=== PATIENT | male | born 1960 | race Caucasian/White ===

== ENCOUNTER 2024-06-03 05:14 | Outpatient (REF) | payer MEDICARE, SELFPAY ==
[2024-06-03 05:20] LABS: MANUAL DIFF FLAG NO
[2024-06-03 05:32] LABS: Basophils Percent Auto 0.2 % (0-2); Eosinophils Absolute Auto 0.1 X10*3/uL (0.0-0.4); Eosinophils Percent Auto 1.3 % (0-4); Hematocrit 39.5 % (42.0-52.0); Hemoglobin 13.6 g/dl (14.0-18.0); Imm Gran Abs Auto 0.08 X10*3/uL (0.00-0.03); Imm Gran Pct Auto 0.8 % (0.0-0.4); Lymphocytes Absolute Auto 1.1 X10*3/uL (1.2-4.9); Lymphocytes Percent Auto 10.8 % (20-40); Mean Corpuscular HGB Conc 34.4 g/dl (31.0-36.0); Mean Platelet Volume 8.9 fL (9.4-12.4); Monocytes Absolute Auto 0.8 X10*3/uL (0.1-1.2); Monocytes Percent Auto 7.8 % (2-11); Neutrophils Absolute Auto 8.1 x10*3/uL (2.0-8.3); Neutrophils Percent Auto 79.1 % (45-73); Platelet Count 176 X10*3/uL (160-400); Red Blood Count 4.39 X10*6/uL (4.60-5.80); White Blood Count 10.2 X10*3/uL (4.8-10.8)
[2024-06-03 05:53] LABS: Alanine Aminotransferase 31 U/L (0-40); Alkaline Phosphatase 76 U/L (39-117); Anion Gap 11 (12-20); Aspartate Amino Transferase 17 U/L (5-37); Bilirubin Total 0.4 mg/dL (0.0-1.0); Blood Urea Nitrogen 15 mg/dL (9-16); Calcium 8.9 mg/dL (8.4-10.2); Carbon Dioxide 29 mmol/L (22-29); Chloride 106 mmol/L (96-108); Estimated Glomerular Filt Rate > 60; Glucose Random 80 mg/dL (60-115); Potassium 4.2 mmol/L (3.3-5.1); Sodium 142 mmol/L (135-145); Total Protein 5.2 g/dL (6.5-8.0)
== END 2024-06-03 05:15 | disposition home or self-care (01) ==
LOC: HO.MMNH1L 05:14
PROVIDERS: Visit Provider Nurse Practitioner
DX: J44.9 Chronic obstructive pulmonary disease, unspecified (principal); J45.909 Unspecified asthma, uncomplicated
CPT/HCPCS: 36415; 80053; 85025

== ENCOUNTER 2024-06-07 06:20 | Outpatient (REF) | payer MEDICARE, SELFPAY ==
[2024-06-07 06:04] LABS: MANUAL DIFF FLAG NO
--- OUTSIDE RECORDS SUMMARY | 2024-06-07 06:33 | XMS_ITS | Continuity of Care Document ---
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 - Active VIOXX 25MGTABLET Take one tablet by mouth as needed. - Active Advance Directives Directive Yes / No Effective Date File Name No Information Encounters Encounter Description Practice Location Reason(s) For Visit Diagnoses Date Provider Providers Copied on Encounter [facility], [address], [place], [place], [id number], [place] tel:[phone] No Information No Information [facility], [address], [place], [place], [id number], [place] tel:[phone] [facility] RADICULITIS, BACK/LOWER LIMBS Erum Duncan. [address] [facility], [address] [place] [address], [id number], [place]. tel:[phone] [facility], [address], [place], [place], [id number], [place] tel:[phone] [facility] PAIN, BACKSCOLIOSIS ,KYPHOSCOLIOS IS, OTHER Erum Duncan. [address] [facility] [address], [place], [id number], [place]. tel:[phone] Family History Family Member Type Diagnosis Age At Onset No Information Payers Payer name Insurance type Covered constitution party ID Authoriza tikirill(s) No Information Social History Type Description Quantity Date Captured Comments Alcohol Use Details Unknown Caffeine Use Details Unknown Tobacco Use Status No Information Smoking Status No Information Sex Male Chief Complaint And Reason For Visit No Information Reason For Referral Reason For Referral No Information History Of Present Illness Encounter Date Complaint History Of Prese nt Illness No Information Functional Status Date Functional Assessmen t No Information Instructions Date Instruction Additional Infor mation No Information Assessments Type Assessment Date No Information Patient Care Teams Name Effective Dates (start - stop) Status Members No Information
--- OUTSIDE RECORDS SUMMARY | 2024-06-07 06:33 | XMS_ITS | Clinical Summary ---
Author Organization [facility] Address [address] [place] [address] Phone Care Team Providers Care Alarm Signaler Name Role Phone Tori Jackson MD Primary Care Provider [phone] Allergies Active Allergy Reactions Criticality Noted Date Comments Penicillin V Rash Low 05/15/2022 Medications Medication Sig Dispensed Refills Start Date End Date Status gabapentin (NEURONTIN) 300 mg capsule Take 1 capsule (300 mg total) by mouth at bedtime. 30 each 1 05/18/2024 Active fluticasone-umec lidinium-vilante rol (Trelegy Ellipta) 100-62.5-25 mcg inhaler Inhale 1 puff (100 mcg total) by mouth 1 (one) time each day. Rinse mouth with water after use to reduce aftertaste and incidence of candidiasis. Do not swallow. Active fluPHENAZine (PROLIXIN) 5 mg tablet Take 1 tablet (5 mg total) by mouth 1 (one) time each day. 06/01/2024 Active budesonide (PULMICORT) 0.5 mg/2 mL nebulizer solution Take 1 mL (0.25 mg total) by nebulization 2 (two) times a day. Rinse mouth with water after use to reduce aftertaste and incidence of candidiasis. Do not swallow. 06/01/2024 6 Active guaiFENesin (ROBITUSSIN) 100 mg/5 mL liquid Take 20 mL (400 mg total) by mouth 4 (four) times a day if needed for cough for up to 10 days. 06/01/2024 5 Active ipratropium-albu teroL (DUONEB) 0.5-2.5 mg/3 mL nebulizer solution Take 3 mL by nebulization every 6 (six) hours. 06/01/2024 6 Active polyethylene glycol (MIRALAX) 17 gram packet Take 17 g by mouth 1 (one) time each day. 06/02/2024 5 Active predniSONE (DELTASONE) 10 mg tablet Take 3 tablets (30 mg total) by mouth 1 (one) time each day for 3 days, THEN 2 tablets (20 mg total) 1 (one) time each day for 3 days, THEN 1 tablet (10 mg total) 1 (one) time each day for 3 days. 06/01/2024 5 Active ondansetron (ZOFRAN) 4 mg tablet Take 1 tablet (4 mg total) by mouth every 8 (eight) hours if needed. 5 Discontinue d(Entered in Error) fluPHENAZine (PROLIXIN) 5 mg tablet Take 1 tablet (5 mg total) by mouth 1 (one) time each day. 01/08/2024 5 Discontinue d(Entered in Error) dexAMETHasone (DECADRON) 4 mg tablet Take 1 tablet (4 mg total) by mouth 2 (two) times a day for 4 days. 8 each 05/09/2024 5 Discontinue d(Entered in Error) predniSONE (DELTASONE) 20 mg tablet Take 3 tabs (60mg) daily for 3 days, then take 2 tabs (40mg) daily for 3 days, then take 1 tab (20mg) daily for 3 days. 18 tablet 05/18/2024 5 Discontinue d(Entered in Error) Active Problems Problem Noted Date Diagnosed Date COPD exacerbation 05/22/2024 Squamous cell carcinoma of right lung 05/15/2022 Chronic obstructive pulmonary disease 01/06/2018 Hyperlipidemia 01/06/2018 Basal cell carcinoma 10/01/2016 Overview (02/29/2024): BCC 09/25 left cheek (nodular) Vitamin D deficiency 12/30/2015 Secondary polycythemia 12/23/2014 Schizophrenia 10/01/2011 Encounters Date Type Department Care Team Description 06/04/2024 Telephone Pulmonolgy - [address] [phone] Heather Freitas MD 05/27/2024 Telephone [facility] Hematology Oncology [address] [place] [phone] Nino Talbot MD 05/25/2024 Telephone Pulmonolgy [address] [phone] Heather Freitas MD 05/22/2024 6:41 AM EST - 06/02/2024 9:51 AM EST Hospital Encounter [facility] Obs [address] [place] [phone] Carissa Esquivel MD Nadler, Evan, MD Kabir, Sara, MD Singh, Gagan D, MD Joseph, Praveen, MD Discharge Disposition: Senior Living Facility 05/21/2024 3:43 PM EST - 05/22/2024 5:34 AM EST Emergency [facility] Emergency [address] [place] [phone] Catalino Holman MD Garvin, Gisselle Ritchie MD Shortness of breath (Primary Dx); Acute respiratory failure with hypoxia and hypercarbia (CMS/HCC); RSV (respiratory syncytial virus infection); History of lung cancer Discharge Disposition: [facility] 05/21/2024 Telephone Internal Medicine [address] [phone] Tori Jackson MD Not breathing well 05/18/2024 2:30 PM EST Office Visit Internal Medicine [address] [phone] Jostin Bhakta MD Lumbar radiculitis (Primary Dx); Hospital discharge follow-up 05/13/2024 Telephone Internal Medicine [address] [phone] Tori Jackson MD er follow up 05/09/2024 11:37 AM EST - 05/09/2024 3:10 PM EST Emergency [facility] Emergency [address] [place] [phone] Pain (Primary Dx); Sciatica associated with disorder of lumbar spine Discharge Disposition: Home or Self Care 05/03/2024 Telephone Internal Medicine [facility] [address] [phone] Tori Jackson MD Constipation (Constipation/And back pain) 05/03/2024 Telephone [facility] Hematology Oncology [address] [place] [phone] [place] 04/16/2024 Telephone Internal Medicine [facility] [address] [phone] Tori Jackson MD 03/09/2024 9:30 AM EDT Hospital Encounter [facility]ORIC ENCOUNTERS [facility] CONVERSION ONLY Nino Talbot MD 03/09/2024 9:17 AM EDT Hospital Encounter [facility]ORIC ENCOUNTERS [facility] CONVERSION ONLY Nino Talbot MD from Last 3 Months Surgical History Surgery Date Site/Laterality Comments HERNIA REPAIR PROCEDURE:INGUINAL HERNIA REPAIR Medical History Medical History Date Comments COPD (chronic obstructive pu lmonary disease) ([facility]) DX:COPD (chronic obstructive pulmonary disease) ([facility]) Hyperlipidemia DX:Hyperlipidemi a Vitamin D deficiency DX:Vitamin D deficiency Schizophrenia ([facility]/HCC) DX:Schiz ophrenia (HCC) Small bowel obstruction ([facility]/HCC) DX:Small bowel obstruction (HCC) Incarcerated right inguinal hernia DX:Incarcerated right inguinal hernia Lung cancer ([facility]) DX:Lung ca ncer ([facility]) Family History Medical History Relation Name Comments Arthritis Father Cancer Father's Sister Dementia Mother Hypertension Mother Cancer Mother's Brother Relation Name Status Comments Father Father's Sister Mother Mother's Brother Social History Tobacco Use Types Packs/Day Years Used Date Smoking Tobacco: Every Day Cigarettes Alcohol Use Standard Drinks/Week Comments Not Currently 0 (1 standard drink = 0.6 oz pur e alcohol) Sex and Gender Information Value Date Recorded Sex Assigned at Male 05/09/2024 12:35 PM EST Gender Identity Male 05/09/2024 12:35 PM EST Sexual Orientation Straight 05/09/2024 12 :35 PM EST Job Start Date Occupation Industry Not on file Not on file Not on file Obstetrics History Last Filed Vital Signs Vital Sign Reading Time Taken Comments Blood Pressure 128/84 06/02/2024 7:52 AM EST Pulse 93 06/02/2024 7:52 AM EST Temperature 36.8 ??C (98.2 ??F) 06/02/2024 7:52 AM ES T Respiratory Rate 18 06/02/2024 7:52 AM EST Oxygen Saturation 94% 06/02/2024 7:52 AM EST Inhaled Oxygen Concentration - - Weight 72.6 kg (160 lb) 05/25/2024 4:00 AM EST Height 177.8 cm (5' 10 ) 05/22/2024 4:30 AM EST Body Mass Index 22.96 05/22/2024 4:30 AM EST Plan of Treatment Upcoming Encounters Date Type Department Care Team (Late st Contact Info) Description 06/09/2024 9:30 AM EST Office Visit [facility] Hematology Oncology [address] [place] [phone] Nino Talbot MD [address] [place] [phone] 07/07/2024 11:15 AM EST Office Visit Internal Medicine - [place] [address] [phone] Tori Jackson MD [address] [phone] 07/08/2024 10:45 AM EST Office Visit Pulmonolgy - [place] [address] [phone] Heather Freitas MD [address] [phone] Health Maintenance Due Date Last Done Comments Pneumococcal Vaccine: Pediatrics (0 to 5 Years) and At-Risk Patients (6 to 64 Years) (1 of 2 - PCV) 1968 DTaP,Tdap,and Td Vaccines (1 - Tdap) 1981 Hepatitis A Vaccines (1 of 2 - Risk 2-dose series) 1981 Zoster Vaccines (1 of 2) 1981 COVID-19 Vaccine (3 - Pfizer risk series) 09/27/2020 08/30/2020, 08/09/2020 Colorectal Cancer Screening: Colonoscopy 04/14/2022 Depression Screening 04/14/2022 HIV Screening 04/14/2022 Hepatitis C Screening 04/14/2022 Lung Cancer Screening (Low Dose CT) 04/14/2022 Medicare Annual Wellness Visit 04/14/2022 Social Influencers of Health Screening 04/14/2022 RSV Immunization Patients 60 + Years Old (1 - Risk 60-74 years 1-dose series) 2022 Influenza Vaccine (#1) 2024 Cholesterol Screening (Lipid Panel) 12/31/2026 12/31/2021 HIB Vaccines Aged Out No longer eligi ble based on patient's age to complete this topic HPV Vaccines Aged Out No longer eligi ble based on patient's age to complete this topic Hepatitis B Vaccines Aged Out No long er eligible based on patient's age to complete this topic IPV Vaccines Aged Out No longer eligi ble based on patient's age to complete this topic MMR Vaccines Aged Out No longer eligi ble based on patient's age to complete this topic Meningococcal ACWY Vaccine Aged Out N o longer eligible based on patient's age to complete this topic RSV Immunization Patients Under 20 months Aged Out No longer eligible b ased on patient's age to complete this topic Varicella Vaccines Aged Out No longer eligible based on patient's age to complete this topic Procedures Procedure Name Priority Date/Time Associated Diagnosis Comments MAGNESIUM Routine 06/02/2024 6:07 AM EST BASIC METABOLIC PANEL Routine 06/02/2024 6:07 AM EST COMPLETE BLOOD COUNT Routine 06/02/2024 6:07 AM EST MAGNESIUM Routine 06/01/2024 9:37 AM EST BASIC METABOLIC PANEL Routine 06/01/2024 9:37 AM EST COMPLETE BLOOD COUNT Routine 06/01/2024 9:37 AM EST OXYGEN THERAPY, ADULT Routine 06/01/2024 8:02 AM EST OXYGEN THERAPY, ADULT Routine 05/31/2024 8:00 PM EST OXYGEN THERAPY, ADULT Routine 05/31/2024 8:02 AM EST MAGNESIUM Routine 05/31/2024 7:34 AM EST BASIC METABOLIC PANEL Routine 05/31/2024 7:34 AM EST COMPLETE BLOOD COUNT Routine 05/31/2024 7:34 AM EST OXYGEN THERAPY, ADULT Routine 05/30/2024 8:00 PM EST OXYGEN THERAPY, ADULT Routine 05/30/2024 8:00 AM EST TRIGLYCERIDES Timed 05/30/2024 6:17 AM EST MAGNESIUM Routine 05/30/2024 6:17 AM EST BASIC METABOLIC PANEL Routine 05/30/2024 6:17 AM EST COMPLETE BLOOD COUNT Routine 05/30/2024 6:17 AM EST OXYGEN THERAPY, ADULT Routine 05/29/2024 8:00 PM EST OXYGEN THERAPY, ADULT Routine 05/29/2024 7:27 PM EST OXYGEN THERAPY, ADULT Routine 05/29/2024 7:27 PM EST POCT GLUCOSE BLOOD Routine 05/29/2024 12 :17 PM EST POCT GLUCOSE BLOOD Routine 05/29/2024 6: 18 AM EST MAGNESIUM Routine 05/29/2024 5:49 AM EST BASIC METABOLIC PANEL Routine 05/29/2024 5:49 AM EST COMPLETE BLOOD COUNT Routine 05/29/2024 5:49 AM EST POCT GLUCOSE BLOOD Routine 05/29/2024 12 :11 AM EST OXYGEN THERAPY, ADULT Routine 05/28/2024 5:14 PM EST OXYGEN THERAPY, ADULT Routine 05/28/2024 5:14 PM EST OXYGEN THERAPY, ADULT Routine 05/28/2024 9:52 AM EST EXTUBATION Routine 05/28/2024 9:52 AM EST POCT GLUCOSE BLOOD Routine 05/28/2024 6: 57 AM EST TRIGLYCERIDES Timed 05/28/2024 5:59 AM EST MAGNESIUM Routine 05/28/2024 5:59 AM EST BASIC METABOLIC PANEL Routine 05/28/2024 5:59 AM EST COMPLETE BLOOD COUNT Routine 05/28/2024 5:59 AM EST POCT GLUCOSE BLOOD Routine 05/27/2024 5: 46 PM EST ARTERIAL BLOOD GAS STAT 05/27/2024 5: 06 PM EST POCT GLUCOSE BLOOD Routine 05/27/2024 12 :35 PM EST MAGNESIUM Routine 05/27/2024 6:37 AM EST BASIC METABOLIC PANEL Routine 05/27/2024 6:37 AM EST COMPLETE BLOOD COUNT Routine 05/27/2024 6:37 AM EST POCT GLUCOSE BLOOD Routine 05/27/2024 5: 49 AM EST POCT GLUCOSE BLOOD Routine 05/27/2024 12 :17 AM EST VENTILATOR, ADULT Routine 05/26/2024 8:0 0 PM EST POCT GLUCOSE BLOOD Routine 05/26/2024 6: 46 PM EST POCT GLUCOSE BLOOD Routine 05/26/2024 12 :59 PM EST VENTILATOR, ADULT Routine 05/26/2024 8:0 1 AM EST TRIGLYCERIDES Timed 05/26/2024 6:49 AM EST MAGNESIUM Routine 05/26/2024 6:49 AM EST BASIC METABOLIC PANEL Routine 05/26/2024 6:49 AM EST COMPLETE BLOOD COUNT Routine 05/26/2024 6:49 AM EST POCT GLUCOSE BLOOD Routine 05/26/2024 5: 35 AM EST POCT GLUCOSE BLOOD Routine 05/26/2024 2: 53 AM EST POCT GLUCOSE BLOOD Routine 05/26/2024 12 :55 AM EST POCT GLUCOSE BLOOD Routine 05/25/2024 9: 16 PM EST VENTILATOR, ADULT Routine 05/25/2024 8:0 0 PM EST POCT GLUCOSE BLOOD Routine 05/25/2024 2: 29 PM EST POCT GLUCOSE BLOOD Routine 05/25/2024 9: 04 AM EST VENTILATOR, ADULT Routine 05/25/2024 8:0 2 AM EST POCT GLUCOSE BLOOD Routine 05/25/2024 5: 55 AM EST BASIC METABOLIC PANEL Routine 05/25/2024 5:43 AM EST MAGNESIUM Routine 05/25/2024 4:58 AM EST COMPLETE BLOOD COUNT Routine 05/25/2024 4:58 AM EST POCT GLUCOSE BLOOD Routine 05/25/2024 3: 56 AM EST POCT GLUCOSE BLOOD Routine 05/25/2024 1: 05 AM EST POCT GLUCOSE BLOOD Routine 05/24/2024 9: 12 PM EST VENTILATOR, ADULT Routine 05/24/2024 8:0 1 PM EST POCT GLUCOSE BLOOD Routine 05/24/2024 2: 48 PM EST POCT GLUCOSE BLOOD Routine 05/24/2024 10 :03 AM EST VENTILATOR, ADULT Routine 05/24/2024 8:0 2 AM EST TRIGLYCERIDES Timed 05/24/2024 7:04 AM EST MAGNESIUM Routine 05/24/2024 7:04 AM EST BASIC METABOLIC PANEL Routine 05/24/2024 7:04 AM EST COMPLETE BLOOD COUNT Routine 05/24/2024 7:04 AM EST POCT GLUCOSE BLOOD Routine 05/24/2024 6: 45 AM EST VENTILATOR, ADULT Routine 05/24/2024 4:3 1 AM EST VENTILATOR, ADULT Routine 05/24/2024 4:3 1 AM EST POCT GLUCOSE BLOOD Routine 05/24/2024 3: 45 AM EST POCT GLUCOSE BLOOD Routine 05/23/2024 9: 36 PM EST POCT GLUCOSE BLOOD Routine 05/23/2024 3: 29 PM EST POCT GLUCOSE BLOOD Routine 05/23/2024 8: 32 AM EST ARTERIAL BLOOD GAS Routine 05/23/2024 8: 26 AM EST POCT GLUCOSE BLOOD Routine 05/23/2024 7: 30 AM EST PHOSPHORUS Timed 05/23/2024 5:59 AM EST MAGNESIUM Timed 05/23/2024 5:59 AM EST COMPLETE BLOOD COUNT Timed 05/23/2024 5:59 AM EST BASIC METABOLIC PANEL Timed 05/23/2024 5:59 AM EST POCT GLUCOSE BLOOD Routine 05/23/2024 2: 56 AM EST POCT GLUCOSE BLOOD Routine 05/22/2024 11 :20 PM EST VENTILATOR, ADULT Routine 05/22/2024 8:0 1 PM EST LEGIONELLA ANTIGEN URINE, EIA Routine 05/22/2024 3:08 PM EST POCT GLUCOSE BLOOD Routine 05/22/2024 3: 01 PM EST TYPE AND SCREEN Routine 05/22/2024 12:28 PM EST POCT GLUCOSE BLOOD Routine 05/22/2024 12 :23 PM EST CBC WITH AUTO DIFFERENTIAL Routine 05/22/2024 11:18 AM EST CBC AND DIFFERENTIAL Routine 05/22/2024 11:18 AM EST MRSA PCR Routine 05/22/2024 10:04 AM EST VENTILATOR, ADULT Routine 05/22/2024 9:2 3 AM EST VENTILATOR, ADULT Routine 05/22/2024 9:2 3 AM EST CULTURE RESPIRATORY WITH GRAM STAIN Routine 05/22/2024 9:14 AM EST CULTURE BLOOD STAT 05/22/2024 9:02 AM EST KASPER URINE CULTURE TUBE Routine 05/22/2024 9:00 AM EST URINALYSIS WITH REFLEX MICROSCOPIC AND CULTURE Routine 05/22/2024 9:00 AM EST URINALYSIS WITH REFLEX MICROSCOPIC AND CULTURE Routine 05/22/2024 9:00 AM EST DRUG ABUSE SCREEN 9A PANEL, URINE Routine 05/22/2024 9:00 AM EST CULTURE URINE Routine 05/22/2024 9:00 AM EST THYROID STIMULATING HORMONE WITH REFLEX FREE T4 Routine 05/22/2024 8:52 AM EST AMMONIA Routine 05/22/2024 8:52 AM EST TYPE AND SCREEN STAT 05/22/2024 8:52 AM EST LACTATE STAT 05/22/2024 8:52 AM EST CULTURE BLOOD STAT 05/22/2024 8:51 AM EST POCT GLUCOSE BLOOD Routine 05/22/2024 8: 45 AM EST ARTERIAL BLOOD GAS STAT 05/22/2024 8: 38 AM EST VITAMIN B12 AND FOLATE Add-On 05/22/2024 7:32 AM EST TROPONIN I HIGH SENSITIVITY STAT Add-on 05/22/2024 7:32 AM EST PHOSPHORUS STAT Add-on 05/22/2024 7:32 AM EST MAGNESIUM STAT Add-on 05/22/2024 7:32 AM EST COMPREHENSIVE METABOLIC PANEL STAT Add-on 05/22/2024 7:32 AM EST TRIGLYCERIDES Timed 05/22/2024 7:32 AM EST VENTILATOR, ADULT Routine 05/22/2024 6:5 2 AM EST VENTILATOR, ADULT Routine 05/22/2024 6:5 2 AM EST XR CHEST 1 VIEW STAT 05/22/2024 5:00 AM EST ED INTUBATION Routine 05/22/2024 4:03 AM EST ARTERIAL BLOOD GAS STAT 05/22/2024 3: 09 AM EST ME CRITICAL CARE 30-74 MINUTES Routine 05/22/2024 2:40 AM EST VENOUS BLOOD GAS STAT 05/22/2024 12:[address] HEAD STROKE WO CONTRAST STAT 05/22/2024 12:[address] ANGIO HEAD/NECK WO AND/OR W CONTRAST STAT 05/22/2024 12:[address] ANGIO CHEST WO AND/OR W CONTRAST STAT 05/21/2024 11:57 PM EST Shortness of breath RESPIRATORY VIRUS PANEL MOLECULAR STUDY STAT 05/21/2024 6:17 PM EST VENOUS BLOOD GAS STAT 05/21/2024 6:08 PM EST XR CHEST 1 VIEW STAT 05/21/2024 6:04 PM EST TROPONIN I HIGH SENSITIVITY STAT 05/21/2024 5:19 PM EST CBC WITH AUTO DIFFERENTIAL STAT 05/21/2024 4:14 PM EST B-TYPE NATRIURETIC PEPTIDE STAT 05/21/2024 4:14 PM EST MAGNESIUM STAT 05/21/2024 4:14 PM EST LIPASE STAT 05/21/2024 4:14 PM EST COMPREHENSIVE METABOLIC PANEL STAT 05/21/2024 4:14 PM EST CBC AND DIFFERENTIAL STAT 05/21/2024 4:14 PM EST TROPONIN I HIGH SENSITIVITY STAT 05/21/2024 4:14 PM EST ECG 12-LEAD STAT 05/21/2024 3:56 PM EST ME CRITICAL CARE 30-74 MINUTES Routine 05/21/2024 3:35 PM EST ECG ANNOTATED 05/21/2024 ECG OUTSIDE 05/21/2024 ECG OUTSIDE 05/21/2024 XR HIP 2-3 VIEWS LEFT STAT 05/09/2024 1:32 PM EST XR LUMBAR SPINE 2-3 VIEWS STAT 05/09/2024 1:32 PM EST XR KNEE 4+ VIEWS LEFT STAT 05/09/2024 1:32 PM EST VAS US DUPLEX LOWER EXT VENOUS LEFT Routine 05/09/2024 1:06 PM EST Pain CREATINE KINASE STAT 05/09/2024 12:43 PM EST COMPLETE BLOOD COUNT STAT 05/09/2024 12:43 PM EST BASIC METABOLIC PANEL STAT 05/09/2024 12:43 PM EST EXTERNAL XRAY REPORT 05/09/2024 ..MISCELLANEOUS REFERENCE LAB TEST 03/09/2024 HISTORICAL IMAGING SCAN RESULT 03/09/2024 LIPID PANEL Routine 12/31/2021 from Last 3 Months or Most Recently Relevant to Health Maintenance Results * (ABNORMAL) Complete blood count (06/02/2024 6:07 AM EST) Only the most recent of12 resultswithin the time period is included. WBC 9.1 4.0 - 10.5 K/mcL LAB HEMETOLOGY METHOD 06/02/2024 6:52 AM EST [facility] RBC 4.70 4.70 - 6.00 M/mcL LAB HEMETOLOGY METHOD 06/02/2024 6:52 AM EST [facility] Hemoglobin 14.8 13.5 - 18.0 g/dL LAB HEMETOLOGY METHOD 06/02/2024 6:52 AM EST [facility] Hematocrit 42.6 40.0 - 54.0 % LAB HEMETOLOGY METHOD 06/02/2024 6:52 AM EST [facility] MCV 90.6 78.0 - 100.0 FL LAB HEMETOLOGY METHOD 06/02/2024 6:52 AM EST [facility] MCH 31.4 25.0 - 33.0 pcg LAB HEMETOLOGY METHOD 06/02/2024 6:52 AM EST [facility] MCHC 34.7 32.0 - 36.0 g/dL LAB HEMETOLOGY METHOD 06/02/2024 6:52 AM EST [facility] RDW 15.5 12.1 - 17.7 % LAB HEMETOLOGY METHOD 06/02/2024 6:52 AM EST [facility] Platelets 204 150 - 450 K/mcL LAB HEMETOLOGY METHOD 06/02/2024 6:52 AM EST [facility] MPV 7.1(L) 7.4 - 11.4 FL LAB HEMETOLOGY METHOD 06/02/2024 6:52 AM EST [facility] Blood Venous blood specimen / Unknown Venipuncture / Unknown 06/02/2024 6:07 AM EST 06/02/2024 6:36 AM EST Carissa Esquivel MD LAB BLOOD ORDERABL ES [facility] [address] [place] [address], * Magnesium (06/02/2024 6:07 AM EST) Only the most recent of13 resultswithin the time period is included. Magnesium 1.9 1.7 - 2.8 mg/dL LAB CHEMISTRY METHOD 06/02/2024 7:08 AM EST [facility] Blood Venous blood specimen / Unknown Venipuncture / Unknown 06/02/2024 6:07 AM EST 06/02/2024 6:36 AM EST Carissa Esquivel MD LAB BLOOD ORDERABL ES [facility] [address] [place] [address], [place] [phone] * (ABNORMAL) Basic metabolic panel (06/02/2024 6:07 AM EST) Only the most recent of12 resultswithin the time period is included. Sodium 138 135 - 145 mmol/L LAB CHEMISTRY METHOD 06/02/2024 7:08 AM EST [facility] Potassium 3.4(L) 3.5 - 5.1 mmol/L LAB CHEMISTRY METHOD 06/02/2024 7:08 AM EST [facility] Chloride 102 98 - 107 mmol/L LAB CHEMISTRY METHOD 06/02/2024 7:08 AM [facility] CO2 29 24 - 32 mmol/L LAB CHEMISTRY METHOD 06/02/2024 7:08 AM EST [facility] Anion Gap 7 5 - 14 LAB CHEMISTRY METHOD 06/02/2024 7:08 AM [facility] Glucose 89 70 - 99 mg/dL LAB CHEMISTRY METHOD 06/02/2024 7:08 AM [facility] BUN 18 9 - 20 mg/dL LAB CHEMISTRY METHOD 06/02/2024 7:08 AM [facility] Creatinine 0.60(L) 0.70 - 1.30 mg/dL LAB CHEMISTRY METHOD 06/02/2024 7:08 AM EST [facility] eGFR 109 >=60 mL/min/1. 73m2 LAB CHEMISTRY METHOD 06/02/2024 7:08 AM [facility] Comment:Calculation based on the??Chronic Kidney Disease Epidemiology Collaboration (CKD-EPI) equation refit??without adjustment for race. BUN/Creatinine Ratio 30.0(H) 12.0 - 20.0 LAB CHEMISTRY METHOD 06/02/2024 7:08 AM [facility] Calcium 8.3(L) 8.4 - 10.2 mg/dL LAB CHEMISTRY METHOD 06/02/2024 7:08 AM EST [facility] Blood Venous blood specimen / Unknown Venipuncture / Unknown 06/02/2024 6:07 AM EST 06/02/2024 6:36 AM EST Carissa Esquivel MD LAB BLOOD ORDERABL ES [facility] [address] [place] [address], [place] [phone] * Triglyceride Monitoring (05/30/2024 6:17 AM EST) Only the most recent of5 resultswithin the time period is included. Triglycerides 121 <150 mg/dL LAB CHEMISTRY METHOD 05/30/2024 7:11 AM EST [facility] Blood Venous blood specimen / Unknown Venipuncture / Unknown 05/30/2024 6:17 AM EST 05/30/2024 6:29 AM EST Carissa Esquivel MD LAB BLOOD ORDERABL ES Performing Organization Address City/[facility]/ZIP Co de Phone Number [facility] [address] [place] [address], [place] [phone] * POCT Glucose, blood (05/29/2024 12:17 PM EST) Only the most recent of33 resultswithin the time period is included. Glucose POCT 144 70 - 199 mg/dL 05/29/2024 12:18 PM EST [facility] Comment: Fasting Reference Range: ? 70-99 mg/dL Non-Fasting Reference Range: 70-199 mg/dL Blood Capillary blood specimen / Unknown 05/29/2024 12:17 PM EST 05/29/2024 12:19 PM EST Jonnathan Ballesteros MD LAB POINT OF CARE TE ST DOCKED DEVICE UNSOLICITED RESULTS [facility] [address] [place] [address], [place] [phone] * (ABNORMAL) Arterial blood gas (05/27/2024 5:06 PM EST) Only the most recent of4 resultswithin the time period is included. pH, Arterial 7.51(HH) 7.35 - 7.45 pH LAB BLOOD GAS METHOD 05/27/2024 5:22 PM EST [facility] pCO2, Arterial 38 35 - 45 mmHg LAB BLOOD GAS METHOD 05/27/2024 5:22 PM EST [facility] pO2, Arterial 199(H) 80 - 105 mmHg LAB BLOOD GAS METHOD 05/27/2024 5:22 PM [facility] HCO3, Arterial 31.6(H) 22.0 - 26.0 mmol/L LAB BLOOD GAS METHOD 05/27/2024 5:22 PM [facility] O2 Sat, Arterial 99.8(H) 95.0 - 98.0 % LAB BLOOD GAS METHOD 05/27/2024 5:22 PM EST [facility] Base Excess, Arterial 8.5(H) 0.0 - 2.0 mmol/L LAB BLOOD GAS METHOD 05/27/2024 5:22 PM EST [facility] Florin Test Pass Pass, Unresponsi ve, Line 05/27/2024 5:22 PM EST [facility] Blood Arterial blood specimen / Unknown Arterial Puncture / Unknown 05/27/2024 5:06 PM EST 05/27/2024 5:12 PM EST Jonnathan Ballesteros MD LAB BLOOD ORDERABLES [facility] [address] [place] [address], * Phosphorus (05/23/2024 5:59 AM EST) Only the most recent of2 resultswithin the time period is included. Pathologist [facility] Phosphorus 3.3 2.5 - 4.5 mg/dL LAB CHEMISTRY METHOD 05/23/2024 7:11 AM EST [facility] Blood Venous blood specimen / Unknown Venipuncture / Unknown 05/23/2024 5:59 AM EST 05/23/2024 6:27 AM EST Vesna Solorzano NP LAB BLOOD ORDERABLES Performing Organization Address [facility] Co de Phone Number [facility] [address] [place] [address], * Legionella antigen urine, EIA (05/22/2024 3:08 PM EST) [facility] Legionella Urinary Antigen Negative Negative 05/26/2024 11:48 AM EST [facility] Comment: Presumptive negative for L. pneumophila serogroup 1 antigen in urine, suggesting no recent or current infection. Legionnaires' disease cannot be ruled out since other serogroups and species may also cause disease. Test performed at [facility], [address] [place], [place] ??[address] ? [phone] Nany Jolly MD, PhD - [employer] Urine Urine specimen from urinary conduit / Unknown Non-blood Collection / Unknown 05/22/2024 3:08 PM EST 05/22/2024 3:13 PM EST Vesna Solorzano NP LAB URINE ORDERABLES Performing Organization Address City/[facility]/ZIP Co de Phone Number [facility] [address] [address] * Type and screen (05/22/2024 12:28 PM EST) Only the most recent of2 resultswithin the time period is included. [facility] ABO Group O 05/22/2024 1:59 PM EST [facility] Rh Type Positive 05/22/2024 1:59 PM EST [facility] Antibody Screen Negative 05/22/2024 1:59 PM EST [facility] Blood Venous blood specimen / Unknown Venipuncture / Unknown 05/22/2024 12:28 PM EST 05/22/2024 12:32 PM EST Carissa Esquivel MD LAB BLOOD BANK CHERIE T ORDERABLES [facility] [address] [place] [address], * (ABNORMAL) CBC auto differential (05/22/2024 11:18 AM EST) Only the most recent of2 resultswithin the time period is included. WBC 7.6 4.0 - 10.5 K/mcL LAB HEMETOLOGY METHOD 05/22/2024 11:31 AM [facility] RBC 4.22(L) 4.70 - 6.00 M/mcL LAB HEMETOLOGY METHOD 05/22/2024 11:31 AM [facility] Hemoglobin 13.1(L) 13.5 - 18.0 g/dL LAB HEMETOLOGY METHOD 05/22/2024 11:31 AM [facility] Hematocrit 39.2(L) 40.0 - 54.0 % LAB HEMETOLOGY METHOD 05/22/2024 11:31 AM [facility] MCV 93.1 78.0 - 100.0 FL LAB HEMETOLOGY METHOD 05/22/2024 11:31 AM EST [facility] MCH 31.2 25.0 - 33.0 pcg LAB HEMETOLOGY METHOD 05/22/2024 11:31 AM [facility] MCHC 33.5 32.0 - 36.0 g/dL LAB HEMETOLOGY METHOD 05/22/2024 11:31 AM [facility] RDW 16.0 12.1 - 17.7 % LAB HEMETOLOGY METHOD 05/22/2024 11:31 AM [facility] Platelets 144(L) 150 - 450 K/mcL LAB HEMETOLOGY METHOD 05/22/2024 11:31 AM [facility] MPV 6.6(L) 7.4 - 11.4 FL LAB HEMETOLOGY METHOD 05/22/2024 11:31 AM [facility] Neutrophils Relative 81.5(H) 44.0 - 74.0 % LAB HEMETOLOGY METHOD 05/22/2024 11:31 AM [facility] Lymphocytes Relative 8.4(L) 20.0 - 48.0 % LAB HEMETOLOGY METHOD 05/22/2024 11:31 AM [facility] Monocytes Relative 9.6 2.0 - 12.0 % LAB HEMETOLOGY METHOD 05/22/2024 11:31 AM [facility] Eosinophils Relative 0.0 0.0 - 6.0 % LAB HEMETOLOGY METHOD 05/22/2024 11:31 AM [facility] Basophils Relative 0.5 0.0 - 2.0 % LAB HEMETOLOGY METHOD 05/22/2024 11:31 AM [facility] Neutrophils Absolute 6.20 1.80 - 7.80 K/mcL LAB HEMETOLOGY METHOD 05/22/2024 11:31 AM [facility] Lymphocytes Absolute 0.60(L) 1.00 - 3.20 K/mcL LAB HEMETOLOGY METHOD 05/22/2024 11:31 AM [facility] Monocytes Absolute 0.70 0.00 - 0.80 K/mcL LAB HEMETOLOGY METHOD 05/22/2024 11:31 AM [facility] Eosinophils Absolute 0.00 0.00 - 0.50 K/mcL LAB HEMETOLOGY METHOD 05/22/2024 11:31 AM [facility] Basophils Absolute 0.00 0.00 - 0.20 K/mcL LAB HEMETOLOGY METHOD 05/22/2024 11:31 AM EST [facility] Blood Venous blood specimen / Unknown Venipuncture / Unknown 05/22/2024 11:18 AM EST 05/22/2024 11:26 AM EST Vesna Solorzano NP LAB BLOOD ORDERABLES [facility] [address] [place] [address], [place] [phone] * MRSA molecular study (05/22/2024 10:04 AM EST) Pathologist [facility] MRSA Screen PCR Not Detected Not Detected LAB MOLECULAR DIAGNOSTICS METHOD 05/22/2024 12:07 PM EST [facility] Swab Both anterior nares / Unknown Non-blood Collection / Unknown 05/22/2024 10:04 AM EST 05/22/2024 10:08 AM EST Vesna Solorzano NP LAB MICROBIOLOGY - G ENERAL ORDERABLES [facility] [address] [place] [address], [place] [phone] * (ABNORMAL) Culture respiratory with gram stain (05/22/2024 9:14 AM EST) Pathologist [facility] Culture, Respiratory No potential pathogens in significant amounts including MRSA/Staph Aureus or Pseudomonas 05/24/2024 9:46 AM EST [facility] Gram Stain Result Greater than 25 WBCS and less than 10 Epithelial cells(A) 05/24/2024 9:46 AM EST [facility] Gram Stain Result Many WBCs present(A) 05/24/2024 9:46 AM [facility] Gram Stain Result Few Epithelial cells(A) 05/24/2024 9:46 AM EST [facility] Gram Stain Result Few Gram negative bacilli(A) 05/24/2024 9:46 AM EST [facility] Gram Stain Result Moderate Gram positive cocci(A) 05/24/2024 9:46 AM EST [facility] Sputum, induced Tracheal structure / Unknown 05/22/2024 9:14 AM EST 05/22/2024 9:20 AM EST Vesna Solorzano NP LAB MICROBIOLOGY - G ENERAL ORDERABLES Performing Organization Address City/[facility]/ZIP Co de Phone Number [facility] [address] [place] [address], [place] [phone] * Blood Culture, Peripheral Draw #2 (05/22/2024 9:02 AM EST) Only the most recent of2 resultswithin the time period is included. Culture, Blood No growth at 5 days 05/27/2024 10:01 AM [facility] Blood Venous blood specimen / Unknown Venipuncture / Unknown 05/22/2024 9:02 AM EST 05/22/2024 9:18 AM EST Vesna Solorzano NP LAB MICROBIOLOGY - G ENERAL ORDERABLES Performing Organization Address City/[facility]/ZIP Co de Phone Number [facility] [address] [place] [address], [place] [phone] * (ABNORMAL) Urinalysis with reflex microscopic and culture (05/22/2024 9:00 AM EST) Color, Urine Yellow Yellow, Colorless LAB URINALYSIS - AUTOMATED METHOD 05/22/2024 9:42 AM [facility] Clarity, Urine Hazy(A) Clear LAB URINALYSIS - AUTOMATED METHOD 05/22/2024 9:42 AM [facility] Specific [place] Urine >1.060(H) 1.005 - 1.030 LAB URINALYSIS - AUTOMATED METHOD 05/22/2024 9:42 AM [facility] pH, Urine 5.0(A) 5.0 - 8.0 pH LAB URINALYSIS - AUTOMATED METHOD 05/22/2024 9:42 AM [facility] Leukocytes, Urine Trace(A) Negative WBCs/mcL LAB URINALYSIS - AUTOMATED METHOD 05/22/2024 9:42 AM [facility] Nitrite, Urine Negative Negative LAB URINALYSIS - AUTOMATED METHOD 05/22/2024 9:42 AM [facility] Protein, Urine 100(A) Negative mg/dL LAB URINALYSIS - AUTOMATED METHOD 05/22/2024 9:42 AM [facility] Glucose, Urine Negative Negative mg/dL LAB URINALYSIS - AUTOMATED METHOD 05/22/2024 9:42 AM [facility] Ketones, Urine Negative Negative mg/dL LAB URINALYSIS - AUTOMATED METHOD 05/22/2024 9:42 AM [facility] Blood, Urine Moderate(A) Negative mg/dL LAB URINALYSIS - AUTOMATED METHOD 05/22/2024 9:42 AM [facility] RBC, Urine 118(H) 0 - 3 /HPF LAB URINALYSIS - AUTOMATED METHOD 05/22/2024 9:42 AM [facility] WBC, Urine 7(H) 0 - 5 /HPF LAB URINALYSIS - AUTOMATED METHOD 05/22/2024 9:42 AM [facility] Squamous Epithelial, Urine 0 0 - 5 /HPF LAB URINALYSIS - AUTOMATED METHOD 05/22/2024 9:42 AM [facility] Mucus, Urine Present(A) Not Present /HPF LAB URINALYSIS - AUTOMATED METHOD 05/22/2024 9:42 AM [facility] Urine Urine specimen from urinary conduit / Unknown Non-blood Collection / Unknown 05/22/2024 9:00 AM EST 05/22/2024 9:15 AM EST Vesna Solorzano NP LAB URINE ORDERABLES Performing Organization Address City/[facility]/ZIP Co de Phone Number [facility] [address] [place] [address], * [place] urine culture tube (05/22/2024 9:00 AM EST) Pathologist [facility] Extra Tube Hold for add-ons. 05/22/2024 11:01 AM EST [facility] Comment:Auto resulted. Urine Urine specimen from urinary conduit / Unknown Non-blood Collection / Unknown 05/22/2024 9:00 AM EST 05/22/2024 9:15 AM EST Vesna Solorzano NP LAB URINE ORDERABLES Performing Organization Address [facility]/ZIP Co de Phone Number [facility] [address] [place] [address], * Drug abuse screen 9a panel, urine (05/22/2024 9:00 AM EST) Pathologist [facility] Amphetamine Screen, Ur Negative Negative LAB CHEMISTRY METHOD 05/22/2024 10:10 AM [facility] Barbiturate Screen, Ur Negative Negative LAB CHEMISTRY METHOD 05/22/2024 10:10 AM [facility] Benzodiazepine Screen, Ur Negative Negative LAB CHEMISTRY METHOD 05/22/2024 10:10 AM [facility] Comment:Method not sensitive to Lorazepam and derivatives. Include clinical correlation in test interpretation. Opiate Screen, Ur Negative Negative LAB CHEMISTRY METHOD 05/22/2024 10:10 AM EST [facility] Cannabinoid (THC) Screen, Ur Negative Negative LAB CHEMISTRY METHOD 05/22/2024 10:10 AM EST [facility] Benzoylecgonine, Ur Negative Negative LAB CHEMISTRY METHOD 05/22/2024 10:10 AM EST [facility] Fentanyl, Ur Negative Negative LAB CHEMISTRY METHOD 05/22/2024 10:10 AM EST [facility] Oxycodone Screen, Ur Negative Negative LAB CHEMISTRY METHOD 05/22/2024 10:10 AM EST [facility] PCP Scrn, Ur Negative Negative LAB CHEMISTRY METHOD 05/22/2024 10:10 AM EST [facility] Urine Urine specimen from urinary conduit / Unknown Non-blood Collection / Unknown 05/22/2024 9:00 AM EST 05/22/2024 9:15 AM EST Narrative [facility] - 05/22/2024 10:10 AM EST URINE DRUGS OF ABUSE CUTOFF CONCENTRATIONS: Amphetamines ?1000 ng/mL Barbituates ?200 ng/mL Benzodiazepine ?? 200 ng/mL Cannabinoids ?50 ng/mL Benzoylecgonine ??300 ng/mL Opiates ?300 ng/mL PCP ? 25 ng/mL Vesna Solorzano NP LAB URINE ORDERABLES [facility] [address] [place] [address], * Culture urine (05/22/2024 9:00 AM EST) Pathologist [facility] Culture, Urine No growth 05/23/2024 10:10 AM EST [facility] Urine Urine specimen from urinary conduit / Unknown Non-blood Collection / Unknown 05/22/2024 9:00 AM EST 05/22/2024 9:42 AM EST Vesna Solorzano NP LAB MICROBIOLOGY - G ENERAL ORDERABLES [facility] [address] [place] [address], * Thyroid stimulating hormone with reflex free T4 (05/22/2024 8:52 AM EST) TSH 1.25 0.45 - 5.33 mcIU/mL LAB CHEMISTRY METHOD 05/22/2024 10:08 AM EST [facility] Blood Venous blood specimen / Unknown Venipuncture / Unknown 05/22/2024 8:52 AM EST 05/22/2024 9:16 AM EST Vesna Solorzano NP LAB BLOOD ORDERABLES [facility] [address] [place] [address], [place] [phone] * (ABNORMAL) Lactate, whole blood (05/22/2024 8:52 AM EST) [facility] Lactate, Whole Blood 2.5(H) 0.5 - 2.2 mmol/L LAB BLOOD GAS METHOD 05/22/2024 9:27 AM EST [facility] Blood Venous blood specimen / Unknown Venipuncture / Unknown 05/22/2024 8:52 AM EST 05/22/2024 9:17 AM EST Vesna Solorzano NP LAB BLOOD ORDERABLES Performing Organization Address City/[facility]/ZIP Co de Phone Number [facility] [address] [place] [address], [place] [phone] * Ammonia (05/22/2024 8:52 AM EST) Pathologist [facility] Ammonia 05/22/2024 10:41 AM EST [facility] Comment:Unable to obtain a v alid result Blood Venous blood specimen / Unknown Venipuncture / Unknown 05/22/2024 8:52 AM EST 05/22/2024 9:17 AM EST Narrative [facility] - 05/22/2024 10:41 AM EST Deisy Mcgill RN notified at 1041 am Vesna Solorzano NP LAB BLOOD ORDERABLES [facility] [address] [place] [address], [place] [phone] * Troponin I high sensitivity (05/22/2024 7:32 AM EST) Only the most recent of3 resultswithin the time period is included. Pathologist [facility] High Sensitivity Troponin I 10 0 - 20 ng/L LAB CHEMISTRY METHOD 05/22/2024 8:47 AM EST [facility] Blood Venous blood specimen / Unknown Venipuncture / Unknown 05/22/2024 7:32 AM EST 05/22/2024 7:39 AM EST Narrative [facility] - 05/22/2024 8:47 AM EST HSTnI results stratify to HIGH RISK category if any value >100 ng/L or delta at 1 hour is greater than or equal to 15 ng/L (male and female). Note: Delta values are not applicable if symptoms began more than 12 hours pre-arrival. Risk stratification should include the calculation of the HEART score. The testing method is an immunoenzymatic assay manufactured by [employer] and performed on the [employer] DxI 800. Vesna Solorzano NP LAB BLOOD ORDERABLES Performing Organization Address City/[facility]/ZIP Co de Phone Number [facility] [address] [place] [address], * Vitamin B12 and folate (05/22/2024 7:32 AM EST) [facility] Vitamin B-12 317 180 - 914 pcg/mL LAB CHEMISTRY METHOD 05/22/2024 8:47 AM EST [facility] Folate 10.0 >=3.0 ng/ml LAB CHEMISTRY METHOD 05/22/2024 8:47 AM EST [facility] Blood Venous blood specimen / Unknown Venipuncture / Unknown 05/22/2024 7:32 AM EST 05/22/2024 7:39 AM EST Vesna Rashad BURT LAB BLOOD ORDERABLES [facility] [address] [place] [address], * (ABNORMAL) Comprehensive metabolic panel (05/22/2024 7:32 AM EST) Only the most recent of2 resultswithin the time period is included. Sodium 137 135 - 145 mmol/L LAB CHEMISTRY METHOD 05/22/2024 8:30 AM EST [facility] Potassium 4.6 3.5 - 5.1 mmol/L LAB CHEMISTRY METHOD 05/22/2024 8:30 AM EST [facility] Chloride 97(L) 98 - 107 mmol/L LAB CHEMISTRY METHOD 05/22/2024 8:30 AM EST [facility] CO2 32 24 - 32 mmol/L LAB CHEMISTRY METHOD 05/22/2024 8:30 AM EST [facility] Anion Gap 8 5 - 14 LAB CHEMISTRY METHOD 05/22/2024 8:30 AM EST [facility] Glucose 124 70 - 199 mg/dL LAB CHEMISTRY METHOD 05/22/2024 8:30 AM EST [facility] BUN 13 9 - 20 mg/dL LAB CHEMISTRY METHOD 05/22/2024 8:30 AM EST [facility] Creatinine 0.70 0.70 - 1.30 mg/dL LAB CHEMISTRY METHOD 05/22/2024 8:30 AM EST [facility] eGFR 104 >=60 mL/min/1. 73m2 LAB CHEMISTRY METHOD 05/22/2024 8:30 AM EST [facility] Comment:Calculation based on the??Chronic Kidney Disease Epidemiology Collaboration (CKD-EPI) equation refit??without adjustment for race. BUN/Creatinine Ratio 18.6 12.0 - 20.0 LAB CHEMISTRY METHOD 05/22/2024 8:30 AM EST [facility] Calcium 8.1(L) 8.4 - 10.2 mg/dL LAB CHEMISTRY METHOD 05/22/2024 8:30 AM EST [facility] AST (SGOT) 9 5 - 40 unit/L LAB CHEMISTRY METHOD 05/22/2024 8:30 AM EST [facility] ALT (SGPT) 6(L) 7 - 52 unit/L LAB CHEMISTRY METHOD 05/22/2024 8:30 AM EST [facility] Alkaline Phosphatase 82 34 - 104 unit/L LAB CHEMISTRY METHOD 05/22/2024 8:30 AM EST [facility] Total Protein 5.7(L) 6.4 - 8.5 g/dL LAB CHEMISTRY METHOD 05/22/2024 8:30 AM EST [facility] Albumin 3.6 3.5 - 5.0 g/dL LAB CHEMISTRY METHOD 05/22/2024 8:30 AM EST [facility] Total Bilirubin 0.2(L) 0.3 - 1.0 mg/dL LAB CHEMISTRY METHOD 05/22/2024 8:30 AM EST [facility] Blood Venous blood specimen / Unknown Venipuncture / Unknown 05/22/2024 7:32 AM EST 05/22/2024 7:39 AM EST Vesna Solorzano NP LAB BLOOD ORDERABLES [facility] [address] [place] [address], * XR Chest 1 View (05/22/2024 5:00 AM EST) Only the most recent of2 resultswithin the time period is included. Anatomical Region Laterality Modality Body Radiographic Yolis ging 05/22/2024 8:24 AM EST Impressions 05/22/2024 8:25 AM EST Again noted is significant scarring and volume loss in the right lung apex. ??ET tube in adequate position above the adriana. ??NG tube follows normal course and terminates beyond view. ??No acute infiltrate. -------- FINAL REPORT -------- Dictated By: Aidan Barnett Dictated Date: 05/22/2024 08:24 ET Assigned Physician: Aidan Barnett Reviewed and Electronically Signed By: Aidan Barnett Signed Date: 05/22/2024 08:25 ET Workstation ID: [id number] Transcribed By: Self Edit Transcribed Date: 05/22/2024 08:24 ET Narrative 05/22/2024 8:25 AM EST Frontal view of the chest COMPARISON: Chest radiograph yesterday INDICATION: Postintubation Procedure Note Aidan Barnett MD - 05/22/2024 Frontal view of the chest COMPARISON: Chest radiograph yesterday INDICATION: Postintubation IMPRESSION: Again noted is significant scarring and volume loss in the right lungapex. ET tube in adequate position above the adriana. NG tube followsnormal course and terminates beyond view. No acute infiltrate. -------- FINAL REPORT -------- Dictated By: Aidan Barnett Dictated Date: 05/22/2024 08:24 ET Assigned Physician: Aidan Barnett Reviewed and Electronically Signed By: Aidan Barnett Signed Date: 05/22/2024 08:25 ET Workstation ID: [id number] Transcribed By: Self Edit Transcribed Date: 05/22/2024 08:24 ET Gisselle Harmon MD IMG XR PROCEDURE S * ED INTUBATION (05/22/2024 4:03 AM EST) Narrative Gisselle Harmon MD - 05/22/2024 4:03 AM EST LIONEL Luque ? 05/22/2024 ??5:31 AM Intubation Date/Time: 05/22/2024 4:03 AM Performed by: LIONEL Luque Authorized by: Catalino Holman MD ?? Consent: ??Consent obtained: ??Verbal ??Consent given by: ??Patient ??Risks discussed: ??Hypoxia ??Alternatives discussed: ??Delayed treatment and no treatment [place] protocol: ??Procedure explained and questions answered to patient or proxy's satisfaction: yes ?Relevant documents present and verified: yes ?Test results available: yes ?Imaging studies available: yes ?Required blood products, implants, devices, and special equipment available: yes ?Immediately prior to procedure, a time out was called: yes ?Patient identity confirmed: ??Arm band, hospital-assigned identification number and verbally with patient Pre-procedure details: ??Indications: airway protection and respiratory failure ?Patient status: ??Awake ??Look externally: no concerns ?Mallampati score: ??III ??Obstruction: none ?Neck mobility: normal ?Pharmacologic strategy: RSI ?Induction agents: ??Ketamine ??Paralytics: ??Rocuronium Procedure details: ??Preoxygenation: ??Nonrebreather mask ??CPR in progress: no ?Number of attempts: ??2 (complicated by laryngospasm) Successful intubation attempt details: ??Intubation method: ??Oral ??Intubation technique: video assisted ?Laryngoscope blade: ??Mac 3 ??Bougie used: yes ?Grade view: III ?Tube size (mm): ??7.5 ??Tube type: ??Cuffed ??Tube visualized through cords: yes ?? First unsuccessful intubation attempt details: ??Intubation method: ??Oral ??Intubation technique: ??Video assisted ??Laryngoscope blade: ??Mac 3 ??Bougie used: yes ?Grade view: III ?Tube size (mm): ??7.5 ??Tube type: ??Cuffed ??Ventilation between 1st and 2nd attempt: no ?Tube visualized through cords: yes ?? Placement assessment: ??ETT at teeth/gumline (cm): ??22 ??Tube secured with: ??ETT grider ??Breath sounds: ??Equal ??Placement verification: colorimetric ETCO2, CXR verification, direct visualization, equal breath sounds and tube exhalation ?Placement verification comment: ??Difficult visualization of the adriana on portable chest x-ray, likely secondary to his underlying lung pathology, were able to confirm estimated area of his adriana based on prior imaging, appears to be in good position. ??CXR findings: ??Appropriate position Post-procedure details: ??Procedure completion: ??Tolerated well, no immediate complications Comments: ?? Sedation maintained with propofol Catalino Holman MD IN CLINIC/BEDSIDE OR DERABLES * ME CRITICAL CARE 30-74 MINUTES (05/22/2024 2:40 AM EST) Narrative Gisselle Harmon MD - 05/22/2024 2:40 AM EST LIONEL Luque ? 05/22/2024 ??5:31 AM Critical Care Performed by: LIONEL Luque Authorized by: Gisselle Harmon MD ?? Critical care provider statement: ??Critical care time (minutes): ??45 ??Critical care was necessary to treat or prevent imminent or life-threatening deterioration of the following conditions: ??Respiratory failure and COOK SHIP failure or compromise ??Critical care was time spent personally by me on the following activities: ??Development of treatment plan with patient or surrogate, discussions with consultants, examination of patient, obtaining history from patient or surrogate, ordering and performing treatments and interventions, ordering and review of laboratory studies, ordering and review of radiographic studies, pulse oximetry and re-evaluation of patient's condition ??Care discussed with: admitting provider ?? Gisselle Harmon MD IN CLINIC/BEDSID E ORDERABLES * (ABNORMAL) Venous blood gas (05/22/2024 12:54 AM EST) Only the most recent of2 resultswithin the time period is included. pH, [place] 7.23(L) 7.32 - 7.42 pH 05/22/2024 2:12 AM EST [facility] pCO2, [place] 99(HH) 41 - 51 mmHg 05/22/2024 2:12 AM EST [facility] pO2, [place] 83(H) 25 - 40 mmHg 05/22/2024 2:12 AM EST [facility] HCO3, Venous 31.7(H) 22.0 - 26.0 mmol/L 05/22/2024 2:12 AM EST [facility] O2 Sat, [place] 97.7 % 05/22/2024 2:12 AM EST [facility] Base Excess, [place] 8.9(H) -2.0 - 2.0 mmol/L 05/22/2024 2:12 AM EST [facility] Blood Venous blood specimen / Unknown Venipuncture / Unknown 05/22/2024 12:54 AM EST 05/22/2024 1:50 AM EST Leonor FLOWERS LAB BLOOD ORDERABLES [facility] [address] [place] [address], * CT Angio Head/Neck wo and/or w Contrast (05/22/2024 12:30 AM EST) Anatomical Region Laterality Modality Head and Neck Computed Tomogra phy 05/22/2024 1:02 AM EST Impressions 05/22/2024 1:02 AM EST Patent head and neck CTA. This document has been electronically signed by: Alexander Soto MD on 05/22/2024 01:02:04 Narrative 05/22/2024 1:[address] angiography head and neck with contrast. 3D Postprocessing. Comparison: CT - CT ANGIO CHEST WO AND OR W CONTRAST - 05/21/24 23:55 EST Findings: Motion and streak artifact limit evaluation. Minimal calcified plaque in the right carotid bulb results in less than 50% stenoses. Patent cervical vasculature. Intracranial arteries are patent. No aneurysm, dissection, or occlusion. The visualized thyroid gland is unremarkable. No cervical mass or fluid collection. Emphysema. Ill-defined masslike consolidation in the right upper lung, please see prior report. Osteopenia. Multilevel spondylosis with osteophytosis, uncovertebral hypertrophy, facet arthropathy and degenerative disc disease. Age-indeterminate compression deformity at T3. Procedure Note Alexander Soto MD - 05/22/2024 CT angiography head and neck with contrast. 3D Postprocessing. Comparison: CT - CT ANGIO CHEST WO AND OR W CONTRAST - 05/21/24 23:55 EST Findings: Motion and streak artifact limit evaluation. Minimal calcified plaque in the right carotid bulb results in less than 50% stenoses. Patent cervical vasculature. Intracranial arteries are patent. No aneurysm, dissection, or occlusion. The visualized thyroid gland is unremarkable. No cervical mass or fluid collection. Emphysema. Ill-defined masslike consolidation in the right upper lung, please see prior report. Osteopenia. Multilevel spondylosis with osteophytosis, uncovertebral hypertrophy, facet arthropathy and degenerative disc disease. Age-indeterminate compression deformity at T3. IMPRESSION: Patent head and neck CTA. This document has been electronically signed by: Alexander Soto MD on 05/22/2024 01:02:[address] PROCEDURES * CT Head Stroke wo Contrast (05/22/2024 12:30 AM EST) Anatomical Region Laterality Modality Head and Neck Computed Tomogra phy 05/22/2024 12:4 8 AM EST Addenda Addendum by Alexander Soto MD on 05/22/2024 12:50 AM EST ADDENDUM: This report was discussed with Concepcion Strong RN on May 22, 2024 00:49:00 EST. This document has been electronically signed by: Janis Castaneda on 05/22/2024 00:50:47 Impressions 05/22/2024 12:48 AM EST 1. No acute intracranial findings. 2. Additional findings as described. This document has been electronically signed by: Alexander Soto MD on 05/22/2024 00:48:47 Narrative 05/22/2024 12:[address] head without contrast Comparison: None Findings: Motion and streak artifact limit evaluation. Scattered subcortical and periventricular hypoattenuation, likely in keeping with chronic small vessel ischemic disease. Parenchymal volume loss with compensatory prominence of the ventricles and CSF spaces. No acute territorial infarction, intracranial hemorrhage, midline shift or hydrocephalus. Hyperdense dural reflections and intracranial vasculature, suggesting recent intravenous contrast administration. Mucosal thickening throughout the paranasal sinuses. The orbits are unremarkable. There is no acute fracture. Procedure Note Alexander Soto MD - 05/22/2024 CT head without contrast Comparison: None Findings: Motion and streak artifact limit evaluation. Scattered subcortical and periventricular hypoattenuation, likely in keeping with chronic small vessel ischemic disease. Parenchymal volume loss with compensatory prominence of the ventricles and CSF spaces. No acute territorial infarction, intracranial hemorrhage, midline shift or hydrocephalus. Hyperdense dural reflections and intracranial vasculature, suggesting recent intravenous contrast administration. Mucosal thickening throughout the paranasal sinuses. The orbits are unremarkable. There is no acute fracture. IMPRESSION: 1. No acute intracranial findings. 2. Additional findings as described. This document has been electronically signed by: Alexander Soto MD on 05/22/2024 00:48:[address] PROCEDURES * CT Angio Chest wo and/or w Contrast (05/21/2024 11:57 PM EST) Anatomical Region Laterality Modality Body Computed Tomogra phy 05/22/2024 12:2 5 AM EST Impressions 05/22/2024 12:25 AM EST 1. No evidence of PE. 2. Emphysema. 3. Ill-defined subtle bilateral tree-in-bud nodularity, can be seen with aspiration or endobronchial pneumonia. 4. Suspect malignancy with possible posttreatment changes/scarring in the right upper lobe, please see above. This document has been electronically signed by: Alexander Soto MD on 05/22/2024 00:25:51 Narrative 05/22/2024 12:[address] angiography chest with contrast. 3D Postprocessing. Comparison: None Findings: Cardiomegaly without significant pericardial effusion. Coronary artery calcifications. The thoracic aorta is normal caliber. No acute pulmonary embolus. Mediastinal adenopathy, for example an AP window node measuring 1.4 cm. Mild nodular thickening of the trachea proximal bronchi more so in the right. May be further evaluated with direct visual inspection. Emphysema. Ill-defined subtle bilateral tree-in-bud nodularity, can be seen with aspiration or endobronchial pneumonia. Complete masslike consolidation and/or scarring in the right upper lobe with bronchiectasis and rightward mediastinal shifting. Underlying malignancy and/or posttreatment changes are considered. Correlation clinically as well with priors available are recommended. Cholelithiasis. Distended stomach. Osteopenia. Age-indeterminate multilevel compression deformities example at T3, T7 and T9. Additional findings as described. Procedure Note Alexander Soto MD - 05/22/2024 CT angiography chest with contrast. 3D Postprocessing. Comparison: None Findings: Cardiomegaly without significant pericardial effusion. Coronary artery calcifications. The thoracic aorta is normal caliber. No acute pulmonary embolus. Mediastinal adenopathy, for example an AP window node measuring 1.4 cm. Mild nodular thickening of the trachea proximal bronchi more so in the right. May be further evaluated with direct visual inspection. Emphysema. Ill-defined subtle bilateral tree-in-bud nodularity, can be seen with aspiration or endobronchial pneumonia. Complete masslike consolidation and/or scarring in the right upper lobe with bronchiectasis and rightward mediastinal shifting. Underlying malignancy and/or posttreatment changes are considered. Correlation clinically as well with priors available are recommended. Cholelithiasis. Distended stomach. Osteopenia. Age-indeterminate multilevel compression deformities example at T3, T7 and T9. Additional findings as described. IMPRESSION: 1. No evidence of PE. 2. Emphysema. 3. Ill-defined subtle bilateral tree-in-bud nodularity, can be seen with aspiration or endobronchial pneumonia. 4. Suspect malignancy with possible posttreatment changes/scarring inthe right upper lobe, please see above. This document has been electronically signed by: Alexander Stoo MD on 05/22/2024 00:25:[address] [facility] CT PROCEDURES * (ABNORMAL) Respiratory virus panel molecular study (05/21/2024 6:17 PM EST) Adenovirus Detection by PCR Not Detected Not Detected LAB MICROBIOLOGY METHOD 05/21/2024 7:32 PM EST [facility] Influenza A PCR Not Detected Not Detected LAB MICROBIOLOGY METHOD 05/21/2024 7:32 PM EST [facility] Influenza B PCR Not Detected Not Detected LAB MICROBIOLOGY METHOD 05/21/2024 7:32 PM EST [facility] Coronavirus 229E Not Detected Not Detected LAB MICROBIOLOGY METHOD 05/21/2024 7:32 PM [facility] Coronavirus HKU1 Not Detected Not Detected LAB MICROBIOLOGY METHOD 05/21/2024 7:32 PM [facility] Coronavirus OC43 Not Detected Not Detected LAB MICROBIOLOGY METHOD 05/21/2024 7:32 PM [facility] Coronavirus NL63 Not Detected Not Detected LAB MICROBIOLOGY METHOD 05/21/2024 7:32 PM [facility] Parainfluenza Virus 1 Not Detected Not Detected LAB MICROBIOLOGY METHOD 05/21/2024 7:32 PM [facility] Parainfluenza Virus 2 Not Detected Not Detected LAB MICROBIOLOGY METHOD 05/21/2024 7:32 PM [facility] Parainfluenza Virus 3 Not Detected Not Detected LAB MICROBIOLOGY METHOD 05/21/2024 7:32 PM [facility] Parainfluenza Virus 4 Not Detected Not Detected LAB MICROBIOLOGY METHOD 05/21/2024 7:32 PM [facility] RSV PCR Detected(A ) Not Detected LAB MICROBIOLOGY METHOD 05/21/2024 7:32 PM [facility] Human Metapneumovirus A and B Not Detected Not Detected LAB MICROBIOLOGY METHOD 05/21/2024 7:32 PM [facility] Rhinovirus/Entero virus Not Detected Not Detected LAB MICROBIOLOGY METHOD 05/21/2024 7:32 PM [facility] Bordetella pertussis Not Detected Not Detected LAB MICROBIOLOGY METHOD 05/21/2024 7:32 PM [facility] Bordetella parapertussis Not Detected Not Detected LAB MICROBIOLOGY METHOD 05/21/2024 7:32 PM [facility] Mycoplasma pneumo by PCR Not Detected Not Detected LAB MICROBIOLOGY METHOD 05/21/2024 7:32 PM [facility] Chlamydia pneumoniae Not Detected Not Detected LAB MICROBIOLOGY METHOD 05/21/2024 7:32 PM EST [facility] SARS COV-2 Not Detected Not Detected LAB MICROBIOLOGY METHOD 05/21/2024 7:32 PM EST [facility] Swab Both anterior nares / Unknown Non-blood Collection / Unknown 05/21/2024 6:17 PM EST 05/21/2024 6:31 PM EST Narrative [facility] - 05/21/2024 7:32 PM EST Testing was performed using the [email or web address] Respiratory Pathogen PCR Assay. All results must be correlated with the clinical findings. Results should not be used as the sole basis for diagnosis. False Negative results may occur from the presence of sequence variants in the region targeted by the assay or the presence of inhibitors. Results may be affected by concurrent antiviral/antimicrobial therapy or levels of organisms that are below the limit of detection. Catalino Holman MD LAB MICROBIOLOGY - G ENERAL ORDERABLES Performing Organization Address City/[facility]/ZIP Co de Phone Number [facility] [address] [place] [address], [place] [phone] * B-type natriuretic peptide (05/21/2024 4:14 PM EST) BNP 67 <=100 pcg/mL LAB CHEMISTRY METHOD 05/21/2024 5:25 PM EST [facility] Blood Venous blood specimen / Unknown Venipuncture / Unknown 05/21/2024 4:14 PM EST 05/21/2024 4:36 PM EST Catalino Holman MD LAB BLOOD ORDERABLES [facility] [address] [place] [address], [place] [phone] * Lipase (05/21/2024 4:14 PM EST) Lipase 14 13 - 75 unit/L LAB CHEMISTRY METHOD 05/21/2024 5:15 PM EST [facility] Blood Venous blood specimen / Unknown Venipuncture / Unknown 05/21/2024 4:14 PM EST 05/21/2024 4:36 PM EST Catalino Holman MD LAB BLOOD ORDERABLES [facility] [address] [place] [address], * ECG 12 lead (05/21/2024 3:56 PM EST) Ventricular Rate ECG 99 BPM GEMUSE Atrial Rate 99 BPM GEMUSE P-R Interval 166 ms GEMUSE QRS Duration 76 ms GEMUSE Q-T Interval 352 ms GEMUSE QTc 451 ms GEMUSE P Wave [place] 77 degrees GEMUSE R [place] 45 degrees GEMUSE T [place] 67 degrees GEMUSE ECG Interpretation Sinus rhythm with occasional Premature ventricular complexes Right atrial enlargement Abnormal ECG When compared with ECG of 25-DEC-2021 17:13, Previous ECG has undetermined rhythm, needs review Right bundle branch block is no longer Present Confirmed by HARISH SIEGEL ([id number]) on 05/22/2024 5:39:12 PM GEMUSE 05/21/2024 3:56 PM EST 05/22/2024 5:39 PM EST Catalino Holman MD ECG ORDERABLES Performing Organization Address City/[facility]/ZIP Co de Phone Number GEMUSE * ME CRITICAL CARE 30-74 MINUTES (05/21/2024 3:35 PM EST) Narrative Catalino Holman MD - 05/21/2024 3:35 PM EST Catalino Holman MD ? 05/27/2024 ??3:42 PM Critical Care Performed by: Catalino Holman MD Authorized by: Catalino Holman MD ?? Critical care provider statement: ??Critical care time (minutes): ??80 ??Critical care time was exclusive of: ??Separately billable procedures and treating other patients ??Critical care was necessary to treat or prevent imminent or life-threatening deterioration of the following conditions: ??Respiratory failure ??Critical care was time spent personally by me on the following activities: ??Development of treatment plan with patient or surrogate, discussions with consultants, pulse oximetry, re-evaluation of patient's condition, review of old charts, ordering and review of radiographic studies, ordering and review of laboratory studies, ordering and performing treatments and interventions, examination of patient, evaluation of patient's response to treatment and obtaining history from patient or surrogate Comments: ?? 64-year-old male presents with chief complaint of shortness of breath, found to have elevated CO2 on the blood gas with acidosis concerning for acute hypercapnic respiratory failure secondary to COPD exacerbation requiring noninvasive mechanical ventilation with BiPAP; emergent motion, frequent reassessments and admission to the hospital. Catalino Holman MD IN CLINIC/BEDSIDE OR DERABLES * ECG-Outside (05/21/2024) Only the most recent of2 resultswithin the time period is included. Provider Onbase MD ECG ORDERABLES * ECG-Annotated (05/21/2024) Provider Onbase MD ECG ORDERABLES * XR Knee 4+ Views Left (05/09/2024 1:32 PM EST) Anatomical Region Laterality Modality Lower Extremities, Knee [facility] 05/09/2024 2:39 PM EST Impressions 05/09/2024 2:41 PM EST No acute fracture or dislocation. No joint effusion or loose bodies. Mild anterior superior patellar enthesophyte. Diffuse osteopenia. -------- FINAL REPORT -------- Dictated By: Mac Burton Dictated Date: 05/09/2024 14:39 ET Assigned Physician: Mac Burton Reviewed and Electronically Signed By: Mac Burton Signed Date: 05/09/2024 14:41 ET Workstation ID: [id number] Transcribed By: Self Edit Transcribed Date: 05/09/2024 14:39 ET Narrative 05/09/2024 2:41 PM EST EXAMINATION: Left knee or views. CLINICAL INDICATION: Pain. No trauma. COMPARISON: None. FINDINGS: The tricompartmental joint spaces maintain normal. No visible acute fracture, dislocation or subluxation seen. No bony erosive changes. No joint effusion. There is anterior superior patellar enthesophyte. Mild osteopenia. The soft tissues are normal. Procedure Note Mac Burton MD - 05/09/2024 EXAMINATION: Left knee or views. CLINICAL INDICATION: Pain. No trauma. COMPARISON: None. FINDINGS: The tricompartmental joint spaces maintain normal. No visibleacute fracture, dislocation or subluxation seen. No bony erosive changes.No joint effusion. There is anterior superior patellar enthesophyte. Mildosteopenia. The soft tissues are normal. IMPRESSION: No acute fracture or dislocation. No joint effusion or loose bodies. Mild anterior superior patellar enthesophyte. Diffuse osteopenia. -------- FINAL REPORT -------- Dictated By: Mac Burton Dictated Date: 05/09/2024 14:39 ET Assigned Physician: Mac Burton Reviewed and Electronically Signed By: Mac Burton Signed Date: 05/09/2024 14:41 ET Workstation ID: [id number] Transcribed By: Self Edit Transcribed Date: 05/09/2024 14:39 ET Elvin FLOWERS IMG XR PROCEDURES * XR Hip 2-3 Views Left (05/09/2024 1:32 PM EST) Anatomical Region Laterality Modality Lower Extremities, Hip Left Radiograp hic Imaging 05/09/2024 1:52 PM EST Impressions 05/09/2024 1:53 PM EST Normal AP pelvis and left hip exam. -------- FINAL REPORT -------- Dictated By: Mac Burton Dictated Date: 05/09/2024 13:52 ET Assigned Physician: Mac Burton Reviewed and Electronically Signed By: Mac Burton Signed Date: 05/09/2024 13:53 ET Workstation ID: [id number] Transcribed By: Self Edit Transcribed Date: 05/09/2024 13:52 ET Narrative 05/09/2024 1:53 PM EST EXAMINATION: Left hip 2-3 views. CLINICAL INDICATION: Left hip pain. No trauma. COMPARISON: None. FINDINGS: AP pelvis: There is normal symmetry of bilateral SI joints and hip joints. No acute fracture or dislocation seen. The soft tissues are normal. AP and frog-leg views left hip reveal no visible acute fracture or dislocation. The hip joint space is maintained normal. No bony erosive changes or loose bodies. The soft tissues are normal. Procedure Note Mac Burton MD - 05/09/2024 EXAMINATION: Left hip 2-3 views. CLINICAL INDICATION: Left hip pain. No trauma. COMPARISON: None. FINDINGS: AP pelvis: There is normal symmetry of bilateral SI joints andhip joints. No acute fracture or dislocation seen. The soft tissues arenormal. AP and frog-leg views left hip reveal no visible acute fracture ordislocation. The hip joint space is maintained normal. No bony erosivechanges or loose bodies. The soft tissues are normal. IMPRESSION: Normal AP pelvis and left hip exam. -------- FINAL REPORT -------- Dictated By: Mac Burton Dictated Date: 05/09/2024 13:52 ET Assigned Physician: Mac Burton Reviewed and Electronically Signed By: Mac Burton Signed Date: 05/09/2024 13:53 ET Workstation ID: [id number] Transcribed By: Self Edit Transcribed Date: 05/09/2024 13:52 ET Elvin FLOWERS IMG XR PROCEDURES * XR Lumbar Spine 2-3 Views (05/09/2024 1:32 PM EST) Anatomical Region Laterality Modality Spine, L-spine Radiographic Yolis ging 05/09/2024 1:50 PM EST Impressions 05/09/2024 1:52 PM EST No acute fracture or dislocation lumbar spine. There is mild osteopenia. Prominent cases distention of small bowel loops and colon. -------- FINAL REPORT -------- Dictated By: Mac Burton Dictated Date: 05/09/2024 13:50 ET Assigned Physician: Mac Burton Reviewed and Electronically Signed By: Mac Burton Signed Date: 05/09/2024 13:52 ET Workstation ID: [id number] Transcribed By: Self Edit Transcribed Date: 05/09/2024 13:50 ET Narrative 05/09/2024 1:52 PM EST EXAMINATION: Lumbar spine 3 views. CLINICAL INDICATION: Trauma. Pain 12 days. COMPARISON: None. FINDINGS: There is normal lumbar lordosis. The vertebral heights, alignment and disc heights are normal. There is minimal dextroscoliosis likely positional. No acute fracture, dislocation lytics process seen. There is mild osteopenia. The paravertebral soft tissues are normal. SI joints are symmetrical and normal. There is moderate gas and stool in the colon and mildly distended small bowel loops with gas Procedure Note Mac Burton MD - 05/09/2024 EXAMINATION: Lumbar spine 3 views. CLINICAL INDICATION: Trauma. Pain 12 days. COMPARISON: None. FINDINGS: There is normal lumbar lordosis. The vertebral heights,alignment and disc heights are normal. There is minimal dextroscoliosislikely positional. No acute fracture, dislocation lytics process seen.There is mild osteopenia. The paravertebral soft tissues are normal. SIjoints are symmetrical and normal. There is moderate gas and stool in thecolon and mildly distended small bowel loops with gas IMPRESSION: No acute fracture or dislocation lumbar spine. There is mild osteopenia. Prominent cases distention of small bowel loops and colon. -------- FINAL REPORT -------- Dictated By: Mac Burton Dictated Date: 05/09/2024 13:50 ET Assigned Physician: Mac Burton Reviewed and Electronically Signed By: Mac Burton Signed Date: 05/09/2024 13:52 ET Workstation ID: [id number] Transcribed By: Self Edit Transcribed Date: 05/09/2024 13:50 ET Elvin FLOWERS IMG XR PROCEDURES * Vascular US duplex lower extremity venous left (05/09/2024 1:06 PM EST) Anatomical Region Laterality Modality Vascular, Abdomen Ultrasound 05/09/2024 1:12 PM EST Impressions 05/09/2024 1:13 PM EST Normal left lower extremity venous study. There is no evidence of DVT. -------- FINAL REPORT -------- Dictated By: Mac Burton Dictated Date: 05/09/2024 13:12 ET Assigned Physician: Mac Burton Reviewed and Electronically Signed By: Mac Burton Signed Date: 05/09/2024 13:13 ET Workstation ID: [id number] Transcribed By: Self Edit Transcribed Date: 05/09/2024 13:12 ET Narrative 05/09/2024 1:13 PM EST EXAMINATION: Ultrasound duplex left lower extremity. CLINICAL INDICATION: Pain and swelling. COMPARISON: None. TECHNIQUE: Grayscale, color Doppler and duplex waveform imaging of left lower extremity venous Doppler exam performed. FINDINGS: There is normal color flow, respiratory variation and Doppler waveform of left common femoral, superficial femoral, junction of common femoral and greater saphenous, gastrocnemius, popliteal, posterior tibial and peroneal veins. The soft tissues are normal. Procedure Note Mac Burton MD - 05/09/2024 EXAMINATION: Ultrasound duplex left lower extremity. CLINICAL INDICATION: Pain and swelling. COMPARISON: None. TECHNIQUE: Grayscale, color Doppler and duplex waveform imaging of leftlower extremity venous Doppler exam performed. FINDINGS: There is normal color flow, respiratory variation and Dopplerwaveform of left common femoral, superficial femoral, junction of commonfemoral and greater saphenous, gastrocnemius, popliteal, posterior tibialand peroneal veins. The soft tissues are normal. IMPRESSION: Normal left lower extremity venous study. There is no evidence of DVT. -------- FINAL REPORT -------- Dictated By: Mac Burton Dictated Date: 05/09/2024 13:12 ET Assigned Physician: Mac Burton Reviewed and Electronically Signed By: Mac Burton Signed Date: 05/09/2024 13:13 ET Workstation ID: [id number] Transcribed By: Self Edit Transcribed Date: 05/09/2024 13:12 ET Elvin FLOWERS CV VASCULAR PROCEDUR ES * Creatine kinase (05/09/2024 12:43 PM EST) Total CK 105 22 - 269 unit/L LAB CHEMISTRY METHOD 05/09/2024 1:25 PM EST [facility] Blood Venous blood specimen / Unknown Venipuncture / Unknown 05/09/2024 12:43 PM EST 05/09/2024 12:57 PM EST Elvin FLOWERS LAB BLOOD ORDERABLES [facility] [address] [place] [address], * External Xray Report (05/09/2024) Anatomical Region Laterality Modality Radiographic Yolis ging Provider [facility] IMG XR PROCEDURE S * HISTORICAL IMAGING SCAN RESULT (03/09/2024) Anatomical Region Laterality Modality Ultrasound Provider Onbase MD IMG US PROCEDURES * Miscellaneous reference lab test (03/09/2024) Provider Onbase LAB BLOOD ORDERABLES * (ABNORMAL) Lipid panel (12/31/2021) LDL/HDL Ratio 4 0 - 4 Triglycerides 109 0 - 150 mg/dL Cholesterol 132 0 - 200 mg/dL HDL 32(A) 40 mg/dL LDL Cholesterol 79 0 - 100 mg/dL Blood Venous blood specimen / Unknown Historical Provider LAB BLOOD ORDERAB LES from Last 3 Months or Most Recently Relevant to Health Maintenance Additional Health Concerns Infection Onset Date Last Indicated RSV 05/21/2024 05/21/2024 Advance Directives * Full Code - Default (Latest Code Status on File) Date Activated Date Inactivated Comments 05/22/2024 6:49 AM 06/02/2024 12:12 PM This is ord er is used when code status has not been discussed with the patient, or code status is otherwise unknown/unconfirmed To update the patient's code status, place a code status order. Do not modify or discontinue any currently active code status orders. Care Teams Alarm Signaler Relationship Specialty Start Date End Date Tori Jackson MD [address] [place] [address] [address] [place] [phone] PCP - General Internal Medicine 07/03/16
--- OUTSIDE RECORDS SUMMARY | 2024-06-07 06:33 | XMS_ITS | Encounter Summary ---
Author Organization [facility] Address [address] [place] [address] Care Team Providers Care Land Planner Name Role Phone Tori Jackson MD Primary Care Provider [phone] Encounter Details Date Type Department Care Team (Late st Contact Info) Description 06/04/2024 Telephone [facility] 175 [facility] [address] [place] [phone] Heather Freitas MD 175 [facility] [address] [place] [address] Social History Tobacco Use Types Packs/Day Years [...] file Not on file Not on file documented as of this encounter Progress Notes * Akil Quintero MA - 06/04/2024 11:54 AM EST Requesting nicotine patch. Please advise. NOV 12/16/23 * Hakeem Zepeda - 06/04/2024 10:50 AM EST Patient brother called to request nicotine patches for brother. Can these be send to his pharmacy. please advice documented in this encounter Plan of Treatment Upcoming Encounters Date Type Department Care Team (Late st Contact Info) Description 06/09/2024 9:30 AM EST Office Visit [facility] Hematology Oncology [address] [place] [phone] Nino Talbot MD [address] [place] [phone] 07/07/2024 11:15 AM EST Office Visit Internal Medicine - [place] [address] [phone] Tori Jackson MD [address] [phone] 07/08/2024 10:45 AM EST Office Visit Pulmonolgy - [place] [address] [phone] Heather Freitas MD [address] [phone] documented as of this encounter Visit Diagnoses Not on filedocumented in this encounter Additional Health Concerns Infection Onset Date Last Indicated Resolved Time RSV 05/21/2024 05/21/2024 documented as of this encounter Care Teams Land Planner Relationship Specialty Start Date End Date Tori Jackson MD [address] [phone] PCP - General Internal Medicine 07/03/16 documented as of this encounter
--- OUTSIDE RECORDS SUMMARY | 2024-06-07 06:34 | XMS_ITS | Encounter Summary ---
Author Organization [facility] Address [address] [place] [address] Care Team Providers Care Bell Hole Digger Name Role Phone Tori Jackson MD Primary Care Provider [phone] Encounter Details Date Type Department Care Team (Late st Contact Info) Description 05/27/2024 Telephone [facility] Hematology Oncology [address] [place] [phone] Nino Talbot MD [address] [place] [phone] Social History Tobacco Use Types Packs/Day Years [...] as of this encounter Progress Notes * Lisa Gaffney - 05/27/2024 9:56 AM EST Brother Vaughn is calling to let Dr. Soria know pt is admitted to [facility] with RSV will be there a while documented in this encounter Plan of Treatment Upcoming Encounters Date Type Department Care Team (Late st Contact Info) Description 06/09/2024 9:30 AM EST Office Visit [facility] Hematology Oncology [address] [place] [phone] Nino Talbot MD [address] [place] [phone] 07/07/2024 11:15 AM EST Office Visit Internal Medicine - [place] [address] [phone] Tori Jackson MD [address] [phone] 07/08/2024 10:45 AM EST Office Visit Pulmonolgy [facility] [address] [phone] Heather Freitas MD [address] [phone] documented as of this encounter Visit Diagnoses Not on filedocumented in this encounter Additional Health Concerns Infection Onset Date Last Indicated Resolved Time RSV 05/21/2024 05/21/2024 documented as of this encounter Care Teams Bell Hole Digger Relationship Specialty Start Date End Date Tori Jackson MD [address] [phone] PCP - General Internal Medicine 07/03/16 documented as of this encounter
--- OUTSIDE RECORDS SUMMARY | 2024-06-07 06:34 | XMS_ITS | Encounter Summary ---
Author Organization [facility] Address [address] [place] [address] Care Team Providers Care Hair Cutter Name Role Phone Tori Jackson MD Primary Care Provider [phone] Encounter Details Date Type Department Care Team (Late st Contact Info) Description 03/09/2024 9:17 AM EDT Hospital Encounter TH HISTORIC ENCOUNTERS EASTERN CONVERSION ONLY Nino Talbot MD [address] [place] [phone] Social History Tobacco Use Types Packs/Day Years [...] on file documented as of this encounter Last Filed Vital Signs Vital Sign Reading Time Taken Comments Blood Pressure 96/62 03/09/2024 9:34 AM EDT Sitting Left arm Pulse 86 03/09/2024 9:34 AM EDT Temperature - - Respiratory Rate - - Oxygen Saturation - - Inhaled Oxygen Concentration - - Weight 73 kg (161 lb) 03/09/2024 9:34 AM EDT Height 177.8 cm (5' 10 ) 10/08/2023 9:4 1 AM EDT Body Mass Index 23.1 12/05/2023 2:00 PM EDT documented in this encounter Progress Notes * Nino Talbot MD - 03/09/2024 9:30 AM EDT Diagnosis/treatment: Stage IIIB T4N2 squamous cell lung cancer, PD-L1 TPS 20, diagnosed in 04/2022. He started chemoradiation with weekly carboplatin/Taxol on 07/08/2022. His last day of radiation was on 08/22/2022. He completed carboplatin/Taxol x7 weekly infusions. He started durvalumab maintenance on 10/14/2022. Interval history: The patient is a 63-year-old smoking gentleman with a chronic cough and chronic mild dyspnea on exertion who developed a worsened cough in 09/2021 and worsened dyspnea on exertion in fall 2021. A chest x-ray on 03/12/2022 showed an extensive right upper lobe infiltrate with an underlying mass not excluded. A chest CT with contrast on 04/03/2022 showed a 17 cm extensive right upper lobe heterogeneous mixed attenuation parenchymal process with irregular branching and spiculated morphology with an associated right suprahilar mass. The mass abutted the mediastinal pleural surface, major fissure, and apical pleural surface. There was right upper lobe bronchovascular encasement, right upper lobe pul monary artery intraluminal narrowing, and right upper lobe bronchial effacement. He underwent a bronchoscopy and transpired a biopsy of the right upper lobe mass on 04/22/[address] Freitas in the pathology revealed a squamous cell carcinoma, PD-L1 TPS 20. A PET/CT on 06/11/2022 showed uptake in the right upper lobe mass and in paratracheal nodes with SUVup to 20.7. A brain MRI with contrast on 06/12/2022 was unremarkable. He tolerated chemoradiation with weekly carboplatin/Taxol reasonably well. He reported mild fatigue. He reported intermittent mild nausea, relieved by ondansetron. A C/A/P CT with IV and oral contrast on 09/24/2022 showed a decreasing 4.2 x 3.4 cm right upper lobemass with improved aeration of the right upper lobe. There was decreasing mediastinal and right hilar lymphadenopathy. A subcarinal node decreased from 1.0 cm to 0.4 cm. A right paratracheal node decreased from 2.1 cm to 0.8 cm. He tolerated durvalumab reasonably well. He reported intermittent mild fatigue. He reported intermittent nausea, relieved by ondansetron, which resolved and has not recurred.. He reported intermittent pruritus on his face, which resolved and has not recurred. He reported mild constipation, relievedby stool softener twice daily. He developed intermittent transient paresthesias in his right distal forearm and 1st-3rd right fingers in 05/2023, which resolved without intervention. A C/A/P CT with IV contrast and without oral contrast on 09/17/2023 showed a decreasing 2.2 x 2.0 cm right upper lobe mass (compared to 4.2 x 3.4 cm on the 09/24/2022 CT). There was increased fluid in the right middle lobe with near complete atelectasis in the right middle lobe. There was stable subcentimeter mediastinal lymph nodes. There was a new T3 compression fracture at the inferior endplate resulting in 20% height loss. A C/A/P CT with IV contrast and without oral contrast on 03/03/2024 showed stable thoracic findings. There were stable mild T3, T7, and T9 compression fractures. He reports a persistent nonproductive cough and moderate dyspnea on exertion. He denies hemoptysis. He reports an intact appetite. He reports a 20 pound weight loss in 2021. His weight was stable over the last interval. He denies headaches or visual changes. He denies nausea or abdominal pain. He denies unusual bone pain. Past medical history: COPD, hyperlipidemia, vitamin D deficiency, schizophrenia. Current medications: Fluoxetine. Allergies: Penicillin causes a rash. Family history: There is no history of cancer in his parents, brother, her 2 sisters. Social history: The patient is disabled due to schizophrenia. He is single. He has no children. He started smoking age 17 and smoked 2 packs a day. He denies alcohol use. Review of systems: The remainder of a 10 point review of systems was unremarkable. Physical examination: HEENT: Sclerae anicteric, normal oropharyngeal membrane. Neck: No lymphadenopathy. Lungs: Clear to auscultation. Heart: No murmurs. Abdomen: Soft, nontender, no organomegaly or masses. Extremities: No edema. Skin: No rash. Neurologic: Normal gait. Assessment/plan: The patient is a 63-year-old smoking gentleman who presented in 04/2022 with a stage IIIB T4N2 squamous cell lung cancer. We planned for definitive chemoradiation with weekly carboplatin/Taxol, followed by durvalumab maintenance. I discussed potential adverse effects of chemotherapy, including fatigue, reversible hair loss, nausea, constipation, diarrhea, peripheral neuropathy, cytopenias, and infection. I discussed potentialadverse effects of durvalumab, including fatigue, nausea, diarrhea, rash, pruritus, arthralgias, and autoimmune events, including hypothyroidism, pneumonitis, hepatitis, and colitis. He tolerated chemoradiation with weekly carboplatin/Taxol reasonably well. He reported mild fatigue. He reported intermittent mild nausea, relieved by ondansetron. Restaging CT in mid-09/2022 showed a decreasing primary tumor and decreasing thoracic lymphadenopathy. He tolerated durvalumab reasonably well. He reported intermittent mild fatigue. He reported intermittent nausea, relieved by ondansetron, which resolved and has not recurred.. He reported intermittent pruritus on his face, which resolved and has not recurred. He reported mild constipation, relievedby stool softener twice daily. He developed intermittent transient paresthesias in his right distal forearm and 1st-3rd right fingers in 05/2023, which resolved without intervention. Restaging CTs in early 09/2023 showed a decreasing primary tumor and stable mediastinal findings. Restaging CTs in late 02/2024 showed stable findings. documented in this encounter Plan of Treatment Upcoming Encounters Date Type Department Care Team (Late st Contact Info) Description 06/09/2024 9:30 AM EST Office Visit [facility] Hematology Oncology [address] [place] [phone] Nino Talbot MD [address] [place] [phone] 07/07/2024 11:15 AM EST Office Visit Internal Medicine - [place] [address] [phone] Tori Jackson MD [address] [phone] 07/08/2024 10:45 AM EST Office Visit Pulmonolgy - [place] [address] [phone] Heather Freitas MD [address] [place] [address] documented as of this encounter Procedures Procedure Name Priority Date/Time Associated Diagnosis Comments HISTORICAL IMAGING SCAN RESULT 03/09/2024 ..MISCELLANEOUS REFERENCE LAB TEST 03/09/2024 documented in this encounter Results * Miscellaneous reference lab test (03/09/2024) Provider Onbase MD LAB BLOOD ORDERABLES * HISTORICAL IMAGING SCAN RESULT (03/09/2024) Anatomical Region Laterality Modality Ultrasound Provider Onbase MD IMG US PROCEDURES documented in this encounter Visit Diagnoses Not on filedocumented in this encounter Additional Health Concerns Infection Onset Date Last Indicated Resolved Time Respiratory Rule-Out 05/21/2024 05/21/2024 025 7:32 PM EST COVID-19 Rule-Out 05/21/2024 05/21/2024 05/21/2024 7:32 PM EST RSV 05/21/2024 05/21/2024 documented as of this encounter Care Teams Hair Cutter Relationship Specialty Start Date End Date Tori Jackson MD [address] [place] [phone] PCP - General Internal Medicine 07/03/16 documented as of this encounter
--- OUTSIDE RECORDS SUMMARY | 2024-06-07 06:34 | XMS_ITS ---
Author Name [facility] Organization Unknown Results Test Name/Text Value Interpretation Date Range Source Glucose SerPl-mCnc 89mg/dL Normal [id number] 70 - 99 [facility] eGFRcr SerPlBld CKD-EPI 2020 109mL/min/1.73 m2 Normal [id number] - [facility] Creat SerPl-mCnc 0.6mg/dL Below low normal 100160779429 0.7 - 1.3 [facility] Calcium SerPl-mCnc 8.3mg/dL Below low normal [id number] 8 .4 - 10.2 [facility] CO2 SerPl-sCnc 29mmol/L Normal [id number] 24 - 32 [facility] Sodium SerPl-sCnc 138mmol/L Normal [id number] 135 - 145 [facility] BUN SerPl-mCnc 18mg/dL Normal [id number] 9 - 20 [facility] BUN/Creat SerPl 30 Above high normal [id number] 12 - 20 [facility] Anion Gap SerPl-sCnc 7 Normal [id number] 5 - 14 [facility] Chloride SerPl-sCnc 102mmol/L Normal [id number] 98 - 107 [facility] Potassium SerPl-sCnc 3.4mmol/L Below low normal [id number] 3.5 - 5.1 [facility] Magnesium SerPl-mCnc 1.9mg/dL Normal [id number] 1.7 - 2.8 [facility] MCV RBC Auto 90.6FL Normal [id number] 78 - 100 [facility] RBC # Bld Auto 4.7M/mcL Normal [id number] 4.7 - 6 [facility] WBC # Bld Auto 9.1K/mcL Normal [id number] 4 - 10.5 [facility] RDW RBC Auto-Rto 15.5% Normal [id number] 12.1 - 17. 7 [facility] Hct VFr Bld Auto 42.6% Normal [id number] 40 - 54 [facility] Platelet # Bld Auto 204K/mcL Normal [id number] 150 - 450 [facility] PMV Bld Auto 7.1FL Below low normal [id number] 7.4 - 1 1.4 [facility] Hgb Bld-mCnc 14.8g/dL Normal [id number] 13.5 - 18 [facility] MCH RBC Qn Auto 31.4pcg Normal [id number] 25 - 33 [facility] MCHC RBC Auto-mCnc 34.7g/dL Normal [id number] 32 - 36 [facility] Magnesium SerPl-mCnc 2mg/dL Normal [id number] 1.7 - 2.8 [facility] Glucose SerPl-mCnc 128mg/dL Normal [id number] 70 - 199 [facility] eGFRcr SerPlBld CKD-EPI 2020 109mL/min/1.73 m2 Normal [id number] - [facility] Creat SerPl-mCnc 0.6mg/dL Below low normal [id number] 0.7 - 1.3 [facility] Calcium SerPl-mCnc 8.5mg/dL Normal [id number] 8.4 - 10 .2 [facility] CO2 SerPl-sCnc 29mmol/L Normal [id number] 24 - 32 [facility] Sodium SerPl-sCnc 139mmol/L Normal [id number] 135 - 145 [facility] BUN SerPl-mCnc 23mg/dL Above high normal [id number] 9 - 20 [facility] BUN/Creat SerPl 38.3 Above high normal [id number] 12 - 20 [facility] Anion Gap SerPl-sCnc 9 Normal [id number] 5 - 14 [facility] Chloride SerPl-sCnc 101mmol/L Normal [id number] 98 - 107 [facility] Potassium SerPl-sCnc 3.3mmol/L Below low normal [id number] 3.5 - 5.1 [facility] MCV RBC Auto 90.7FL Normal [id number] 78 - 100 [facility] RBC # Bld Auto 5.14M/mcL Normal [id number] 4.7 - 6 [facility] WBC # Bld Auto 9.6K/mcL Normal [id number] 4 - 10.5 [facility] RDW RBC Auto-Rto 15.5% Normal [id number] 12.1 - 17. 7 [facility] Hct VFr Bld Auto 46.6% Normal [id number] 40 - 54 [facility] Platelet # Bld Auto 194K/mcL Normal [id number] 150 - 450 [facility] PMV Bld Auto 7.1FL Below low normal [id number] 7.4 - 1 1.4 [facility] Hgb Bld-mCnc 16g/dL Normal [id number] 13.5 - 18 [facility] MCH RBC Qn Auto 31.2pcg Normal [id number] 25 - 33 [facility] MCHC RBC Auto-mCnc 34.4g/dL Normal [id number] 32 - 36 [facility] Glucose SerPl-mCnc 100mg/dL Normal [id number] 70 - 199 [facility] eGFRcr SerPlBld CKD-EPI 2020 109mL/min/1.73 m2 Normal [id number] - [facility] Creat SerPl-mCnc 0.6mg/dL Below low normal [id number] 0.7 - 1.3 [facility] Calcium SerPl-mCnc 8.8mg/dL Normal [id number] 8.4 - 10 .2 [facility] CO2 SerPl-sCnc 31mmol/L Normal [id number] 24 - 32 [facility] Sodium SerPl-sCnc 140mmol/L Normal [id number] 135 - 145 [facility] BUN SerPl-mCnc 25mg/dL Above high normal [id number] 9 - 20 [facility] BUN/Creat SerPl 41.7 Above high normal [id number] 12 - 20 [facility] Anion Gap SerPl-sCnc 7 Normal [id number] 5 - 14 [facility] Chloride SerPl-sCnc 102mmol/L Normal [id number] 98 - 107 [facility] Potassium SerPl-sCnc 3.9mmol/L Normal [id number] 3.5 - 5.1 [facility] Magnesium SerPl-mCnc 2.2mg/dL Normal [id number] 1.7 - 2.8 [facility] MCV RBC Auto 91.1FL Normal [id number] 78 - 100 [facility] RBC # Bld Auto 4.97M/mcL Normal [id number] 4.7 - 6 [facility] WBC # Bld Auto 9.9K/mcL Normal [id number] 4 - 10.5 [facility] RDW RBC Auto-Rto 15.6% Normal [id number] 12.1 - 17. 7 [facility] Hct VFr Bld Auto 45.2% Normal [id number] 40 - 54 [facility] Platelet # Bld Auto 201K/mcL Normal [id number] 150 - 450 [facility] PMV Bld Auto 7.3FL Below low normal [id number] 7.4 - 1 1.4 [facility] Hgb Bld-mCnc 15.4g/dL Normal [id number] 13.5 - 18 [facility] MCH RBC Qn Auto 31pcg Normal [id number] 25 - 33 [facility] MCHC RBC Auto-mCnc 34.1g/dL Normal [id number] 32 - 36 [facility] Trigl SerPl-mCnc 121mg/dL Normal [id number] - 150 [facility] Glucose SerPl-mCnc 95mg/dL Normal [id number] 70 - 199 [facility] eGFRcr SerPlBld CKD-EPI 2020 109mL/min/1.73 m2 Normal [id number] - [facility] Creat SerPl-mCnc 0.6mg/dL Below low normal [id number] 0.7 - 1.3 [facility] Calcium SerPl-mCnc 8.2mg/dL Below low normal [id number] 8 .4 - 10.2 [facility] CO2 SerPl-sCnc 34mmol/L Above high normal [id number] 24 - 32 [facility] Sodium SerPl-sCnc 137mmol/L Normal [id number] 135 - 145 [facility] BUN SerPl-mCnc 22mg/dL Above high normal [id number] 9 - 20 [facility] BUN/Creat SerPl 36.7 Above high normal [id number] 12 - 20 [facility] Anion Gap SerPl-sCnc 6 Normal [id number] 5 - 14 [facility] Chloride SerPl-sCnc 97mmol/L Below low normal [id number] 98 - 107 [facility] Potassium SerPl-sCnc 3.5mmol/L Normal [id number] 3.5 - 5.1 [facility] Magnesium SerPl-mCnc 2mg/dL Normal [id number] 1.7 - 2.8 [facility] MCV RBC Auto 90.8FL Normal [id number] 78 - 100 [facility] RBC # Bld Auto 4.89M/mcL Normal [id number] 4.7 - 6 [facility] WBC # Bld Auto 9.2K/mcL Normal [id number] 4 - 10.5 [facility] RDW RBC Auto-Rto 15.9% Normal [id number] 12.1 - 17. 7 [facility] Hct VFr Bld Auto 44.4% Normal [id number] 40 - 54 [facility] Platelet # Bld Auto 173K/mcL Normal [id number] 150 - 450 [facility] PMV Bld Auto 7FL Below low normal [id number] 7.4 - 1 1.4 [facility] Hgb Bld-mCnc 15.3g/dL Normal [id number] 13.5 - 18 [facility] MCH RBC Qn Auto 31.2pcg Normal [id number] 25 - 33 [facility] MCHC RBC Auto-mCnc 34.4g/dL Normal [id number] 32 - 36 [facility] Glucose Bld-mCnc 144mg/dL Normal [id number] 70 - 199 [facility] Magnesium SerPl-mCnc 2mg/dL Normal [id number] 1.7 - 2.8 [facility] Glucose SerPl-mCnc 111mg/dL Above high normal [id number] 70 - 99 [facility] eGFRcr SerPlBld CKD-EPI 2020 109mL/min/1.73 m2 Normal [id number] - [facility] Creat SerPl-mCnc 0.6mg/dL Below low normal [id number] 0.7 - 1.3 [facility] Calcium SerPl-mCnc 8.6mg/dL Normal [id number] 8.4 - 10 .2 [facility] CO2 SerPl-sCnc 31mmol/L Normal [id number] 24 - 32 [facility] Sodium SerPl-sCnc 135mmol/L Normal [id number] 135 - 145 [facility] BUN SerPl-mCnc 22mg/dL Above high normal [id number] 9 - 20 [facility] BUN/Creat SerPl 36.7 Above high normal [id number] 12 - 20 [facility] Anion Gap SerPl-sCnc 7 Normal [id number] 5 - 14 [facility] Chloride SerPl-sCnc 97mmol/L Below low normal [id number] 98 - 107 [facility] Potassium SerPl-sCnc 4.1mmol/L Normal [id number] 3.5 - 5.1 [facility] MCV RBC Auto 92.1FL Normal [id number] 78 - 100 [facility] RBC # Bld Auto 4.77M/mcL Normal [id number] 4.7 - 6 [facility] WBC # Bld Auto 10.3K/mcL Normal [id number] 4 - 10.5 [facility] RDW RBC Auto-Rto 16.2% Normal [id number] 12.1 - 17. 7 [facility] Hct VFr Bld Auto 44% Normal [id number] 40 - 54 [facility] Platelet # Bld Auto 172K/mcL Normal [id number] 150 - 450 [facility] PMV Bld Auto 7.3FL Below low normal [id number] 7.4 - 1 1.4 [facility] Hgb Bld-mCnc 14.8g/dL Normal [id number] 13.5 - 18 [facility] MCH RBC Qn Auto 31pcg Normal [id number] 25 - 33 [facility] MCHC RBC Auto-mCnc 33.7g/dL Normal [id number] 32 - 36 [facility] Glucose Bld-mCnc 108mg/dL Normal [id number] 70 - 199 [facility] Glucose Bld-mCnc 100mg/dL Normal [id number] 70 - 199 [facility] Magnesium SerPl-mCnc 2.2mg/dL Normal [id number] 1.7 - 2.8 [facility] Trigl SerPl-mCnc 107mg/dL Normal [id number] - 150 [facility] Glucose SerPl-mCnc 150mg/dL Above high normal [id number] 70 - 99 [facility] eGFRcr SerPlBld CKD-EPI 2020 109mL/min/1.73 m2 Normal [id number] - [facility] Creat SerPl-mCnc 0.6mg/dL Below low normal [id number] 0.7 - 1.3 [facility] Calcium SerPl-mCnc 8.4mg/dL Normal [id number] 8.4 - 10 .2 [facility] CO2 SerPl-sCnc 29mmol/L Normal [id number] 24 - 32 [facility] Sodium SerPl-sCnc 136mmol/L Normal [id number] 135 - 145 [facility] BUN SerPl-mCnc 26mg/dL Above high normal [id number] 9 - 20 [facility] BUN/Creat SerPl 43.3 Above high normal [id number] 12 - 20 [facility] Anion Gap SerPl-sCnc 7 Normal [id number] 5 - 14 [facility] Chloride SerPl-sCnc 100mmol/L Normal [id number] 98 - 107 [facility] Potassium SerPl-sCnc 4.6mmol/L Normal [id number] 3.5 - 5.1 [facility] Glucose Bld-mCnc 121mg/dL Normal [id number] 70 - 199 [facility] MCV RBC Auto 92FL Normal [id number] 78 - 100 [facility] RBC # Bld Auto 4.34M/mcL Below low normal [id number] 4.7 - 6 [facility] WBC # Bld Auto 8.5K/mcL Normal [id number] 4 - 10.5 [facility] RDW RBC Auto-Rto 16.4% Normal [id number] 12.1 - 17. 7 [facility] Hct VFr Bld Auto 40% Normal [id number] 40 - 54 [facility] Platelet # Bld Auto 148K/mcL Below low normal [id number] 150 - 450 [facility] PMV Bld Auto 7.6FL Normal [id number] 7.4 - 11.4 [facility] Hgb Bld-mCnc 13.7g/dL Normal [id number] 13.5 - 18 [facility] MCH RBC Qn Auto 31.5pcg Normal [id number] 25 - 33 [facility] MCHC RBC Auto-mCnc 34.2g/dL Normal [id number] 32 - 36 [facility] Glucose Bld-mCnc 119mg/dL Normal [id number] 70 - 199 [facility] Florin Test Pass Normal [id number] - [facility] Base excess BldA Calc-sCnc 8.5mmol/L Above high normal [id number] 0 - 2 [facility] pH BldA 7.51pH Critically high [id number] 7.35 - 7.45 [facility] pCO2 BldA 38mmHg Normal [id number] 35 - 45 [facility] HCO3 BldA-sCnc 31.6mmol/L Above high normal [id number] 22 - 26 [facility] SaO2 % BldA 99.8% Above high normal [id number] 95 - 98 [facility] pO2 BldA 199mmHg Above high normal [id number] 80 - 105 [facility] Glucose Bld-mCnc 144mg/dL Normal [id number] 70 - 199 [facility] Glucose SerPl-mCnc 130mg/dL Normal [id number] 70 - 199 [facility] eGFRcr SerPlBld CKD-EPI 2020 109mL/min/1.73 m2 Normal [id number] - [facility] Creat SerPl-mCnc 0.6mg/dL Below low normal [id number] 0.7 - 1.3 [facility] Calcium SerPl-mCnc 8.2mg/dL Below low normal [id number] 8 .4 - 10.2 [facility] CO2 SerPl-sCnc 29mmol/L Normal [id number] 24 - 32 [facility] Sodium SerPl-sCnc 135mmol/L Normal [id number] 135 - 145 [facility] BUN SerPl-mCnc 25mg/dL Above high normal [id number] 9 - 20 [facility] BUN/Creat SerPl 41.7 Above high normal [id number] 12 - 20 [facility] Anion Gap SerPl-sCnc 7 Normal [id number] 5 - 14 [facility] Chloride SerPl-sCnc 99mmol/L Normal [id number] 98 - 107 [facility] Potassium SerPl-sCnc 5mmol/L Normal [id number] 3.5 - 5.1 [facility] Magnesium SerPl-mCnc 2.2mg/dL Normal [id number] 1.7 - 2.8 [facility] MCV RBC Auto 91.9FL Normal [id number] 78 - 100 [facility] RBC # Bld Auto 4.48M/mcL Below low normal [id number] 4.7 - 6 [facility] WBC # Bld Auto 10.1K/mcL Normal [id number] 4 - 10.5 [facility] RDW RBC Auto-Rto 16.4% Normal [id number] 12.1 - 17. 7 [facility] Hct VFr Bld Auto 41.1% Normal [id number] 40 - 54 [facility] Platelet # Bld Auto 159K/mcL Normal [id number] 150 - 450 [facility] PMV Bld Auto 7.3FL Below low normal [id number] 7.4 - 1 1.4 [facility] Hgb Bld-mCnc 14.2g/dL Normal [id number] 13.5 - 18 [facility] MCH RBC Qn Auto 31.7pcg Normal [id number] 25 - 33 [facility] MCHC RBC Auto-mCnc 34.5g/dL Normal [id number] 32 - 36 [facility] Glucose Bld-mCnc 117mg/dL Normal [id number] 70 - 199 [facility] Glucose Bld-mCnc 119mg/dL Normal [id number] 70 - 199 [facility] Glucose Bld-mCnc 144mg/dL Normal [id number] 70 - 199 [facility] Glucose Bld-mCnc 188mg/dL Normal [id number] 70 - 199 [facility] L pneumo Ag Ur Ql IA Negative Normal [id number] - [facility] Glucose SerPl-mCnc 106mg/dL Normal [id number] 70 - 199 [facility] eGFRcr SerPlBld CKD-EPI 1 109mL/min/1.73 m2 Normal [id number] - [facility] Creat SerPl-mCnc 0.6mg/dL Below low normal [id number] 0.7 - 1.3 [facility] Calcium SerPl-mCnc 8.1mg/dL Below low normal [id number] 8 .4 - 10.2 [facility] CO2 SerPl-sCnc 28mmol/L Normal [id number] 24 - 32 [facility] Sodium SerPl-sCnc 137mmol/L Normal [id number] 135 - 145 [facility] BUN SerPl-mCnc 30mg/dL Above high normal [id number] 9 - 20 [facility] BUN/Creat SerPl 50 Above high normal [id number] 12 - 20 [facility] Anion Gap SerPl-sCnc 8 Normal [id number] 5 - 14 [facility] Chloride SerPl-sCnc 101mmol/L Normal [id number] 98 - 107 [facility] Potassium SerPl-sCnc 4.4mmol/L Normal [id number] 3.5 - 5.1 [facility] Magnesium SerPl-mCnc 2.2mg/dL Normal [id number] 1.7 - 2.8 [facility] Trigl SerPl-mCnc 135mg/dL Normal [id number] - 150 [facility] MCV RBC Auto 90.9FL Normal [id number] 78 - 100 [facility] RBC # Bld Auto 4.68M/mcL Below low normal [id number] 4.7 - 6 [facility] WBC # Bld Auto 8.4K/mcL Normal [id number] 4 - 10.5 [facility] RDW RBC Auto-Rto 16.5% Normal [id number] 12.1 - 17. 7 [facility] Hct VFr Bld Auto 42.6% Normal [id number] 40 - 54 [facility] Platelet # Bld Auto 168K/mcL Normal [id number] 150 - 450 [facility] PMV Bld Auto 7FL Below low normal [id number] 7.4 - 1 1.4 [facility] Hgb Bld-mCnc 14.3g/dL Normal [id number] 13.5 - 18 [facility] MCH RBC Qn Auto 30.5pcg Normal [id number] 25 - 33 [facility] MCHC RBC Auto-mCnc 33.5g/dL Normal [id number] 32 - 36 [facility] Glucose Bld-mCnc 165mg/dL Normal [id number] 70 - 199 [facility] Glucose Bld-mCnc 158mg/dL Normal [id number] 70 - 199 [facility] Glucose Bld-mCnc 150mg/dL Normal [id number] 70 - 199 [facility] Glucose Bld-mCnc 112mg/dL Normal [id number] 70 - 199 [facility] Glucose Bld-mCnc 130mg/dL Normal [id number] 70 - 199 [facility] Glucose Bld-mCnc 135mg/dL Normal [id number] 70 - 199 [facility] Glucose SerPl-mCnc 127mg/dL Normal [id number] 70 - 199 [facility] eGFRcr SerPlBld CKD-EPI 2020 109mL/min/1.73 m2 Normal [id number] - [facility] Creat SerPl-mCnc 0.6mg/dL Below low normal [id number] 0.7 - 1.3 [facility] Calcium SerPl-mCnc 8.1mg/dL Below low normal [id number] 8 .4 - 10.2 [facility] CO2 SerPl-sCnc 29mmol/L Normal [id number] 24 - 32 [facility] Sodium SerPl-sCnc 138mmol/L Normal [id number] 135 - 145 [facility] BUN SerPl-mCnc 27mg/dL Above high normal [id number] 9 - 20 [facility] BUN/Creat SerPl 45 Above high normal [id number] 12 - 20 [facility] Anion Gap SerPl-sCnc 7 Normal [id number] 5 - 14 [facility] Chloride SerPl-sCnc 102mmol/L Normal [id number] 98 - 107 [facility] Potassium SerPl-sCnc 4.3mmol/L Normal [id number] 3.5 - 5.1 [facility] Magnesium SerPl-mCnc 2.4mg/dL Normal [id number] 1.7 - 2.8 [facility] Glucose Bld-mCnc 143mg/dL Normal [id number] 70 - 199 [facility] MCV RBC Auto 91.8FL Normal [id number] 78 - 100 [facility] RBC # Bld Auto 4.61M/mcL Below low normal [id number] 4.7 - 6 [facility] WBC # Bld Auto 10.5K/mcL Normal [id number] 4 - 10.5 [facility] RDW RBC Auto-Rto 16.2% Normal [id number] 12.1 - 17. 7 [facility] Hct VFr Bld Auto 42.3% Normal [id number] 40 - 54 [facility] Platelet # Bld Auto 168K/mcL Normal [id number] 150 - 450 [facility] PMV Bld Auto 7FL Below low normal [id number] 7.4 - 1 1.4 [facility] Hgb Bld-mCnc 14.7g/dL Normal [id number] 13.5 - 18 [facility] MCH RBC Qn Auto 31.8pcg Normal [id number] 25 - 33 [facility] MCHC RBC Auto-mCnc 34.6g/dL Normal [id number] 32 - 36 [facility] Glucose Bld-mCnc 143mg/dL Normal [id number] 70 - 199 [facility] Glucose Bld-mCnc 138mg/dL Normal [id number] 70 - 199 [facility] Glucose Bld-mCnc 133mg/dL Normal [id number] 70 - 199 [facility] Glucose Bld-mCnc 134mg/dL Normal [id number] 70 - 199 [facility] Glucose Bld-mCnc 124mg/dL Normal [id number] 70 - 199 [facility] Glucose SerPl-mCnc 194mg/dL Normal [id number] 70 - 199 [facility] eGFRcr SerPlBld CKD-EPI 2021 100mL/min/1.73 m2 Normal [id number] - [facility] Creat SerPl-mCnc 0.8mg/dL Normal [id number] 0.7 - 1.3 [facility] Calcium SerPl-mCnc 8.8mg/dL Normal [id number] 8.4 - 10 .2 [facility] CO2 SerPl-sCnc 28mmol/L Normal [id number] 24 - 32 [facility] Sodium SerPl-sCnc 137mmol/L Normal [id number] 135 - 145 [facility] BUN SerPl-mCnc 30mg/dL Above high normal [id number] 9 - 20 [facility] BUN/Creat SerPl 37.5 Above high normal [id number] 12 - 20 [facility] Anion Gap SerPl-sCnc 13 Normal [id number] 5 - 14 [facility] Chloride SerPl-sCnc 96mmol/L Below low normal [id number] 98 - 107 [facility] Potassium SerPl-sCnc 4.1mmol/L Normal [id number] 3.5 - 5.1 [facility] Magnesium SerPl-mCnc 2.5mg/dL Normal [id number] 1.7 - 2.8 [facility] Trigl SerPl-mCnc 185mg/dL Above high normal [id number] - 150 [facility] MCV RBC Auto 91.9FL Normal [id number] 78 - 100 [facility] RBC # Bld Auto 4.82M/mcL Normal [id number] 4.7 - 6 [facility] WBC # Bld Auto 12.6K/mcL Above high normal [id number] 4 - 10.5 [facility] RDW RBC Auto-Rto 16% Normal [id number] 12.1 - 17. 7 [facility] Hct VFr Bld Auto 44.3% Normal [id number] 40 - 54 [facility] Platelet # Bld Auto 173K/mcL Normal [id number] 150 - 450 [facility] PMV Bld Auto 7.2FL Below low normal [id number] 7.4 - 1 1.4 [facility] Hgb Bld-mCnc 14.8g/dL Normal [id number] 13.5 - 18 [facility] MCH RBC Qn Auto 30.8pcg Normal [id number] 25 - 33 [facility] MCHC RBC Auto-mCnc 33.5g/dL Normal [id number] 32 - 36 [facility] Glucose Bld-mCnc 164mg/dL Normal [id number] 70 - 199 [facility] Glucose Bld-mCnc 196mg/dL Normal [id number] 70 - 199 [facility] Glucose Bld-mCnc 146mg/dL Normal [id number] 70 - 199 [facility] Glucose Bld-mCnc 175mg/dL Normal [id number] 70 - 199 [facility] Base excess BldA Calc-sCnc 5.2mmol/L Above high normal [id number] 0 - 2 [facility] pH BldA 7.39pH Normal [id number] 7.35 - 7.45 [facility] pCO2 BldA 52mmHg Above high normal [id number] 35 - 45 [facility] Rosemarie index Bld+IhG-Rto 40 Normal [id number] [facility] HCO3 BldA-sCnc 29mmol/L Above high normal [id number] 22 - 26 [facility] SaO2 % BldA 100% Above high normal [id number] 95 - 98 [facility] pO2 BldA 189mmHg Above high normal [id number] 80 - 105 [facility] Glucose Bld-mCnc 151mg/dL Normal [id number] 70 - 199 [facility] Glucose Bld-mCnc 146mg/dL Normal [id number] 70 - 199 [facility] Phosphate SerPl-mCnc 3.3mg/dL Normal [id number] 2.5 - 4.5 [facility] Glucose SerPl-mCnc 171mg/dL Normal [id number] 70 - 199 [facility] eGFRcr SerPlBld CKD-EPI 2020 104mL/min/1.73 m2 Normal [id number] - [facility] Creat SerPl-mCnc 0.7mg/dL Normal [id number] 0.7 - 1.3 [facility] Calcium SerPl-mCnc 8.4mg/dL Normal [id number] 8.4 - 10 .2 [facility] CO2 SerPl-sCnc 29mmol/L Normal [id number] 24 - 32 [facility] Sodium SerPl-sCnc 135mmol/L Normal [id number] 135 - 145 [facility] BUN SerPl-mCnc 20mg/dL Normal [id number] 9 - 20 [facility] BUN/Creat SerPl 28.6 Above high normal [id number] 12 - 20 [facility] Anion Gap SerPl-sCnc 10 Normal [id number] 5 - 14 [facility] Chloride SerPl-sCnc 96mmol/L Below low normal [id number] 98 - 107 [facility] Potassium SerPl-sCnc 4.1mmol/L Normal [id number] 3.5 - 5.1 [facility] Magnesium SerPl-mCnc 2.1mg/dL Normal [id number] 1.7 - 2.8 [facility] MCV RBC Auto 91.9FL Normal [id number] 78 - 100 [facility] RBC # Bld Auto 4.73M/mcL Normal [id number] 4.7 - 6 [facility] WBC # Bld Auto 7.4K/mcL Normal [id number] 4 - 10.5 CT [facility] RDW RBC Auto-Rto 15.4% Normal [id number] 12.1 - 17. 7 [facility] Hct VFr Bld Auto 43.5% Normal [id number] 40 - 54 [facility] Platelet # Bld Auto 152K/mcL Normal [id number] 150 - 450 [facility] PMV Bld Auto 7FL Below low normal [id number] 7.4 - [address] [facility] Hgb Bld-mCnc 14.9g/dL Normal [id number] 13.5 - 18 [facility] MCH RBC Qn Auto 31.4pcg Normal [id number] 25 - 33 C [facility] MCHC RBC Auto-mCnc 34.2g/dL Normal [id number] 32 - 36 [facility] Glucose Bld-mCnc 143mg/dL Normal [id number] 70 - 199 [facility] Glucose Bld-mCnc 166mg/dL Normal [id number] 70 - 199 [facility] Glucose Bld-mCnc 148mg/dL Normal [id number] 70 - 199 [facility] Rh Bld Positive Normal [id number] [facility] Bld gp Ab Scn SerPl Ql Negative Normal [id number] [facility] ABO Group Bld O Normal [id number] [facility] Glucose Bld-mCnc 118mg/dL Normal [id number] 70 - 199 [facility] MRB mecC Islt/Spm Ql Not Detected Normal [id number] - [facility] Rh Bld Positive Normal [id number] [facility] Bld gp Ab Scn SerPl Ql Negative Normal [id number] [facility] ABO Group Bld O Normal [id number] [facility] MCV RBC Auto 93.1FL Normal [id number] 78 - 100 [facility] Lymphocytes # Bld Auto 0.6K/mcL Below low normal [id number] 1 - 3.2 [facility] WBC # Bld Auto 7.6K/mcL Normal [id number] 4 - 10.5 CT [facility] Monocytes/leuk NFr Bld Auto 9.6% Normal [id number] 2 - 12 [facility] Platelet # Bld Auto 144K/mcL Below low normal [id number] 150 - 450 [facility] PMV Bld Auto 6.6FL Below low normal [id number] 7.4 - [address] 1.4 [facility] MCH RBC Qn Auto 31.2pcg Normal [id number] 25 - 33 C [facility] Eosinophil # Bld Auto 0K/mcL Normal [id number] 0 - 0.5 [facility] Neutrophils/leuk NFr Bld Auto 81.5% Above high normal [id number] 44 - 74 [facility] RBC # Bld Auto 4.22M/mcL Below low normal [id number] 4.7 - 6 [facility] Monocytes # Bld Auto 0.7K/mcL Normal [id number] 0 - 0.8 [facility] RDW RBC Auto-Rto 16% Normal [id number] 12.1 - 17. 7 [facility] Lymphocytes/leuk NFr Bld Auto 8.4% Below low normal [id number] 20 - 48 [facility] Eosinophil/leuk NFr Bld Auto 0% Normal [id number] 0 - 6 [facility] Basophils # Bld Auto 0K/mcL Normal [id number] 0 - 0.2 [facility] Neutrophils # Bld Auto 6.2K/mcL Normal [id number] 1.8 - 7.8 [facility] Hct VFr Bld Auto 39.2% Below low normal [id number] 40 - 54 [facility] Hgb Bld-mCnc 13.1g/dL Below low normal [id number] 13.5 - 18 [facility] MCHC RBC Auto-mCnc 33.5g/dL Normal [id number] 32 - 36 [facility] Basophils/leuk NFr Bld Auto 0.5% Normal [id number] 0 - 2 [facility] Ammonia Plas-sCnc Normal [id number] [facility] Amphet Ur Ql Scn Negative Normal [id number] - [facility] oxyCODONE Ur Ql Scn Negative Normal [id number] - [facility] Barbiturates Ur Ql Scn Negative Normal [id number] - [facility] fentaNYL Ur Ql Negative Normal [id number] - [facility] BZE Ur Ql Scn Negative Normal [id number] - [facility] Benzodiaz Ur Ql Scn Negative Normal [id number] - [facility] Cannabinoids Ur Ql Scn Negative Normal [id number] - [facility] Opiates Ur Ql Scn Negative Normal [id number] - [facility] PCP Ur Ql Scn Negative Normal [id number] - [facility] TSH SerPl DL<=0.005 mIU/L-aCnc 1.25mcIU/mL Normal [id number] 0.45 - 5.33 [facility] Clarity Ur Hazy Abnormal [id number] - [facility] Prot Ur Strip-mCnc 100mg/dL Abnormal [id number] - [facility] Glucose Ur Ql Negative Normal [id number] - [facility] Color Ur Yellow Normal [id number] - [facility] Hgb Ur Ql Moderate Abnormal [id number] - [facility] Mucous Threads #/area UrnS HPF Present Abnormal [id number] - [facility] pH Ur 5pH Abnormal [id number] 5 - 8 [facility] Leukocyte esterase Ur Ql Strip Trace Abnormal [id number] - [facility] Nitrite Ur Ql Negative Normal [id number] - [facility] Ketones Ur-mCnc Negative Normal [id number] - C [facility] WBC #/area UrnS HPF 7/HPF Above high normal [id number] 0 - 5 [facility] RBC #/area UrnS HPF 118/HPF Above high normal [id number] 0 - 3 [facility] Squamous Epithelial, Urine 0/HPF Normal [id number] 0 - 5 [facility] Sp Gr Ur 1.06 Above high normal [id number] 1.005 - 1.03 [facility] Lactate BldV-sCnc 2.5mmol/L Above high normal [id number] 0 .5 - 2.2 [facility] Florin Test Pass Normal [id number] - [facility] Base excess BldA Calc-sCnc 3.6mmol/L Above high normal [id number] 0 - 2 [facility] pH BldA 7.31pH Below low normal [id number] 7.35 - 7.4 5 [facility] pCO2 BldA 63mmHg Above high normal [id number] 35 - 45 [facility] Rosemarie index Bld+IhG-Rto 50 Normal [id number] [facility] HCO3 BldA-sCnc 27.8mmol/L Above high normal [id number] 22 - 26 [facility] SaO2 % BldA 99.5% Above high normal [id number] 95 - 98 [facility] pO2 BldA 215mmHg Above high normal [id number] 80 - 105 [facility] Troponin I SerPl HS-mCnc 10ng/L Normal [id number] 0 - 20 [facility] Vit B12 SerPl-mCnc 317pcg/mL Normal [id number] 180 - 91 4 [facility] Folate SerPl-mCnc 10ng/ml Normal [id number] - [facility] Glucose Bld-mCnc 118mg/dL Normal [id number] 70 - 199 [facility] Phosphate SerPl-mCnc 4.2mg/dL Normal [id number] 2.5 - 4.5 [facility] Glucose SerPl-mCnc 124mg/dL Normal [id number] 70 - 199 [facility] Calcium SerPl-mCnc 8.1mg/dL Below low normal [id number] 8 .4 - 10.2 [facility] Sodium SerPl-sCnc 137mmol/L Normal [id number] 135 - 145 [facility] BUN SerPl-mCnc 13mg/dL Normal [id number] 9 - 20 [facility] ALP SerPl-cCnc 82unit/L Normal [id number] 34 - 104 [facility] Anion Gap SerPl-sCnc 8 Normal [id number] 5 - 14 [facility] Albumin SerPl-mCnc 3.6g/dL Normal [id number] 3.5 - 5 [facility] ALT SerPl-cCnc 6unit/L Below low normal [id number] 7 - 5 2 [facility] eGFRcr SerPlBld CKD-EPI 2020 104mL/min/1.73 m2 Normal [id number] - [facility] Creat SerPl-mCnc 0.7mg/dL Normal [id number] 0.7 - 1.3 [facility] AST SerPl-cCnc 9unit/L Normal [id number] 5 - 40 [facility] CO2 SerPl-sCnc 32mmol/L Normal [id number] 24 - 32 [facility] BUN/Creat SerPl 18.6 Normal [id number] 12 - 20 C [facility] Bilirub SerPl-mCnc 0.2mg/dL Below low normal [id number] 0 .3 - 1 [facility] Chloride SerPl-sCnc 97mmol/L Below low normal [id number] 98 - 107 [facility] Potassium SerPl-sCnc 4.6mmol/L Normal [id number] 3.5 - 5.1 [facility] Prot SerPl-mCnc 5.7g/dL Below low normal [id number] 6.4 - 8.5 [facility] Trigl SerPl-mCnc 118mg/dL Normal [id number] - 150 [facility] Magnesium SerPl-mCnc 2.1mg/dL Normal [id number] 1.7 - 2.8 [facility] History of Medication Use Medication Directions Dispensed Refills Start Date End Date Status pantoprazole (PROTONIX) EC tablet 40 mg 40 mg, oral, Every morning before breakfast, First dose on 05/31/24 at 0700, Do not crush, chew, or split. active senna (SENOKOT) 8.8 mg/5 mL syrup 5 mL 5 mL, oral, Nightly, First dose (after last modification) on 05/29/24 at 2100 05/29/19 active ipratropium-albuteroL (DUONEB) 0.5-2.5 mg/3 mL nebulizer solution Take 3 mL by nebulization every 6 (six) hours. active pantoprazole (PROTONIX) injection 40 mg 40 mg, intravenous, Administer over 2 Minutes, Every 24 hours, First dose on 05/22/24 at 0900, Patient MUST have BOTH: -Strict NPO (unable to take oral or liquid PPI) -Contraindication to H2RA Pantroprazole - IV push: Reconstitute powder for injection with 10 mL NS; final concentration: 4 mg/mL., 5 05/30/19 aborted predniSONE (DELTASONE) 10 mg tablet Take 3 tablets (30 mg total) by mouth 1 (one) time each day for 3 days, THEN 2 tablets (20 mg total) 1 (one) time each day for 3 days, THEN 1 tablet (10 mg total) 1 (one) time each day for 3 days. active calcium gluconate 1 gram/50 mL IVPB (premix) 1 g 1 g, intravenous, at 50 mL/hr, Administer over 60 Minutes, Once, On Fri05/25/24 at 0830, For 1 dose 5 05/25/19 completed dexAMETHasone (DECADRON) 4 mg tablet Take 1 tablet (4 mg total) by mouth 2 (two) times a day for 4 days. 05/30/19 aborted predniSONE (DELTASONE) 20 mg tablet Take 3 tabs (60mg) daily for 3 days, then take 2 tabs (40mg) daily for 3 days, then take 1 tab (20mg) daily for 3 days. 5 05/30/19 aborted lactated Ringer's bolus 500 mL 500 mL, intravenous, at 500 mL/hr, Administer over 1 Hours, Once, On Fri05/27/24 at 2115, For 1 dose 5 05/28/19 completed predniSONE (DELTASONE) tablet 30 mg 30 mg, oral, Daily, First dose (after last modification) on Fri06/02/24 at 0900 active furosemide (LASIX) injection 40 mg 40 mg, intravenous, Once, On Fri05/23/24 at 1215, For 1 dose 5 05/23/19 completed cefTRIAXone (ROCEPHIN) 1 g in sterile water 10 mL IV syringe 1 g, intravenous, at 200 mL/hr, Administer over 3 Minutes, Every 24 hours, First dose (after last modification) on Fri05/25/24 at 0400, For 5 days, Do not administer simultaneously with any calcium containing solutions via a Y-site in any patient., Indication: Pneumonia, Community Acquired 5 05/29/19 completed ondansetron (ZOFRAN) 4 mg tablet Take 1 tablet (4 mg total) by mouth every 8 (eight) hours if needed. 05/30/19 aborted azithromycin (ZITHROMAX) 500 mg in sodium chloride 0.9 % 250 mL IVPB 500 mg, intravenous, at 250 mL/hr, Administer over 60 Minutes, Every 24 hours, First dose on Fri05/23/24 at 0400, For 2 doses, Indication: Pneumonia, Community Acquired 5 05/24/19 completed potassium chloride (KLOR-CON M20) CR tablet 40 mEq 40 mEq, oral, Once, On Fri06/02/24 at 0930, For 1 dose, Tablet may be swallowed whole (do not crush/chew/suck on) OR broken in half and each half swallowed separately OR dissolved (whole tablet) in ~4 ounces of water (allow ~2 minutes to dissolve, stir well and administer immediately). 5 06/02/19 completed dextrose (D50W) 50% injection 25 g 25 g, intravenous, Every 15 min PRN, low blood sugar, severe hypoglycemia *Patient is Unconscious, NPO, unable to swallow: BG LESS than 54 mg/dL*, Starting on Fri05/22/24 at 09 5 active dextrose (D50W) 50% injection 12.5 g 12.5 g, intravenous, Every 15 min PRN, low blood sugar, moderate hypoglycemia *Patient is Unconscious, NPO, unable to swallow: BG 54 - 69 mg/dl*, Starting on Fri05/22/24 at 09 5 active dextrose 15 gram/60 mL oral solution 30 g 30 g, oral, Every 15 min PRN, low blood sugar, hypoglycemia *Patient conscious AND able to drink and swallow safely*, Starting on Fri05/22/24 at 0902 5 active chlorhexidine (PERIDEX) 0.12 % solution 15 mL 15 mL, Mouth/Throat, Every 12 hours, First dose on Fri05/22/24 at 1600 5 active methylPREDNISolone sodium succ (SOLU-Medrol) injection 20 mg 20 mg, intravenous, Every 12 hours scheduled, First dose (after last modification) on Fri05/27/24 at 2100, Reconstitute each 40 mg vial with 1 mL sterile water for injection to a concentration of 40 mg/mL. 5 05/29/19 aborted bisacodyL (DULCOLAX) suppository 10 mg 10 mg, rectal, Once, On Fri05/27/24 at 1200, For 1 dose 5 05/27/19 completed polyethylene glycol (MIRALAX) 17 gram packet Take 17 g by mouth 1 (one) time each day. 5 05/29/19 active acetaminophen (TYLENOL) tablet 650 mg 650 mg, oral, Once, On Fri05/28/24 at 2215, For 1 dose 5 05/29/19 completed lactated Ringer's bolus 1,000 mL 1,000 mL, intravenous, at 1,000 mL/hr, Administer over 1 Hours, Once, On 05/22/24 at 0900, For 1 dose 5 05/22/19 completed budesonide (PULMICORT) 0.5 mg/2 mL nebulizer solution Take 1 mL (0.25 mg total) by nebulization 2 (two) times a day. Rinse mouth with water after use to reduce aftertaste and incidence of candidiasis. Do not swallow. 5 active Glucagon HCl (rDNA) injection 1 mg 1 mg, intramuscular, Once as needed, low blood sugar, severe hypoglycemia, Starting on 05/22/24 at 0902, For 1 dose 5 active guaiFENesin (ROBITUSSIN) 100 mg/5 mL liquid Take 20 mL (400 mg total) by mouth 4 (four) times a day if needed for cough for up to 10 days. 5 05/29/19 active dextrose 15 gram/60 mL oral solution 15 g 15 g, oral, Every 15 min PRN, low blood sugar, hypoglycemia *Patient conscious AND able to drink and swallow safely*, Starting on 05/22/24 at 0902 5 active enoxaparin (LOVENOX) injection 40 mg 40 mg, subcutaneous, Every 24 hours scheduled, First dose on 05/22/24 at 0900, Indication: VTE/PE Prophylaxis 5 active predniSONE (DELTASONE) tablet 40 mg 40 mg, oral, Daily, First dose on 05/29/24 at 0900 5 06/01/19 25 aborted sodium chloride 3 % nebulizer solution 4 mL 4 mL, nebulization, Every 12 hours, First dose (after last modification) on 05/24/24 at 1930 5 06/01/19 aborted insulin regular (HumuLIN R) injection 1-6 Units 1-6 Units, subcutaneous, Every 6 hours, First dose (after last modification) on Fri05/26/24 at 0600, Indication: Total Daily Dose (TDD) LESS than 40 units 5 05/29/19 aborted gabapentin (NEURONTIN) 300 mg capsule Take 1 capsule (300 mg total) by mouth at bedtime. 5 active methylPREDNISolone sodium succ (SOLU-Medrol) injection 40 mg 40 mg, intravenous, Every 12 hours scheduled, First dose (after last modification) on Fri05/24/24 at 2100, Reconstitute each 40 mg vial with 1 mL sterile water for injection to a concentration of 40 mg/mL. 5 05/27/19 aborted fluticasone-umeclidini um-vilanterol (Trelegy Ellipta) 100-62.5-25 mcg inhaler Inhale 1 puff (100 mcg total) by mouth 1 (one) time each day. Rinse mouth with water after use to reduce aftertaste and incidence of candidiasis. Do not swallow. active fluPHENAZine (PROLIXIN) 5 mg tablet Take 1 tablet (5 mg total) by mouth 1 (one) time each day. 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
--- OUTSIDE RECORDS SUMMARY | 2024-06-07 06:34 | XMS_ITS | Encounter Summary ---
Author Organization [facility] Address [address] [place] [address] Care Team Providers Care Correctional Supervisor Lieutenant Name Role Phone Tori Jackson MD Primary Care Provider [phone] Encounter Details Date Type Department Care Team (Late st Contact Info) Description 05/25/2024 Telephone [facility] [address] [phone] Heather Freitas MD 175 [facility] [address] [place] [address] Social History Tobacco Use Types Packs/Day Years [...] as of this encounter Progress Notes * Heather Freitas MD - 06/01/2024 4:50 PM EST SPOKE TO HIM AND ANSWER HIS QUESTIONS * Akil Quintero MA - 05/31/2024 11:26 AM EST Please call pt brother * Hakeem Zepeda - 05/31/2024 9:34 AM EST Patiet brother called to ask provider if he has any information on the patient. Patient brother wasonly told by [facility] that patient was no longer going to be in the ICU, but since patient brother has no information what so ever, Patient brother will like for provider to check what's going on in the hospital. Please advice , patient brother will like a call back at [phone] * Hakeem Zepeda - 05/25/2024 11:40 AM EST Patient brother called to inform provider that patient in currently in Intensive care unit, Patientis currently in Life Support. Patient is been treated by Dr. Curry Patient brother Vaughn Curran stated if any further question please call him [phone] . Please advice documented in this encounter Plan of Treatment Upcoming Encounters Date Type Department Care Team (Late st Contact Info) Description 06/09/2024 9:30 AM EST Office Visit [facility] Hematology Oncology [address] [place] [phone] Nino Talbot MD [address] [place] [phone] 07/07/2024 11:15 AM EST Office Visit Internal Medicine - [place] [address] [phone] Tori Jackson MD [address] [phone] 07/08/2024 10:45 AM EST Office Visit Pulmonolgy - [place] [address] [phone] Heather Freitas MD [address] [phone] documented as of this encounter Visit Diagnoses Not on filedocumented in this encounter Additional Health Concerns Infection Onset Date Last Indicated Resolved Time RSV 05/21/2024 05/21/2024 documented as of this encounter Care Teams Correctional Supervisor Lieutenant Relationship Specialty Start Date End Date Tori Jackson MD [address] [phone] PCP - General Internal Medicine 07/03/16 documented as of this encounter
--- OUTSIDE RECORDS SUMMARY | 2024-06-07 06:34 | XMS_ITS | Encounter Summary ---
Author Organization [facility] Address [address] [place] [address] Care Team Providers Care Strategic Account Manager Name Role Phone Tori Jackson MD Primary Care Provider [phone] Reason for Visit * Reason Comments Shortness of Breath Encounter Details Date Type Department Care Team (Late st Contact Info) Description 05/21/2024 3:43 PM EST - 05/22/2024 5:34 AM EST Emergency [facility] Emergency [address] [place] [address] Catalino Holman MD [address] [place] [address] Gisselle Harmon MD [address] [place] [address] Shortness of breath (Primary Dx); Acute respiratory failure with hypoxia and hypercarbia (CMS/HCC); RSV (respiratory syncytial virus infection); History of lung cancer Discharge Disposition: Short Term Hospital Social History Tobacco Use Types Packs/Day Years [...] Sign Reading Time Taken Comments Blood Pressure 94/76 05/22/2024 5:11 AM EST Pulse 105 05/22/2024 5:14 AM EST Temperature 36.5 ??C (97.7 ??F) 05/22/2024 5:14 AM ES T Respiratory Rate 18 05/22/2024 5:14 AM EST Oxygen Saturation 100% 05/22/2024 5:14 AM EST Inhaled Oxygen Concentration - - Weight 73.8 kg (162 lb 11.2 oz) 05/22/2024 4:30 AM EST Height 177.8 cm (5' 10 ) 05/22/2024 4:30 AM EST Body Mass Index 23.34 05/22/2024 4:30 AM EST documented in this encounter Medications at Time of Discharge Medication Sig Dispensed Refills Start Date End Date budesonide (PULMICORT) 0.5 mg/2 mL nebulizer solution Take 1 mL (0.25 mg total) by nebulization 2 (two) times a day. Rinse mouth with water after use to reduce aftertaste and incidence of candidiasis. Do not swallow. 06/01/2024 06/01/2025 fluPHENAZine (PROLIXIN) 5 mg tablet Take 1 tablet (5 mg total) by mouth 1 (one) time each day. 06/01/2024 fluticasone-umeclidin ium-vilanterol (Trelegy Ellipta) 100-62.5-25 mcg inhaler Inhale 1 puff (100 mcg total) by mouth 1 (one) time each day. Rinse mouth with water after use to reduce aftertaste and incidence of candidiasis. Do not swallow. gabapentin (NEURONTIN) 300 mg capsule Take 1 capsule (300 mg total) by mouth at bedtime. 30 each 1 05/18/2024 guaiFENesin (ROBITUSSIN) 100 mg/5 mL liquid Take 20 mL (400 mg total) by mouth 4 (four) times a day if needed for cough for up to 10 days. 06/01/2024 06/11/2024 ipratropium-albuteroL (DUONEB) 0.5-2.5 mg/3 mL nebulizer solution Take 3 mL by nebulization every 6 (six) hours. 06/01/2024 06/01/2025 polyethylene glycol (MIRALAX) 17 gram packet Take 17 g by mouth 1 (one) time each day. 06/02/2024 07/02/2024 predniSONE (DELTASONE) 10 mg tablet Take 3 tablets (30 mg total) by mouth 1 (one) time each day for 3 days, THEN 2 tablets (20 mg total) 1 (one) time each day for 3 days, THEN 1 tablet (10 mg total) 1 (one) time each day for 3 days. 06/01/2024 06/10/2024 dexAMETHasone (DECADRON) 4 mg tablet Take 1 tablet (4 mg total) by mouth 2 (two) times a day for 4 days. 8 each 05/09/2024 05/30/2024 fluPHENAZine (PROLIXIN) 5 mg tablet Take 1 tablet (5 mg total) by mouth 1 (one) time each day. 01/08/2024 05/30/2024 ondansetron (ZOFRAN) 4 mg tablet Take 1 tablet (4 mg total) by mouth every 8 (eight) hours if needed. 05/30/2024 predniSONE (DELTASONE) 20 mg tablet Take 3 tabs (60mg) daily for 3 days, then take 2 tabs (40mg) daily for 3 days, then take 1 tab (20mg) daily for 3 days. 18 tablet 05/18/2024 05/30/2024 documented as of this encounter Discharge Disposition Disposition Code Departure Means Destination Comment s Short Term Hospital documented in this encounter Progress Notes * Faith Christianson RN - 05/22/2024 6:02 AM EST Nurse to nurse report given to Shwetha viramontes [facility]. Patient with ambulance transfer without incident. * LIONEL Luque - 05/22/2024 2:40 AM ESTAssociated Order(s): Critical Care; Intubation ED Course as of 05/22/24 0520 Sat May 22, 2024 0023 Patient was transitioned appropriately off of BiPAP in order to tolerate laying supine for chest CT. Review of x-ray shows that he has got some findings on his right upper lobe although he does have a diagnosis of lung cancer and this was also evident on prior imaging from 2 years ago. Patientis reporting subjective improvement of his breathing. I was alerted by the RN for this patient thatafter he returned from his chest CT that he was having sudden onset of garbled speech. I evaluated this patient bedside, he was groaning audibly, did not immediately respond and turn his head when I said his name, however on repeat when asked to look at this provider, patient was able to follow this command. Speech notably garbled, did confirm with respiratory therapist that this was not the speech the patient was presenting with prior, speech was intelligible, he is alert and oriented, able tomove his extremities evenly. NIH of 2 for need for prompting with attention as well as garbled speech. Stroke protocol initiated, however we are aware that given patient has just been injected with dye for his chest CT, this may be a altered study. We will continue to monitor closely. Repeat VBG ispending. [EN] 0054 CT Head Stroke wo Contrast Negative findings. Tele neuro page initiated [EN] 0137 Evaluated bedside with teleneurology, they are indicating an NIH score presently of 1. Recommendation for cerebella should patient become encephalopathic, however he will be appropriate for inpatient MRI for further evaluation. Will give single dose of aspirin in the meantime, no other acute re commendation for intervention. We will have rounding teleneurology follow-up with this patient while inpatient. Repeat VBG pending to determine appropriate disposition. [EN] 0221 VBG is unfortunately not improved, pH is now worse at 7.23 versus 7.3, pCO2 is rising to 99, pO2 is 83. We did put patient back on BiPAP, he continues to be tachypneic despite, abdominal breathing noted. He does feel significantly improved. Do not feel that he requires intubation at this time.Will discuss with ICU. [EN] 0404 pCO2, Arterial(!!): 81 pCO2 was not improving after several hours on BiPAP. His ABG is similar to previous. pH is only marginally improved. At this point, I feel that the safest course of action would be to intubate for airway protection, to improve his confusion and blood gas. He will need ICU level of care regardless. We have no beds in this hospital at this time. Will attempt to transfer. [MG] 0413 Discussed with patient's brother by telephone at patient's request, will provide additional updates as indicated including location of transfer. [EN] 0440 Intubated as noted in greater detail in procedure note. Call placed to [facility] for transfer, they are closed due to full capacity [EN] 0455 Patient has been accepted to [facility], accepted by Dr. Klein. Will arrange transportation by ALS. [employer] called and updated. [EN] ED Course User Index [EN] LIONEL Luque [MG] Gisselle Harmon MD Clinical Impressions as of 05/22/24 0520 Shortness of breath Acute respiratory failure with hypoxia and hypercarbia (CMS/HCC) RSV (respiratory syncytial virus infection) History of lung cancer Data Unavailable 1. 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 Critical care was time spent personally by me on the following activities: Development of treatmentplan with patient or surrogate, discussions with consultants, examination of patient, obtaining history from patient or surrogate, ordering and performing treatments and interventions, ordering and re view of laboratory studies, ordering and review of radiographic studies, pulse oximetry and re-evaluation of patient's condition Care discussed with: admitting provider Intubation Date/Time: 05/22/2024 4:03 AM Performed by: LIONEL Luque Authorized by: Catalino Holman MD Consent: Consent obtained: Verbal Consent given by: Patient Risks discussed: Hypoxia Alternatives discussed: Delayed treatment and no treatment Morgan protocol: Procedure explained and questions answered to patient or proxy's satisfaction: yes Relevant documents present and verified: yes Test results available: yes Imaging studies available: yes Required blood products, implants, devices, and special equipment available: yes Immediately prior to procedure, a time out was called: yes Patient identity confirmed: Alexsander miranda, hospital-assigned identification number and verbally with patient Pre-procedure details: Indications: airway protection and respiratory failure Patient status: Awake Look externally: no concerns Mallampati score: III Obstruction: none Neck mobility: normal Pharmacologic strategy: RSI Induction agents: Ketamine Paralytics: Rocuronium Procedure details: Preoxygenation: Nonrebreather mask CPR in progress: no Number of attempts: 2 (complicated by laryngospasm) Successful intubation attempt details: Intubation method: Oral Intubation technique: video assisted Laryngoscope blade: Mac 3 Bougie used: yes Grade view: III Tube size (mm): 7.5 Tube type: Cuffed Tube visualized through cords: yes First unsuccessful intubation attempt details: Intubation method: Oral Intubation technique: Video assisted Laryngoscope blade: Mac 3 Bougie used: yes Grade view: III Tube size (mm): 7.5 Tube type: Cuffed Ventilation between 1st and 2nd attempt: no Tube visualized through cords: yes Placement assessment: ETT at teeth/gumline (cm): 22 Tube secured with: ETT grider Breath sounds: Equal Placement verification: colorimetric ETCO2, CXR verification, direct visualization, equal breath sounds and tube exhalation Placement verification comment: Difficult visualization of the adriana on portable chest x-ray, likely secondary to his underlying lung pathology, were able to confirm estimated area of his adriana based on prior imaging, appears to be in good position. CXR findings: Appropriate position Post-procedure details: Procedure completion: Tolerated well, no immediate complications Comments: Sedation maintained with propofol Associated attestation - Gisselle Harmon MD - 05/22/2024 9:03 AM EST I personally evaluated this patient with the THEO and performed a substantive portion of the visit including all aspects of the medical decision making. Reviewed and agree with documented PA assessment and plan. [facility] [place] [facility] [place] after intubation in the setting of hypercarbic respiratory failure. Patient is intubated, sedated on propofol, oxygen is 98% on the vent. Transferred in critical condition. * Faith Christianson RN - 05/22/2024 12:41 AM EST Patient brought back from CT scan, staring straight ahead and not answering this nurse. When asked a question patient would make voice noises but not be moving his mouth and with no eye contact. Had another nurse and PA at bedside, patient starting to speak more and answering appropriately but withgarbled speech and left sided facial droop. Patient able to move extremities, although weak, but equal. Stroke alert called. * Tamara De RN - 05/21/2024 3:46 PM EST On prednisone for back pain currently. Usually sats low 90s per ems. Received duonebs x2 * Tamara De RN - 05/21/2024 3:44 PM EST Pt to [facility] w/sob, weakness. Hx of lung cancer, last treatment september. Scan in mar showed no growth. C/ochest tightness. +cough/wheezing * Catalino Holman MD - 05/21/2024 3:35 PM ESTAssociated Order(s): Critical Care HPI Chief Complaint Patient presents with Shortness of Breath 64-year-old male with a past medical history as below now presents the chief complaint of presents with a chief complaint of shortness of breath that has been ongoing for 4 days duration. Patient reports that it has progressively gotten worse. He denies any complaints of fevers, chills, chest pain,abdominal pain, nausea, vomiting or any diarrhea. Past Medical History: No date: COPD (chronic obstructive pulmonary disease) (CMS/HCC) Comment: DX:COPD (chronic obstructive pulmonary disease) (HCC) No date: Hyperlipidemia Comment: DX:Hyperlipidemia No date: Incarcerated right inguinal hernia Comment: DX:Incarcerated right inguinal hernia No date: Lung cancer (CMS/HCC) Comment: DX:Lung cancer (HCC) No date: Schizophrenia (CMS/HCC) Comment: DX:Schizophrenia (HCC) No date: Small bowel obstruction (CMS/HCC) Comment: DX:Small bowel obstruction (HCC) No date: Vitamin D deficiency Comment: DX:Vitamin D deficiency History provided by: Patient No data recorded Patient History Past Medical History: Diagnosis Date COPD (chronic obstructive pulmonary disease) (CMS/HCC) DX:COPD (chronic obstructive pulmonary disease) (HCC) Hyperlipidemia DX:Hyperlipidemia Incarcerated right inguinal hernia DX:Incarcerated right inguinal hernia Lung cancer (CMS/HCC) DX:Lung cancer (HCC) Schizophrenia (CMS/HCC) DX:Schizophrenia (HCC) Small bowel obstruction (CMS/HCC) DX:Small bowel obstruction (HCC) Vitamin D deficiency DX:Vitamin D deficiency Past Surgical History: Procedure Laterality Date HERNIA REPAIR PROCEDURE:INGUINAL HERNIA REPAIR Family History Problem Relation Name Age of Onset Hypertension Mother Dementia Mother Arthritis Father Cancer Mother's Brother Cancer Father's Sister Social History Tobacco Use Smoking status: Every Day Current packs/day: 2.00 Types: Cigarettes Smokeless tobacco: Not on file Substance Use Topics Alcohol use: Not Currently Drug use: Not on file Review of Systems Review of Systems Constitutional: Negative. HENT: Negative. Respiratory: Positive for shortness of breath and wheezing. Cardiovascular: Negative. Gastrointestinal: Negative. Skin: Negative. Physical Exam ED Triage Vitals [05/21/24 1547] Temp Heart Rate Resp BP 37.1 ??C (98.8 ??F) 102 (!) 30 135/87 SpO2 Temp Source Heart Rate Source Patient Position 97 % Oral Monitor Sitting BP Location FiO2 (%) Right arm -- Physical Exam Constitutional: General: He is not in acute distress. Appearance: Normal appearance. He is not ill-appearing or toxic-appearing. HENT: Head: Normocephalic and atraumatic. Mouth/Throat: Mouth: Mucous membranes are moist. Eyes: Extraocular Movements: Extraocular movements intact. Conjunctiva/sclera: Conjunctivae normal. Cardiovascular: Rate and Rhythm: Normal rate and regular rhythm. Pulses: Normal pulses. Pulmonary: Effort: Pulmonary effort is normal. Breath sounds: Examination of the right-upper field reveals wheezing. Examination of the left-upperfield reveals wheezing. Examination of the right- middle field reveals wheezing. Examination of the left-middle field reveals wheezing. Examination of the right-lower field reveals wheezing. Examination of the left-lower field reveals wheezing. Decreased breath sounds and wheezing present. Abdominal: General: There is no distension. Palpations: Abdomen is soft. Tenderness: There is no abdominal tenderness. Musculoskeletal: General: Normal range of motion. Cervical back: Normal range of motion and neck supple. Right lower leg: No edema. Left lower leg: No edema. Skin: General: Skin is warm. Neurological: General: No focal deficit present. Mental Status: He is alert and oriented to person, place, and time. Mental status is at baseline. Psychiatric: Mood and Affect: Mood normal. ED Course & MDM ED Course as of 05/27/24 1541 Sat May 22, 2024 0023 Patient was transitioned appropriately off of BiPAP in order to tolerate laying supine for chest CT. Review of x-ray shows that he has got some findings on his right upper lobe although he does have a diagnosis of lung cancer and this was also evident on prior imaging from 2 years ago. Patientis reporting subjective improvement of his breathing. I was alerted by the RN for this patient thatafter he returned from his chest CT that he was having sudden onset of garbled speech. I evaluated this patient bedside, he was groaning audibly, did not immediately respond and turn his head when I said his name, however on repeat when asked to look at this provider, patient was able to follow this command. Speech notably garbled, did confirm with respiratory therapist that this was not the speech the patient was presenting with prior, speech was intelligible, he is alert and oriented, able tomove his extremities evenly. NIH of 2 for need for prompting with attention as well as garbled speech. Stroke protocol initiated, however we are aware that given patient has just been injected with dye for his chest CT, this may be a altered study. We will continue to monitor closely. Repeat VBG ispending. [EN] 0054 CT Head Stroke wo Contrast Negative findings. Tele neuro page initiated [EN] 0137 Evaluated bedside with teleneurology, they are indicating an NIH score presently of 1. Recommendation for cerebella should patient become encephalopathic, however he will be appropriate for inpatient MRI for further evaluation. Will give single dose of aspirin in the meantime, no other acute re commendation for intervention. We will have rounding teleneurology follow-up with this patient while inpatient. Repeat VBG pending to determine appropriate disposition. [EN] 0221 VBG is unfortunately not improved, pH is now worse at 7.23 versus 7.3, pCO2 is rising to 99, pO2 is 83. We did put patient back on BiPAP, he continues to be tachypneic despite, abdominal breathing noted. He does feel significantly improved. Do not feel that he requires intubation at this time.Will discuss with ICU. [EN] 0404 pCO2, Arterial(!!): 81 pCO2 was not improving after several hours on BiPAP. His ABG is similar to previous. pH is only marginally improved. At this point, I feel that the safest course of action would be to intubate for airway protection, to improve his confusion and blood gas. He will need ICU level of care regardless. We have no beds in this hospital at this time. Will attempt to transfer. [MG] 0413 Discussed with patient's brother by telephone at patient's request, will provide additional updates as indicated including location of transfer. [EN] 0440 Intubated as noted in greater detail in procedure note. Call placed to [facility] for transfer, they are closed due to full capacity [EN] 0455 Patient has been accepted to [facility], accepted by Dr. Klein. Will arrange transportation by ALS. Brother called and updated. [EN] ED Course User Index [EN] LIONEL Luque [MG] Gisselle Harmon MD Clinical Impressions as of 05/27/24 1541 Shortness of breath Acute respiratory failure with hypoxia and hypercarbia (CMS/HCC) RSV (respiratory syncytial virus infection) History of lung cancer Medical Decision Making 64-year-old male presents with a chief complaint of shortness of breath. He has diffuse wheezing onexam. Likely having a COPD/asthma exacerbation. Will give nebs, steroids. And reevaluate the patient. 7:54 PM Patient is retaining significant amount of carbon dioxide with acidosis, will place on BiPAP. Patient will also be assessed with CT chest angiography. I do believe that his symptoms overall are underlying due to likely COPD exacerbation given the CO2 retention. I do believe that he needs to be monitored on BiPAP, and if able to be weaned off then can be admitted to medicine; and may need consultation with ICU. Patient signed out to LIONEL Springer. Critical Care Performed by: Catalino Holman MD Authorized by: Catalino Holman MD Critical care provider statement: Critical care time (minutes): 80 Critical care time was exclusive of: Separately billable procedures and treating other patients Critical care was necessary to treat or prevent imminent or life-threatening deterioration of the following conditions: Respiratory failure Critical care was time spent personally by me on the following activities: Development of treatmentplan with patient or surrogate, discussions with consultants, pulse oximetry, re-evaluation of patient's condition, review of old charts, ordering and review of radiographic studies, ordering and review of laboratory studies, ordering and performing treatments and interventions, examination of patient, evaluation of patient's response to treatment and obtaining history from patient or surrogate Comments: 64-year-old male presents with chief complaint of shortness of breath, found to have elevated CO2 on the blood gas with acidosis concerning for acute hypercapnic respiratory failure secondary to COPDexacerbation requiring noninvasive mechanical ventilation with BiPAP; emergent motion, frequent reas sessments and admission to the hospital. Catalino Holman MD 05/21/24 1740 Catalino Holman MD 05/21/24 1955 Catalino Holman MD 05/27/24 1542 documented in this encounter Consult Notes * Maxime Porras MD - 05/22/2024 1:20 AM EST Telestroke initial consult The patient and/or family consented to consult based on capacity assessment specifically for use inpatients with acutestroke symptoms. The hosting facility is responsible to follow standard procedure to explained to the patient and/or family the remote visit will be submitted to their insurance and that they are responsible for any copay or deductiblecharges. Risk and benefits were explained to the patient and/or family by requesting provider and indicated his/herunderstanding of the details and a willingness to undergo treatment, receiving assessment, diagnosis, management, and/or remote consultative support while exhibiting signs and symptoms consistent with acute stroke syndrome, using HIPAA compliant telemedicine communication technologies CHIEF COMPLAINT: Altered mental status, garbled speech HISTORY OF PRESENT ILLNESS: Stroke alert called at 12:54 AM, immediately responded over the phone spoke to ED provider Leonor FLOWERS and subsequently evaluated the patient on televideo. 64-year-old male with a past medical history including COPD, hyperlipidemia, lung cancer, schizophrenia, history of small bowel obstruction who has been in the ED now for 9 hours or so presented for shortness of breath that has gotten worse. Lab work showed significant hypercarbia and acidosis for which he was put on BiPAP. He underwent CT chest earlier to rule out PE. Reportedly after coming back from CT patient was not answering questions appropriately and speech was more garbled. There was aquestion of left lip asymmetry but not very obvious per provider. Stroke alert was activated and patient underwent stat CT head/CTA head and neck. CT head did not report acute intracranial findings and no large vessel occlusion reported on CTA head and neck. On my interview, patient is alert and oriented and promptly responsive. He mentions that he currently feels close to how he was feeling earlier. There is no focal deficits. He does have a hoarse voice, however he mentions having a hoarse voice earlier as well. Per ED provider Gian FLOWERS who was present at bedside, confirms patient already significant improved from earlier at the time of stroke alert activation. I discussed risk versus benefit of IV thrombolytics including~6% risk of ICH with the patient. After thorough discussion, he deferred IV thrombolytics. REVIEW OF SYSTEMS: All aspects of the 14 review of systems were negative except for the above mentioned. PAST MEDICAL HISTORY: Reviewed Past Medical History: Diagnosis Date COPD (chronic obstructive pulmonary disease) (CMS/HCC) DX:COPD (chronic obstructive pulmonary disease) (HCC) Hyperlipidemia DX:Hyperlipidemia Incarcerated right inguinal hernia DX:Incarcerated right inguinal hernia Lung cancer (CMS/HCC) DX:Lung cancer (HCC) Schizophrenia (CMS/HCC) DX:Schizophrenia (HCC) Small bowel obstruction (CMS/HCC) DX:Small bowel obstruction (HCC) Vitamin D deficiency DX:Vitamin D deficiency PAST SURGICAL HISTORY:Reviewed Past Surgical History: Procedure Laterality Date HERNIA REPAIR PROCEDURE:INGUINAL HERNIA REPAIR MEDICATIONS: Reviewed @MEDSIGONL@ ALLERGIES: Reviewed Penicillin v SOCIAL HISTORY: Reviewed Social History Tobacco Use Smoking status: Every Day Current packs/day: 2.00 Types: Cigarettes Smokeless tobacco: Not on file Substance Use Topics Alcohol use: Not Currently Social History Social History Narrative Not on file Social History Tobacco Use Smoking Status Every Day Current packs/day: 2.00 Types: Cigarettes Smokeless Tobacco Not on file Social History Substance and Sexual Activity Alcohol Use Not Currently Social History Substance and Sexual Activity Drug Use Not on file FAMILY HISTORY: Reviewed Family History Problem Relation Name Age of Onset Hypertension Mother Dementia Mother Arthritis Father Cancer Mother's Brother Cancer Father's Sister VITAL SIGNS FOR PAST 24 Hours ([High] [Low] (Last Recorded Value)): Temp: 37 ??C (98.6 ??F) (05/21 1817) Heart Rate: 89 (05/21 2149) Resp: 31 (05/22 99) BP: 144/93 (05/21 2149) Telestroke exam: GENERAL: Middle-age man sitting in bed, in mild respiratory distress NEUROLOGICAL EXAM: MENTAL STATUS: Patient is alert, oriented x people, time and place. Registration, attention intact.No aphasia, hoarse voice CRANIAL NERVES: Patient is able to look in bilateral horizontal gaze without any difficulty. Grossly visual crowe intact. No obvious facial droop. Symmetric to light touch in bilateral V1 V2 V3. Tongue protrudes midline. MOTOR: Right upper extremity was able to keep antigravity for 10 seconds without any drift. Right lower extremity was able to keep antigravity for 5 seconds without any drift. Left upper extremity was able to keep antigravity for 10 seconds without any drift. Left lower extremity was able to keep antigravity for 5 seconds without any drift. SENSORY: Intact sensation to light touch bilaterally in upper and lower extremities COORDINATION: Normal [id number] GAIT: Deferred NIHSS: 1a) LOC: 0 1b) LOC questions (age/month): 0 1c) LOC commands (close eyes/buyer): 0 2) Best gaze: 0 3) Visual crowe:0 4) Facial palsy: 0 5a) Motor left arm: 0 5b) Motor right arm: 0 6a) Motor left le 6b) Motor right le 7) Limb ataxia: 0 8) Sensory: 0 9) Best language: 0 10) Dysarthria (read word list): 1 11) Extinction/neglect (sensory/visual): 0 Total NIHSS 1 MRS prior to Presentation mRS 0 (0=no symptoms; 1=symptoms; 2=some functional limitation; 3=cannot live alone; 4=cannot move independently; 5=bedbound) LAB: Lab Results Component Value Date WBC 14.2 (H) 05/21/2024 RBC 5.10 05/21/2024 MCV 94.9 05/21/2024 MCH 30.5 05/21/2024 MCHC 32.1 05/21/2024 RDW 15.8 (H) 05/21/2024 MPV 8.8 05/21/2024 Lab Results Component Value Date BUN 12 05/21/2024 CREATININE 0.68 (L) 05/21/2024 NA 135 05/21/2024 K 4.0 05/21/2024 CL 95 (L) 05/21/2024 CO2 37 (H) 05/21/2024 CALCIUM 9.2 05/21/2024 ALBUMIN 3.4 05/21/2024 ALKPHOS 112 05/21/2024 AST 10 05/21/2024 ALT 15 05/21/2024 Lab Results Component Value Date CHOL 132 12/31/2021 HDL 32 (A) 12/31/2021 TRIG 109 12/31/2021 Lab Results Component Value Date HGBA1C 5.9 10/27/2020 NEUROIMAGING: CT head 05/22/2024: Per radiology, no acute intracranial findings. Findings: Motion and streak artifact limit evaluation. [...] are unremarkable. There is no acute fracture. CTA head and neck 05/22/2024: Per radiology, patent head and neck CTA Findings: Motion and streak artifact limit evaluation. [...] disc disease. Age-indeterminate compression deformity at T3. ASSESSMENT AND PLAN: 64-year-old male with a past medical history including COPD, hyperlipidemia, lung cancer, schizophrenia, history of small bowel obstruction who has been in the ED presented for shortness of breath that has gotten worse. Lab work showed acidosis and hypercarbia, PE was ruled out. Patient was noted to be encephalopathic, attempted to speak with incomprehensible sounds, otherwise no focal deficits. Stat CT head was without acute intracranial abnormalities and no large vessel occlusion on CTA head and neck. At the time of my evaluation, he is already significantly better with NIHSS of 1 mainly for hoarse voice which per patient was present to some degree earlier as well. Risk versus benefit of I V thrombolytics discussed with the patient and ultimately patient deferred considering improvement of symptoms and risk outweighing benefit. Differentials include infectious, metabolic encephalopathy, tiny ischemic stroke not seen on CT. Recommend MRI of brain for further evaluation. NonTenecteplase Patient Patient is not a Tenecteplase candidate due to patient decision to defer, low NIHSS, rapid improvement of symptoms. Non/Thrombectomy Patient Ineligible reason: No LVO Current Suspected etiology: Ongoing workup RECOMMENDATIONS: -Neurochecks /NIHSS Q4 hour -Vitals every Q4 hour -If no contraindications can give 1 dose of aspirin 81 mg while awaiting MRI brain. (If no acute stroke then no need to continue). -MRI brain with and without contrast -Transthoracic Echocardiogram (TTE) if MRI shows acute stroke -Continue addressing metabolic derangements and infectious etiologies. -If has worsening/waxing and waning mentation again consider initiating cerebel EEG -Check HbA1c, lipid panel -Permissive hypertension in patients with BP <220/120 mm Hg who did not receive IV alteplase or mechanical thrombectomy and do not have a comorbid condition requiring urgent antihypertensive treatment, initiating or reinitiating treatment of hypertension within the first 24 hours -Strict NPO until passes bedside dysphagia screen/Swallow evaluation -Avoid Hyperglycemia -Keep the patient Normothermic -PT/OT -DVT prophylaxis -Consult Dr. Gil or covering neurologist for inpatient follow-up Telestroke evaluation: Elements of MDM: I have reviewed 1 acute neurological illness/injury (encephalopathy versus less likely stroke) thatposes a threat to life/bodily function. I reviewed ED, EMS and House-staff notes. Laboratory results, unique tests and pertinent imaging reviewed independently by me and my imaging findings are reflected in my note. I have discussed my impression and management with the primary team/house staff. I have discussed with providers regarding hospitalization or escalation of hospital level of care. I have discussed drug therapy that requires intensive monitoring for toxicity by laboratory testing, physiological examination or imaging examination. Maxime Porras MD Dept of Neurology Vascular/Stroke Neurologist [address] [place] [address] documented in this encounter Plan of Treatment Upcoming Encounters Date Type Department Care Team (Late st Contact Info) Description 06/09/2024 9:30 AM EST Office Visit [facility] Hematology Oncology [address] [place] [phone] Nino Talbot MD [address] [place] [phone] 07/07/2024 11:15 AM EST Office Visit Internal Medicine - [place] 175 [facility] [address] [place] [phone] Tori Jackson MD [address] [phone] 07/08/2024 10:45 AM EST Office Visit Pulmonolgy - [place] [address] [phone] Heather Freitas MD [address] [id number] documented as of this encounter Procedures Procedure Name Priority Date/Time Associated Diagnosis Comments XR CHEST 1 VIEW STAT 05/22/2024 5:00 AM EST ED INTUBATION Routine 05/22/2024 4:03 AM EST ARTERIAL BLOOD GAS STAT 05/22/2024 3: 09 AM EST FL CRITICAL CARE 30-74 MINUTES Routine 05/22/2024 2:40 AM EST VENOUS BLOOD GAS STAT 05/22/2024 12:[address] ANGIO HEAD/NECK WO AND/OR W CONTRAST STAT 05/22/2024 12:[address] HEAD STROKE WO CONTRAST STAT 05/22/2024 12:[address] ANGIO CHEST WO AND/OR W CONTRAST STAT 05/21/2024 11:57 PM EST Shortness of breath RESPIRATORY VIRUS PANEL MOLECULAR STUDY STAT 05/21/2024 6:17 PM EST VENOUS BLOOD GAS STAT 05/21/2024 6:08 PM EST XR CHEST 1 VIEW STAT 05/21/2024 6:04 PM EST TROPONIN I HIGH SENSITIVITY STAT 05/21/2024 5:19 PM EST TROPONIN I HIGH SENSITIVITY STAT 05/21/2024 4:14 PM EST CBC WITH AUTO DIFFERENTIAL STAT 05/21/2024 4:14 PM EST CBC AND DIFFERENTIAL STAT 05/21/2024 4:14 PM EST B-TYPE NATRIURETIC PEPTIDE STAT 05/21/2024 4:14 PM EST MAGNESIUM STAT 05/21/2024 4:14 PM EST LIPASE STAT 05/21/2024 4:14 PM EST COMPREHENSIVE METABOLIC PANEL STAT 05/21/2024 4:14 PM EST ECG 12-LEAD STAT 05/21/2024 3:56 PM EST FL CRITICAL CARE 30-74 MINUTES Routine 05/21/2024 3:35 PM EST ECG OUTSIDE 05/21/2024 ECG OUTSIDE 05/21/2024 ECG ANNOTATED 05/21/2024 documented in this encounter Results * XR Chest 1 View (05/22/2024 5:00 AM EST) Anatomical Region Laterality Modality Body Radiographic Yolis [...] Signed Date: 05/22/2024 08:25 ET Workstation ID: [id number] Transcribed By: Self Edit Transcribed Date: 05/22/2024 [...] Signed Date: 05/22/2024 08:25 ET Workstation ID: [id number] Transcribed By: Self Edit Transcribed Date: 05/22/2024 [...] ??Alternatives discussed: ??Delayed treatment and no treatment Morgan protocol: ??Procedure explained and questions answered to [...] Holman MD IN CLINIC/BEDSIDE OR DERABLES * (ABNORMAL) Arterial blood gas (05/22/2024 3:09 AM EST) pH, Arterial 7.29(L) 7.35 - 7.45 pH 05/22/2024 3:51 AM [facility] pCO2, Arterial 81(HH) 35 - 45 mmHg 05/22/2024 3:51 AM [facility] pO2, Arterial 98 80 - 100 mmHg 05/22/2024 3:51 AM [facility] HCO3, Arterial 31.4(H) 22.0 - 26.0 mmol/L 05/22/2024 3:51 AM [facility] O2 Sat, Arterial 99.1(H) 95.0 - 98.0 % 05/22/2024 3:51 AM [facility] Base Excess, Arterial 8.4(H) -2.0 - 2.0 mmol/L 05/22/2024 3:51 AM [facility] Florin Test Pass Pass, Unresponsi ve, Line 05/22/2024 3:51 AM [facility] FIO2 40.00 05/22/2024 3:51 AM [facility] Blood Arterial blood specimen / Unknown Arterial Puncture / Unknown 05/22/2024 3:09 AM EST 05/22/2024 3:12 AM EST Leonor FLOWERS LAB BLOOD ORDERABLES [facility] [address] [place] [address], * [place] CRITICAL CARE 30-74 MINUTES (05/22/2024 2:40 AM EST) Gisselle Pedraza MD - 05/22/2024 2:40 AM EST LIONEL Luque ? 05/22/2024 ??5:31 AM Critical Care Performed by: LIONEL Luque Authorized by: Gisselle Harmon MD ?? 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 ??Critical care was time [...] Venous blood gas (05/22/2024 12:54 AM EST) pH, Bartolo 7.23(L) 7.32 - 7.42 pH 05/22/2024 2:12 AM EST [facility] pCO2, Bartolo 99(HH) 41 - 51 mmHg 05/22/2024 2:12 AM EST [facility] pO2, Bartolo 83(H) 25 - 40 mmHg 05/22/2024 2:12 AM EST [facility] HCO3, Venous 31.7(H) 22.0 - 26.0 mmol/L 05/22/2024 2:12 AM [facility] O2 Sat, Bartolo 97.7 % 05/22/2024 2:12 AM EST [facility] Base Excess, Bartolo 8.9(H) -2.0 - 2.0 mmol/L 05/22/2024 2:12 AM EST [facility] Blood Venous blood specimen / Unknown Venipuncture / Unknown 05/22/2024 12:54 AM EST 05/22/2024 1:50 AM EST Leonor FLOWERS LAB BLOOD ORDERABLES [facility] [address] [place] [address], * CT Head Stroke wo Contrast (05/22/2024 [...] Soto MD on 05/22/2024 00:48:[address] PROCEDURES * CT Angio Head/Neck wo and/or w [...] Leonor FLOWERS IMG CT PROCEDURES * CT Angio Chest wo [...] by: Alexander Soto MD on 05/22/2024 00:25:51 Catalino Holman MD IM CT PROCEDURES * (ABNORMAL) Respiratory virus panel molecular study (05/21/2024 6:17 PM EST) Adenovirus Detection by PCR Not Detected Not Detected LAB MICROBIOLOGY METHOD 05/21/2024 7:32 PM [facility] Influenza A PCR Not Detected Not Detected LAB MICROBIOLOGY METHOD 05/21/2024 7:32 PM EST [facility] Influenza B PCR Not Detected Not Detected LAB MICROBIOLOGY METHOD 05/21/2024 7:32 PM [facility] Coronavirus 229E Not Detected Not Detected LAB MICROBIOLOGY METHOD 05/21/2024 7:32 PM [facility] Coronavirus HKU1 Not Detected Not Detected LAB MICROBIOLOGY METHOD 05/21/2024 7:32 PM [facility] Coronavirus OC43 Not Detected Not Detected LAB MICROBIOLOGY METHOD 05/21/2024 7:32 PM [facility] Coronavirus NL63 Not Detected Not Detected LAB MICROBIOLOGY METHOD 05/21/2024 7:32 PM [facility] Parainfluenza Virus 1 Not Detected Not Detected LAB MICROBIOLOGY METHOD 05/21/2024 7:32 PM [facility] Parainfluenza Virus 2 Not Detected Not Detected LAB MICROBIOLOGY METHOD 05/21/2024 7:32 PM [facility] Parainfluenza Virus 3 Not Detected Not Detected LAB MICROBIOLOGY METHOD 05/21/2024 7:32 PM [facility] Parainfluenza Virus 4 Not Detected Not Detected LAB MICROBIOLOGY METHOD 05/21/2024 7:32 PM [facility] RSV PCR Detected(A ) Not Detected LAB MICROBIOLOGY METHOD 05/21/2024 7:32 PM [facility] Human Metapneumovirus A and B Not Detected Not Detected LAB MICROBIOLOGY METHOD 05/21/2024 7:32 PM [facility] Rhinovirus/Entero virus Not Detected Not Detected LAB MICROBIOLOGY METHOD 05/21/2024 7:32 PM [facility] Bordetella pertussis Not Detected Not Detected LAB MICROBIOLOGY METHOD 05/21/2024 7:32 PM [facility] Bordetella parapertussis Not Detected Not Detected LAB MICROBIOLOGY METHOD 05/21/2024 7:32 PM [facility] Mycoplasma pneumo by PCR Not Detected Not Detected LAB MICROBIOLOGY METHOD 05/21/2024 7:32 PM [facility] Chlamydia pneumoniae Not Detected Not Detected LAB MICROBIOLOGY METHOD 05/21/2024 7:32 PM [facility] SARS COV-2 Not Detected Not Detected LAB MICROBIOLOGY METHOD 05/21/2024 7:32 PM [facility] Swab Both anterior nares / Unknown Non-blood Collection / Unknown 05/21/2024 6:17 PM EST 05/21/2024 6:31 PM EST Narrative [facility] - 05/21/2024 7:32 PM EST Testing was performed using the [employer] Respiratory Pathogen PCR Assay. All results must [...] MD LAB MICROBIOLOGY - G ENERAL ORDERABLES [facility] [address] [place] [address], * (ABNORMAL) Venous blood gas (05/21/2024 6:08 PM EST) pH, Bartolo 7.30(L) 7.32 - 7.42 pH 05/21/2024 6:21 PM [facility] pCO2, Bartolo 82(HH) 41 - 51 mmHg 05/21/2024 6:21 PM [facility] pO2, Bartolo 59(H) 25 - 40 mmHg 05/21/2024 6:21 PM [facility] HCO3, Venous 32.1(H) 22.0 - 26.0 mmol/L 05/21/2024 6:21 PM [facility] O2 Sat, Bartolo 92.2 % 05/21/2024 6:21 PM [facility] Base Excess, Bartolo 9.8(H) -2.0 - 2.0 mmol/L 05/21/2024 6:21 PM [facility] Blood Venous blood specimen / Unknown 05/21/2024 6:08 PM EST 05/21/2024 6:10 PM EST Catalino B Holman MD LAB BLOOD ORDERABLES [facility] [address] [place] [address], * XR Chest 1 View (05/21/2024 6:04 PM EST) Anatomical Region Laterality Modality Body Radiographic Yolis ging 05/21/2024 7:35 PM EST Impressions 05/21/2024 7:37 PM EST Again noted is significant volume loss involving the right upper lobe and right middle lobe. ??No acute infiltrate. ??Mediastinum appears stable to prior exam. . -------- FINAL REPORT -------- Dictated By: Aidan Barnett Dictated Date: 05/21/2024 19:35 ET Assigned Physician: Aidan Barnett Reviewed and Electronically Signed By: Aidan Barnett Signed Date: 05/21/2024 19:37 ET Workstation ID: [id number] Transcribed By: Self Edit Transcribed Date: 05/21/2024 19:35 ET Narrative 05/21/2024 7:37 PM EST Frontal and lateral view of the chest COMPARISON: Chest CT February 2024 INDICATION: Shortness of breath Procedure Note Aidan Barnett MD - 05/21/2024 Frontal and lateral view of the chest COMPARISON: Chest CT February 2024 INDICATION: Shortness of breath IMPRESSION: Again noted is significant volume loss involving the right upper lobe andright middle lobe. No acute infiltrate. Mediastinum appears stable toprior exam. . -------- FINAL REPORT -------- Dictated By: Aidan Barnett Dictated Date: 05/21/2024 19:35 ET Assigned Physician: Aidan Barnett Reviewed and Electronically Signed By: Aidan Barnett Signed Date: 05/21/2024 19:37 ET Workstation ID: [id number] Transcribed By: Self Edit Transcribed Date: 05/21/2024 19:35 ET Catalino Holman MD IMG XR PROCEDURES * Troponin I high sensitivity (05/21/2024 5:19 PM EST) [facility] High Sensitivity Troponin I 28 <=79 ng/L LAB CHEMISTRY METHOD 05/21/2024 6:22 PM EST [facility] Blood Venous blood specimen / Unknown Venipuncture / Unknown 05/21/2024 5:19 PM EST 05/21/2024 5:47 PM EST Narrative [facility] - 05/21/2024 6:22 PM EST High levels of biotin in samples may falsely decrease hsTroponin values. ??Use caution when interpreting hsTroponin results in patients taking biotin who exhibit renal impairment (eGFR <60) or in patients taking more than 20 mg/day of biotin. Catalino Holman MD LAB BLOOD ORDERABLES [facility] [address] [place] [address], * (ABNORMAL) CBC auto differential (05/21/2024 4:14 PM EST) [facility] WBC 14.2(H) 4.8 - 10.8 K/mcL LAB HEMETOLOGY METHOD 05/21/2024 4:51 PM EST [facility] RBC 5.10 4.50 - 5.50 M/mcL LAB HEMETOLOGY METHOD 05/21/2024 4:51 PM EST [facility] Hemoglobin 15.6 13.5 - 17.5 g/dL LAB HEMETOLOGY METHOD 05/21/2024 4:51 PM EST [facility] Hematocrit 48.6 42.0 - 54.0 % LAB HEMETOLOGY METHOD 05/21/2024 4:51 PM EST [facility] MCV 94.9 79.0 - 98.0 FL LAB HEMETOLOGY METHOD 05/21/2024 4:51 PM [facility] MCH 30.5 27.0 - 32.0 pcg LAB HEMETOLOGY METHOD 05/21/2024 4:51 PM [facility] MCHC 32.1 32.0 - 37.0 g/dL LAB HEMETOLOGY METHOD 05/21/2024 4:51 PM [facility] RDW 15.8(H) 11.0 - 15.0 % LAB HEMETOLOGY METHOD 05/21/2024 4:51 PM [facility] Platelets 211 130 - 400 K/mcL LAB HEMETOLOGY METHOD 05/21/2024 4:51 PM [facility] MPV 8.8 7.0 - 11.0 FL LAB HEMETOLOGY METHOD 05/21/2024 4:51 PM [facility] NRBC 0.0 <1.0 % LAB HEMETOLOGY METHOD 05/21/2024 4:51 PM [facility] NRBC Absolute 0.00 <0.10 K/mcL LAB HEMETOLOGY METHOD 05/21/2024 4:51 PM [facility] Neutrophils Relative 86.4 % LAB HEMETOLOGY METHOD 05/21/2024 4:51 PM [facility] Lymphocytes Relative 4.9 % LAB HEMETOLOGY METHOD 05/21/2024 4:51 PM [facility] Monocytes Relative 8.1 % LAB HEMETOLOGY METHOD 05/21/2024 4:51 PM [facility] Eosinophils Relative 0.0 % LAB HEMETOLOGY METHOD 05/21/2024 4:51 PM [facility] Basophils Relative 0.1 % LAB HEMETOLOGY METHOD 05/21/2024 4:51 PM [facility] Immature Granulocytes Relative 0.5 % LAB HEMETOLOGY METHOD 05/21/2024 4:51 PM EST [facility] Neutrophils Absolute 12.26(H) 1.50 - 7.00 K/[facility] LAB HEMETOLOGY METHOD 05/21/2024 4:51 PM EST [facility] Lymphocytes Absolute 0.70(L) 1.00 - 5.00 K/mcL LAB HEMETOLOGY METHOD 05/21/2024 4:51 PM EST [facility] Monocytes Absolute 1.15(H) 0.20 - 1.00 K/[facility] LAB HEMETOLOGY METHOD 05/21/2024 4:51 PM EST [facility] Eosinophils Absolute 0.00 0.00 - 0.50 K/[facility] LAB HEMETOLOGY METHOD 05/21/2024 4:51 PM EST [facility] Basophils Absolute 0.02 0.00 - 0.20 K/mcL LAB HEMETOLOGY METHOD 05/21/2024 4:51 PM EST [facility] Immature Granulocytes Absolute 0.07(H) 0.00 - 0.03 K/[facility] LAB HEMETOLOGY METHOD 05/21/2024 4:51 PM EST [facility] Blood Venous blood specimen / Unknown Venipuncture / Unknown 05/21/2024 4:14 PM EST 05/21/2024 4:36 PM EST Narrative Authorizing Provider Result Marcio Holman MD LAB BLOOD ORDERABLES [facility] [address] [place] [address], * B-type natriuretic peptide (05/21/2024 4:14 PM EST) BNP 67 <=100 pcg/mL LAB CHEMISTRY METHOD 05/21/2024 5:25 PM EST [facility] Blood Venous blood specimen / Unknown Venipuncture / Unknown 05/21/2024 4:14 PM EST 05/21/2024 4:36 PM EST Catalino Holman MD LAB BLOOD ORDERABLES Performing Organization Address [facility]/ZIP Co de Phone Number [facility] [address] [place] [address], * Magnesium (05/21/2024 4:14 PM EST) [facility] Magnesium 2.5 1.9 - 2.6 mg/dL LAB CHEMISTRY METHOD 05/21/2024 5:15 PM EST [facility] Blood Venous blood specimen / Unknown Venipuncture / Unknown 05/21/2024 4:14 PM EST 05/21/2024 4:36 PM EST Catalino Holman MD LAB BLOOD ORDERABLES Performing Organization Address [facility] Co de Phone Number [facility] [address] [place] [address], [place] [phone] * Lipase (05/21/2024 4:14 PM EST) [facility] Lipase 14 13 - 75 unit/L LAB CHEMISTRY METHOD 05/21/2024 5:15 PM EST [facility] Blood Venous blood specimen / Unknown Venipuncture / Unknown 05/21/2024 4:14 PM EST 05/21/2024 4:36 PM EST Catalino Holman MD LAB BLOOD ORDERABLES Performing Organization Address [facility]/ZIP Co de Phone Number [facility] [address] [place] [address], [place] [phone] * (ABNORMAL) Comprehensive metabolic panel (05/21/2024 4:14 PM EST) [facility] Sodium 135 133 - 145 mmol/L LAB CHEMISTRY METHOD 05/21/2024 5:16 PM EST [facility] Potassium 4.0 3.5 - 5.5 mmol/L LAB CHEMISTRY METHOD 05/21/2024 5:16 PM EST [facility] Chloride 95(L) 96 - 110 mmol/L LAB CHEMISTRY METHOD 05/21/2024 5:16 PM [facility] CO2 37(H) 21 - 32 mmol/L LAB CHEMISTRY METHOD 05/21/2024 5:16 PM [facility] Anion Gap 3 3 - 11 LAB CHEMISTRY METHOD 05/21/2024 5:16 PM [facility] Glucose 116(H) 70 - 100 mg/dL LAB CHEMISTRY METHOD 05/21/2024 5:16 PM [facility] BUN 12 5 - 25 mg/dL LAB CHEMISTRY METHOD 05/21/2024 5:16 PM [facility] Creatinine 0.68(L) 0.70 - 1.30 mg/dL LAB CHEMISTRY METHOD 05/21/2024 5:16 PM [facility] eGFR 105 >=60 mL/min/1. 73m2 LAB CHEMISTRY METHOD 05/21/2024 5:16 PM [facility] Comment:Calculation based on the??Chronic Kidney Disease Epidemiology Collaboration (CKD-EPI) equation refit??without adjustment for race. BUN/Creatinine Ratio 17.6 LAB CHEMISTRY METHOD 05/21/2024 5:16 PM [facility] Calcium 9.2 8.5 - 10.5 mg/dL LAB CHEMISTRY METHOD 05/21/2024 5:16 PM [facility] AST (SGOT) 10 10 - 42 unit/L LAB CHEMISTRY METHOD 05/21/2024 5:16 PM [facility] ALT (SGPT) 15 10 - 60 unit/L LAB CHEMISTRY METHOD 05/21/2024 5:16 PM [facility] Alkaline Phosphatase 112 42 - 121 unit/L LAB CHEMISTRY METHOD 05/21/2024 5:16 PM [facility] Total Protein 6.5 6.0 - 8.0 g/dL LAB CHEMISTRY METHOD 05/21/2024 5:16 PM [facility] Albumin 3.4 3.2 - 5.0 g/dL LAB CHEMISTRY METHOD 05/21/2024 5:16 PM EST [facility] Total Bilirubin 0.1 0.0 - 1.4 mg/dL LAB CHEMISTRY METHOD 05/21/2024 5:16 PM EST [facility] Blood Venous blood specimen / Unknown Venipuncture / Unknown 05/21/2024 4:14 PM EST 05/21/2024 4:36 PM EST Catalino Holman MD LAB BLOOD ORDERABLES [facility] [address] [place] [address], * Troponin I high sensitivity (05/21/2024 4:14 PM EST) [facility] High Sensitivity Troponin I 24 <=79 ng/L LAB CHEMISTRY METHOD 05/21/2024 5:10 PM EST [facility] Blood Venous blood specimen / Unknown Venipuncture / Unknown 05/21/2024 4:14 PM EST 05/21/2024 4:36 PM EST Narrative [facility] - 05/21/2024 5:10 PM EST High levels of biotin in samples may falsely decrease hsTroponin values. ??Use caution when interpreting hsTroponin results in patients taking biotin who exhibit renal impairment (eGFR <60) or in patients taking more than 20 mg/day of biotin. Catalino Holman MD LAB BLOOD ORDERABLES [facility] [address] [place], [place] [address], * ECG 12 lead (05/21/2024 3:56 PM EST) Ventricular Rate ECG 99 BPM GEMUSE Atrial Rate 99 BPM GEMUSE P-R Interval 166 ms GEMUSE QRS Duration 76 ms GEMUSE Q-T Interval 352 ms GEMUSE QTc 451 ms GEMUSE P Wave [place] 77 degrees GEMUSE R [place] 45 degrees GEMUSE T [place] 67 degrees GEMUSE ECG Interpretation Sinus rhythm with occasional Premature ventricular complexes Right atrial enlargement Abnormal ECG When compared with ECG of 25-DEC-2021 17:13, Previous ECG has undetermined rhythm, needs review Right bundle branch block is no longer Present Confirmed by HARISH SIEGEL ([id number]) on 05/22/2024 5:39:12 PM GEMUSE 05/21/2024 3:56 PM EST 05/22/2024 5:39 PM EST Catalino Holman MD ECG ORDERABLES GEMUSE * [place] [facility] 30-74 MINUTES (05/21/2024 3:35 PM [...] Holman MD IN CLINIC/BEDSIDE OR DERABLES * ECG-Annotated (05/21/2024) Provider Onbase MD ECG ORDERABLES * ECG-Outside (05/21/2024) Provider Onbase MD ECG ORDERABLES * ECG-Outside (05/21/2024) Provider Onbase MD ECG ORDERABLES documented in this encounter Visit Diagnoses Diagnosis Shortness of breath- Primary Acute respiratory failure with hypoxia and hypercarbia (CMS/HCC) RSV (respiratory syncytial virus infection) Respiratory syncytial virus (RSV) History of lung cancer Personal history of malignant neoplasm of bronchus and lung documented in this encounter Administered Medications Inactive Administered Medications - up to 3 most recent administrations Medication Order MAR Action Action Date Dose Rate Site albuterol 2.5 mg /3 mL (0.083 %) nebulizer solution 2.5 mg 2.5 mg, nebulization, Every 15 min, First dose on Fri05/21/24 at 1720, For 3 doses Given 05/21/2024 6:08 PM EST 2.5 mg Given 05/21/2024 5:56 PM EST 2.5 mg Given 05/21/2024 5:50 PM EST 2.5 mg azithromycin (ZITHROMAX) 500 mg in sodium chloride 0.9 % 250 mL IVPB 500 mg, intravenous, at 250 mL/hr, Administer over 60 Minutes, Once, On 05/22/24 at 0229, For 1 dose, Indication: Pneumonia, Community Acquired New Bag 05/22/2024 4:04 AM EST 500 mg 250 mL/hr cefTRIAXone (ROCEPHIN) 1 g in sterile water 10 mL IV syringe 1 g, intravenous, at 200 mL/hr, Administer over 3 Minutes, Once, On 05/22/24 at 0229, For 1 dose, Do not administer simultaneously with any calcium containing solutions via a Y-site in any patient., Indication: Pneumonia, Community Acquired Given 05/22/2024 4:03 AM EST 1 g 200 mL/hr iopamidoL (ISOVUE-370) 370 mg iodine /mL (76 %) injection 90 mL 90 mL, intravenous, Once in imaging, Starting on Fri05/21/24 at 2350, For 1 dose Given 05/21/2024 11:52 PM EST 79 mL iopamidoL (ISOVUE-370) 370 mg iodine /mL (76 %) injection 90 mL 90 mL, intravenous, Once in imaging, Starting on 05/22/24 at 0020, For 1 dose Given 05/22/2024 12:22 AM EST 90 mL ipratropium (ATROVENT) 0.02 % nebulizer solution 0.5 mg 0.5 mg, nebulization, Once, On Fri05/21/24 at 1720, For 1 dose, Give with albuterol if concurrently ordered. Given 05/21/2024 5:56 PM EST 0.5 mg ipratropium-albuteroL (DUONEB) 0.5-2.5 mg/3 mL nebulizer solution 3 mL 3 mL, nebulization, Once, On 05/22/24 at 0504, For 1 dose Given 05/22/2024 5:15 AM EST 3 mL ketamine (KETALAR) injection 74 mg 74 mg (rounded from 73.8 mg = 1 mg/kg ? 73.8 kg), intravenous, Once, On 05/22/24 at 0404, For 1 dose Given 05/22/2024 4:30 AM EST 74 mg methylPREDNISolone sodium succ (SOLU-Medrol) injection 125 mg 125 mg, intravenous, Once, On Fri05/21/24 at 1720, For 1 dose, Reconstitute each 125 mg vial with 2 mL sterile water for injection to a concentration of 62.5 mg/mL. Given 05/21/2024 5:55 PM EST 125 mg propofoL (DIPRIVAN) infusion 10 mg/mL 10-80 mcg/kg/min ? 73.8 kg (4.428-35.424 mL/hr, rounded to 4.43-35.42 mL/hr), intravenous, Continuous, Starting on 05/22/24 at 0404, *If SAT failed, restart sedatives at ?? the previous dose* GOAL EFFECT: Titrate to goal RASS score INITIAL RATE: 10 mcg/kg/min USUAL DOSE RANGE: 10 - 80 mcg/kg/min TITRATION DOSE: 5 mcg/kg/min TITRATION FREQUENCY: 5 mins CONTACT PRESCRIBER: -If RASS goal NOT achieved at maximum rate *Individual cases may deviate from parameters and would REQUIRE an order from the provider documented in the patient record* General Anesthetic - do not give without appropriate ventilation support. Do not administer propofol in same IV catheter as blood or plasma. Discard any unused portion of propofol vials and tubing after 12 hours. New Bag 05/22/2024 4:39 AM EST 9.937 mcg/kg/min 4.4 mL/hr rocuronium (ZEMURON) injection 74 mg 74 mg (rounded from 73.8 mg = 1 mg/kg ? 73.8 kg), intravenous, Once, On 05/22/24 at 0404, For 1 dose, PARALYTIC - do not give without appropriate mechanical ventilation, sedation, and analgesia. Prior to extubation, flush line or change tubing (to prevent residual medication being later flushed into a non-intubated patient)., Indications: mechanical ventilation Given 05/22/2024 4:32 AM EST 74 mg sodium chloride 0.9 % bolus 1,000 mL 1,000 mL, intravenous, at 2,000 mL/hr, Administer over 30 Minutes, Once, On 05/22/24 at 0510, For 1 dose New Bag 05/22/2024 5:42 AM EST 1,000 mL 2000 mL/hr sodium chloride 0.9 % flush 10 mL 10 mL, intravenous, Once, On Fri05/21/24 at 2351, For 1 dose Given 05/21/2024 11:53 PM EST 10 mL sodium chloride 0.9 % flush 10 mL 10 mL, intravenous, Once, On 05/22/24 at 0021, For 1 dose Given 05/22/2024 12:22 AM EST 10 mL sodium chloride 0.9 % infusion intravenous, Code/trauma/sedation continuous med, Starting on 05/22/24 at 0427 New Bag 05/22/2024 4:27 AM EST 999 mL/hr 999 mL/hr documented in this encounter Active and Recently Administered Medications Times are shown in EST. Scheduled Medication Order 05/20/2024 05/21/2024 05/22/2024 albuterol 2.5 mg /3 mL (0.083 %) nebulizer solution 2.5 mg (COMPLETED) 2.5 mg, nebulization, Every 15 min, First dose on Fri05/21/24 at 1720, For 3 doses 1750 (Given - Provider: Paolo Helm RN)1756 (Given - Provider: Paolo Helm RN)1808 (Given - Provider: Paolo Helm RN) azithromycin (ZITHROMAX) 500 mg in sodium chloride 0.9 % 250 mL IVPB (COMPLETED) 500 mg, intravenous, at 250 mL/hr, Administer over 60 Minutes, Once, On 05/22/24 at 0229, For 1 dose, Indication: Pneumonia, Community Acquired 0404 (New Bag - Provider: Faith Christianson RN)0542 (Stopped - Provider: Faith Christianson RN) cefTRIAXone (ROCEPHIN) 1 g in sterile water 10 mL IV syringe (COMPLETED) 1 g, intravenous, at 200 mL/hr, Administer over 3 Minutes, Once, On 05/22/24 at 0229, For 1 dose, Do not administer simultaneously with any calcium containing solutions via a Y-site in any patient., Indication: Pneumonia, Community Acquired 0403 (Given - Provid er: Faith Christianson RN) iopamidoL (ISOVUE-370) 370 mg iodine /mL (76 %) injection 90 mL (COMPLETED) 90 mL, intravenous, Once in imaging, Starting on Fri05/21/24 at 2350, For 1 dose 2352 (Given - Provider: Demetri Cox) iopamidoL (ISOVUE-370) 370 mg iodine /mL (76 %) injection 90 mL (COMPLETED) 90 mL, intravenous, Once in imaging, Starting on 05/22/24 at 0020, For 1 dose 0022 (Given - Provid er: Candelario Ansari) ipratropium (ATROVENT) 0.02 % nebulizer solution 0.5 mg (COMPLETED) 0.5 mg, nebulization, Once, On Fri05/21/24 at 1720, For 1 dose, Give with albuterol if concurrently ordered. 1756 (Given - Provider: Paolo Helm RN) ipratropium-albuteroL (DUONEB) 0.5-2.5 mg/3 mL nebulizer solution 3 mL (COMPLETED) 3 mL, nebulization, Once, On 05/22/24 at 0504, For 1 dose 0515 (Given - Provid er: Gudelia Bello) ketamine (KETALAR) injection 74 mg (COMPLETED) 74 mg (rounded from 73.8 mg = 1 mg/kg ? 73.8 kg), intravenous, Once, On 05/22/24 at 0404, For 1 dose 0430 (Given - Provid er: Lizet Mao RN) methylPREDNISolone sodium succ (SOLU-Medrol) injection 125 mg (COMPLETED) 125 mg, intravenous, Once, On Fri05/21/24 at 1720, For 1 dose, Reconstitute each 125 mg vial with 2 mL sterile water for injection to a concentration of 62.5 mg/mL. 1755 (Given - Provider: Paolo Helm RN) rocuronium (ZEMURON) injection 74 mg (COMPLETED) 74 mg (rounded from 73.8 mg = 1 mg/kg ? 73.8 kg), intravenous, Once, On 05/22/24 at 0404, For 1 dose, PARALYTIC - do not give without appropriate mechanical ventilation, sedation, and analgesia. Prior to extubation, flush line or change tubing (to prevent residual medication being later flushed into a non-intubated patient)., Indications: mechanical ventilation 0432 (Given - Provid er: Lizet Mao RN) sodium chloride 0.9 % bolus 1,000 mL 1,000 mL, intravenous, at 2,000 mL/hr, Administer over 30 Minutes, Once, On 05/22/24 at 0510, For 1 dose 0542 (New Bag - Provider: Faith Christianson, LUCÍA)0612 (Due: Stopped - Provider: Faith Christianson RN) sodium chloride 0.9 % flush 10 mL (COMPLETED) 10 mL, intravenous, Once, On Fri05/21/24 at 2351, For 1 dose 2353 (Given - Provider: Candelario Ansari) sodium chloride 0.9 % flush 10 mL (COMPLETED) 10 mL, intravenous, Once, On 05/22/24 at 0021, For 1 dose 0022 (Given - Provid er: Candelario Ansari) Continuous Medication Order 05/20/2024 05/21/2024 05/22/2024 propofoL (DIPRIVAN) infusion 10 mg/mL 10-80 mcg/kg/min ? 73.8 kg (4.428-35.424 mL/hr, rounded to 4.43-35.42 mL/hr), intravenous, Continuous, Starting on 05/22/24 at 0404, *If SAT failed, restart sedatives at ?? the previous dose* GOAL EFFECT: Titrate to goal RASS score INITIAL RATE: 10 mcg/kg/min USUAL DOSE RANGE: 10 - 80 mcg/kg/min TITRATION DOSE: 5 mcg/kg/min TITRATION FREQUENCY: 5 mins CONTACT PRESCRIBER: -If RASS goal NOT achieved at maximum rate *Individual cases may deviate from parameters and would REQUIRE an order from the provider documented in the patient record* General Anesthetic - do not give without appropriate ventilation support. Do not administer propofol in same IV catheter as blood or plasma. Discard any unused portion of propofol vials and tubing after 12 hours. 0439 (New Bag - Prov ider: Lizet Mao, RN)0641 (Due: Stopped) PRN Medication Order 05/20/2024 05/21/2024 05/22/2024 sodium chloride 0.9 % infusion (COMPLETED) intravenous, Code/trauma/sedation continuous med, Starting on 05/22/24 at 0427 0427 (New Bag - Prov ider: Faith Christianson RN) documented in this encounter Orders Medications Ordered That Torsten ht Not Have Been Administered Count Last Ordered Date First Ordered Date aspirin chewable tablet 324 mg 1 05/22/2024 EKG Orders Without Results Count Last Ordered D ate First Ordered Date ECG 12-LEAD 1 05/21/2024 documented in this encounter Additional Health Concerns Infection Onset Date Last Indicated Resolved Time Respiratory Rule-Out 05/21/2024 05/21/2024 025 7:32 PM EST COVID-19 Rule-Out 05/21/2024 05/21/2024 05/21/2024 7:32 PM EST RSV 05/21/2024 05/21/2024 documented as of this encounter Care Teams Strategic Account Manager Relationship Specialty Start Date End Date Tori Jackson MD [address] [place] [id number] PCP - General Internal Medicine 07/03/16 documented as of this encounter
--- OUTSIDE RECORDS SUMMARY | 2024-06-07 06:34 | XMS_ITS | Encounter Summary ---
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 5-9 [facility] [address] [place] [phone] Referral ID Status Reason Start Date Expiration Date Visits Re quested Visits Authorized [id number] 1 1 Encounter Details Date Type Department Care Team (Latest Contact Info) Description 05/22/2024 6:41 AM EST - 06/02/2024 9:51 AM EST Hospital Encounter [facility] Obs Unit 6-[address] [place] [id number] aCrissa Esquivel MD [address] [place] [address] Jonnathan Ballesteros MD [address] [place] [address] Rosario Owens MD [address] [place] [address] Brayan Armando MD [address] [place] [id number] Eriberto Bhakta MD [address] [place], [place] [id number] Discharge Disposition: Longterm Facility Social History Tobacco Use Types Packs/Day Years [...] (160 lb) 05/25/2024 4:00 AM EST Height - - Body Mass Index 22.96 05/22/2024 4:30 AM EST documented in this encounter Discharge Summaries * Brayan Armando MD - 06/01/2024 11:45 AM EST Physician Discharge Summary Admit date: 05/22/2024 Discharge Date: 06/01/2024 Admitting Physician: Carissa Esquivel MD Discharge Physician: Brayan Armando MD Final Diagnoses: Acute respiratory failure hypoxia and hypercapnia, COPD exacerbation, acute RSV infection Code Status: Full Code - Default HPI: 64-year-old male with past medical history including COPD, hyperlipidemia, lung cancer, schizophrenia, history of SBO who presented to [facility] emergency department with shortness of breath. History is gathered from the chart. Patient was reportedly complaining of chest tightness, coughand wheezing. In the emergency department patient was placed on BiPAP. Appropriately transitioned off in order totolerate lying supine for chest CT however upon return from CT the RN noted that he had sudden onset of garbled speech. Code stroke initiated, CT head without contrast was negative. NIHSS 1. Unfortunately patient's ABG worsened after multiple hours on BiPAP necessitating intubation for airway protection as patient's mental status was also worsening. Workup otherwise significant for RSV positive. CT chest with contrast negative for PE, did demonstrate emphysematous changes as well as rqng-hv-yctnhsvlazlls. Chemistries largely unremarkable, LFTs normal. BN P67, troponins 24, 28. WBC 14.2. Hospital Course: 64-year-old male with past medical history including COPD, hyperlipidemia, lung cancer s/p radiation and chemotherapy, schizophrenia, history of SBO who presented from [facility] with shortness of breath, chest tightness, cough and wheezing. Upon getting imaging done, patient was noted tohave garbled speech Code stroke initiated, CT head without contrast was negative. NIHSS 1. Unfortunately patient's ABG worsened after multiple hours on BiPAP necessitating intubation for airway protection as patient's mental status was also worsening. Workup otherwise significant for RSV positive. CT chest with contrast negative for PE, did demonstrate emphysematous changes as well as emmo-ug-xrlaufzvqejtw. Patient has failed CPAP trials on multiple days due to tachypnea thought to be in the setting of anxiety. 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 Acute respiratory failure hypoxia and hypercapnia: Secondary COPD exacerbation in the setting of acute RSV infection for which patient was intubated and was subsequently extubated on May 28, 2024 - Currently patient is on p.o. prednisone, continue to taper - Continue nebulizers every 6 hours - Patient is still smoking extensive counseling was provided - Continue to wean off the oxygen and continue tapering dose of prednisone 2. Acute metabolic encephalopathy: - Secondary to ongoing illness and hypercapnia - CAT scan of the head was unremarkable - CT of the head and neck did not show any major vessel occlusion - Resolved - Currently patient is mentating fine, no need for MRI of the brain 3. History of stage III squamous cell lung cancer status post chemoradiation: -Patient initially diagnosed with stage IIIb squamous cell lung cancer after discovery of right upper lobe mass on CT in late 2021. He completed a course of chemo and radiation in August 2022 and was then maintained on durvalumab. He had multiple CTs with evidence of decreasing mass as well as no new metastatic disease, last in September and February 2024. He continues to follow with heme-onc for serial follow-up imaging. CT chest done on admission does show evidence of right upper lobe obstruction versus scarring 4. History of schizophrenia: - Continue the patient on fluphenazil 5 mg daily 5. Physical deconditioning and generalized weakness: -Physical therapy saw the patient and patient needs rehab placement 6. Moderate protein calorie malnutrition: This patient appears to be malnourished in the setting of underlying severe COPD along with historyof lung cancer Start the patient on protein supplements Ensure 3 times a day CODE STATUS: Full code Regular diet as tolerated with protein supplements Patient will be discharged to rehab facility in [place], expected length of stay at the rehabis less than 30 days Medication List TAKE these medications budesonide 0.5 mg/2 mL nebulizer solution Commonly known as: PULMICORT Take 1 mL (0.25 mg total) by nebulization 2 (two) times a day. Rinse mouth with water after use to reduce aftertaste and incidence of candidiasis. Do not swallow. fluPHENAZine 5 mg tablet Commonly known as: PROLIXIN Take 1 tablet (5 mg total) by mouth 1 (one) time each day. gabapentin 300 mg capsule Commonly known as: NEURONTIN Take 1 capsule (300 mg total) by mouth at bedtime. guaiFENesin 100 mg/5 mL liquid Commonly known as: ROBITUSSIN Take 20 mL (400 mg total) by mouth 4 (four) times a day if needed for cough for up to 10 days. ipratropium-albuteroL 0.5-2.5 mg/3 mL nebulizer solution Commonly known as: DUONEB Take 3 mL by nebulization every 6 (six) hours. polyethylene glycol 17 gram packet Commonly known as: MIRALAX Take 17 g by mouth 1 (one) time each day. Start taking on: June 02, 2024 predniSONE 10 mg tablet Commonly known as: DELTASONE Take 3 tablets (30 mg total) by mouth 1 (one) time each day for 3 days, THEN 2 tablets (20 mg total) 1 (one) time each day for 3 days, THEN 1 tablet (10 mg total) 1 (one) time each day for 3 days. Start taking on: June 01, 2024 Trelegy Ellipta 100-62.5-25 mcg inhaler Generic drug: heuzqfokvlj-wpddwlgyfoms-uiajyhbfea Inhale 1 puff (100 mcg total) by mouth 1 (one) time each day. Rinse mouth with water after use to reduce aftertaste and incidence of candidiasis. Do not swallow. Consults: IP CONSULT TO NUTRITION SERVICES INTERAGENCY PLACEMENT PROVIDER CERTIFICATION Follow Ups: Tori Jackson MD PCP - General Internal Medicine [phone] [place] [phone] Next Steps: Follow up in 4 week(s) Close documented in this encounter Medications at Time [...] mouth 1 (one) time each day. 06/01/2024 fluticasone-umeclidini um-vilanterol (Trelegy Ellipta) 100-62.5-25 mcg inhaler [...] each day for 3 days. 06/01/2024 06/10/2024 documented as of this encounter Ordered Prescriptions Prescription Sig Dispensed Refills Start Date End Da te predniSONE (DELTASONE) 10 mg tablet Take 3 tablets (30 mg total) by mouth 1 (one) time each day for 3 days, THEN 2 tablets (20 mg total) 1 (one) time each day for 3 days, THEN 1 tablet (10 mg total) 1 (one) time each day for 3 days. 06/01/2024 06/10/2024 polyethylene glycol (MIRALAX) 17 gram packet Take 17 g by mouth 1 (one) time each day. 06/02/2024 07/02/2024 ipratropium-albuteroL (DUONEB) 0.5-2.5 mg/3 mL nebulizer solution Take 3 mL by nebulization every 6 (six) hours. 06/01/2024 06/01/2025 guaiFENesin (ROBITUSSIN) 100 mg/5 mL liquid Take 20 mL (400 mg total) by mouth 4 (four) times a day if needed for cough for up to 10 days. 06/01/2024 06/11/2024 budesonide (PULMICORT) 0.5 mg/2 mL nebulizer solution Take 1 mL (0.25 mg total) by nebulization 2 (two) times a day. Rinse mouth with water after use to reduce aftertaste and incidence of candidiasis. Do not swallow. 06/01/2024 06/01/2025 fluPHENAZine (PROLIXIN) 5 mg tablet Take 1 tablet (5 mg total) by mouth 1 (one) time each day. 06/01/2024 documented in this encounter Discharge Disposition Disposition Code Departure Means Destination Comment s Longterm Facility Ambulance Ski lled Nursing, Intermediate Care, or Assisted Living Facility documented in this encounter Progress Notes * Arben Delaney RN - 06/02/2024 9:44 AM EST 0944: EMS here to pick patient up. He was given dc instructions yesterday. He had no follow up questions this morning Problem: Respiratory: Breathing Pattern Impairment Goal: Ability to maintain normal pulse oximetry readings will improve Outcome: Adequate for Discharge Problem: Skin Integrity: Skin Integrity Impairment Goal: Skin integrity will improve Outcome: Adequate for Discharge Problem: Cognitive: Skin Integrity Impairment Goal: Knowledge of the prescribed therapeutic regimen will improve Outcome: Adequate for Discharge Problem: Nutritional: Skin Integrity Impairment Goal: Dietary intake will improve Outcome: Adequate for Discharge Problem: Self-Care: Skin Integrity Impairment Goal: Compliance with treatment plan for underlying cause of condition will improve Outcome: Adequate for Discharge Problem: Patient Specific Problem: Skin Integrity Impairment Goal: Patient Specific Outcome Outcome: Adequate for Discharge Problem: Falls: Fall Risk (Adult IP BH) Goal: (Goal) Patient will experience maximum safety and reduce risk for falls. Outcome: Adequate for Discharge Goal: Patient will not fall or injure themselves during hospitalization. Outcome: Adequate for Discharge Problem: Skin Integrity: Pressure Injury Actual or Risk of Goal: Will not develop new pressure injury Outcome: Adequate for Discharge Goal: Skin integrity will improve Outcome: Adequate for Discharge Goal: Risk for impaired skin integrity will decrease Outcome: Adequate for Discharge Problem: Activity:Pressure Injury Actual or Risk of Goal: Mobility will improve Outcome: Adequate for Discharge Problem: Nutritional:Pressure Injury Actual or Risk of Goal: Nutritional status will improve Outcome: Adequate for Discharge Problem: Patient Specific Problem: Pressure Injury Actual or Risk of Goal: Patient Specific Outcome Outcome: Adequate for Discharge * Eriberto Bhakta MD - 06/02/2024 9:25 AM EST Admit Date: 05/22/2024 LOS: 11 days AIMS Progress Note SUBJECTIVE: Seen and examined this morning. Patient had no complaints today Vitals: Intake / Output: BP Temp Pulse Resp SpO2 Last 24 hours: Intake/Output Summary (Last 24 hours) at 06/02/2024 0925 Last data filed at 06/02/2024 0500 Gross per 24 hour Intake -- Output 300 ml Net -300 ml Physical Exam: Gen: awake and oriented x 3, no acute distress HEENT: no pallor, no icterus, mucus membranes moist CVS: S1,S2+, regular rate and rhythm, no murmurs, rubs or gallops Lungs: Diminished breath sounds bilaterally; no crackles, wheezes, or rhonchi Ab: soft, non distended, non tender, bowel sounds present Ext: no pedal edema, distal pulses present Skin: warm and dry Psych: no acute issues Neuro: grossly no focal deficits Labs: Results from last 7 days Lab Units 06/02/24 0607 WBC AUTO K/mcL 9.1 HEMOGLOBIN g/dL 14.8 HEMATOCRIT % 42.6 PLATELETS K/mcL 204 Results from last 7 days Lab Units 06/02/24 0607 SODIUM mmol/L 138 POTASSIUM mmol/L 3.4* CHLORIDE mmol/L 102 CO2 mmol/L 29 BUN mg/dL 18 CREATININE mg/dL 0.60* CALCIUM mg/dL 8.3* GLUCOSE mg/dL 89 Lab data personally reviewed by me. Imaging: XR Chest 1 View Result Date: 05/22/2024 Narrative: Frontal view of the chest COMPARISON: Chest radiograph yesterday INDICATION: Postintubation Impression: Again noted is significant scarring and volume loss in the right lung apex. ET tube in adequate position above the adriana. NG tube follows normal course and terminates beyond view. No acute infiltrate. -------- FINAL REPORT -------- Dictated By: Aidan Barnett Dictated Date: 05/22/2024 08:24 ET Assigned Physician: Aidan Barnett Reviewed and Electronically Signed By: Aidan Barnett Signed Date: 05/22/2024 08:25 ET Workstation ID: [id number] Transcribed By: Self Edit Transcribed Date: 05/22/2024 08:[address] Angio Head/Neck wo and/or w Contrast Result Date: 05/22/2024 Narrative: CT angiography head and neck with contrast. 3D Postprocessing. Comparison: CT - CT ANGIOCHEST WO AND OR W CONTRAST - 05/21/24 [...] disc disease. Age-indeterminate compression deformity at T3. Impression: Patent head and neck CTA. This document has been electronically signed by: Alexander Soto MD on 05/22/2024 01:02:04 CT Head Stroke wo Contrast Addendum Date: 05/22/2024 Addendum: ADDENDUM: This report was discussed with Concepcion Strong RN on May 22, 2024 00:49:00 EST. This document has been electronically signed by: Janis Castaneda on 05/22/2024 00:50:47 Result Date: 05/22/2024 Narrative: CT head without contrast Comparison: None Findings: Motion and streak artifact limit evaluation. Scattered subcortical and periventricular hypoattenuation, likely in keeping with chronic small vessel ischemic disease. Parenchymal volume loss with compensatory prominence of the ventriclesand CSF spaces. No acute territorial infarction, intracranial hemorrhage, midline shift or hydrocephalus. Hyperdense dural reflections and intracranial vasculature, suggesting recent intravenous contrast administration. Mucosal thickening throughout the paranasal sinuses. The orbits are unremarkable. There is no acute fracture. Impression: 1. No acute intracranial findings. 2. Additional findings as described. This document has been electronically signed by: Alexander Soto MD on 05/22/2024 00:48:47 CT Angio Chest wo and/or w Contrast Result Date: 05/22/2024 Narrative: CT angiography chest with contrast. 3D Postprocessing. Comparison: None Findings: Cardiomegaly without significant pericardial effusion. Coronary artery calcifications. The thoracic aorta is normal caliber. No acute pulmonary embolus. Mediastinal adenopathy, for example an AP window nodemeasuring 1.4 cm. Mild nodular thickening of the trachea proximal bronchi more so in the right. Maybe further evaluated with direct visual inspection. Emphysema. [...] T7 and T9. Additional findings as described. Impression: 1. No evidence of PE. 2. Emphysema. 3. Ill-defined subtle bilateral tree-in-bud nodularity, can be seen with aspiration or endobronchial pneumonia. 4. Suspect malignancy with possible posttreatment changes/scarring in the right upper lobe, please see above. This document has been electronically signed by: Alexander Soto MD on 05/22/2024 00:25:51 XR Chest 1 View Result Date: 05/21/2024 Narrative: Frontal and lateral view of the chest COMPARISON: Chest CT February 2024 INDICATION: Shortness of breath Impression: Again noted is significant volume loss involving the right upper lobe and right middle lobe. No acute infiltrate. Mediastinum appears stable to prior exam. . -------- FINAL REPORT -------- Dictated By: Aidan Barnett Dictated Date: 05/21/2024 19:35 ET Assigned Physician: Aidan Barnett Reviewed and Electronically Signed By: Aidan Barnett Signed Date: 05/21/2024 19:37 ET Workstation ID: [id number] Transcribed By: Self Edit Transcribed Date: 05/21/2024 19:35 ET XR Knee 4+ Views Left Result Date: 05/09/2024 Narrative: EXAMINATION: Left knee or views. CLINICAL INDICATION: Pain. No trauma. COMPARISON: None.FINDINGS: The tricompartmental joint spaces maintain normal. No visible acute fracture, dislocationor subluxation seen. No bony erosive changes. No joint effusion. There is anterior superior patellar enthesophyte. Mild osteopenia. The soft tissues are normal. Impression: No acute fracture or dislocation. No joint effusion or loose bodies. Mild anterior superior patellar enthesophyte. Diffuse osteopenia. -------- FINAL REPORT -------- Dictated By: Mac Burton Dictated Date: 05/09/2024 14:39 ET Assigned Physician: Mac Burton Reviewed and ElectronicallySigned By: Mac Burton Signed Date: 05/09/2024 14:41 ET Workstation ID: [id number] Transcribed By: Self Edit Transcribed Date: 05/09/2024 14:39 ET XR Hip 2-3 Views Left Result Date: 05/09/2024 Narrative: EXAMINATION: Left hip 2-3 views. CLINICAL INDICATION: Left hip pain. No trauma. COMPARISON: None. FINDINGS: AP pelvis: There is normal symmetry of bilateral SI joints and hip joints. No acute fracture or dislocation seen. The soft tissues are normal. AP and frog-leg views left hip revealno visible acute fracture or dislocation. The hip joint space is maintained normal. No bony erosivechanges or loose bodies. The soft tissues are normal. Impression: Normal AP pelvis and left hip exam. -------- FINAL REPORT -------- Dictated By: Mac Burton Dictated Date: 05/09/2024 13:52 ET Assigned Physician: Mac Burton Reviewed and Electronically Signed By: Mac Burton Signed Date: 05/09/2024 13:53 ET Workstation ID: [id number] Transcribed By: Self Edit Transcribed Date: 05/09/2024 13:52 ET XR Lumbar Spine 2-3 Views Result Date: 05/09/2024 Narrative: EXAMINATION: Lumbar spine 3 views. CLINICAL INDICATION: Trauma. Pain 12 days. COMPARISON: None. FINDINGS: There is normal lumbar lordosis. The vertebral heights, alignment and disc heightsare normal. There is minimal dextroscoliosis likely positional. No acute fracture, dislocation lytics process seen. There is mild osteopenia. The paravertebral soft tissues are normal. SI joints are symmetrical and normal. There is moderate gas and stool in the colon and mildly distended small bowel loops with gas Impression: No acute fracture or dislocation lumbar spine. There is mild osteopenia. Prominent cases distention of small bowel loops and colon. -------- FINAL REPORT -------- Dictated By: Mac Burton Dictated Date: 05/09/2024 13:50 ET Assigned Physician: Mac Burton Reviewed and Electronically Signed By: Mac Burton Signed Date: 05/09/2024 13:52 ET Workstation ID: [id number] Transcribed By: Self Edit Transcribed Date: 05/09/2024 13:50 ET Vascular US duplex lower extremity venous left Result Date: 05/09/2024 Narrative: EXAMINATION: Ultrasound duplex left lower extremity. CLINICAL INDICATION: Pain and swelling. COMPARISON: None. TECHNIQUE: Grayscale, color Doppler and duplex waveform imaging of left lowerextremity venous Doppler exam performed. FINDINGS: There is normal color flow, respiratory variation and Doppler waveform of left common femoral, superficial femoral, junction of common femoral and greater saphenous, gastrocnemius, popliteal, posterior tibial and peroneal veins. The soft tissues are normal. Impression: Normal left lower extremity venous study. There is no evidence of DVT. -------- FINAL REPORT -------- Dictated By: Mac Burton Dictated Date: 05/09/2024 13:12 ET Assigned Physician: Mac Burton Reviewed and Electronically Signed By: Mac Burton Signed Date: 05/09/2024 13:13 ET Workstation ID: [id number] Transcribed By: Self Edit Transcribed Date: 05/09/2024 13:12 ET Current Facility-Administered Medications: bisacodyL (DULCOLAX) suppository 10 mg, 10 mg, rectal, Daily PRN, Rosita Bobby MD budesonide (PULMICORT) 0.5 mg/2 mL nebulizer solution 0.25 mg, 0.25 mg, nebulization, Daily, MD Duncan, 0.25 mg at 06/02/24 0846 chlorhexidine (PERIDEX) 0.12 % solution 15 mL, 15 mL, Mouth/Throat, q12h, Efrain Hatch MD, 15 mL at 06/02/24 0846 dextrose (D50W) 50% injection 12.5 g, 12.5 g, intravenous, q15 min PRN, Vesna Solorzano NP dextrose (D50W) 50% injection 25 g, 25 g, intravenous, q15 min PRN, Vesna Solorzano NP dextrose 15 gram/60 mL oral solution 15 g, 15 g, oral, q15 min PRN, Vesna Solorzano NP dextrose 15 gram/60 mL oral solution 30 g, 30 g, oral, q15 min PRN, Vesna Solorzano NP enoxaparin (LOVENOX) injection 40 mg, 40 mg, subcutaneous, q24h SAMMY, Efrain Hatch MD, 40 mg at 06/02/24 0845 fluPHENAZine (PROLIXIN) tablet 5 mg, 5 mg, oral, Daily, Guru Mack MD, 5 mg at Glucagon HCl (rDNA) injection 1 mg, 1 mg, intramuscular, Once PRN, Vesna Solorzano NP guaiFENesin (ROBITUSSIN) 100 mg/5 mL liquid 400 mg, 400 mg, oral, q8h SAMMY, Guru Mack MD, 400 mg at 06/02/24 0514 ipratropium-albuteroL (DUONEB) 0.5-2.5 mg/3 mL nebulizer solution 3 mL, 3 mL, nebulization, q6h, Vesna Solorzano NP, 3 mL at 06/02/24 0846 pantoprazole (PROTONIX) EC tablet 40 mg, 40 mg, oral, q AM AC, Brayan Armando MD, 40 mg at polyethylene glycol (MIRALAX) packet 17 g, 17 g, oral, Daily, Guru Mack MD, 17 g at 06/02/24 0846 potassium chloride (KLOR-CON M20) CR tablet 40 mEq, 40 mEq, oral, Once, Eriberto Bhakta MD predniSONE (DELTASONE) tablet 30 mg, 30 mg, oral, Daily, Brayan Armando MD, 30 mg at 06/02/24 0845 senna (SENOKOT) 8.8 mg/5 mL syrup 5 mL, 5 mL, oral, Nightly, Guru Mack MD, 5 mL at 06/01/242118 ASSESSMENT/PLAN: Acute respiratory failure hypoxia and hypercapnia COPD exacerbation Acute RSV infection Nicotine fjifsjgqhc-axahfejvsb-roswpjlbbyree 64-year-old male with past medical history including COPD, hyperlipidemia, lung cancer s/p radiation and chemotherapy, schizophrenia, history of SBO who presented from [facility] with shortness of breath, chest tightness, cough and wheezing. Upon getting imaging done, patient was noted tohave garbled speech Code stroke initiated, CT head without contrast was negative. NIHSS 1. Unfortunately patient's ABG worsened after multiple hours on BiPAP necessitating intubation for airway protection as patient's mental status was also worsening. Workup otherwise significant for RSV positive. CT chest with contrast negative for PE, did demonstrate emphysematous changes as well as qivv-lg-kfeofqidczmlj. Patient has failed CPAP trials on multiple days due to tachypnea thought to be in the setting of anxiety. He was ultimately extubated on 05/28 and remains hemodynamically stable and was subsequently transferred to medical floors In the hospital patient continued to improve on bronchodilators and steroids He will be discharged on a steroid taper His encephalopathy is resolved Patient was planned for discharge on 06/01/2024 however remained in the hospital awaiting placement to rehab and had an uneventful remaining stay in the hospital and will be discharged on 06/02/2024 Patient was counseled on smoking cessation FEN : Adult diet [facility]; General; Regular Discharge Diet: Regular Diet DVT Prophylaxis: Lovenox sc Code : Full Code - Default Barriers to Discharge: Disposition : Eriberto Bhakta MD 06/02/24 9:25 AM EST AIM[facility] Hospitalist Section of Hospital Medicine * Randi Zavala RN - 06/01/2024 7:28 PM EST Problem: Respiratory: Breathing Pattern Impairment Goal: Ability to maintain normal pulse oximetry readings will improve Outcome: Progressing Problem: Skin Integrity: Skin Integrity Impairment Goal: Skin integrity will improve Outcome: Progressing Problem: Cognitive: Skin Integrity Impairment Goal: Knowledge of the prescribed therapeutic regimen will improve Outcome: Progressing Problem: Nutritional: Skin Integrity Impairment Goal: Dietary intake will improve Outcome: Progressing Problem: Self-Care: Skin Integrity Impairment Goal: Compliance with treatment plan for underlying cause of condition will improve Outcome: Progressing Problem: Patient Specific Problem: Skin Integrity Impairment Goal: Patient Specific Outcome Outcome: Progressing Problem: Falls: Fall Risk (Adult IP BH) Goal: (Goal) Patient will experience maximum safety and reduce risk for falls. Outcome: Progressing Goal: Patient will not fall or injure themselves during hospitalization. Outcome: Progressing Problem: Skin Integrity: Pressure Injury Actual or Risk of Goal: Will not develop new pressure injury Outcome: Progressing Goal: Skin integrity will improve Outcome: Progressing Goal: Risk for impaired skin integrity will decrease Outcome: Progressing Problem: Activity:Pressure Injury Actual or Risk of Goal: Mobility will improve Outcome: Progressing Problem: Nutritional:Pressure Injury Actual or Risk of Goal: Nutritional status will improve Outcome: Progressing Problem: Patient Specific Problem: Pressure Injury Actual or Risk of Goal: Patient Specific Outcome Outcome: Progressing Assumed care of pt [id number]: Pt A&O x3. Vital signs as documented in flowsheets, Room Air. No c/o pain. Pt OOB to chair. Pt resting comfortably in bed, respirations even and unlabored. Bed locked in lowest position with call salas within reach. Safety maintained. Pt ready for discharge. Report called and given to facility. Paperwork printed. Valuables packed. * Alexa Atkinson RN - 06/01/2024 3:59 PM EST Patient was accepted at [facility] - confirmed they can take patient today as well. Inquired about PASRR needed - they will obtain on their own. Patient & brother Vaughn made aware of accepting bed & agreeable to go to [facility]. [facility] booked for 1800 - facility made aware of timing. Plan for d/c at 1800. RN updated with facility info for report & number given. Spoke with LUCÍA Jacobson who shares at 2130 [facility] still wasn't here, she contacted the facility who stated at this time it is too late to accept the patient. Confirmed with [facility] that patient was rebooked to 8AM tomorrow for d/c. * Alesha Orellana RD - 06/01/2024 8:28 AM EST Follow-Up Nutrition Assessment and Recommendations Patient: Elvin Partida Sex: male : 1960 64 year old male admitted for AHRF in the setting of RSV pneumonia. History includes COPD, stage III lung cancer. Intubated. Jevity 1.2 started 05/23, reached goal 70ml/hr by 05/26. Stopped 05/27 s/p extubation 05/28. Regular diet ordered later that day. Ensure Plus HP TID added 05/30. Patient estimateseating half of each meal in addition to 2-3 Ensure per day which he is receptive to continuing. Denies N/V/D or pain. ASSESSMENT: Past Medical History: Diagnosis Date COPD (chronic obstructive pulmonary disease) (CMS/HCC) DX:COPD (chronic obstructive pulmonary disease) (HCC) Hyperlipidemia DX:Hyperlipidemia Incarcerated right inguinal hernia DX:Incarcerated right inguinal hernia Lung cancer (CMS/HCC) DX:Lung cancer (HCC) Schizophrenia (CMS/HCC) DX:Schizophrenia (HCC) Small bowel obstruction (CMS/HCC) DX:Small bowel obstruction (HCC) Vitamin D deficiency DX:Vitamin D deficiency Past Surgical History: Procedure Laterality Date HERNIA REPAIR PROCEDURE:INGUINAL HERNIA REPAIR Labs: Lab Results Component Value Date BUN 25 (H) 05/31/2024 CREATININE 0.60 (L) 05/31/2024 NA 140 05/31/2024 K 3.9 05/31/2024 CL 102 05/31/2024 CO2 31 05/31/2024 CALCIUM 8.8 05/31/2024 ALKPHOS 82 05/22/2024 PHOS 3.3 05/23/2024 MG 2.2 05/31/2024 EGFR 109 05/31/2024 Lab Results Component Value Date HGBA1C 5.9 10/27/2020 Medications: budesonide, 0.25 mg, nebulization, Daily chlorhexidine, 15 mL, Mouth/Throat, q12h enoxaparin, 40 mg, subcutaneous, q24h SAMMY fluPHENAZine, 5 mg, oral, Daily guaiFENesin, 400 mg, oral, q8h SAMMY ipratropium-albuteroL, 3 mL, nebulization, q6h pantoprazole, 40 mg, oral, q AM AC polyethylene glycol, 17 g, oral, Daily predniSONE, 40 mg, oral, Daily senna, 5 mL, oral, Nightly sodium chloride, 4 mL, nebulization, q12h Anthropometrics: Height: 70in BMI: 23.0 based on 160lb Weight History: Wt Readings from Last 10 Encounters: 05/25/24 0400 72.6 kg (160 lb) 05/22/24 0430 73.8 kg (162 lb 11.2 oz) 05/18/24 1436 73.8 kg (162 lb 12.8 oz) 05/09/24 1142 72.6 kg (160 lb) 03/09/24 0934 73 kg (161 lb) 01/08/24 0930 69.7 kg (153 lb 9.6 oz) 01/08/24 0930 69.7 kg (153 lb 9.6 oz) 12/05/23 1400 67.6 kg (149 lb) 10/10/23 1016 68.6 kg (151 lb 3.2 oz) 10/08/23 0941 68.6 kg (151 lb 3.2 oz) 09/09/23 0938 70.3 kg (155 lb) Current Diet Order: Dietary Orders (From admission, onward) Start Ordered 05/30/24 1347 Dietary nutrition supplements Three times daily (TID); [facility]; Standard Oral Supplement Continuous Question Answer Comment Frequency Three times daily (TID) Location [facility] Supplements Standard Oral Supplement 05/30/24 1346 05/28/24 1711 Adult diet [facility]; General; Regular Diet effective now Question Answer Comment Location [facility] Diet Type (req) General General Diet Regular 05/28/24 1710 Jevity 1.2 @ 70ml/hr provided 2016kcals (plus Propofol), 93g protein, 1361ml free water Allergies: Penicillin v Nutrition Focused Physical Exam: Nutrition-Focused Physical Findings Overall Appearance: No overt wasting Skin: No active issues 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 Status: Improvement Estimated Nutrition Needs: Energy: 7427-4691 kcals/day 25 kcals/kg based on 73kg, age, BMI Protein: 88-110 grams protein/day 1.2-1.5 grams protein/kg based on 73kg Prior Nutrition Goal: TF to provide >75% estimated needs Goal Status: Previous goal met New Nutrition Goal: PO intake to meet >75% estimated needs INTERVENTION/RECOMMENDATIONS: Continue regular diet as tolerated Continue Ensure Plus HP TID (any flavor). If out of stock switch to Glucerna TID (any flavor) - reviewed with pt Discussed importance of protein/energy intake MONITORING/EVALUATION: Monitor intake, Monitor appetite, and Monitor pertinent lab values Alesha Orellana MS, RD, CDN, CNSC * Kavon Marques RN - 05/31/2024 11:30 PM EST Problem: Respiratory: Breathing Pattern Impairment Goal: Ability to maintain normal pulse oximetry readings will improve Outcome: Progressing Problem: Skin Integrity: Skin Integrity Impairment Goal: Skin integrity will improve Outcome: Progressing Problem: Cognitive: Skin Integrity Impairment Goal: Knowledge of the prescribed therapeutic regimen will improve Outcome: Progressing Problem: Nutritional: Skin Integrity Impairment Goal: Dietary intake will improve Outcome: Progressing Problem: Self-Care: Skin Integrity Impairment Goal: Compliance with treatment plan for underlying cause of condition will improve Outcome: Progressing Problem: Patient Specific Problem: Skin Integrity Impairment Goal: Patient Specific Outcome Outcome: Progressing Problem: Falls: Fall Risk (Adult IP BH) Goal: (Goal) Patient will experience maximum safety and reduce risk for falls. Outcome: Progressing Goal: Patient will not fall or injure themselves during hospitalization. Outcome: Progressing Problem: Skin Integrity: Pressure Injury Actual or Risk of Goal: Will not develop new pressure injury Outcome: Progressing Goal: Skin integrity will improve Outcome: Progressing Goal: Risk for impaired skin integrity will decrease Outcome: Progressing Problem: Activity:Pressure Injury Actual or Risk of Goal: Mobility will improve Outcome: Progressing Problem: Nutritional:Pressure Injury Actual or Risk of Goal: Nutritional status will improve Outcome: Progressing Problem: Patient Specific Problem: Pressure Injury Actual or Risk of Goal: Patient Specific Outcome Outcome: Progressing * Randi Zavala RN - 05/31/2024 7:00 PM EST Problem: Respiratory: Breathing Pattern Impairment Goal: Ability to maintain normal pulse oximetry readings will improve Outcome: Progressing Problem: Skin Integrity: Skin Integrity Impairment Goal: Skin integrity will improve Outcome: Progressing Problem: Cognitive: Skin Integrity Impairment Goal: Knowledge of the prescribed therapeutic regimen will improve Outcome: Progressing Problem: Nutritional: Skin Integrity Impairment Goal: Dietary intake will improve Outcome: Progressing Problem: Self-Care: Skin Integrity Impairment Goal: Compliance with treatment plan for underlying cause of condition will improve Outcome: Progressing Problem: Patient Specific Problem: Skin Integrity Impairment Goal: Patient Specific Outcome Outcome: Progressing Problem: Falls: Fall Risk (Adult IP BH) Goal: (Goal) Patient will experience maximum safety and reduce risk for falls. Outcome: Progressing Goal: Patient will not fall or injure themselves during hospitalization. Outcome: Progressing Problem: Skin Integrity: Pressure Injury Actual or Risk of Goal: Will not develop new pressure injury Outcome: Progressing Goal: Skin integrity will improve Outcome: Progressing Goal: Risk for impaired skin integrity will decrease Outcome: Progressing Problem: Activity:Pressure Injury Actual or Risk of Goal: Mobility will improve Outcome: Progressing Problem: Nutritional:Pressure Injury Actual or Risk of Goal: Nutritional status will improve Outcome: Progressing Problem: Patient Specific Problem: Pressure Injury Actual or Risk of Goal: Patient Specific Outcome Outcome: Progressing Assumed care of pt [id number]: Pt A&O x3. Vital signs as documented in flowsheets, Room Air. No c/o pain. Pt OOB to chair. Pt resting comfortably in bed, respirations even and unlabored. Bed locked in lowest position with call salas within reach. Safety maintained. * Alexa Atkinson RN - 05/31/2024 5:36 PM EST LUCÍA THOMAS reviewed chart, met with patient, introduced self & role. Patient shares he lives in a multifamily home with his brother & father on the second level, he is on the first. He reports about 8 stairs to enter into the first level. 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 Patient drives & would transport himself to medical appointments. Independent with ADLs & managing medications. In discussion of post acute care needs - STR is recommended, discussed referrals with patient, PASRR requested, referrals sent. Patient is from [facility], referrals sent based on location which patient is aware and agreeable to. LUCÍA THOMAS to follow. 05/31/24 1700 Initial Transition Plan Initial Transition Plan Longterm Facility Discharge Planning Contact (Name, Phone #, Relationship) for DC Planning Vaughn Partida (Brother) Living Arrangements Alone Type of Residence Private residence Assistive Devices Cane Support Systems Immediate family Discharge Barriers Barriers to Discharge Plan (medical work up) Transportation Transportation at discharge Ambulance Time Spent Time Spent (minutes) 10 minutes * Brayan Armando MD - 05/31/2024 4:53 PM EST Daily Progress Note Assessment/Plan Principal Problem: COPD exacerbation (CMS/HCC) LOS: 9 days 64-year-old male with past medical history including COPD, hyperlipidemia, lung cancer s/p radiation and chemotherapy, schizophrenia, history of SBO who presented from [facility] with shortness of breath, chest tightness, cough and wheezing. Upon getting imaging done, patient was noted tohave garbled speech Code stroke initiated, CT head without contrast was negative. NIHSS 1. Unfortunately patient's ABG worsened after multiple hours on BiPAP necessitating intubation for airway protection as patient's mental status was also worsening. Workup otherwise significant for RSV positive. CT chest with contrast negative for PE, did demonstrate emphysematous changes as well as [id number]. Patient has failed CPAP trials on multiple days due to tachypnea thought to be in the setting of anxiety. 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 Acute respiratory failure hypoxia and hypercapnia: Secondary COPD exacerbation in the setting of acute RSV infection for which patient was intubated and was subsequently extubated on May 28, 2024 - Currently patient is on p.o. prednisone, continue to taper - Continue nebulizers every 6 hours - Patient is still smoking extensive counseling was provided - Continue to wean off the oxygen and continue tapering dose of prednisone - Patient would likely need oxygen at the time of discharge, currently requiring 3 L nasal cannula 2. Acute metabolic encephalopathy: - Secondary to ongoing illness and hypercapnia - CAT scan of the head was unremarkable - CT of the head and neck did not show any major vessel occlusion - Resolved - Currently patient is mentating fine, no need for MRI of the brain 3. History of stage III squamous cell lung cancer status post chemoradiation: -Patient initially diagnosed with stage IIIb squamous cell lung cancer after discovery of right upper lobe mass on CT in late 2021. He completed a course of chemo and radiation in August 2022 and was then maintained on durvalumab. He had multiple CTs with evidence of decreasing mass as well as no new metastatic disease, last in September and February 2024. He continues to follow with heme-onc for serial follow-up imaging. CT chest done on admission does show evidence of right upper lobe obstruction versus scarring 4. History of schizophrenia: - Continue the patient on fluphenazil 5 mg daily 5. Physical deconditioning and generalized weakness: -Physical therapy saw the patient and patient needs rehab placement 6. Moderate protein calorie malnutrition: This patient appears to be malnourished in the setting of underlying severe COPD along with historyof lung cancer Start the patient on protein supplements CODE STATUS: Full code Regular diet as tolerated Remove Baltazar's catheter and voiding trials Plan was thoroughly explained to the patient and was discussed with the nursing staff/ Total time spent in the care of patient is more than 35 minutes. Barriers of discharge: - Rehab/residential facility placement Subjective Patient was seen and examined at bedside. Currently patient appears comfortable in no acute distress, currently patient is on 2 L nasal cannula greater than 90%. Patient had a bowel movement yesterday, rest review of other systems are negative. Objective Vital signs in last 24 hours: Temp: 36.5 ??C (97.7 ??F) (05/31 1518) Heart Rate: 107 (05/31 1518) Resp: 18 (05/31 0945) BP: 94/67 (05/31 1518) Intake/Output last 3 shifts: I/O last 3 completed shifts: In: - (0 mL/kg) Out: 2055 (28.3 mL/kg) [Urine:2055 (0.8 mL/kg/hr)] Weight: 72.6 kg Intake/Output this shift: No intake/output data recorded. Physical Exam: General/SAMPLE CUTTER: Awake, alert, oriented to time, place, person, muscle strength bilateral upper and lower extremity 5/5, cranial nerves are intact, no focal deficits, sensations are intact, no dysdiadochokinesia, normal cerebellar signs, negative Romberg signs HEENT: Moist oral and nasal mucosa, no pallor, no icterus, no JVD CVs: S1-S2 present, regular rate and rhythm, no murmurs, no rubs, no gallops Chest: Bilateral air entry is diminished Abdomen: Soft, nontender, nondistended, no organomegaly, bowel sounds are present, no hernia on inspection, no surgical scar Extremity: No peripheral edema, no varicose veins Skin: Normal * LAUREN Woody/Teodoro - 05/31/2024 11:58 AM EST Images from the original note were not included. OCCUPATIONAL THERAPY EVALUATION [address] [id number] Payor: Payor: MEDICARE / Plan: MEDICARE PART A & B / Product Type: Medicare / Admitting Diagnosis: COPD exacerbation ([facility]/HCC) [J44.1] Past Medical History Past Surgical History Past Medical History: Diagnosis Date COPD (chronic obstructive pulmonary disease) (CMS/HCC) DX:COPD (chronic obstructive pulmonary disease) (HCC) Hyperlipidemia DX:Hyperlipidemia Incarcerated right inguinal hernia DX:Incarcerated right inguinal hernia Lung cancer (CMS/HCC) DX:Lung cancer (HCC) Schizophrenia (CMS/HCC) DX:Schizophrenia (HCC) Small bowel obstruction (CMS/HCC) DX:Small bowel obstruction (HCC) Vitamin D deficiency DX:Vitamin D deficiency Past Surgical History: Procedure Laterality Date HERNIA REPAIR PROCEDURE:INGUINAL HERNIA REPAIR Social History Family History Social History Socioeconomic History Marital status: Spouse name: Not on file Number of children: Not on file Years of education: Not on file Highest education level: Not on file Occupational History Not on file Tobacco Use Smoking status: Every Day Current packs/day: 2.00 Types: Cigarettes Smokeless tobacco: Not on file Substance and Sexual Activity Alcohol use: Not Currently Drug use: Not on file Sexual activity: Not on file Other Topics Concern Not on file Social History Narrative Not on file Family History Problem Relation Name Age of Onset Hypertension Mother Dementia Mother Arthritis Father Cancer Mother's Brother Cancer Father's Sister History of Present Illness Elvin Partida is a 64 y.o. male presenting to [facility] on 05/22/24 for SOB x4 days duration. Patientoriginally admitted to [facility] ED on 05/21 , transferred to [facility] ICU on 05/22. PMHx: COPD, hyperlipidemia, incarcerated R inguinal hernia, lung cancer, schizophrenia, small bowel obstruction, vitamin D deficiency. Chest xray: significant volume loss involving the right upper lobe and right middle lobe; No acute infiltrate; Mediastinum appears stable to prior exam. CTA chest: No evidenceof PE; Emphysema; Ill-defined subtle bilateral tree-in-bud nodularity, can be seen with aspiration or endobronchial pneumonia; Suspect malignancy with possible posttreatment changes/scarring in the right upper lobe. CT chest done to rule out PE: no acute infiltrate, no evidence of PE. Following CT scan in ED, patient noted to have gargled speech and L side facial droop. Stroke alert called 05/22 at 12:[address] head and neck: no acute intracranial findings. Patient continued to present with abnormal breathing and pCO2 81. Patient subsequently intubated 05/22, extubated 05/28. Cleared for OT eval. Occupational Therapy Summary and Impressions Elvin Partida is a 64 y.o. male presenting to [facility] on 05/22/24 for worsening SOB x4 days. Patient intubated 05/22 due to respiratory needs, extubated 05/28. Patient also had stroke alert called 05/22with CT head and neck with no acute intracranial findings. Found to have encephalopathy 2/2 acute hypercarbia. Patient met supine in bed, A&Ox4, denies pain. Pt O2 saturation 92% on RA at rest. Pt completed supine to sit EOB with CGA,. Requiring supervision with static sitting balance, CGA withdynamic sitting balance. Pt able to adjust socks on B LE 's with CGA while seated unsupported EOB. Sit to stand CGA with RW. Pt completed functional ambulation 40 ft with CGA and RW. O2 saturation decreased to 88%, HR increased to 120, able to recover following seated rest break. Patient completed grooming task in supported sitting position with min A due to decreased activity tolerance. Currently UB ADLs min A in sitting, LB ADLs mod A in sitting and standing. Education provided on use of incentive spirometer, Pt receptive to education, now demonstrating good understanding. Overall, Pt presen ts with decreased balance, ADLs, mobility, endurance, activity tolerance, and overall strength. Recommend discharge as per interdisciplinary team. Lucie Zepeda OTR/L Additional Individuals Present for Session: Marylou PT secondary to complexity of care, & Tracy OTR OT Frequency at Discharge: 5x per week OT Discharge Recommendation: As per disciplinary team [facility]: 15DE 05/31/24 1158 OT Last Visit OT Received On 05/31/24 Precautions Medical Precautions Fall Risk;Contact Safety Interventions Call salas within reach;Chair alarm RUE Weight Bearing Status Full LUE Weight Bearing Status Full RLE Weight Bearing Status Full LLE Weight Bearing Status Full Pain Assessment Pain Assessment No/denies pain Home Living Home Living Comments Pt lives with his brother and his father in a 2 level home, stays on first level. 8 IVELISSE with bilateral rails. Patient reports he washes up at the sink in his half bathroom on main level. Prior Function Prior Function Comments Pt reports previous independence in ADLs and functional mobility at baseline. Reports he has been using a cane x4 weeks for functional ambulation. Brother assists with cookingand cleaning in the home. Patient drives, does not work. ADL UE Dressing Assistance Minimum assistance LE Dressing Assistance Moderate assistance Toileting Assistance Other (Comment) (not performed) Bed Mobility Lying to Sitting Assistance Contact guard Functional Transfers Sit to Stand Assistance Contact guard (to RW) Chair/Bed to Chair/Bed Assistance Contact guard (with RW) Functional Mobility Walking Assistance Contact guard Device Rolling walker Distance Ambulated (ft) 40 Static Sitting Balance Static Sitting-Level of Assistance Supervision Dynamic Sitting Balance Dynamic Sitting-Level of Assistance Contact guard Static Standing Balance Static Standing-Level of Assistance Contact guard Dynamic Standing Balance Dynamic Standing-Level of Assistance Minimum assistance Cognition Overall Cognitive Status Impaired Arousal/Alertness Appropriate responses to stimuli Orientation Level Oriented X4 Following Commands Follows all commands and directions without difficulty Insight Good insight into deficits Vision - Basic Assessment Current Vision Does not wear glasses Vision - Complex Assessment Head Position Upright, centered, looking straight ahead, not leaning any direction Perception Inattention/Neglect Appears intact Initiation Cues to initiate tasks Motor Planning Appears intact Sensation Light Touch No apparent deficits (B UEs) Hand Function Gross Grasp Functional Coordination Coordination Functional RUE Assessment RUE Assessment Within Functional Limits (strength grossly 4/5 throughout) LUE Assessment LUE Assessment Within Functional Limits (strength grossly 4/5 throughout) OT Assessment OT Assessment Results Decreased ADL status;Decreased upper extremity strength;Decreased cognition;Decreased endurance;Decreased functional mobility;Decreased trunk control for functional activities Prognosis Good (for stated goals) Evaluation/Treatment Tolerance Patient limited by fatigue;Patient tolerated treatment well Comments Pt O2 sat 92% at rest on RA, decreased to 88% with functional ambulation. Able to recover to 92% following seated rest break. Plan Treatment Interventions ADL retraining;Functional transfer training;Endurance training;UE strengthening/ROM;Patient/family training;Neuromuscular reeducation OT Plan Skilled OT OT Frequency 4 days per week OT - Evaluation Status Complete OT Evaluation Time Entry OT Evaluation (Moderate) Time Entry 60 Education Chart reviewed and evaluation completed per MD orders. Patient left in bedside recliner with call salas in reach, chair alarm on, in no acute distress, all lines intact. POC and role of OT reviewed. Pt demonstrates good understanding. Goals: CURRENT GOALS: 1. Pt will complete grooming task while standing at sink with independence, vss. LAUREN Woody/Teodoro 05/31/2024 2. Pt will complete UB ADLs while seated EOB unsupported with independence, vss. Lucie Zepeda OTR/Teodoro 05/31/2024 3. Pt will complete LB ADLs with independence in sitting and standing, vss. LAUREN Woody/Teodoro 05/31/2024 4. Pt will complete functional ambulation of a small household distance of 25 feet with independence, vss. Lucie Zepeda OTR/Teodoro 05/31/2024 5. Pt will complete toilet transfer and hygiene with independence, vss. LAUREN Woody/Teodoro 05/31/2024 LAUREN Woody/Teodoro * Rosa Maria Dunn, PT - 05/31/2024 11:55 AM EST Images from the original note were not included. PHYSICAL THERAPY EVALUATION [address] [id number] Payor: Payor: MEDICARE / Plan: MEDICARE PART A & B / Product Type: Medicare / Admitting Diagnosis: COPD exacerbation ([facility]) [J44.1] Past Medical History Past Surgical History Past Medical History: Diagnosis Date COPD (chronic obstructive pulmonary disease) (CMS/HCC) DX:COPD (chronic obstructive pulmonary disease) (HCC) Hyperlipidemia DX:Hyperlipidemia Incarcerated right inguinal hernia DX:Incarcerated right inguinal hernia Lung cancer (CMS/HCC) DX:Lung cancer (HCC) Schizophrenia (CMS/HCC) DX:Schizophrenia (HCC) Small bowel obstruction (CMS/HCC) DX:Small bowel obstruction (HCC) Vitamin D deficiency DX:Vitamin D deficiency Past Surgical History: Procedure Laterality Date HERNIA REPAIR PROCEDURE:INGUINAL HERNIA REPAIR Social History Family History Social History Socioeconomic History Marital status: Spouse name: Not on file Number of children: Not on file Years of education: Not on file Highest education level: Not on file Occupational History Not on file Tobacco Use Smoking status: Every Day Current packs/day: 2.00 Types: Cigarettes Smokeless tobacco: Not on file Substance and Sexual Activity Alcohol use: Not Currently Drug use: Not on file Sexual activity: Not on file Other Topics Concern Not on file Social History Narrative Not on file Family History Problem Relation Name Age of Onset Hypertension Mother Dementia Mother Arthritis Father Cancer Mother's Brother Cancer Father's Sister History of Present Illness Elvin Partida is a 64 y.o. male with h/o COPD, hyperlipidemia, lung cancer s/p radiation and chemotherapy, schizophrenia, SBO who was admitted on 05/22/24 from OSH with SOB, chest tightness, cough and wheezing. RSV (+). On admission, pt with garbled speech. Head CT (-). ABGs worsened despite BiPAP, intubated for airway protection. Chest CT (-) for PE. Extubated 05/28. Pt admitted with acute respiratory failure with hypoxia and hypercapnia complicated by acute metabolic encephalopathy. Physical Therapy Summary and Impressions Upon greeting pt he was semi-reclined in bed, awake and oriented x 4. Pt performed bed mobility with CGA with head of bed elevated. Pt performed sit <> stand transfers with CGA, cues for hand placement. Pt ambulated 40' with RW and min A. Pt ambulated with poor heel toe progression, decreasedstep length, decreased tyson, fair walker management, forward and down head posture. Pt required cues to improve standing posture and stepping pattern. Pt unable to ambulate further due to decreased activity tolerance. At end of session, pt left resting in recliner. Pt demonstrates decreased strength, transfers, endurance, mobility and balance (see below). Pt is not at baseline and will benefitfrom skilled PT services. Frequency at discharge: 5x/week. Recommendation: As per interdisciplinaryteam. Recommend nursing ambulate with RW as appropriate. Vitals: O2 dropped to 88% on RA with ambulation. Patient Behaviors: Cooperative Additional Individuals Present for Session: Lucie OT, Tracy OT AM-PAC?? Basic Mobility Inpatient Short Form (6-Clicks) How much HELP from another person do you currently need??? (If the patient hasn???t done an activity recently, how much help from another person do you think he/she would need if he/she tried?) 1=Total assist (dependent, cannot do at all, 2 person assist) 2=A lot (maximum to moderate assist) 3=A little (minimal, contact guard, stand by, supervision) 4=None (does not require help, independent, mod I) 1. Turning from your back to your side while in a flat bed without using bedrails? 3 - A Little 2. Moving from lying on your back to sitting on the side of a flat bed without using bedrails? 3 - A Little 3. Moving to and from a bed to a chair (including a wheelchair)? 3 - A Little 4. Standing up from a chair using your arms (e.g., wheelchair, or bedside chair)? 3 - A Little 5. Walking in hospital room? 3 - A Little 6. Climbing 3-5 steps with a railing? 1 - Total AM-PAC?? RAW SCORE 16/24 D 05/31/24 1155 PT Last Visit PT Received On 05/31/24 Precautions Medical Precautions Fall Risk;Droplet Safety Interventions Call salas within reach;Chair alarm RUE Weight Bearing Status Full LUE Weight Bearing Status Full RLE Weight Bearing Status Full LLE Weight Bearing Status Full Pain Assessment Pain Assessment No/denies pain Cognition Overall Cognitive Status WFL Orientation Level Oriented X4 Deficits Decreased awareness of deficits Insight Fair insight into deficits Perseveration Not present Home Living Type of Home House (reports having 2 family house and brother and dad are upstairs. Only half bath where he lives, so sponge bathes.) Lives With (dad and brother upstairs) Home Adaptive Equipment Cane Home Layout One level Home Access Stairs to enter with rails (8) Prior Function Level of [place] Independent with mobility and functional transfers (use of cane the last 4 weeks, otherwise indepedent) Prior Device Use Cane Do you drive? No Perception Inattention/Neglect Appears intact Initiation Appears intact Motor Planning Appears intact Static Sitting Balance Static Sitting-Level of Assistance Supervision Dynamic Sitting Balance Dynamic Sitting-Level of Assistance Supervision Static Standing Balance Static Standing-Level of Assistance Contact guard Dynamic Standing Balance Dynamic Standing-Level of Assistance Minimum assistance Bed Mobility Lying to Sitting Assistance Contact guard Transfers Sit to Stand Assistance Contact guard Ambulation Walking Assistance Minimum assistance Device Rolling walker Distance Ambulated (ft) 40 RLE Assessment RLE Assessment Within Functional Limits LLE Assessment LLE Assessment Within Functional Limits PT Assessment PT Assessment Results Decreased strength;Decreased endurance;Impaired balance;Impaired gait;Decreased mobility Prognosis Good Evaluation/Treatment Tolerance Patient limited by fatigue Plan Treatment/Interventions ADL retraining;Functional transfer training;LE strengthening/ROM;Endurance training;Bed mobility;Gait training;Continued evaluation;Balance training PT Plan Skilled PT PT Frequency 4 days per week Equipment Recommended TBD Acute PT Triage Triage Priority 2 PT Evaluation Time Entry PT Evaluation (Moderate) Time Entry 60 Education Pt educated on POC, importance of OOB time, use of call salas, discharge recs. Pt demonstrates good understanding, will continue to practice/reinforce. Goals: 1. Pt will perform bed mobility with modified independence with head of bed flat. 05/31/2024 Rosa Maria Dunn PT 2. Pt will perform sit <> stand and bed <> chair transfers with modified independence with LRAD. 05/31/2024 Rosa Maria Dunn PT 3. Pt will ambulate 100' with modified independence with LRAD and steady gait. 05/31/2024 Rosa Maria Batres PT 4. Pt will be able to ascend/descend 8 stairs with modified independence, rail and LRAD. 05/31/2024 Rosa Maria Dunn, PT Rosa Maria Dunn PT * Ese Ledesma RN - 05/30/2024 10:18 PM EST Assumed care for pt at 1900 until 0700. Pt A&Ox3, on 3L, VSS. Pt denies pain. Pt tolerating current plan of care well at this time. No acute events overnight. Pt made comfortable in a low bed with call light and personal items within reach. Hourly rounding performed, bed alarm set. All safety precautions maintained, all needs met at this time. * Brayan Armando MD - 05/30/2024 1:41 PM EST Daily Progress Note Assessment/Plan Principal Problem: COPD exacerbation ([facility]) LOS: 8 days 64-year-old male with past medical history including COPD, hyperlipidemia, lung cancer s/p radiation and chemotherapy, schizophrenia, history of SBO who presented from [facility] with shortness of breath, chest tightness, cough and wheezing. Upon getting imaging done, patient was noted tohave garbled speech Code stroke initiated, CT head without contrast was negative. NIHSS 1. Unfortunately patient's ABG worsened after multiple hours on BiPAP necessitating intubation for airway protection as patient's mental status was also worsening. Workup otherwise significant for RSV positive. CT chest with contrast negative for PE, did demonstrate emphysematous changes as well as [id number]. Patient has failed CPAP trials on multiple days due to tachypnea thought to be in the setting of anxiety. 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 Acute respiratory failure hypoxia and hypercapnia: Secondary COPD exacerbation in the setting of acute RSV infection for which patient was intubated and was subsequently extubated on May 28, 2024 - Currently patient is on p.o. prednisone - Continue nebulizers every 6 hours - Patient is still smoking extensive counseling was provided - Continue to wean off the oxygen and continue tapering dose of prednisone - Patient would likely need oxygen at the time of discharge, currently requiring 3 L nasal cannula 2. Acute metabolic encephalopathy: - Secondary to ongoing illness and hypercapnia - CAT scan of the head was unremarkable - CT of the head and neck did not show any major vessel occlusion - Resolved - Currently patient is mentating fine, no need for MRI of the brain 3. History of stage III squamous cell lung cancer status post chemoradiation: -Patient initially diagnosed with stage IIIb squamous cell lung cancer after discovery of right upper lobe mass on CT in late 2021. He completed a course of chemo and radiation in August 2022 and was then maintained on durvalumab. He had multiple CTs with evidence of decreasing mass as well as no new metastatic disease, last in September and February 2024. He continues to follow with heme-onc for serial follow-up imaging. CT chest done on admission does show evidence of right upper lobe obstruction versus scarring 4. History of schizophrenia: - Continue the patient on fluphenazil 5 mg daily 5. Physical deconditioning and generalized weakness: This patient had physical therapy evaluation and appropriate placement 6. Moderate protein calorie malnutrition: This patient appears to be malnourished in the setting of underlying severe COPD along with historyof lung cancer Start the patient on protein supplements CODE STATUS: Full code Regular diet as tolerated Remove Baltazar's catheter and voiding trials Plan was thoroughly explained to the patient and was discussed with the nursing staff/ Total time spent in the care of patient is more than 35 minutes. Subjective Patient was seen and examined at bedside. Currently patient appears comfortable in no acute distress, currently patient is on 3 L nasal: Saturating greater than 90% complains of generalized fatigue and weakness, last bowel movement was this morning. Rest review of other systems are negative. Objective Vital signs in last 24 hours: Temp: 36.7 ??C (98.1 ??F) (05/30 746) Heart Rate: 89 (05/30 746) Resp: 16 (05/30 746) BP: 137/86 (05/30 746) Intake/Output last 3 shifts: I/O last 3 completed shifts: In: 240 (3.3 mL/kg) [P.O.:240] Out: 4685 (64.6 mL/kg) [Urine:4685 (1.8 mL/kg/hr)] Weight: 72.6 kg Intake/Output this shift: I/O this shift: In: - Out: 600 [Urine:600] Physical Exam: General/SAMPLE CUTTER: Awake, alert, oriented to time, place, person, muscle strength bilateral upper and lower extremity 5/5, cranial nerves are intact, no focal deficits, sensations are intact, no dysdiadochokinesia, normal cerebellar signs, negative Romberg signs HEENT: Moist oral and nasal mucosa, no pallor, no icterus, no JVD CVs: S1-S2 present, regular rate and rhythm, no murmurs, no rubs, no gallops Chest: Bilateral air entry is diminished Abdomen: Soft, nontender, nondistended, no organomegaly, bowel sounds are present, no hernia on inspection, no surgical scar Extremity: No peripheral edema, no varicose veins Skin: Normal * Hao Neal RN - 05/29/2024 5:08 PM EST Pt is A&Ox4. Transitioned from HFNC to NC and tolerated well. Pt had good PO intake. Pt remainson 2L NC within sat goals. Report given to Sabina CASTREJON from -. Pt was transported with tele safely and no other issues. * Luz Julian MD - 05/29/2024 2:09 PM EST Medical ICU Progress Note Admit Date:05/22/2024 Code Status: Full Code - Default Length of Stay: LOS: 7 days ICU Day #7d 7h Brief Hospital Course: Elvin Partida is a 64-year-old male with past medical history including COPD, hyperlipidemia, lung cancer s/p radiation and chemotherapy, schizophrenia, history of SBO who presented from [facility] with shortness of breath, chest tightness, cough and wheezing. Upon getting imaging done, patient was noted to have garbled speech Code stroke initiated, CT head without contrast was negative. NIHSS 1. Unfortunately patient's ABG worsened after multiple hours on BiPAP necessitating intubation for airway protection as patient's mental status was also worsening. Workup otherwise significant for RSV positive. CT chest with contrast negative for PE, did demonstrate emphysematous changes as well as tree-in-bud nodularity. Patient has failed CPAP trials on multiple days due to tachypnea thought to be in the setting of anxiety. He was ultimately extubated on 05/28 and remains hemodynamically stable. To Follow-up: [ ] Wean off steroids Subjective: Overnight Events: No acute events overnight. Patient denies any symptoms of chest pain, shortness of breath, abdominal or urinary symptoms. Past Medical History: Diagnosis Date COPD (chronic obstructive pulmonary disease) (CMS/HCC) DX:COPD (chronic obstructive pulmonary disease) (HCC) Hyperlipidemia DX:Hyperlipidemia Incarcerated right inguinal hernia DX:Incarcerated right inguinal hernia Lung cancer (CMS/HCC) DX:Lung cancer (HCC) Schizophrenia (CMS/HCC) DX:Schizophrenia (HCC) Small bowel obstruction (CMS/HCC) DX:Small bowel obstruction (HCC) Vitamin D deficiency DX:Vitamin D deficiency Past Surgical History: Procedure Laterality Date HERNIA REPAIR PROCEDURE:INGUINAL HERNIA REPAIR Prior to Admission medications Medication Sig Start Date End Date Taking? Authorizing Provider dexAMETHasone (DECADRON) 4 mg tablet Take 1 tablet (4 mg total) by mouth 2 (two) times a day for 4 days. 05/09/24 05/13/24 LIONEL Nixon fluPHENAZine (PROLIXIN) 5 mg tablet Take 1 tablet (5 mg total) by mouth 1 (one) time each day. 01/08/24 Historical Provider, gabapentin (NEURONTIN) 300 mg capsule Take 1 capsule (300 mg total) by mouth at bedtime. 05/18/24 Jostin Bhakta MD ondansetron (ZOFRAN) 4 mg tablet Take 1 tablet (4 mg total) by mouth every 8 (eight) hours if needed. Historical Provider, predniSONE (DELTASONE) 20 mg tablet Take 3 tabs (60mg) daily for 3 days, then take 2 tabs (40mg) daily for 3 days, then take 1 tab (20mg) daily for 3 days. 05/18/24 05/27/24 Jostin Bhakta MD Social History Socioeconomic History Marital status: Spouse name: Not on file Number of children: Not on file Years of education: Not on file Highest education level: Not on file Occupational History Not on file Tobacco Use Smoking status: Every Day Current packs/day: 2.00 Types: Cigarettes Smokeless tobacco: Not on file Substance and Sexual Activity Alcohol use: Not Currently Drug use: Not on file Sexual activity: Not on file Other Topics Concern Not on file Social History Narrative Not on file Family History Problem Relation Name Age of Onset Hypertension Mother Dementia Mother Arthritis Father Cancer Mother's Brother Cancer Father's Sister Vitals: Intake/Output: Vitals: 05/29/24 1300 BP: (!) 136/101 Pulse: 88 Resp: (!) 29 Temp: 37.2 ??C (99 ??F) SpO2: 93% Temp Av.4 ??C (99.3 ??F) Min: 37.2 ??C (99 ??F) Max: 37.6 ??C (99.7 ??F) Last 24 hours: Intake/Output Summary (Last 24 hours) at 05/29/2024 1409 Last data filed at 05/29/2024 1200 Gross per 24 hour Intake 240 ml Output 3020 ml Net -2780 ml Physical Exam: Physical Exam Constitutional: Appearance: Normal appearance. HENT: Head: Normocephalic and atraumatic. Eyes: Extraocular Movements: Extraocular movements intact. Conjunctiva/sclera: Conjunctivae normal. Pupils: Pupils are equal, round, and reactive to light. Cardiovascular: Rate and Rhythm: Normal rate and regular rhythm. Pulses: Normal pulses. Heart sounds: Normal heart sounds. Pulmonary: Effort: Pulmonary effort is normal. Abdominal: General: Abdomen is flat. Bowel sounds are normal. There is distension. Tenderness: There is no abdominal tenderness. Musculoskeletal: General: Normal range of motion. Skin: General: Skin is warm. Capillary Refill: Capillary refill takes less than 2 seconds. Neurological: General: No focal deficit present. Mental Status: He is alert and oriented to person, place, and time. Psychiatric: Behavior: Behavior is cooperative. Scores: Pain Score: 0 - No pain ICP/Pressure MAP (Device/Manual Entry): 110 mmHg Ventilator: Drains and Lines NG/OG Tube Orogastric 16 Fr Center mouth (Active) Placement Verification X-ray 05/24/24799 Tube Placement Measurement (cm) Reassessment 65 cm 05/24/24799 Site Assessment Clean;Dry;Intact 05/24/24799 Nasogastric/Orogastric Status Continuous tube feeding 05/24/24 08 Drainage Appearance Bile;Green 05/22/24 1600 Tube Feeding Frequency Continuous 05/24/24799 Tube Feeding Jevity 1.2 Curtis 05/24/24799 Tube Feeding Strength Full strength 05/24/24799 Tube Feeding Rate (mL/hr) 20 mL 05/24/24799 Tube Feeding Method Continuous per pump 05/24/24799 Tube Feeding Bag Changed Yes 05/24/24799 Flush Intake Volume (mL) 30 mL 05/24/24799 Intake (mL) 20 mL 05/24/24799 Output (mL) 50 mL 05/22/24 1600 Urethral Catheter Temperature probe;Double-lumen 16 Fr. (Active) Site Assessment Clean;Skin intact 05/24/24799 Collection Container Standard drainage bag 05/24/24799 Securement Method Securing device (Describe) 05/24/24799 Reason for Continuing Urinary Catheterization Critically ill and need for accurate measurements of I&O (e.g., hourly monitoring) 05/24/24799 Urinary Catheter Output (mL) 60 mL 05/24/24 1400 Infusing Medications: dexmedeTOMIDine (PRECEDEX) 1,000 mcg in sodium chloride 0.9 % 250 mL (4 mcg/mL) infusion, 0.2-1.5 mcg/kg/hr, Last Rate: Stopped (05/28/24 1107) propofoL, 10-80 mcg/kg/min, Last Rate: Stopped (05/28/24 5731) Labs: Lab Results Component Value Date WBC 10.3 05/29/2024 HGB 14.8 05/29/2024 HCT 44.0 05/29/2024 MCV 92.1 05/29/2024 PLT 172 05/29/2024 Lab Results Component Value Date GLUCOSE 144 05/29/2024 CALCIUM 8.6 05/29/2024 NA 135 05/29/2024 K 4.1 05/29/2024 CO2 31 05/29/2024 CL 97 (L) 05/29/2024 BUN 22 (H) 05/29/2024 CREATININE 0.60 (L) 05/29/2024 Lab Results Component Value Date ALT 6 (L) 05/22/2024 AST 9 05/22/2024 ALKPHOS 82 05/22/2024 BILITOT 0.2 (L) 05/22/2024 Results from last 7 days Lab Units 05/29/24 0549 MAGNESIUM mg/dL 2.0 Lab Results Component Value Date CALCIUM 8.6 05/29/2024 PHOS 3.3 05/23/2024 Microbiology: Recent Results (from the past 168 hour(s)) Legionella antigen urine, EIA Collection Time: 05/22/24 3:08 PM Result Value Ref Range Legionella Urinary Antigen Negative Negative Imaging: XR Chest 1 View Narrative: Frontal view of the chest COMPARISON: Chest radiograph yesterday INDICATION: Postintubation Impression: Again noted is significant scarring and volume loss in the right lung apex. ET tube in adequate position above the adriana. NG tube follows normal course and terminates beyond view. No acute infiltrate. -------- FINAL REPORT -------- Dictated By: Aidan Barnett Dictated Date: 05/22/2024 08:24 ET Assigned Physician: Aidan Barnett Reviewed and Electronically Signed By: Aidan Barnett Signed Date: 05/22/2024 08:25 ET Workstation ID: [id number] Transcribed By: Self Edit Transcribed Date: 05/22/2024 08:[address] Angio Head/Neck wo and/or w Contrast Narrative: CT angiography head and neck with contrast. [...] disc disease. Age-indeterminate compression deformity at T3. Impression: Patent head and neck CTA. This document has been electronically signed by: Alexander Soto MD on 05/22/2024 01:02:04 CT Head Stroke wo Contrast Addendum: ADDENDUM: This report was discussed with Concepcion Strong RN on May 22, 2024 00:49:00 EST. This document has been electronically signed by: Janis Castaneda on 05/22/2024 00:50:47 Narrative: CT head without contrast Comparison: None Findings: [...] are unremarkable. There is no acute fracture. Impression: 1. No acute intracranial findings. 2. Additional findings as described. This document has been electronically signed by: Alexander Soto MD on 05/22/2024 00:48:47 CT Angio Chest wo and/or w Contrast Narrative: CT angiography chest with contrast. 3D Postprocessing. [...] T7 and T9. Additional findings as described. Impression: 1. No evidence of PE. 2. Emphysema. 3. Ill-defined subtle bilateral tree-in-bud nodularity, can be seen with aspiration or endobronchial pneumonia. 4. Suspect malignancy with possible posttreatment changes/scarring in the right upper lobe, please see above. This document has been electronically signed by: Alexander Soto MD on 05/22/2024 00:25:51 Procedures in the past 24 hours: None Nutrition: Diet Order: Dietary Orders (From admission, onward) Start Ordered 05/28/24 1711 Adult diet [facility]; General; Regular Diet effective now Question Answer Comment Location [facility] Diet Type (req) General General Diet Regular 05/28/24 1710 05/24/24 1308 Diet, Tube Feeding [facility]; Jevity 1.2 Curtis; OG; 70; 30; Water; Every 4 hours; Tube Feed (Tube Feeding) Diet effective now Question Answer Comment Location: [facility] Tube feeding formula: Jevity 1.2 Curtis Route: OG Tube feeding continuous rate (mL/hr): 70 Tube feeding flush (mL): 30 Tube feeding flush type: Water Tube feeding flush frequency: Every 4 hours Diet Tube Feed Placed in And Linked Group 05/24/24 1310 Problem List: Patient Active Problem List Diagnosis Basal cell carcinoma Chronic obstructive pulmonary disease (CMS/HCC) Hyperlipidemia Schizophrenia ([facility]/HCC) Secondary polycythemia Squamous cell carcinoma of right lung ([facility]/HCC) Vitamin D deficiency COPD exacerbation ([facility]/HCC) Assessment & Plan: Assessment: Elvin Partida is a 64-year-old male with past medical history including COPD, hyperlipidemia, lung cancer s/p radiation and chemotherapy, schizophrenia, history of SBO who presented from [facility] with shortness of breath, chest tightness, cough and wheezing admitted for AHRF in thesetting of RSV. Plan by system: Neuropsych: Acute metabolic encephalopathy (resolved) History of schizophrenia Patient became more encephalopathic while in the ED at [facility], had an episode of garbled speech precipitating code stroke. CT head and CTA head and neck without any acute abnormalities. Patient was offered TNK by neurology however refused, NIHSS 1. Ultimately worsening encephalopathy thought to be secondary to acute hypercarbia. Metabolic work-up largely unremarkable with TSH 1.25, folate 10.0 andB-12 317. Ammonia not resulted. UDS negative. MRSA negative. Patient was seen by Neurology and recommended an MRI of the brain without contrast, however, this was held off as deficit seemed to improve. - Continue Fluphenazil 5 mg daily CVS: [facility] Resp: Acute hypoxic and hypercarbic respiratory failure 2/2 RSV History of COPD History of Lung Cancer Patient presented to [facility] with worsening shortness of breath, wheezing, cough. Patient does reportedly have a chronic cough and significant smoking history. Patient was diagnosed with squamous cell lung cancer in 2021, no longer requiring treatment. Initially shortness of breath was thought to be secondary to pulmonary embolism however CTA chest negative for any PE, did demonstrate emphysematouschanges as well as tree-in-bud nodularity bilaterally. RSV positive. ABG was suggestive of acute hypercarbic respiratory failure and did not improve on BiPAP requiring intubation. - Continue ventilator support, wean as tolerated - Continue Ceftriaxone 1 g q12h (05/21 - ) - Start Prednisone 40 mh daily - Discontinue Solumedrol 40 mg q12 hr GI: CHRISTIANO Renal: CHRISTIANO Endo: CHRISTIANO Heme/Onc: History of stage IIIb squamous cell lung cancer s/p chemo/radiation Patient initially diagnosed with stage IIIb squamous cell lung cancer after discovery of right upper lobe mass on CT in late 2021. He completed a course of chemo and radiation in August 2022 and was then maintained on durvalumab. He had multiple CTs with evidence of decreasing mass as well as no newmetastatic disease, last in September and February 2024. He continues to follow with heme-onc for serial follow-up imaging. CT chest done on admission does show evidence of right upper lobe obstruction versus scarring. ID: Concern for PNA Patient presented with shortness of breath. Labs revealed mild leukocytosis, afebrile, mild tachycardia. Micro culture was positive RSV swab. It was thought that respiratory failure most likely caused by viral infection prompting COPD exacerbation. Patient received Azithromycin (05/21-05/23) and Ceftriaxone (05/21 - ) for concern of superimposed pneumonia. - Continue Ceftriaxone 1 g q12h (05/21 - ) - Follow-up sputum and blood cultures - Trend WBC and fever curve Restraints: yes PT/OT: yes HOB >30 degrees: yes Stress Ulcer Prevention: yes DVT Prophylaxis: sequential compression device and LMWH Baltazar: yes CODE: Full Code - Default Appropriate Disposition: MICU Seen and discussed with: MD Luz Aviles MD Internal Medicine Resident, PGY-2 [facility] Associated attestation - Jonnathan Ballesteros MD - 05/29/2024 3:37 PM EST I was physically present for the evaluation and management service provided. I personally saw and examined the patient on rounds with my team today. Management was discussed with resident and I supervised the plan of care. I have reviewed and agree with the mccarty parts of the resident evaluation including: Subjective Information Objective findings on physical exam Impression and plan He was extubated and has been tolerating high flow nasal cannula with minimal FiO2. Can try to transition to low-flow nasal cannula. Transition Solu-Medrol to prednisone, continue nebulized bronchodilators. Goal supplemental oxygen greater than 90%. DVT prophylaxis. Physical therapy. Stable to transfer out of the ICU. Jonnathan Ballesteros MD Staff Physician Pulmonary and Critical Care Medicine 05/29/2024 3:37 PM EST * Janis Vergara RN - 05/29/2024 6:00 AM EST Problem: Cognitive: Skin Integrity Impairment Goal: Knowledge of the prescribed therapeutic regimen will improve Outcome: Progressing Problem: Falls: Fall Risk (Adult IP BH) Goal: (Goal) Patient will experience maximum safety and reduce risk for falls. Outcome: Progressing Goal: Patient will not fall or injure themselves during hospitalization. Outcome: Progressing Problem: Respiratory: Breathing Pattern Impairment Goal: Ability to maintain normal pulse oximetry readings will improve Outcome: Adequate for Discharge Problem: Skin Integrity: Skin Integrity Impairment Goal: Skin integrity will improve Outcome: Adequate for Discharge Problem: Safety: Restraint-Nonviolent; Risk of Injury to Self Goal: Will be restraint free Outcome: Completed Goal: Will remain free from injury to self Outcome: Completed Problem: Coping: Restraint-Nonviolent; Risk of Injury to Self Goal: Ability to identify and alter behaviors that are impeding coping will improve Outcome: Completed Problem: Cognitive: Restraint-Nonviolent; Risk of Injury to Self Goal: Patient/caregiver knowledge of restraint will improve Outcome: Completed Problem: Physical Regulation: Restraint-Nonviolent; Risk of Injury to Self Goal: Will remain free from complications related to use of restraints Outcome: Completed Problem: Patient Specific Problem: Restraint-Nonviolent; Risk of Injury to Self Goal: Patient Specific Outcome Outcome: Completed Goals: Identify possible barriers to meeting goals/advancing plan of care: PT requiring HFNC Stability of the patient: Moderately Unstable - Medium risk of patient condition declining or worsening End of Shift Summary: Pt had uneventful night. Pt educated on frequent turns and increase need for activity. * Vaughn Marroquin - 05/28/2024 2:01 PM EST Daily Phone Update for Patient's Primary Contact Date 05-28-2024 Time 1405 Contact - Name Contact - Number Vaughn Partida (brother) [phone] Spoke with brother. Updates provided. Expressed understanding and gratitude. All questions about coming off of the ventilator were answered at this time. Vaughn Marroquin, MS4 [facility] [employer] Available via [employer] Secure Chat * Migue Mancilla - 05/28/2024 1:55 PM EST SPIRITUAL CARE Date/Time:05/28/24 at 1:55 PM EST Type of Visit:Assistant Teacher Primary Rounding Reason for Visit: Spiritual/Emotional Support and Spiritual Assessment Time Spent: 13 Minutes Location: [facility]59[address]- Sacramental Encounters: Spiritual Distress Assessment: Spiritual Distress Assessment at beginning of visit Meaning - Overall Life Balance: Some evidence of unmet spiritual need Transcendence: No evidence of unmet spiritual need Values - Acknowledgement: No evidence of unmet spiritual need Values - Control: No evidence of unmet spiritual need Psycho-Social Identity: Some evidence of unmet spiritual need SDAT Beginning of Visit Average Score: 0.4 Spiritual Distress Assessment at end of visit Meaning - Overall Life Balance: Some evidence of unmet spiritual need Transcendence: No evidence of unmet spiritual need Values - Acknowledgement: No evidence of unmet spiritual need Values - Control: No evidence of unmet spiritual need Psycho-Social Identity: No evidence of unmet spiritual need SDAT End of Visit Average Score: 0.2 Spiritual Assessment/Distress Spiritual Care Assessment: Assessment: Routine visit due to the high LACE score. Patient was sleepy and tired. Patient said hefeels a bit better now and hopes for the improvement. Patient shared the he is grieving the recent of his sibling. Elvin reports supportive relationships with his family members. He is a Pentecostal and he places his final hope in God. Intervention: NE Spiritual Care Interventions : explored hope, explored spiritual needs and resources, listened empathically, and provided prayer Outcomes: expressed gratitude, expressed ultimate hope, and verbally processed emotions Plan of Care: Visit as needed *Reference: Spiritual Distress Assessment Tool: The SDAT is a clinical tool used by chaplains to identify unmet spiritual and emotional needs that can impact Goals of Care in the following categories: Spiritual Distress Assessment Legend Spiritual Needs Related Questions Meaning Are you having difficulties coping with what is happening to your now? Does your hospitalization have any repercussions on the way you live usually? Transcendence Do you have a particular buddhism, jennifer, or spirituality? Is your buddhism/spirituality/jennifer challenged by what is happening to you now? Values Do you think that the health professionals caring for you know you well enough? Do you feel that you are participating in the decisions made about your care? Psycho-Social Identity Do you have any worries or difficulties regarding your family or other persons close to you? Do you feel lonely? Do you have links to your jennifer community? SCALE 0= no evidence of unmet spiritual needs 1= some evidence of unmet spiritual needs 2= substantial evidence of unmet spiritual needs 3= evidence of severe unmet spiritual needs * Alesha Orellana RD - 05/28/2024 10:44 AM EST Follow-Up Nutrition Assessment and Recommendations Patient: Elvin Partida Sex: male : 1960 64 year old male admitted for AHRF in the setting of RSV pneumonia. History includes COPD, stage III lung cancer. Since last assessment patient remains intubated and sedated. Jevity 1.2 started 05/23,reached goal 70ml/hr by 05/26 (ongoing). ASSESSMENT: Past Medical History: Diagnosis Date COPD (chronic obstructive pulmonary disease) (CMS/HCC) DX:COPD (chronic obstructive pulmonary disease) (HCC) Hyperlipidemia DX:Hyperlipidemia Incarcerated right inguinal hernia DX:Incarcerated right inguinal hernia Lung cancer (CMS/HCC) DX:Lung cancer (HCC) Schizophrenia (CMS/HCC) DX:Schizophrenia (HCC) Small bowel obstruction (CMS/HCC) DX:Small bowel obstruction (HCC) Vitamin D deficiency DX:Vitamin D deficiency Past Surgical History: Procedure Laterality Date HERNIA REPAIR PROCEDURE:INGUINAL HERNIA REPAIR Labs: Lab Results Component Value Date BUN 26 (H) 05/28/2024 CREATININE 0.60 (L) 05/28/2024 NA 136 05/28/2024 K 4.6 05/28/2024 CL 100 05/28/2024 CO2 29 05/28/2024 CALCIUM 8.4 05/28/2024 ALKPHOS 82 05/22/2024 PHOS 3.3 05/23/2024 MG 2.2 05/28/2024 EGFR 109 05/28/2024 Lab Results Component Value Date HGBA1C 5.9 10/27/2020 Medications: budesonide, 0.25 mg, nebulization, Daily cefTRIAXone, 1 g, intravenous, q24h chlorhexidine, 15 mL, Mouth/Throat, q12h enoxaparin, 40 mg, subcutaneous, q24h SAMMY fluPHENAZine, 5 mg, nasogastric tube, Daily guaiFENesin, 400 mg, nasogastric tube, q8h SAMMY insulin regular, 1-6 Units, subcutaneous, q6h ipratropium-albuteroL, 3 mL, nebulization, q6h methylPREDNISolone sod suc, 20 mg, intravenous, q12h SAMMY pantoprazole, 40 mg, intravenous, q24h polyethylene glycol, 17 g, nasogastric tube, Daily senna, 5 mL, nasogastric tube, Nightly sodium chloride, 4 mL, nebulization, q12h dexmedeTOMIDine (PRECEDEX) 1,000 mcg in sodium chloride 0.9 % 250 mL (4 mcg/mL) infusion, 0.2-1.5 mcg/kg/hr, Last Rate: 1.2 mcg/kg/hr (05/28/24 0900) propofoL, 10-80 mcg/kg/min, Last Rate: Stopped (05/28/24 0731) Propofol @ 6.64ml/hr providing 175kcals from lipid. Anthropometrics: Height: 70in BMI: 23.0 based on 160lb Weight History: Wt Readings from Last 10 Encounters: 05/25/24 0400 72.6 kg (160 lb) 05/22/24 0430 73.8 kg (162 lb 11.2 oz) 05/18/24 1436 73.8 kg (162 lb 12.8 oz) 05/09/24 1142 72.6 kg (160 lb) 03/09/24 0934 73 kg (161 lb) 01/08/24 0930 69.7 kg (153 lb 9.6 oz) 01/08/24 0930 69.7 kg (153 lb 9.6 oz) 12/05/23 1400 67.6 kg (149 lb) 10/10/23 1016 68.6 kg (151 lb 3.2 oz) 10/08/23 0941 68.6 kg (151 lb 3.2 oz) 09/09/23 0938 70.3 kg (155 lb) Current Diet Order: Dietary Orders (From admission, onward) Start Ordered 05/24/24 1308 Diet, Tube Feeding [facility]; Jevity 1.2 Curtis; OG; 70; 30; Water; Every 4 hours; Tube Feed (Tube Feeding) Diet effective now Question Answer Comment Location: [facility] Tube feeding formula: Jevity 1.2 Curtis Route: OG Tube feeding continuous rate (mL/hr): 70 Tube feeding flush (mL): 30 Tube feeding flush type: Water Tube feeding flush frequency: Every 4 hours Diet Tube Feed Placed in And Linked Group 05/24/24 1310 05/24/24 1308 Adult NPO diet Location: [facility]; Diet: NPO- Except for Medications (Tube Feeding) Diet effective now Question Answer Comment Location [facility] Diet NPO- Except for Medications Placed in And Linked Group 05/24/24 1310 Jevity 1.2 @ 70ml/hr provides 2016kcals (plus Propofol), 93g protein, 1361ml free water Allergies: Penicillin v Nutrition Focused Physical Exam: Nutrition-Focused Physical Findings Overall Appearance: No overt wasting noted Nerves and Cognition: Intubated/Sedated Skin: No active issues GI: last BM date unknown ([employer]DER[employer]ACH[employer] MECH[employer]IC) DIAGNOSIS: Inadequate Oral Intake related to Physiologic causes as evidenced by NPO s/p intubation. Status: Noimprovement Estimated Nutrition Needs: Energy: 0824-4291 kcals/day 25 kcals/kg based on 73kg, age, BMI Protein: 88-110 grams protein/day 1.2-1.5 grams protein/kg based on 73kg Nutrition Goal: TF to provide >75% estimated needs Goal Status: Previous goal met (ongoing) INTERVENTION/RECOMMENDATIONS: Tube feed as ordered remains appropriate MONITORING/EVALUATION: Monitor intake, Monitor pertinent lab values, and Monitor tolerance to enteral nutrition Alesha Orellana MS, RD, CDN, CNSC * Lydia Bullock - 05/28/2024 10:44 AM EST Pt extub to hfnc per provider order. +cuff leak; no stridor post extub. Sp02 97% 05/28/24 1044 Vent Information Ventilator Off Yes Readings SpO2 97 % Critical Care Bundle Spontaneous Breathing Trial (SBT) Outcome SBT Passed * Lydia Bullock - 05/28/2024 7:49 AM EST Pt assessed. Pt placed on sbt per protocol 05/28/24 0746 Vent Information Ventilation Day(s) 6 Vent Model / ID [id number] Delivery Method Endotracheal tube Vent Mode PS (for sbt) Ventilator On Yes Vent Settings FiO2 (%) 30 % PEEP/CPAP (cm H2O) 6 cm H20 Pressure Support (cm H2O) 5 cm H20 Trigger Sensitivity Flow (L/min) 2 L/min Humidification Heater Heater Temperature 37 ??C (98.6 ??F) Readings Resp Rate Observed 18 Vt Spontaneous (mL) 320 mL Minute Ventilation (L/min) 5.5 L/min PIP Observed (cm H2O) 13 cm H2O MAP (cm H2O) 8 SpO2 100 % Alarms High pressure limit 40 cm H2O Low pressure 10 cm H2O MV High (L/min) 20 L/min MV Low (L/min) 4 L/min Vt High (mL) 1200 mL Vt Low (mL) 200 mL Low PEEP alarm 3 High rate alarm 35 Apnea Interval (sec) 20 seconds Critical Care Bundle Safety Screen Spontaneous Breathing Trial (SBT) Proceed with SBT - No exclusion criteria met ETT 7.5 mm Placement Date/Time: 05/22/24 0434 Mask Ventilation: Vent by mask Technique: Video laryngoscopy ETTType: ETT Single Lumen Tube Size: 7.5 mm Laryngoscope: Jonathan Blade Size: 3 Location: Oral GradeView: View of epiglottis only Airway Inse... Secured at (cm) 25 cm Measured from Lips Secured Location Left Secured by Commercial tube grider Site Condition Intact Cuff Pressure (cm H2O) (mov) Weaning Parameters Weaning Start Time 0748 Total RSBI 52 * Luz Julian MD - 05/28/2024 6:20 AM EST Medical ICU Progress Note Admit Date:05/22/2024 Code Status: Full Code - Default Length of Stay: LOS: 6 days ICU Day #6d 5h Brief Hospital Course: Elvin Partida is a 64-year-old male with past medical history including COPD, hyperlipidemia, lung cancer s/p radiation and chemotherapy, schizophrenia, history of SBO who presented from [facility] with shortness of breath, chest tightness, cough and wheezing. Upon getting imaging done, patient was noted to have garbled speech Code stroke initiated, CT head without contrast was negative. NIHSS 1. Unfortunately patient's ABG worsened after multiple hours on BiPAP necessitating intubation for airway protection as patient's mental status was also worsening. Workup otherwise significant for RSV positive. CT chest with contrast negative for PE, did demonstrate emphysematous changes as well as tree-in-bud nodularity. Patient has failed CPAP trials on multiple days due to tachypnea thought to be in the setting of anxiety. He was ultimately extubated on 05/28. Subjective: Overnight Events: No acute events overnight. Remains hemodynamically stable and afebrile. He was been on minimal ventsettings (see below), though not tolerating SBTs yesterday or this morning. His last BM was prior to arrival. Bowel regimen was escalated today. Past Medical History: Diagnosis Date COPD (chronic obstructive pulmonary disease) (CMS/HCC) DX:COPD (chronic obstructive pulmonary disease) (HCC) Hyperlipidemia DX:Hyperlipidemia Incarcerated right inguinal hernia DX:Incarcerated right inguinal hernia Lung cancer (CMS/HCC) DX:Lung cancer (HCC) Schizophrenia (CMS/HCC) DX:Schizophrenia (HCC) Small bowel obstruction (CMS/HCC) DX:Small bowel obstruction (HCC) Vitamin D deficiency DX:Vitamin D deficiency Past Surgical History: Procedure Laterality Date HERNIA REPAIR PROCEDURE:INGUINAL HERNIA REPAIR Prior to Admission medications Medication Sig Start Date End Date Taking? Authorizing Provider dexAMETHasone (DECADRON) 4 mg tablet Take 1 tablet (4 mg total) by mouth 2 (two) times a day for 4 days. 05/09/24 05/13/24 LIONEL Nixon fluPHENAZine (PROLIXIN) 5 mg tablet Take 1 tablet (5 mg total) by mouth 1 (one) time each day. 01/08/24 Historical Provider, gabapentin (NEURONTIN) 300 mg capsule Take 1 capsule (300 mg total) by mouth at bedtime. 05/18/24 Jostin Bhakta MD ondansetron (ZOFRAN) 4 mg tablet Take 1 tablet (4 mg total) by mouth every 8 (eight) hours if needed. Historical Provider, predniSONE (DELTASONE) 20 mg tablet Take 3 tabs (60mg) daily for 3 days, then take 2 tabs (40mg) daily for 3 days, then take 1 tab (20mg) daily for 3 days. 05/18/24 05/27/24 Jostin Bhakta MD Social History Socioeconomic History Marital status: Spouse name: Not on file Number of children: Not on file Years of education: Not on file Highest education level: Not on file Occupational History Not on file Tobacco Use Smoking status: Every Day Current packs/day: 2.00 Types: Cigarettes Smokeless tobacco: Not on file Substance and Sexual Activity Alcohol use: Not Currently Drug use: Not on file Sexual activity: Not on file Other Topics Concern Not on file Social History Narrative Not on file Family History Problem Relation Name Age of Onset Hypertension Mother Dementia Mother Arthritis Father Cancer Mother's Brother Cancer Father's Sister Vitals: Intake/Output: Vitals: 05/28/24 1107 BP: Pulse: 86 Resp: (!) 35 Temp: 37.6 ??C (99.6 ??F) SpO2: 100% Temp Av.4 ??C (99.4 ??F) Min: 37.1 ??C (98.7 ??F) Max: 37.8 ??C (100 ??F) Last 24 hours: Intake/Output Summary (Last 24 hours) at 05/28/2024 1204 Last data filed at 05/28/2024 1100 Gross per 24 hour Intake 1996.78 ml Output 1965 ml Net 31.78 ml Physical Exam: Physical Exam Constitutional: Appearance: Normal appearance. Interventions: He is intubated. HENT: Head: Normocephalic and atraumatic. Eyes: Extraocular Movements: Extraocular movements intact. Conjunctiva/sclera: Conjunctivae normal. Pupils: Pupils are equal, round, and reactive to light. Cardiovascular: Rate and Rhythm: Normal rate and regular rhythm. Pulses: Normal pulses. Heart sounds: Normal heart sounds. Pulmonary: Effort: Pulmonary effort is normal. He is intubated. Abdominal: General: Abdomen is flat. There is distension. Tenderness: There is no abdominal tenderness. Musculoskeletal: General: Normal range of motion. Skin: General: Skin is warm. Capillary Refill: Capillary refill takes less than 2 seconds. Neurological: General: No focal deficit present. Mental Status: He is alert and oriented to person, place, and time. Psychiatric: Behavior: Behavior is cooperative. Scores: ICP/Pressure MAP (Device/Manual Entry): 86 mmHg Ventilator: Vent Mode: Pressure support FiO2 (%): [30 %] 30 % S RR: [18] 18 S VT: [500 mL] 500 mL PEEP/CPAP (cm H2O): [4 cm H20-8 cm H20] 5 cm H20 ND SUP: [5 cm H20-8 cm H20] 5 cm H20 MAP (cm H2O): [8-11] 8 Drains and Lines NG/OG Tube Orogastric 16 Fr Center mouth (Active) Placement Verification X-ray 05/24/24799 Tube Placement Measurement (cm) Reassessment 65 cm 05/24/24799 Site Assessment Clean;Dry;Intact 05/24/24799 Nasogastric/Orogastric Status Continuous tube feeding 05/24/24799 Drainage Appearance Bile;Green 05/22/24 1600 Tube Feeding Frequency Continuous 05/24/24799 Tube Feeding Jevity 1.2 Curtis 05/24/24799 Tube Feeding Strength Full strength 05/24/24799 Tube Feeding Rate (mL/hr) 20 mL 05/24/24799 Tube Feeding Method Continuous per pump 05/24/24799 Tube Feeding Bag Changed Yes 05/24/24799 Flush Intake Volume (mL) 30 mL 05/24/24799 Intake (mL) 20 mL 05/24/24799 Output (mL) 50 mL 05/22/24 1600 Urethral Catheter Temperature probe;Double-lumen 16 Fr. (Active) Site Assessment Clean;Skin intact 05/24/24 0800 Collection Container Standard drainage bag 05/24/24 0800 Securement Method Securing device (Describe) 05/24/24 0800 Reason for Continuing Urinary Catheterization Critically ill and need for accurate measurements of I&O (e.g., hourly monitoring) 05/24/24 0800 Urinary Catheter Output (mL) 60 mL 05/24/24 1400 Infusing Medications: dexmedeTOMIDine (PRECEDEX) 1,000 mcg in sodium chloride 0.9 % 250 mL (4 mcg/mL) infusion, 0.2-1.5 mcg/kg/hr, Last Rate: Stopped (05/28/24 1107) propofoL, 10-80 mcg/kg/min, Last Rate: Stopped (05/28/24 0731) Labs: Lab Results Component Value Date WBC 8.5 05/28/2024 HGB 13.7 05/28/2024 HCT 40.0 05/28/2024 MCV 92.0 05/28/2024 PLT 148 (L) 05/28/2024 Lab Results Component Value Date GLUCOSE 121 05/28/2024 CALCIUM 8.4 05/28/2024 NA 136 05/28/2024 K 4.6 05/28/2024 CO2 29 05/28/2024 CL 100 05/28/2024 BUN 26 (H) 05/28/2024 CREATININE 0.60 (L) 05/28/2024 Lab Results Component Value Date ALT 6 (L) 05/22/2024 AST 9 05/22/2024 ALKPHOS 82 05/22/2024 BILITOT 0.2 (L) 05/22/2024 Results from last 7 days Lab Units 05/28/24 0559 MAGNESIUM mg/dL 2.2 Lab Results Component Value Date CALCIUM 8.4 05/28/2024 PHOS 3.3 05/23/2024 Microbiology: Recent Results (from the past 168 hour(s)) Respiratory virus panel molecular study Collection Time: 05/21/24 6:17 PM Specimen: Nares; Swab Result Value Ref Range Adenovirus Detection by PCR Not Detected Not Detected Influenza A PCR Not Detected Not Detected Influenza B PCR Not Detected Not Detected Coronavirus 229E Not Detected Not Detected Coronavirus HKU1 Not Detected Not Detected Coronavirus OC43 Not Detected Not Detected Coronavirus NL63 Not Detected Not Detected Parainfluenza Virus 1 Not Detected Not Detected Parainfluenza Virus 2 Not Detected Not Detected Parainfluenza Virus 3 Not Detected Not Detected Parainfluenza Virus 4 Not Detected Not Detected RSV PCR Detected (A) Not Detected Human Metapneumovirus A and B Not Detected Not Detected Rhinovirus/Enterovirus Not Detected Not Detected Bordetella pertussis Not Detected Not Detected Bordetella parapertussis Not Detected Not Detected Mycoplasma pneumo by PCR Not Detected Not Detected Chlamydia pneumoniae Not Detected Not Detected SARS COV-2 Not Detected Not Detected Blood Culture, Peripheral Draw #1 Collection Time: 05/22/24 8:51 AM Specimen: Blood, Venous Result Value Ref Range Culture, Blood No growth at 5 days Culture urine Collection Time: 05/22/24 9:00 AM Specimen: Urine, Catheter Result Value Ref Range Culture, Urine No growth Blood Culture, Peripheral Draw #2 Collection Time: 05/22/24 9:02 AM Specimen: Blood, Venous Result Value Ref Range Culture, Blood No growth at 5 days Culture respiratory with gram stain Collection Time: 05/22/24 9:14 AM Specimen: Trachea; Sputum, induced Result Value Ref Range Culture, Respiratory No potential pathogens in significant amounts including MRSA/Staph Aureus or Pseudomonas Gram Stain Result (A) Greater than 25 WBCS and less than 10 Epithelial cells Gram Stain Result Many WBCs present (A) Gram Stain Result Few Epithelial cells (A) Gram Stain Result Few Gram negative bacilli (A) Gram Stain Result Moderate Gram positive cocci (A) MRSA molecular study Collection Time: 05/22/24 10:04 AM Specimen: Nares; Swab Result Value Ref Range MRSA Screen PCR Not Detected Not Detected Legionella antigen urine, EIA Collection Time: 05/22/24 3:08 PM Result Value Ref Range Legionella Urinary Antigen Negative Negative Imaging: XR Chest 1 View Narrative: Frontal view of the chest COMPARISON: Chest radiograph yesterday INDICATION: Postintubation Impression: Again noted is significant scarring and volume loss in the right lung apex. ET tube in adequate position above the adriana. NG tube follows normal course and terminates beyond view. No acute infiltrate. -------- FINAL REPORT -------- Dictated By: Aidan Barnett Dictated Date: 05/22/2024 08:24 ET Assigned Physician: Aidan Barnett Reviewed and Electronically Signed By: Aidan Barnett Signed Date: 05/22/2024 08:25 ET Workstation ID: [id number] Transcribed By: Self Edit Transcribed Date: 05/22/2024 08:[address] Angio Head/Neck wo and/or w Contrast Narrative: CT angiography head and neck with contrast. [...] disc disease. Age-indeterminate compression deformity at T3. Impression: Patent head and neck CTA. This document has been electronically signed by: Alexander Soto MD on 05/22/2024 01:02:04 CT Head Stroke wo Contrast Addendum: ADDENDUM: This report was discussed with Concepcion Strong RN on May 22, 2024 00:49:00 EST. This document has been electronically signed by: Janis Castaneda on 05/22/2024 00:50:47 Narrative: CT head without contrast Comparison: None Findings: [...] are unremarkable. There is no acute fracture. Impression: 1. No acute intracranial findings. 2. Additional findings as described. This document has been electronically signed by: Alexander Soto MD on 05/22/2024 00:48:47 CT Angio Chest wo and/or w Contrast Narrative: CT angiography chest with contrast. 3D Postprocessing. [...] T7 and T9. Additional findings as described. Impression: 1. No evidence of PE. 2. Emphysema. 3. Ill-defined subtle bilateral tree-in-bud nodularity, can be seen with aspiration or endobronchial pneumonia. 4. Suspect malignancy with possible posttreatment changes/scarring in the right upper lobe, please see above. This document has been electronically signed by: Alexander Soto MD on 05/22/2024 00:25:51 Procedures in the past 24 hours: None Nutrition: Diet Order: Dietary Orders (From admission, onward) Start Ordered 05/24/24 1308 Diet, Tube Feeding [facility]; Jevity 1.2 Curtis; OG; 70; 30; Water; Every 4 hours; Tube Feed (Tube Feeding) Diet effective now Question Answer Comment Location: [facility] Tube feeding formula: Jevity 1.2 Curtis Route: OG Tube feeding continuous rate (mL/hr): 70 Tube feeding flush (mL): 30 Tube feeding flush type: Water Tube feeding flush frequency: Every 4 hours Diet Tube Feed Placed in And Linked Group 05/24/24 1310 05/24/24 1308 Adult NPO diet Location: [facility]; Diet: NPO- Except for Medications (Tube Feeding) Diet effective now Question Answer Comment Location [facility] Diet NPO- Except for Medications Placed in And Linked Group 05/24/24 1310 TPN Rate: 70 mL/hour, 30 mL free water flush q4 hour Type of Tube Feed: Jevity 1.2 ucrtis Problem List: Patient Active Problem List Diagnosis Basal cell carcinoma Chronic obstructive pulmonary disease (CMS/HCC) Hyperlipidemia Schizophrenia ([facility]/HCC) Secondary polycythemia Squamous cell carcinoma of right lung ([facility]/HCC) Vitamin D deficiency COPD exacerbation ([facility]) Assessment & Plan: Assessment: Elvin Partida is a 64-year-old male with past medical history including COPD, hyperlipidemia, lung cancer s/p radiation and chemotherapy, schizophrenia, history of SBO who presented from [facility] with shortness of breath, chest tightness, cough and wheezing admitted for AHRF in thesetting of RSV. Plan by system: Neuropsych: Acute metabolic encephalopathy (resolved) History of schizophrenia Patient became more encephalopathic while in the ED at [facility], had an episode of garbled speech precipitating code stroke. CT head and CTA head and neck without any acute abnormalities. Patient was offered TNK by neurology however refused, NIHSS 1. Ultimately worsening encephalopathy thought to be secondary to acute hypercarbia. Metabolic work-up largely unremarkable with TSH 1.25, folate 10.0 andB-12 317. Ammonia not resulted. UDS negative. MRSA negative. Patient was seen by Neurology and recommended an MRI of the brain without contrast, however, this was held off as deficit seemed to improve. - Continue Fluphenazil 5 mg daily CVS: CHRISTIANO Resp: Acute hypoxic and hypercarbic respiratory failure 2/2 RSV History of COPD History of Lung Cancer Patient presented to [facility] with worsening shortness of breath, wheezing, cough. Patient does reportedly have a chronic cough and significant smoking history. Patient was diagnosed with squamous cell lung cancer in 2021, no longer requiring treatment. Initially shortness of breath was thought to be secondary to pulmonary embolism however CTA chest negative for any PE, did demonstrate emphysematouschanges as well as tree-in-bud nodularity bilaterally. RSV positive. ABG was suggestive of acute hypercarbic respiratory failure and did not improve on BiPAP requiring intubation. - Continue ventilator support, wean as tolerated - Cover for possible community acquired pneumonia with ceftriaxone and azithromycin, - Continue Solumedrol 40 mg q12 hr GI: CHRISTIANO Renal: CHRISTIANO Endo: CHRISTIANO Heme/Onc: History of stage IIIb squamous cell lung cancer s/p chemo/radiation Patient initially diagnosed with stage IIIb squamous cell lung cancer after discovery of right upper lobe mass on CT in late 2021. He completed a course of chemo and radiation in August 2022 and was then maintained on durvalumab. He had multiple CTs with evidence of decreasing mass as well as no newmetastatic disease, last in September and February 2024. He continues to follow with heme-onc for serial follow-up imaging. CT chest done on admission does show evidence of right upper lobe obstruction versus scarring. ID: Concern for community-acquired pneumonia Patient presented with shortness of breath. Labs revealed mild leukocytosis, afebrile, mild tachycardia. Micro culture was positive RSV swab. It was thought that respiratory failure most likely caused by viral infection prompting COPD exacerbation. Patient received Azithromycin (05/21-05/23) and Ceftriaxone (05/21 - ) for concern of superimposed pneumonia. - Continue Ceftriaxone 1 g q12h (05/21 - ) - Follow-up sputum and blood cultures - Trend WBC and fever curve Restraints: yes PT/OT: yes HOB >30 degrees: yes Stress Ulcer Prevention: yes DVT Prophylaxis: sequential compression device and LMWH Baltazar: yes CODE: Full Code - Default Appropriate Disposition: MICU Seen and discussed with: MD Luz Aviles MD Internal Medicine Resident, PGY-2 [facility] Associated attestation - Jonnathan Ballesteros MD - 05/28/2024 12:07 PM EST I was physically present for the evaluation and management service provided. I personally saw and examined the patient on rounds with my team today. Management was discussed with resident and I supervised the plan of care. I have reviewed and agree with the mccarty parts of the resident evaluation including: Subjective Information Objective findings on physical exam Impression and plan He is tolerating pressure support ventilation adequately. Will move forward with extubation to highflow nasal cannula. Continue current dose of Solu-Medrol along with nebulized treatments. Will needto monitor after extubation in the ICU to ensure his respiratory status remains stabilized. Jonnathan Ballesteros MD Staff Physician Pulmonary and Critical Care Medicine 05/28/2024 12:07 PM EST * LAUREN Lynne/Teodoro - 05/27/2024 9:28 AM EST 05/27/24 0928 General Missed Treatment Reason Medical hold (spoke with Rn, plan to wean to extubate today. will continue to follow.) Jael Cox, OTR/L 05/27/2024 * Adore Limon PT - 05/27/2024 9:28 AM EST 05/27/24 0928 General Missed Time Reason Other (Comment) (wean to extubate) Adore Limon PT * Gabrielle Styles RN - 05/27/2024 7:49 AM EST Problem: Respiratory: Breathing Pattern Impairment Goal: Ability to maintain normal pulse oximetry readings will improve Outcome: Progressing Problem: Safety: Restraint-Nonviolent; Risk of Injury to Self Goal: Will be restraint free Outcome: Progressing Problem: Safety: Restraint-Nonviolent; Risk of Injury to Self Goal: Will be restraint free Outcome: Progressing Goals: Identify possible barriers to meeting goals/advancing plan of care: Increased work of breathing andtachypnea when sedation weaned. Stability of the patient: Moderately Unstable - Medium risk of patient condition declining or worsening End of Shift Summary: Attempt made overnight to sedation overnight to help prepare patient for a possible extubation later today. However pt was tube intolerant with high Peak airway pressures and tachypnea. Sedation run as previous to make patient comfortable, plan is to try again later in the day. Tube feeds stopped in preparation of possible extubation later today. Please see critical care flow sheets for further details. * Rosita Bobby MD - 05/27/2024 6:52 AM EST Medical ICU Progress Note Admit Date:05/22/2024 Code Status: Full Code - Default Length of Stay: LOS: 5 days ICU Day #5d 5h Brief Hospital Course: Elvin Partida is a 64-year-old male with past medical history including COPD, hyperlipidemia, lung cancer s/p radiation and chemotherapy, schizophrenia, history of SBO who presented to [facility] emergency department with shortness of breath. History is gathered from the chart. Patient was reportedly complaining of chest tightness, cough and wheezing. In the emergency department patient was placed on BiPAP. Appropriately transitioned off in order totolerate lying supine for chest CT however upon return from CT the RN noted that he had sudden onset of garbled speech. Code stroke initiated, CT head without contrast was negative. NIHSS 1. Unfortunately patient's ABG worsened after multiple hours on BiPAP necessitating intubation for airway protection as patient's mental status was also worsening. Workup otherwise significant for RSV positive. CT chest with contrast negative for PE, did demonstrate emphysematous changes as well as [id number]. Chemistries largely unremarkable, LFTs normal. BN P67, troponins 24, 28. WBC 14.2. Patient was transferred to [facility] as there were no ICU beds at [facility]. Subjective: Overnight Events: No acute events overnight. Able to nod to answer questions. Remains hemodynamically stable and afebrile. On minimal vent settings (see below), though not tolerating SBTs yesterday or this morning. Propofol resumed overnight @ 30 for agitation. Last BM prior to arrival, will escalate bowel regimen. REVIEW OF SYSTEMS: (-) chest pain, wheezing, abdominal pain or headache Past Medical History: Diagnosis Date COPD (chronic obstructive pulmonary disease) (CMS/HCC) DX:COPD (chronic obstructive pulmonary disease) (HCC) Hyperlipidemia DX:Hyperlipidemia Incarcerated right inguinal hernia DX:Incarcerated right inguinal hernia Lung cancer (CMS/HCC) DX:Lung cancer (HCC) Schizophrenia (CMS/HCC) DX:Schizophrenia (HCC) Small bowel obstruction (CMS/HCC) DX:Small bowel obstruction (HCC) Vitamin D deficiency DX:Vitamin D deficiency Past Surgical History: Procedure Laterality Date HERNIA REPAIR PROCEDURE:INGUINAL HERNIA REPAIR Prior to Admission medications Medication Sig Start Date End Date Taking? Authorizing Provider dexAMETHasone (DECADRON) 4 mg tablet Take 1 tablet (4 mg total) by mouth 2 (two) times a day for 4 days. 05/09/24 05/13/24 LIONEL Nixon fluPHENAZine (PROLIXIN) 5 mg tablet Take 1 tablet (5 mg total) by mouth 1 (one) time each day. 01/08/24 Historical Provider, gabapentin (NEURONTIN) 300 mg capsule Take 1 capsule (300 mg total) by mouth at bedtime. 05/18/24 Jostin Bhakta MD ondansetron (ZOFRAN) 4 mg tablet Take 1 tablet (4 mg total) by mouth every 8 (eight) hours if needed. Historical Provider, predniSONE (DELTASONE) 20 mg tablet Take 3 tabs (60mg) daily for 3 days, then take 2 tabs (40mg) daily for 3 days, then take 1 tab (20mg) daily for 3 days. 05/18/24 05/27/24 Jostin Bhakta MD Social History Socioeconomic History Marital status: Spouse name: Not on file Number of children: Not on file Years of education: Not on file Highest education level: Not on file Occupational History Not on file Tobacco Use Smoking status: Every Day Current packs/day: 2.00 Types: Cigarettes Smokeless tobacco: Not on file Substance and Sexual Activity Alcohol use: Not Currently Drug use: Not on file Sexual activity: Not on file Other Topics Concern Not on file Social History Narrative Not on file Family History Problem Relation Name Age of Onset Hypertension Mother Dementia Mother Arthritis Father Cancer Mother's Brother Cancer Father's Sister Vitals: Intake/Output: Vitals: 05/27/24 1200 BP: 108/82 Pulse: 91 Resp: (!) 34 Temp: 37.6 ??C (99.6 ??F) SpO2: 98% Temp Av.9 ??C (98.4 ??F) Min: 36.1 ??C (96.9 ??F) Max: 37.7 ??C (99.9 ??F) Last 24 hours: Intake/Output Summary (Last 24 hours) at 05/27/2024 1208 Last data filed at 05/27/2024 1200 Gross per 24 hour Intake 2138.24 ml Output 2830 ml Net -691.76 ml Physical Exam: Physical Exam Vitals and nursing note reviewed. Constitutional: Comments: Intubated, resting in bed Eyes: Conjunctiva/sclera: Conjunctivae normal. Cardiovascular: Rate and Rhythm: Normal rate and regular rhythm. Pulses: Normal pulses. Heart sounds: Normal heart sounds. No murmur heard. Pulmonary: Comments: Intubated, diminished breath sounds on the L > R Abdominal: General: Bowel sounds are normal. There is no distension. Palpations: Abdomen is soft. There is no mass. Comments: Mildly distended Musculoskeletal: Right lower leg: No edema. Left lower leg: No edema. Skin: General: Skin is warm and dry. Coloration: Skin is not jaundiced. Neurological: Comments: Intubated, following commands Psychiatric: Comments: Unable to assess 2/2 intubation Scores: ICP/Pressure MAP (Device/Manual Entry): 91 mmHg Ventilator: Vent Mode: Volume control/Assist control FiO2 (%): [30 %-31 %] 30 % S RR: [18] 18 S VT: [500 mL] 500 mL PEEP/CPAP (cm H2O): [4 cm H20-8 cm H20] 5 cm H20 ND SUP: [8 cm H20] 8 cm H20 MAP (cm H2O): [9-14] 9 Drains and Lines NG/OG Tube Orogastric 16 Fr Center mouth (Active) Placement Verification X-ray 05/24/24799 Tube Placement Measurement (cm) Reassessment 65 cm 05/24/24799 Site Assessment Clean;Dry;Intact 05/24/24799 Nasogastric/Orogastric Status Continuous tube feeding 05/24/24799 Drainage Appearance Bile;Green 05/22/24 1600 Tube Feeding Frequency Continuous 05/24/24799 Tube Feeding Jevity 1.2 Curtis 05/24/24799 Tube Feeding Strength Full strength 05/24/24799 Tube Feeding Rate (mL/hr) 20 mL 05/24/24799 Tube Feeding Method Continuous per pump 05/24/24799 Tube Feeding Bag Changed Yes 05/24/24799 Flush Intake Volume (mL) 30 mL 05/24/24799 Intake (mL) 20 mL 05/24/24799 Output (mL) 50 mL 05/22/24 1600 Urethral Catheter Temperature probe;Double-lumen 16 Fr. (Active) Site Assessment Clean;Skin intact 05/24/24799 Collection Container Standard drainage bag 05/24/24799 Securement Method Securing device (Describe) 05/24/24799 Reason for Continuing Urinary Catheterization Critically ill and need for accurate measurements of I&O (e.g., hourly monitoring) 05/24/24 08 Urinary Catheter Output (mL) 60 mL 05/24/24 1400 Infusing Medications: dexmedeTOMIDine (PRECEDEX) 1,000 mcg in sodium chloride 0.9 % 250 mL (4 mcg/mL) infusion, 0.2-1.5 mcg/kg/hr, Last Rate: 1.5 mcg/kg/hr (05/27/24 1200) propofoL, 10-80 mcg/kg/min, Last Rate: Stopped (05/27/24 0744) Labs: Lab Results Component Value Date WBC 10.1 05/27/2024 HGB 14.2 05/27/2024 HCT 41.1 05/27/2024 MCV 91.9 05/27/2024 PLT 159 05/27/2024 Lab Results Component Value Date GLUCOSE 130 05/27/2024 CALCIUM 8.2 (L) 05/27/2024 NA 135 05/27/2024 K 5.0 05/27/2024 CO2 29 05/27/2024 CL 99 05/27/2024 BUN 25 (H) 05/27/2024 CREATININE 0.60 (L) 05/27/2024 Lab Results Component Value Date ALT 6 (L) 05/22/2024 AST 9 05/22/2024 ALKPHOS 82 05/22/2024 BILITOT 0.2 (L) 05/22/2024 Results from last 7 days Lab Units 05/27/24 0637 MAGNESIUM mg/dL 2.2 Lab Results Component Value Date CALCIUM 8.2 (L) 05/27/2024 PHOS 3.3 05/23/2024 Microbiology: Recent Results (from the past 168 hour(s)) Respiratory virus panel molecular study Collection Time: 05/21/24 6:17 PM Specimen: Nares; Swab Result Value Ref Range Adenovirus Detection by PCR Not Detected Not Detected Influenza A PCR Not Detected Not Detected Influenza B PCR Not Detected Not Detected Coronavirus 229E Not Detected Not Detected Coronavirus HKU1 Not Detected Not Detected Coronavirus OC43 Not Detected Not Detected Coronavirus NL63 Not Detected Not Detected Parainfluenza Virus 1 Not Detected Not Detected Parainfluenza Virus 2 Not Detected Not Detected Parainfluenza Virus 3 Not Detected Not Detected Parainfluenza Virus 4 Not Detected Not Detected RSV PCR Detected (A) Not Detected Human Metapneumovirus A and B Not Detected Not Detected Rhinovirus/Enterovirus Not Detected Not Detected Bordetella pertussis Not Detected Not Detected Bordetella parapertussis Not Detected Not Detected Mycoplasma pneumo by PCR Not Detected Not Detected Chlamydia pneumoniae Not Detected Not Detected SARS COV-2 Not Detected Not Detected Blood Culture, Peripheral Draw #1 Collection Time: 05/22/24 8:51 AM Specimen: Blood, Venous Result Value Ref Range Culture, Blood No growth at 5 days Culture urine Collection Time: 05/22/24 9:00 AM Specimen: Urine, Catheter Result Value Ref Range Culture, Urine No growth Blood Culture, Peripheral Draw #2 Collection Time: 05/22/24 9:02 AM Specimen: Blood, Venous Result Value Ref Range Culture, Blood No growth at 5 days Culture respiratory with gram stain Collection Time: 05/22/24 9:14 AM Specimen: Trachea; Sputum, induced Result Value Ref Range Culture, Respiratory No potential pathogens in significant amounts including MRSA/Staph Aureus or Pseudomonas Gram Stain Result (A) Greater than 25 WBCS and less than 10 Epithelial cells Gram Stain Result Many WBCs present (A) Gram Stain Result Few Epithelial cells (A) Gram Stain Result Few Gram negative bacilli (A) Gram Stain Result Moderate Gram positive cocci (A) MRSA molecular study Collection Time: 05/22/24 10:04 AM Specimen: Nares; Swab Result Value Ref Range MRSA Screen PCR Not Detected Not Detected Legionella antigen urine, EIA Collection Time: 05/22/24 3:08 PM Result Value Ref Range Legionella Urinary Antigen Negative Negative Imaging: XR Chest 1 View Narrative: Frontal view of the chest COMPARISON: Chest radiograph yesterday INDICATION: Postintubation Impression: Again noted is significant scarring and volume loss in the right lung apex. ET tube in adequate position above the adriana. NG tube follows normal course and terminates beyond view. No acute infiltrate. -------- FINAL REPORT -------- Dictated By: Aidan Barnett Dictated Date: 05/22/2024 08:24 ET Assigned Physician: Aidan Barnett Reviewed and Electronically Signed By: Aidan Barnett Signed Date: 05/22/2024 08:25 ET Workstation ID: [id number] Transcribed By: Self Edit Transcribed Date: 05/22/2024 08:[address] Angio Head/Neck wo and/or w Contrast Narrative: CT angiography head and neck with contrast. [...] disc disease. Age-indeterminate compression deformity at T3. Impression: Patent head and neck CTA. This document has been electronically signed by: Alexander Soto MD on 05/22/2024 01:02:04 CT Head Stroke wo Contrast Addendum: ADDENDUM: This report was discussed with Concepcion Strong RN on May 22, 2024 00:49:00 EST. This document has been electronically signed by: Janis Castaneda on 05/22/2024 00:50:47 Narrative: CT head without contrast Comparison: None Findings: [...] are unremarkable. There is no acute fracture. Impression: 1. No acute intracranial findings. 2. Additional findings as described. This document has been electronically signed by: Alexander Soto MD on 05/22/2024 00:48:47 CT Angio Chest wo and/or w Contrast Narrative: CT angiography chest with contrast. 3D Postprocessing. [...] T7 and T9. Additional findings as described. Impression: 1. No evidence of PE. 2. Emphysema. 3. Ill-defined subtle bilateral tree-in-bud nodularity, can be seen with aspiration or endobronchial pneumonia. 4. Suspect malignancy with possible posttreatment changes/scarring in the right upper lobe, please see above. This document has been electronically signed by: Alexander Soto MD on 05/22/2024 00:25:51 Procedures in the past 24 hours: None Nutrition: Diet Order: Dietary Orders (From admission, onward) Start Ordered 05/24/24 1308 Diet, Tube Feeding [facility]; Jevity 1.2 Curtis; OG; 70; 30; Water; Every 4 hours; Tube Feed (Tube Feeding) Diet effective now Question Answer Comment Location: [facility] Tube feeding formula: Jevity 1.2 Curtis Route: OG Tube feeding continuous rate (mL/hr): 70 Tube feeding flush (mL): 30 Tube feeding flush type: Water Tube feeding flush frequency: Every 4 hours Diet Tube Feed Placed in And Linked Group 05/24/24 1310 05/24/24 1308 Adult NPO diet Location: [facility]; Diet: NPO- Except for Medications (Tube Feeding) Diet effective now Question Answer Comment Location [facility] Diet NPO- Except for Medications Placed in And Linked Group 05/24/24 1310 TPN Rate: 70 mL/hour, 30 mL free water flush q4 hour Type of Tube Feed: Jevity 1.2 curtis Problem List: Patient Active Problem List Diagnosis Basal cell carcinoma Chronic obstructive pulmonary disease (CMS/HCC) Hyperlipidemia Schizophrenia (CMS/HCC) Secondary polycythemia Squamous cell carcinoma of right lung (CMS/HCC) Vitamin D deficiency COPD exacerbation (CMS/HCC) Assessment & Plan: Assessment: Patient is a 64-year-old male with PMH including COPD, hyperlipidemia, lung cancer reportedly in remission, schizophrenia who presented to [facility] emergency department with shortness of breath found to have RSV and failed rescue BiPAP requiring intubation and transferred to [facility] for ICUlevel of care. Plan by system: Neuropsych: Acute metabolic encephalopathy Intubated and sedated Concern for garbled speech History of schizophrenia Patient became more encephalopathic while in the ED at [facility], had an episode of garbled speech precipitating code stroke. CT head and CTA head and neck without any acute abnormalities. Patient was offered TNK by neurology however refused, NIHSS 1. Ultimately worsening encephalopathy thought to be secondary to acute hypercarbia. Metabolic work-up largely unremarkable with TSH 1.25, folate 10.0 andB-12 317. Ammonia not resulted. UDS negative. MRSA negative. - Seen by neurology, recommended MRI brain without contrast however we will hold off as AMS occurred with hypercarbia and deficit seemed to improve - Follow-up infectious work-up: blood cultures, sputum culture, legionella - Sedated with precedex, keep propofol off as tolerated - Continue fluphenazil CVS: History of hyperlipidemia Not an active issue. Patient has mild hypotension likely caused by propofol. - Status post 1 L normal saline and 1 L LR - Maps greater than 65, no need for vasopressor support at this time Resp: Acute hypoxic and hypercarbic respiratory failure Respiratory syncytial virus infection Concern for community acquired pneumonia History of COPD History of lung cancer Patient presented to [facility] with worsening shortness of breath, wheezing, cough. Patient does reportedly have a chronic cough and significant smoking history. Patient was diagnosed with squamous cell lung cancer in 2021, no longer requiring treatment. See heme-onc section for further discussion of this issue. Initially shortness of breath was thought to be secondary to pulmonary embolism however CTA chest negative for any PE, did demonstrate emphysematous changes as well as tree-in-bud nodularity bilaterally. RSV positive. ABG 7.29/81/98/31 suggestive of acute hypercarbic respiratory failure. Did not improve on BiPAP, required intubation. This is most likely COPD exacerbation in the setting of RSV infection. Infectious pneumonia less likely though patient does have mild leukocytosis 14.2. - Continue ventilator support, wean as tolerated with goal to extubate today - Cover for possible community acquired pneumonia with ceftriaxone and azithromycin, - Decrease solumedrol dose from 40 mg q6 hr to 40 mg q12 hr - Resp viral panel + RSV otherwise negative - Sputum culture pending, no growth to date Vent settings Vent Mode: Volume control/Assist control FiO2 (%): [30 %-31 %] 30 % S RR: [18] 18 S VT: [500 mL] 500 mL PEEP/CPAP (cm H2O): [4 cm H20-8 cm H20] 5 cm H20 ND SUP: [8 cm H20] 8 cm H20 MAP (cm H2O): [9-14] 9 GI: History of small bowel obstruction Not active an issue. - Stress ulcer prophylaxis with IV pantoprazole - Continue bowel regimen - senna, miralax, dulcolax suppository - Continue tube feeds: Jevity 1.2 curtis at 70 mL/hr via OG tube Renal: No active issues Endo: No active issues - Fingersticks [id number] - Insulin sliding scale if needed, patient receiving IV steroids Heme/Onc: History of stage IIIb squamous cell lung cancer s/p chemo/radiation Patient initially diagnosed with stage IIIb squamous cell lung cancer after discovery of right upper lobe mass on CT in late 2021. He completed a course of chemo and radiation in August 2022 and was then maintained on durvalumab. Has had multiple CTs with evidence of decreasing mass as well as no new metastatic disease, last in September and February 2024. Continues to follow with heme-onc for serial follow-up imaging. CT chest done on admission does show evidence of right upper lobe obstruction versusscarring. ID: Concern for community-acquired pneumonia Patient presented with shortness of breath. Has mild leukocytosis WBC 14, afebrile, mild tachycardia. Did have positive RSV swab, respiratory failure most likely caused by viral infection prompting COPD exacerbation however we will cover for possible pneumonia pending further culture data. MRSA negative. - Continue ceftriaxone 1 g every 24 hours, day 4/5 - F/u sputum culture, no growth to date - Follow-up culture data - Trend WBC and fever curve Restraints: yes PT/OT: yes HOB >30 degrees: yes Stress Ulcer Prevention: yes DVT Prophylaxis: sequential compression device and LMWH Baltazar: yes CODE: Full Code - Default Appropriate Disposition: MICU Seen and discussed with: MD Rosita Aviles MD Emergency Medicine Resident, PGY-1 Associated attestation - Jonnathan Ballesteros MD - 05/27/2024 1:30 PM EST I was physically present for the evaluation and management service provided. I personally saw and examined the patient on rounds with my team today. Management was discussed with resident and I supervised the plan of care. I have reviewed and agree with the mccarty parts of the resident evaluation including: Subjective Information Objective findings on physical exam Impression and plan Repeat pressure support trial and obtain arterial blood gas. Will consider extubation if parametersare adequate. Keep sedation as minimal as possible. Continue nebulized treatments, wean Solu-Medrol. Increase bowel regimen. Continues to require ICU level of care. Jonnathan Ballesteros MD Staff Physician Pulmonary and Critical Care Medicine 05/27/2024 1:30 PM EST * Hao Neal RN - 05/26/2024 8:27 PM EST Pt is sedated and intubated on ventilator. Pt remains on propofol and precedex per JUL. No issue during the shift. BL restraints in place and order renewed. TF at goal rate. Pt is on ventilator with minimal support. VSS * Rosita Bobby MD - 05/26/2024 9:49 AM EST Medical ICU Progress Note Admit Date:05/22/2024 Code Status: Full Code - Default Length of Stay: LOS: 4 days ICU Day #4d 3h Brief Hospital Course: Elvin Partida is a 64-year-old male with past medical history including COPD, hyperlipidemia, lung cancer s/p radiation and chemotherapy, schizophrenia, history of SBO who presented to [facility] emergency department with shortness of breath. History is gathered from the chart. Patient was reportedly complaining of chest tightness, cough and wheezing. In the emergency department patient was placed on BiPAP. Appropriately transitioned off in order totolerate lying supine for chest CT however upon return from CT the RN noted that he had sudden onset of garbled speech. Code stroke initiated, CT head without contrast was negative. NIHSS 1. Unfortunately patient's ABG worsened after multiple hours on BiPAP necessitating intubation for airway protection as patient's mental status was also worsening. Workup otherwise significant for RSV positive. CT chest with contrast negative for PE, did demonstrate emphysematous changes as well as [id number]. Chemistries largely unremarkable, LFTs normal. BN P67, troponins 24, 28. WBC 14.2. Patient was transferred to [facility] as there were no ICU beds at [facility]. Subjective: Overnight Events: No acute events overnight. Able to answer questions. Remains hemodynamically stable and afebrile. On minimal vent settings (see below), though not tolerating SBTs yesterday or this morning. Last BM prior to arrival, will escalate bowel regimen. Family Update: Updated father, Vaughn Partida, via telephone. Questions answered. REVIEW OF SYSTEMS: Unable to assess 2/2 intubated and sedated Past Medical History: Diagnosis Date COPD (chronic obstructive pulmonary disease) (CMS/HCC) DX:COPD (chronic obstructive pulmonary disease) (HCC) Hyperlipidemia DX:Hyperlipidemia Incarcerated right inguinal hernia DX:Incarcerated right inguinal hernia Lung cancer (CMS/HCC) DX:Lung cancer (HCC) Schizophrenia (CMS/HCC) DX:Schizophrenia (HCC) Small bowel obstruction (CMS/HCC) DX:Small bowel obstruction (HCC) Vitamin D deficiency DX:Vitamin D deficiency Past Surgical History: Procedure Laterality Date HERNIA REPAIR PROCEDURE:INGUINAL HERNIA REPAIR Prior to Admission medications Medication Sig Start Date End Date Taking? Authorizing Provider dexAMETHasone (DECADRON) 4 mg tablet Take 1 tablet (4 mg total) by mouth 2 (two) times a day for 4 days. 05/09/24 05/13/24 LIONEL Nixon fluPHENAZine (PROLIXIN) 5 mg tablet Take 1 tablet (5 mg total) by mouth 1 (one) time each day. 01/08/24 Historical Provider, gabapentin (NEURONTIN) 300 mg capsule Take 1 capsule (300 mg total) by mouth at bedtime. 05/18/24 Jostin Bhakta MD ondansetron (ZOFRAN) 4 mg tablet Take 1 tablet (4 mg total) by mouth every 8 (eight) hours if needed. Historical Provider, predniSONE (DELTASONE) 20 mg tablet Take 3 tabs (60mg) daily for 3 days, then take 2 tabs (40mg) daily for 3 days, then take 1 tab (20mg) daily for 3 days. 05/18/24 05/27/24 Jostin Bhakta MD Social History Socioeconomic History Marital status: Spouse name: Not on file Number of children: Not on file Years of education: Not on file Highest education level: Not on file Occupational History Not on file Tobacco Use Smoking status: Every Day Current packs/day: 2.00 Types: Cigarettes Smokeless tobacco: Not on file Substance and Sexual Activity Alcohol use: Not Currently Drug use: Not on file Sexual activity: Not on file Other Topics Concern Not on file Social History Narrative Not on file Family History Problem Relation Name Age of Onset Hypertension Mother Dementia Mother Arthritis Father Cancer Mother's Brother Cancer Father's Sister Vitals: Intake/Output: Vitals: 05/26/24 0700 BP: 101/75 Pulse: 84 Resp: 26 Temp: 37.2 ??C (99 ??F) SpO2: 100% Temp Av.2 ??C (98.9 ??F) Min: 36.8 ??C (98.2 ??F) Max: 37.7 ??C (99.8 ??F) Last 24 hours: Intake/Output Summary (Last 24 hours) at 05/26/2024 0949 Last data filed at 05/26/2024 0600 Gross per 24 hour Intake 2501.02 ml Output 1510 ml Net 991.02 ml Physical Exam: Physical Exam Vitals and nursing note reviewed. Constitutional: Comments: Intubated and sedated Eyes: Conjunctiva/sclera: Conjunctivae normal. Neck: Comments: No JVD Cardiovascular: Rate and Rhythm: Normal rate and regular rhythm. Pulses: Normal pulses. Heart sounds: Normal heart sounds. No murmur heard. Pulmonary: Comments: Intubated, diminished breath sounds on the L > R, mild wheezing Abdominal: General: Bowel sounds are normal. There is no distension. Palpations: Abdomen is soft. There is no mass. Comments: Mildly distended Musculoskeletal: Right lower leg: No edema. Left lower leg: No edema. Skin: General: Skin is warm and dry. Coloration: Skin is not jaundiced. Neurological: Comments: Sedated, not responding to commands or withdrawing to noxious stimuli Psychiatric: Comments: Unable to assess 2/2 intubation and sedation Scores: ICP/Pressure MAP (Device/Manual Entry): 84 mmHg Ventilator: Vent Mode: Volume control/Assist control FiO2 (%): [30 %-31 %] 30 % S RR: [18] 18 S VT: [500 mL] 500 mL PEEP/CPAP (cm H2O): [3 cm H20-7 cm H20] 6 cm H20 ND SUP: [8 cm H20] 8 cm H20 MAP (cm H2O): [12-14] 12 Drains and Lines NG/OG Tube Orogastric 16 Fr Center mouth (Active) Placement Verification X-ray 05/24/24799 Tube Placement Measurement (cm) Reassessment 65 cm 05/24/24799 Site Assessment Clean;Dry;Intact 05/24/24799 Nasogastric/Orogastric Status Continuous tube feeding 05/24/24799 Drainage Appearance Bile;Green 05/22/24 1600 Tube Feeding Frequency Continuous 05/24/24799 Tube Feeding Jevity 1.2 Curtis 05/24/24799 Tube Feeding Strength Full strength 05/24/24799 Tube Feeding Rate (mL/hr) 20 mL 05/24/24799 Tube Feeding Method Continuous per pump 05/24/24799 Tube Feeding Bag Changed Yes 05/24/24799 Flush Intake Volume (mL) 30 mL 05/24/24799 Intake (mL) 20 mL 05/24/24799 Output (mL) 50 mL 05/22/24 1600 Urethral Catheter Temperature probe;Double-lumen 16 Fr. (Active) Site Assessment Clean;Skin intact 05/24/24799 Collection Container Standard drainage bag 05/24/24799 Securement Method Securing device (Describe) 05/24/24799 Reason for Continuing Urinary Catheterization Critically ill and need for accurate measurements of I&O (e.g., hourly monitoring) 05/24/24799 Urinary Catheter Output (mL) 60 mL 05/24/24 1400 Infusing Medications: dexmedeTOMIDine (PRECEDEX) 1,000 mcg in sodium chloride 0.9 % 250 mL (4 mcg/mL) infusion, 0.2-1.5 mcg/kg/hr, Last Rate: 1.5 mcg/kg/hr (05/26/24599) propofoL, 10-80 mcg/kg/min, Last Rate: 30 mcg/kg/min (05/26/24599) Labs: Lab Results Component Value Date WBC 8.4 05/26/2024 HGB 14.3 05/26/2024 HCT 42.6 05/26/2024 MCV 90.9 05/26/2024 PLT 168 05/26/2024 Lab Results Component Value Date GLUCOSE 106 05/26/2024 CALCIUM 8.1 (L) 05/26/2024 NA 137 05/26/2024 K 4.4 05/26/2024 CO2 28 05/26/2024 CL 101 05/26/2024 BUN 30 (H) 05/26/2024 CREATININE 0.60 (L) 05/26/2024 Lab Results Component Value Date ALT 6 (L) 05/22/2024 AST 9 05/22/2024 ALKPHOS 82 05/22/2024 BILITOT 0.2 (L) 05/22/2024 Results from last 7 days Lab Units 05/26/24 0649 MAGNESIUM mg/dL 2.2 Lab Results Component Value Date CALCIUM 8.1 (L) 05/26/2024 PHOS 3.3 05/23/2024 Microbiology: Recent Results (from the past 168 hour(s)) Respiratory virus panel molecular study Collection Time: 05/21/24 6:17 PM Specimen: Nares; Swab Result Value Ref Range Adenovirus Detection by PCR Not Detected Not Detected Influenza A PCR Not Detected Not Detected Influenza B PCR Not Detected Not Detected Coronavirus 229E Not Detected Not Detected Coronavirus HKU1 Not Detected Not Detected Coronavirus OC43 Not Detected Not Detected Coronavirus NL63 Not Detected Not Detected Parainfluenza Virus 1 Not Detected Not Detected Parainfluenza Virus 2 Not Detected Not Detected Parainfluenza Virus 3 Not Detected Not Detected Parainfluenza Virus 4 Not Detected Not Detected RSV PCR Detected (A) Not Detected Human Metapneumovirus A and B Not Detected Not Detected Rhinovirus/Enterovirus Not Detected Not Detected Bordetella pertussis Not Detected Not Detected Bordetella parapertussis Not Detected Not Detected Mycoplasma pneumo by PCR Not Detected Not Detected Chlamydia pneumoniae Not Detected Not Detected SARS COV-2 Not Detected Not Detected Blood Culture, Peripheral Draw #1 Collection Time: 05/22/24 8:51 AM Specimen: Blood, Venous Result Value Ref Range Culture, Blood No growth at 2 days Culture urine Collection Time: 05/22/24 9:00 AM Specimen: Urine, Catheter Result Value Ref Range Culture, Urine No growth Blood Culture, Peripheral Draw #2 Collection Time: 05/22/24 9:02 AM Specimen: Blood, Venous Result Value Ref Range Culture, Blood No growth at 2 days Culture respiratory with gram stain Collection Time: 05/22/24 9:14 AM Specimen: Trachea; Sputum, induced Result Value Ref Range Culture, Respiratory No potential pathogens in significant amounts including MRSA/Staph Aureus or Pseudomonas Gram Stain Result (A) Greater than 25 WBCS and less than 10 Epithelial cells Gram Stain Result Many WBCs present (A) Gram Stain Result Few Epithelial cells (A) Gram Stain Result Few Gram negative bacilli (A) Gram Stain Result Moderate Gram positive cocci (A) MRSA molecular study Collection Time: 05/22/24 10:04 AM Specimen: Nares; Swab Result Value Ref Range MRSA Screen PCR Not Detected Not Detected Imaging: XR Chest 1 View Narrative: Frontal view of the chest COMPARISON: Chest radiograph yesterday INDICATION: Postintubation Impression: Again noted is significant scarring and volume loss in the right lung apex. ET tube in adequate position above the adriana. NG tube follows normal course and terminates beyond view. No acute infiltrate. -------- FINAL REPORT -------- Dictated By: Aidan Barnett Dictated Date: 05/22/2024 08:24 ET Assigned Physician: Aidan Barnett Reviewed and Electronically Signed By: Aidan Barnett Signed Date: 05/22/2024 08:25 ET Workstation ID: [id number] Transcribed By: Self Edit Transcribed Date: 05/22/2024 08:[address] Angio Head/Neck wo and/or w Contrast Narrative: CT angiography head and neck with contrast. [...] disc disease. Age-indeterminate compression deformity at T3. Impression: Patent head and neck CTA. This document has been electronically signed by: Alexander Soto MD on 05/22/2024 01:02:04 CT Head Stroke wo Contrast Addendum: ADDENDUM: This report was discussed with Concepcion Strong RN on May 22, 2024 00:49:00 EST. This document has been electronically signed by: Janis Castaneda on 05/22/2024 00:50:47 Narrative: CT head without contrast Comparison: None Findings: [...] are unremarkable. There is no acute fracture. Impression: 1. No acute intracranial findings. 2. Additional findings as described. This document has been electronically signed by: Alexander Soto MD on 05/22/2024 00:48:47 CT Angio Chest wo and/or w Contrast Narrative: CT angiography chest with contrast. 3D Postprocessing. [...] T7 and T9. Additional findings as described. Impression: 1. No evidence of PE. 2. Emphysema. 3. Ill-defined subtle bilateral tree-in-bud nodularity, can be seen with aspiration or endobronchial pneumonia. 4. Suspect malignancy with possible posttreatment changes/scarring in the right upper lobe, please see above. This document has been electronically signed by: Alexander Soto MD on 05/22/2024 00:25:51 Procedures in the past 24 hours: None Nutrition: Diet Order: Dietary Orders (From admission, onward) Start Ordered 05/24/24 1308 Diet, Tube Feeding [facility]; Jevity 1.2 Curtis; OG; 70; 30; Water; Every 4 hours; Tube Feed (Tube Feeding) Diet effective now Question Answer Comment Location: [facility] Tube feeding formula: Jevity 1.2 Curtis Route: OG Tube feeding continuous rate (mL/hr): 70 Tube feeding flush (mL): 30 Tube feeding flush type: Water Tube feeding flush frequency: Every 4 hours Diet Tube Feed Placed in And Linked Group 05/24/24 1310 05/24/24 1308 Adult NPO diet Location: [facility]; Diet: NPO- Except for Medications (Tube Feeding) Diet effective now Question Answer Comment Location [facility] Diet NPO- Except for Medications Placed in And Linked Group 05/24/24 1310 TPN Rate: 70 mL/hour, 30 mL free water flush q4 hour Type of Tube Feed: Jevity 1.2 curtis Problem List: Patient Active Problem List Diagnosis Basal cell carcinoma Chronic obstructive pulmonary disease (CMS/HCC) Hyperlipidemia Schizophrenia ([facility]/HCC) Secondary polycythemia Squamous cell carcinoma of right lung ([facility]/HCC) Vitamin D deficiency COPD exacerbation ([facility]) Assessment & Plan: Assessment: Patient is a 64-year-old male with PMH including COPD, hyperlipidemia, lung cancer reportedly in remission, schizophrenia who presented to [facility] emergency department with shortness of breath found to have RSV and failed rescue BiPAP requiring intubation and transferred to [facility] for ICUlevel of care. Plan by system: Neuropsych: Acute metabolic encephalopathy Intubated and sedated Concern for garbled speech History of schizophrenia Patient became more encephalopathic while in the ED at [facility], had an episode of garbled speech precipitating code stroke. CT head and CTA head and neck without any acute abnormalities. Patient was offered TNK by neurology however refused, NIHSS 1. Ultimately worsening encephalopathy thought to be secondary to acute hypercarbia. Metabolic work-up largely unremarkable with TSH 1.25, folate 10.0 andB-12 317. Ammonia not resulted. UDS negative. MRSA negative. - Seen by neurology, recommended MRI brain without contrast however we will hold off as AMS occurred with hypercarbia and deficit seemed to improve - Follow-up infectious work-up: blood cultures, sputum culture, legionella - Sedated with propofol and precedex, plan to wean propofol as tolerated. - Continue fluphenazil CVS: History of hyperlipidemia Not an active issue. Patient has mild hypotension likely caused by propofol. - Status post 1 L normal saline and 1 L LR - Maps greater than 65, no need for vasopressor support at this time Resp: Acute hypoxic and hypercarbic respiratory failure Respiratory syncytial virus infection Concern for community acquired pneumonia History of COPD History of lung cancer Patient presented to [facility] with worsening shortness of breath, wheezing, cough. Patient does reportedly have a chronic cough and significant smoking history. Patient was diagnosed with squamous cell lung cancer in 2021, no longer requiring treatment. See heme-onc section for further discussion of this issue. Initially shortness of breath was thought to be secondary to pulmonary embolism however CTA chest negative for any PE, did demonstrate emphysematous changes as well as tree-in-bud nodularity bilaterally. RSV positive. ABG 7.29/// suggestive of acute hypercarbic respiratory failure. Did not improve on BiPAP, required intubation. This is most likely COPD exacerbation in the setting of RSV infection. Infectious pneumonia less likely though patient does have mild leukocytosis 14.2. - Continue ventilator support, wean as tolerated - Cover for possible community acquired pneumonia with ceftriaxone and azithromycin, - Decrease solumedrol dose from 40 mg q6 hr to 40 mg q12 hr - Resp viral panel + RSV otherwise negative - Sputum culture pending, no growth to date Vent settings Vent Mode: Volume control/Assist control FiO2 (%): [30 %-31 %] 30 % S RR: [18] 18 S VT: [500 mL] 500 mL PEEP/CPAP (cm H2O): [3 cm H20-7 cm H20] 6 cm H20 ND SUP: [8 cm H20] 8 cm H20 MAP (cm H2O): [12-14] 12 GI: History of small bowel obstruction Not active an issue. - Stress ulcer prophylaxis with IV pantoprazole - Continue bowel regimen - senna, miralax, dulcolax suppository prn - consider smog enema If no bm by tomorrow - Continue tube feeds: Jevity 1.2 curtis at 70 mL/hr via OG tube Renal: No active issues Endo: No active issues - Fingersticks [id number] - Insulin sliding scale if needed, patient receiving IV steroids Heme/Onc: History of stage IIIb squamous cell lung cancer s/p chemo/radiation Patient initially diagnosed with stage IIIb squamous cell lung cancer after discovery of right upper lobe mass on CT in late 2021. He completed a course of chemo and radiation in August 2022 and was then maintained on durvalumab. Has had multiple CTs with evidence of decreasing mass as well as no new metastatic disease, last in September and February 2024. Continues to follow with heme-onc for serial follow-up imaging. CT chest done on admission does show evidence of right upper lobe obstruction versusscarring. ID: Concern for community-acquired pneumonia Patient presented with shortness of breath. Has mild leukocytosis WBC 14, afebrile, mild tachycardia. Did have positive RSV swab, respiratory failure most likely caused by viral infection prompting COPD exacerbation however we will cover for possible pneumonia pending further culture data. MRSA negative. - Continue ceftriaxone 1 g every 24 hours and azithromycin 500 mg every 24 hours - F/u sputum culture, no growth to date - Follow-up culture data - Trend WBC and fever curve Restraints: yes PT/OT: yes HOB >30 degrees: yes Stress Ulcer Prevention: yes DVT Prophylaxis: sequential compression device and LMWH Baltazar: yes CODE: Full Code - Default Appropriate Disposition: MICU Seen and discussed with: MD Rosita Aviles MD Emergency Medicine Resident, PGY-1 Associated attestation - Jonnathan Ballesteros MD - 05/26/2024 11:16 AM EST I was physically present for the evaluation and management service provided. I personally saw and examined the patient on rounds with my team today. Management was discussed with resident and I supervised the plan of care. I have reviewed and agree with the mccarty parts of the resident evaluation including: Subjective Information Objective findings on physical exam Impression and plan Continues to have difficulty with pressure support ventilation. Will continue systemic steroids, scheduled nebulized bronchodilators and saline. Limit sedation is much as possible. Can trial on pressure support again later today. Continue DVT prophylaxis and stress ulcer prophylaxis. He remains on tube feeds for enteral nutrition. Continues to require ICU level of care. Jonnathan Ballesteros MD Staff Physician Pulmonary and Critical Care Medicine 05/26/2024 11:16 AM EST * Gabrielle Styles RN - 05/26/2024 7:57 AM EST Problem: Safety: Restraint-Nonviolent; Risk of Injury to Self Goal: Will remain free from injury to self Outcome: progressing Problem: Respiratory: Breathing Pattern Impairment Goal: Ability to maintain normal pulse oximetry readings will improve Outcome: Not Progressing Problem: Respiratory: Breathing Pattern Impairment Goal: Ability to maintain normal pulse oximetry readings will improve Outcome: progressing Goals: Identify possible barriers to meeting goals/advancing plan of care: comorbidities Stability of the patient: Moderately Stable - Low risk of patient condition declining or worsening End of Shift Summary Pt stable overnight, lightly sedated, follows commands. Maintained on resting settings overnight. Tube feeds continue at goal. Urine output good. * Omar Arreola - 05/26/2024 7:51 AM EST SBT stopped due to increase RSBI to 138 and increase work of breathing RR 38. WCTM * Rosita Bobby MD - 05/25/2024 1:53 PM EST Medical ICU Progress Note Admit Date:05/22/2024 Code Status: Full Code - Default Length of Stay: LOS: 3 days ICU Day #3d 7h Brief Hospital Course: Elvin Partida is a 64-year-old male with past medical history including COPD, hyperlipidemia, lung cancer s/p radiation and chemotherapy, schizophrenia, history of SBO who presented to [facility] emergency department with shortness of breath. History is gathered from the chart. Patient was reportedly complaining of chest tightness, cough and wheezing. In the emergency department patient was placed on BiPAP. Appropriately transitioned off in order totolerate lying supine for chest CT however upon return from CT the RN noted that he had sudden onset of garbled speech. Code stroke initiated, CT head without contrast was negative. NIHSS 1. Unfortunately patient's ABG worsened after multiple hours on BiPAP necessitating intubation for airway protection as patient's mental status was also worsening. Workup otherwise significant for RSV positive. CT chest with contrast negative for PE, did demonstrate emphysematous changes as well as [id number]. Chemistries largely unremarkable, LFTs normal. BN P67, troponins 24, 28. WBC 14.2. Patient was transferred to [facility] as there were no ICU beds at [facility]. Subjective: Overnight Events: No acute events overnight. Able to answer questions. Remains hemodynamically stable and afebrile. On minimal vent settings (see below), though not tolerating SBTs. Family Update: Updated father, Vaughn Partida, via telephone. Questions answered. REVIEW OF SYSTEMS: Unable to assess 2/2 intubated and sedated Past Medical History: Diagnosis Date COPD (chronic obstructive pulmonary disease) (CMS/HCC) DX:COPD (chronic obstructive pulmonary disease) (HCC) Hyperlipidemia DX:Hyperlipidemia Incarcerated right inguinal hernia DX:Incarcerated right inguinal hernia Lung cancer (CMS/HCC) DX:Lung cancer (HCC) Schizophrenia (CMS/HCC) DX:Schizophrenia (HCC) Small bowel obstruction (CMS/HCC) DX:Small bowel obstruction (HCC) Vitamin D deficiency DX:Vitamin D deficiency Past Surgical History: Procedure Laterality Date HERNIA REPAIR PROCEDURE:INGUINAL HERNIA REPAIR Prior to Admission medications Medication Sig Start Date End Date Taking? Authorizing Provider dexAMETHasone (DECADRON) 4 mg tablet Take 1 tablet (4 mg total) by mouth 2 (two) times a day for 4 days. 05/09/24 05/13/24 LIONEL Nixon fluPHENAZine (PROLIXIN) 5 mg tablet Take 1 tablet (5 mg total) by mouth 1 (one) time each day. 01/08/24 Historical Provider, gabapentin (NEURONTIN) 300 mg capsule Take 1 capsule (300 mg total) by mouth at bedtime. 05/18/24 Jostin Bhakta MD ondansetron (ZOFRAN) 4 mg tablet Take 1 tablet (4 mg total) by mouth every 8 (eight) hours if needed. Historical Provider, predniSONE (DELTASONE) 20 mg tablet Take 3 tabs (60mg) daily for 3 days, then take 2 tabs (40mg) daily for 3 days, then take 1 tab (20mg) daily for 3 days. 05/18/24 05/27/24 Jostin Bhakta MD Social History Socioeconomic History Marital status: Spouse name: Not on file Number of children: Not on file Years of education: Not on file Highest education level: Not on file Occupational History Not on file Tobacco Use Smoking status: Every Day Current packs/day: 2.00 Types: Cigarettes Smokeless tobacco: Not on file Substance and Sexual Activity Alcohol use: Not Currently Drug use: Not on file Sexual activity: Not on file Other Topics Concern Not on file Social History Narrative Not on file Family History Problem Relation Name Age of Onset Hypertension Mother Dementia Mother Arthritis Father Cancer Mother's Brother Cancer Father's Sister Vitals: Intake/Output: Vitals: 05/25/24 1300 BP: 102/79 Pulse: 81 Resp: (!) 33 Temp: 37.3 ??C (99.1 ??F) SpO2: 91% Temp Av.6 ??C (97.9 ??F) Min: 36.2 ??C (97.1 ??F) Max: 37.3 ??C (99.1 ??F) Last 24 hours: Intake/Output Summary (Last 24 hours) at 05/25/2024 1354 Last data filed at 05/25/2024 1300 Gross per 24 hour Intake 1409.42 ml Output 1180 ml Net 229.42 ml Physical Exam: Physical Exam Vitals and nursing note reviewed. Constitutional: Comments: Intubated and sedated Eyes: Conjunctiva/sclera: Conjunctivae normal. Neck: Comments: No JVD Cardiovascular: Rate and Rhythm: Normal rate and regular rhythm. Pulses: Normal pulses. Heart sounds: Normal heart sounds. No murmur heard. Pulmonary: Comments: Intubated, diminished breath sounds on the L > R Abdominal: General: Abdomen is flat. Bowel sounds are normal. There is no distension. Palpations: Abdomen is soft. There is no mass. Musculoskeletal: Right lower leg: No edema. Left lower leg: No edema. Skin: General: Skin is warm and dry. Coloration: Skin is not jaundiced. Neurological: Comments: Sedated, not responding to commands or withdrawing to noxious stimuli Psychiatric: Comments: Unable to assess 2/2 intubation and sedation Scores: ICP/Pressure MAP (Device/Manual Entry): 87 mmHg Ventilator: Vent Mode: Pressure support FiO2 (%): [30 %-100 %] 30 % S RR: [18] 18 S VT: [500 mL] 500 mL PEEP/CPAP (cm H2O): [3 cm H20-8 cm H20] 4 cm H20 ND SUP: [8 cm H20] 8 cm H20 MAP (cm H2O): [9-11] 9 Drains and Lines NG/OG Tube Orogastric 16 Fr Center mouth (Active) Placement Verification X-ray 05/24/24799 Tube Placement Measurement (cm) Reassessment 65 cm 05/24/24799 Site Assessment Clean;Dry;Intact 05/24/24799 Nasogastric/Orogastric Status Continuous tube feeding 05/24/24799 Drainage Appearance Bile;Green 05/22/24 1600 Tube Feeding Frequency Continuous 05/24/24799 Tube Feeding Jevity 1.2 Curtis 05/24/24799 Tube Feeding Strength Full strength 05/24/24799 Tube Feeding Rate (mL/hr) 20 mL 05/24/24799 Tube Feeding Method Continuous per pump 05/24/24799 Tube Feeding Bag Changed Yes 05/24/24799 Flush Intake Volume (mL) 30 mL 05/24/24799 Intake (mL) 20 mL 05/24/24799 Output (mL) 50 mL 05/22/24 1600 Urethral Catheter Temperature probe;Double-lumen 16 Fr. (Active) Site Assessment Clean;Skin intact 05/24/24799 Collection Container Standard drainage bag 05/24/24799 Securement Method Securing device (Describe) 05/24/24799 Reason for Continuing Urinary Catheterization Critically ill and need for accurate measurements of I&O (e.g., hourly monitoring) 05/24/24799 Urinary Catheter Output (mL) 60 mL 05/24/24 1400 Infusing Medications: dexmedeTOMIDine (PRECEDEX) 1,000 mcg in sodium chloride 0.9 % 250 mL (4 mcg/mL) infusion, 0.2-1.5 mcg/kg/hr, Last Rate: 1.5 mcg/kg/hr (05/25/24 1300) propofoL, 10-80 mcg/kg/min, Last Rate: 25 mcg/kg/min (05/25/24 1300) Labs: Lab Results Component Value Date WBC 10.5 05/25/2024 HGB 14.7 05/25/2024 HCT 42.3 05/25/2024 MCV 91.8 05/25/2024 PLT 168 05/25/2024 Lab Results Component Value Date GLUCOSE 135 05/25/2024 CALCIUM 8.1 (L) 05/25/2024 NA 138 05/25/2024 K 4.3 05/25/2024 CO2 29 05/25/2024 CL 102 05/25/2024 BUN 27 (H) 05/25/2024 CREATININE 0.60 (L) 05/25/2024 Lab Results Component Value Date ALT 6 (L) 05/22/2024 AST 9 05/22/2024 ALKPHOS 82 05/22/2024 BILITOT 0.2 (L) 05/22/2024 Results from last 7 days Lab Units 05/25/24 0458 MAGNESIUM mg/dL 2.4 Lab Results Component Value Date CALCIUM 8.1 (L) 05/25/2024 PHOS 3.3 05/23/2024 Microbiology: Recent Results (from the past 168 hour(s)) Respiratory virus panel molecular study Collection Time: 05/21/24 6:17 PM Specimen: Nares; Swab Result Value Ref Range Adenovirus Detection by PCR Not Detected Not Detected Influenza A PCR Not Detected Not Detected Influenza B PCR Not Detected Not Detected Coronavirus 229E Not Detected Not Detected Coronavirus HKU1 Not Detected Not Detected Coronavirus OC43 Not Detected Not Detected Coronavirus NL63 Not Detected Not Detected Parainfluenza Virus 1 Not Detected Not Detected Parainfluenza Virus 2 Not Detected Not Detected Parainfluenza Virus 3 Not Detected Not Detected Parainfluenza Virus 4 Not Detected Not Detected RSV PCR Detected (A) Not Detected Human Metapneumovirus A and B Not Detected Not Detected Rhinovirus/Enterovirus Not Detected Not Detected Bordetella pertussis Not Detected Not Detected Bordetella parapertussis Not Detected Not Detected Mycoplasma pneumo by PCR Not Detected Not Detected Chlamydia pneumoniae Not Detected Not Detected SARS COV-2 Not Detected Not Detected Blood Culture, Peripheral Draw #1 Collection Time: 05/22/24 8:51 AM Specimen: Blood, Venous Result Value Ref Range Culture, Blood No growth at 2 days Culture urine Collection Time: 05/22/24 9:00 AM Specimen: Urine, Catheter Result Value Ref Range Culture, Urine No growth Blood Culture, Peripheral Draw #2 Collection Time: 05/22/24 9:02 AM Specimen: Blood, Venous Result Value Ref Range Culture, Blood No growth at 2 days Culture respiratory with gram stain Collection Time: 05/22/24 9:14 AM Specimen: Trachea; Sputum, induced Result Value Ref Range Culture, Respiratory No potential pathogens in significant amounts including MRSA/Staph Aureus or Pseudomonas Gram Stain Result (A) Greater than 25 WBCS and less than 10 Epithelial cells Gram Stain Result Many WBCs present (A) Gram Stain Result Few Epithelial cells (A) Gram Stain Result Few Gram negative bacilli (A) Gram Stain Result Moderate Gram positive cocci (A) MRSA molecular study Collection Time: 05/22/24 10:04 AM Specimen: Nares; Swab Result Value Ref Range MRSA Screen PCR Not Detected Not Detected Imaging: XR Chest 1 View Narrative: Frontal view of the chest COMPARISON: Chest radiograph yesterday INDICATION: Postintubation Impression: Again noted is significant scarring and volume loss in the right lung apex. ET tube in adequate position above the adriana. NG tube follows normal course and terminates beyond view. No acute infiltrate. -------- FINAL REPORT -------- Dictated By: Aidan Barnett Dictated Date: 05/22/2024 08:24 ET Assigned Physician: Aidan Barnett Reviewed and Electronically Signed By: Aidan Barnett Signed Date: 05/22/2024 08:25 ET Workstation ID: [id number] Transcribed By: Self Edit Transcribed Date: 05/22/2024 08:[address] Angio Head/Neck wo and/or w Contrast Narrative: CT angiography head and neck with contrast. [...] disc disease. Age-indeterminate compression deformity at T3. Impression: Patent head and neck CTA. This document has been electronically signed by: Alexander Soto MD on 05/22/2024 01:02:04 CT Head Stroke wo Contrast Addendum: ADDENDUM: This report was discussed with Concepcion Strong RN on May 22, 2024 00:49:00 EST. This document has been electronically signed by: Janis Castaneda on 05/22/2024 00:50:47 Narrative: CT head without contrast Comparison: None Findings: [...] are unremarkable. There is no acute fracture. Impression: 1. No acute intracranial findings. 2. Additional findings as described. This document has been electronically signed by: Alexander Soto MD on 05/22/2024 00:48:47 CT Angio Chest wo and/or w Contrast Narrative: CT angiography chest with contrast. 3D Postprocessing. [...] T7 and T9. Additional findings as described. Impression: 1. No evidence of PE. 2. Emphysema. 3. Ill-defined subtle bilateral tree-in-bud nodularity, can be seen with aspiration or endobronchial pneumonia. 4. Suspect malignancy with possible posttreatment changes/scarring in the right upper lobe, please see above. This document has been electronically signed by: Alexander Soto MD on 05/22/2024 00:25:51 Procedures in the past 24 hours: None Nutrition: Diet Order: Dietary Orders (From admission, onward) Start Ordered 05/24/24 1308 Diet, Tube Feeding [facility]; Jevity 1.2 Curtis; OG; 70; 30; Water; Every 4 hours; Tube Feed (Tube Feeding) Diet effective now Question Answer Comment Location: [facility] Tube feeding formula: Jevity 1.2 Curtis Route: OG Tube feeding continuous rate (mL/hr): 70 Tube feeding flush (mL): 30 Tube feeding flush type: Water Tube feeding flush frequency: Every 4 hours Diet Tube Feed Placed in And Linked Group 05/24/24 1310 05/24/24 1308 Adult NPO diet Location: [facility]; Diet: NPO- Except for Medications (Tube Feeding) Diet effective now Question Answer Comment Location [facility] Diet NPO- Except for Medications Placed in And Linked Group 05/24/24 1310 TPN Rate: 70 mL/hour, 30 mL free water flush q4 hour Type of Tube Feed: Jevity 1.2 curtis Problem List: Patient Active Problem List Diagnosis Basal cell carcinoma Chronic obstructive pulmonary disease (CMS/HCC) Hyperlipidemia Schizophrenia ([facility]/HCC) Secondary polycythemia Squamous cell carcinoma of right lung ([facility]/HCC) Vitamin D deficiency COPD exacerbation ([facility]) Assessment & Plan: Assessment: Patient is a 64-year-old male with PMH including COPD, hyperlipidemia, lung cancer reportedly in remission, schizophrenia who presented to [facility] emergency department with shortness of breath found to have RSV and failed rescue BiPAP requiring intubation and transferred to [facility] for ICUlevel of care. Plan by system: Neuropsych: Acute metabolic encephalopathy Intubated and sedated Concern for garbled speech History of schizophrenia Patient became more encephalopathic while in the ED at [facility], had an episode of garbled speech precipitating code stroke. CT head and CTA head and neck without any acute abnormalities. Patient was offered TNK by neurology however refused, NIHSS 1. Ultimately worsening encephalopathy thought to be secondary to acute hypercarbia. Metabolic work-up largely unremarkable with TSH 1.25, folate 10.0 andB-12 317. Ammonia not resulted. UDS negative. MRSA negative. - Seen by neurology, recommended MRI brain without contrast however we will hold off as AMS occurred with hypercarbia and deficit seemed to improve - Follow-up infectious work-up: blood cultures, sputum culture, legionella - Sedated with propofol and precedex, plan to wean propofol as tolerated. - Resume home medication for schizophrenia: fluphenazil CVS: History of hyperlipidemia Not an active issue. Patient has mild hypotension likely caused by propofol. - Status post 1 L normal saline and 1 L LR - Maps greater than 65, no need for vasopressor support at this time Resp: Acute hypoxic and hypercarbic respiratory failure Respiratory syncytial virus infection Concern for community acquired pneumonia History of COPD History of lung cancer Patient presented to [facility] with worsening shortness of breath, wheezing, cough. Patient does reportedly have a chronic cough and significant smoking history. Patient was diagnosed with squamous cell lung cancer in 2021, no longer requiring treatment. See heme-onc section for further discussion of this issue. Initially shortness of breath was thought to be secondary to pulmonary embolism however CTA chest negative for any PE, did demonstrate emphysematous changes as well as tree-in-bud nodularity bilaterally. RSV positive. ABG 7.29/81/98/31 suggestive of acute hypercarbic respiratory failure. Did not improve on BiPAP, required intubation. This is most likely COPD exacerbation in the setting of RSV infection. Infectious pneumonia less likely though patient does have mild leukocytosis 14.2. - Continue ventilator support, wean as tolerated - Cover for possible community acquired pneumonia with ceftriaxone and azithromycin, - Decrease solumedrol dose from 40 mg q6 hr to 40 mg q12 hr - Resp viral panel + RSV otherwise negative - Sputum culture pending Vent settings Vent Mode: Pressure support FiO2 (%): [30 %-100 %] 30 % S RR: [18] 18 S VT: [500 mL] 500 mL PEEP/CPAP (cm H2O): [3 cm H20-8 cm H20] 4 cm H20 ND SUP: [8 cm H20] 8 cm H20 MAP (cm H2O): [9-11] 9 GI: History of small bowel obstruction Not actively an issue. - Stress ulcer prophylaxis with IV pantoprazole - Continue tube feeds: Jevity 1.2 curtis at 70 mL/hr via OG tube Renal: No active issues Endo: No active issues - Fingersticks [id number] - Insulin sliding scale if needed, patient receiving IV steroids Heme/Onc: History of stage IIIb squamous cell lung cancer s/p chemo/radiation Patient initially diagnosed with stage IIIb squamous cell lung cancer after discovery of right upper lobe mass on CT in late 2021. He completed a course of chemo and radiation in August 2022 and was then maintained on durvalumab. Has had multiple CTs with evidence of decreasing mass as well as no new metastatic disease, last in September and February 2024. Continues to follow with heme-onc for serial follow-up imaging. CT chest done on admission does show evidence of right upper lobe obstruction versusscarring. ID: Concern for community-acquired pneumonia Patient presented with shortness of breath. Has mild leukocytosis WBC 14, afebrile, mild tachycardia. Did have positive RSV swab, respiratory failure most likely caused by viral infection prompting COPD exacerbation however we will cover for possible pneumonia pending further culture data. MRSA negative. - Continue ceftriaxone 1 g every 24 hours and azithromycin 500 mg every 24 hours - F/u sputum culture, no growth to date - Follow-up culture data - Trend WBC and fever curve Restraints: yes PT/OT: yes HOB >30 degrees: yes Stress Ulcer Prevention: yes DVT Prophylaxis: sequential compression device and LMWH Baltazar: yes CODE: Full Code - Default Appropriate Disposition: MICU Seen and discussed with: MD Rosita Aviles MD Emergency Medicine Resident, PGY-1 Associated attestation - Jonnathan Ballesteros MD - 05/25/2024 3:36 PM EST I was physically present for the evaluation and management service provided. I personally saw and examined the patient on rounds with my team today. Management was discussed with resident and I supervised the plan of care. I have reviewed and agree with the mccarty parts of the resident evaluation including: Subjective Information Objective findings on physical exam Impression and plan Did not tolerate pressure support well this morning and is on volume control ventilation. Wean propofol, repeat pressure support trial. He is awake and following commands. Has mild wheezing on exam and will continue nebulized bronchodilators and Solu-Medrol. Continue antibiotic therapy for total of7 days. Tube feeds for enteral nutrition. Jonnathan Ballesteros MD Staff Physician Pulmonary and Critical Care Medicine 05/25/2024 3:36 PM EST * Rocio Nava - 05/25/2024 10:07 AM EST Attempted SBT per protocol; patient had RR in the 40's with increased work of breathing after ten minutes. Patient placed back on volume AC settings. * Jael Cox OTR/L - 05/25/2024 9:54 AM EST 05/25/24 0954 General Missed Treatment Reason Medical hold (intubated/ sedated, will continue to follow.) Jael Cox OTR/L 05/25/2024 * Adore Limon PT - 05/25/2024 9:53 AM EST 05/25/24 0953 General Missed Time Reason Medical hold (intubated/sedated) Acute PT Triage Triage Priority 7 Adore Limon PT * Rosita Bobby MD - 05/24/2024 6:45 AM EST Medical ICU Progress Note Admit Date:05/22/2024 Code Status: Full Code - Default Length of Stay: LOS: 2 days ICU Day #2d 8h Brief Hospital Course: Elvin Partida is a 64-year-old male with past medical history including COPD, hyperlipidemia, lung cancer s/p radiation and chemotherapy, schizophrenia, history of SBO who presented to [facility] emergency department with shortness of breath. History is gathered from the chart. Patient was reportedly complaining of chest tightness, cough and wheezing. In the emergency department patient was placed on BiPAP. Appropriately transitioned off in order totolerate lying supine for chest CT however upon return from CT the RN noted that he had sudden onset of garbled speech. Code stroke initiated, CT head without contrast was negative. NIHSS 1. Unfortunately patient's ABG worsened after multiple hours on BiPAP necessitating intubation for airway protection as patient's mental status was also worsening. Workup otherwise significant for RSV positive. CT chest with contrast negative for PE, did demonstrate emphysematous changes as well as [id number]. Chemistries largely unremarkable, LFTs normal. BN P67, troponins 24, 28. WBC 14.2. Patient was transferred to [facility] as there were no ICU beds at [facility]. Subjective: Overnight Events: No acute events overnight. Remains hemodynamically stable and afebrile. Family Update: Updated father, Vaughn Partida, via telephone. Discussed weaning off sedation in hopes to move towards extubation. Questions answered. REVIEW OF SYSTEMS: Unable to assess 2/2 intubated and sedated Past Medical History: Diagnosis Date COPD (chronic obstructive pulmonary disease) (CMS/HCC) DX:COPD (chronic obstructive pulmonary disease) (HCC) Hyperlipidemia DX:Hyperlipidemia Incarcerated right inguinal hernia DX:Incarcerated right inguinal hernia Lung cancer (CMS/HCC) DX:Lung cancer (HCC) Schizophrenia (CMS/HCC) DX:Schizophrenia (HCC) Small bowel obstruction (CMS/HCC) DX:Small bowel obstruction (HCC) Vitamin D deficiency DX:Vitamin D deficiency Past Surgical History: Procedure Laterality Date HERNIA REPAIR PROCEDURE:INGUINAL HERNIA REPAIR Prior to Admission medications Medication Sig Start Date End Date Taking? Authorizing Provider dexAMETHasone (DECADRON) 4 mg tablet Take 1 tablet (4 mg total) by mouth 2 (two) times a day for 4 days. 05/09/24 05/13/24 LIONEL Nixon fluPHENAZine (PROLIXIN) 5 mg tablet Take 1 tablet (5 mg total) by mouth 1 (one) time each day. 01/08/24 Historical Provider, gabapentin (NEURONTIN) 300 mg capsule Take 1 capsule (300 mg total) by mouth at bedtime. 05/18/24 Jostin Bhakta MD ondansetron (ZOFRAN) 4 mg tablet Take 1 tablet (4 mg total) by mouth every 8 (eight) hours if needed. Historical Provider, predniSONE (DELTASONE) 20 mg tablet Take 3 tabs (60mg) daily for 3 days, then take 2 tabs (40mg) daily for 3 days, then take 1 tab (20mg) daily for 3 days. 05/18/24 05/27/24 Jostin Bhakta MD Social History Socioeconomic History Marital status: Spouse name: Not on file Number of children: Not on file Years of education: Not on file Highest education level: Not on file Occupational History Not on file Tobacco Use Smoking status: Every Day Current packs/day: 2.00 Types: Cigarettes Smokeless tobacco: Not on file Substance and Sexual Activity Alcohol use: Not Currently Drug use: Not on file Sexual activity: Not on file Other Topics Concern Not on file Social History Narrative Not on file Family History Problem Relation Name Age of Onset Hypertension Mother Dementia Mother Arthritis Father Cancer Mother's Brother Cancer Father's Sister Vitals: Intake/Output: Vitals: 05/24/24 1400 BP: 115/81 Pulse: 65 Resp: 18 Temp: 36.7 ??C (98.1 ??F) SpO2: 96% Temp Av.7 ??C (98.1 ??F) Min: 36.3 ??C (97.4 ??F) Max: 37.2 ??C (98.9 ??F) Last 24 hours: Intake/Output Summary (Last 24 hours) at 05/24/2024 1523 Last data filed at 05/24/2024 1400 Gross per 24 hour Intake 1080.73 ml Output 1240 ml Net -159.27 ml Physical Exam: Physical Exam Vitals and nursing note reviewed. Constitutional: Comments: Intubated and sedated Eyes: Conjunctiva/sclera: Conjunctivae normal. Neck: Comments: No JVD Cardiovascular: Rate and Rhythm: Normal rate and regular rhythm. Pulses: Normal pulses. Heart sounds: Normal heart sounds. No murmur heard. Pulmonary: Comments: Intubated, diminished breath sounds on the L > R Abdominal: General: Abdomen is flat. Bowel sounds are normal. There is no distension. Palpations: Abdomen is soft. There is no mass. Musculoskeletal: Right lower leg: No edema. Left lower leg: No edema. Skin: General: Skin is warm and dry. Coloration: Skin is not jaundiced. Neurological: Comments: Sedated, not responding to commands or withdrawing to noxious stimuli Psychiatric: Comments: Unable to assess 2/2 intubation and sedation Scores: ICP/Pressure MAP (Device/Manual Entry): 92 mmHg Ventilator: Vent Mode: Volume control/Assist control FiO2 (%): [30 %-31 %] 30 % S RR: [18] 18 S VT: [500 mL] 500 mL PEEP/CPAP (cm H2O): [3 cm H20-6 cm H20] 6 cm H20 MAP (cm H2O): [11-15] 11 Drains and Lines NG/OG Tube Orogastric 16 Fr Center mouth (Active) Placement Verification X-ray 05/24/24799 Tube Placement Measurement (cm) Reassessment 65 cm 05/24/24799 Site Assessment Clean;Dry;Intact 05/24/24799 Nasogastric/Orogastric Status Continuous tube feeding 05/24/24799 Drainage Appearance Bile;Green 05/22/24 1600 Tube Feeding Frequency Continuous 05/24/24799 Tube Feeding Jevity 1.2 Curtis 05/24/24799 Tube Feeding Strength Full strength 05/24/24799 Tube Feeding Rate (mL/hr) 20 mL 05/24/24799 Tube Feeding Method Continuous per pump 05/24/24799 Tube Feeding Bag Changed Yes 05/24/24799 Flush Intake Volume (mL) 30 mL 05/24/24799 Intake (mL) 20 mL 05/24/24799 Output (mL) 50 mL 05/22/24 1600 Urethral Catheter Temperature probe;Double-lumen 16 Fr. (Active) Site Assessment Clean;Skin intact 05/24/24799 Collection Container Standard drainage bag 05/24/24799 Securement Method Securing device (Describe) 05/24/24799 Reason for Continuing Urinary Catheterization Critically ill and need for accurate measurements of I&O (e.g., hourly monitoring) 05/24/24 08 Urinary Catheter Output (mL) 60 mL 05/24/24 1400 Infusing Medications: dexmedeTOMIDine (PRECEDEX) 1,000 mcg in sodium chloride 0.9 % 250 mL (4 mcg/mL) infusion, 0.2-1.5 mcg/kg/hr, Last Rate: 1.5 mcg/kg/hr (05/24/241434) propofoL, 10-80 mcg/kg/min, Last Rate: 25 mcg/kg/min (05/24/24 143) Labs: Lab Results Component Value Date WBC 12.6 (H) 05/24/2024 HGB 14.8 05/24/2024 HCT 44.3 05/24/2024 MCV 91.9 05/24/2024 PLT 173 05/24/2024 Lab Results Component Value Date GLUCOSE 134 05/24/2024 CALCIUM 8.8 05/24/2024 NA 137 05/24/2024 K 4.1 05/24/2024 CO2 28 05/24/2024 CL 96 (L) 05/24/2024 BUN 30 (H) 05/24/2024 CREATININE 0.80 05/24/2024 Lab Results Component Value Date ALT 6 (L) 05/22/2024 AST 9 05/22/2024 ALKPHOS 82 05/22/2024 BILITOT 0.2 (L) 05/22/2024 Results from last 7 days Lab Units 05/24/24 0704 MAGNESIUM mg/dL 2.5 Lab Results Component Value Date CALCIUM 8.8 05/24/2024 PHOS 3.3 05/23/2024 Microbiology: Recent Results (from the past 168 hour(s)) Respiratory virus panel molecular study Collection Time: 05/21/24 6:17 PM Specimen: Nares; Swab Result Value Ref Range Adenovirus Detection by PCR Not Detected Not Detected Influenza A PCR Not Detected Not Detected Influenza B PCR Not Detected Not Detected Coronavirus 229E Not Detected Not Detected Coronavirus HKU1 Not Detected Not Detected Coronavirus OC43 Not Detected Not Detected Coronavirus NL63 Not Detected Not Detected Parainfluenza Virus 1 Not Detected Not Detected Parainfluenza Virus 2 Not Detected Not Detected Parainfluenza Virus 3 Not Detected Not Detected Parainfluenza Virus 4 Not Detected Not Detected RSV PCR Detected (A) Not Detected Human Metapneumovirus A and B Not Detected Not Detected Rhinovirus/Enterovirus Not Detected Not Detected Bordetella pertussis Not Detected Not Detected Bordetella parapertussis Not Detected Not Detected Mycoplasma pneumo by PCR Not Detected Not Detected Chlamydia pneumoniae Not Detected Not Detected SARS COV-2 Not Detected Not Detected Blood Culture, Peripheral Draw #1 Collection Time: 05/22/24 8:51 AM Specimen: Blood, Venous Result Value Ref Range Culture, Blood No growth at 2 days Culture urine Collection Time: 05/22/24 9:00 AM Specimen: Urine, Catheter Result Value Ref Range Culture, Urine No growth Blood Culture, Peripheral Draw #2 Collection Time: 05/22/24 9:02 AM Specimen: Blood, Venous Result Value Ref Range Culture, Blood No growth at 2 days Culture respiratory with gram stain Collection Time: 05/22/24 9:14 AM Specimen: Trachea; Sputum, induced Result Value Ref Range Culture, Respiratory No potential pathogens in significant amounts including MRSA/Staph Aureus or Pseudomonas Gram Stain Result (A) Greater than 25 WBCS and less than 10 Epithelial cells Gram Stain Result Many WBCs present (A) Gram Stain Result Few Epithelial cells (A) Gram Stain Result Few Gram negative bacilli (A) Gram Stain Result Moderate Gram positive cocci (A) MRSA molecular study Collection Time: 05/22/24 10:04 AM Specimen: Nares; Swab Result Value Ref Range MRSA Screen PCR Not Detected Not Detected Imaging: XR Chest 1 View Narrative: Frontal view of the chest COMPARISON: Chest radiograph yesterday INDICATION: Postintubation Impression: Again noted is significant scarring and volume loss in the right lung apex. ET tube in adequate position above the adriana. NG tube follows normal course and terminates beyond view. No acute infiltrate. -------- FINAL REPORT -------- Dictated By: Aidan Barnett Dictated Date: 05/22/2024 08:24 ET Assigned Physician: Aidan Barnett Reviewed and Electronically Signed By: Aidan Barnett Signed Date: 05/22/2024 08:25 ET Workstation ID: [id number] Transcribed By: Self Edit Transcribed Date: 05/22/2024 08:[address] Angio Head/Neck wo and/or w Contrast Narrative: CT angiography head and neck with contrast. [...] disc disease. Age-indeterminate compression deformity at T3. Impression: Patent head and neck CTA. This document has been electronically signed by: Alexander Soto MD on 05/22/2024 01:02:04 CT Head Stroke wo Contrast Addendum: ADDENDUM: This report was discussed with Concepcion Strong RN on May 22, 2024 00:49:00 EST. This document has been electronically signed by: Janis Castaneda on 05/22/2024 00:50:47 Narrative: CT head without contrast Comparison: None Findings: [...] are unremarkable. There is no acute fracture. Impression: 1. No acute intracranial findings. 2. Additional findings as described. This document has been electronically signed by: Alexander Soto MD on 05/22/2024 00:48:47 CT Angio Chest wo and/or w Contrast Narrative: CT angiography chest with contrast. 3D Postprocessing. [...] T7 and T9. Additional findings as described. Impression: 1. No evidence of PE. 2. Emphysema. 3. Ill-defined subtle bilateral tree-in-bud nodularity, can be seen with aspiration or endobronchial pneumonia. 4. Suspect malignancy with possible posttreatment changes/scarring in the right upper lobe, please see above. This document has been electronically signed by: Alexander Soto MD on 05/22/2024 00:25:51 Procedures in the past 24 hours: None Nutrition: Diet Order: Dietary Orders (From admission, onward) Start Ordered 05/24/24 1308 Diet, Tube Feeding [facility]; Jevity 1.2 Curtis; OG; 70; 30; Water; Every 4 hours; Tube Feed (Tube Feeding) Diet effective now Question Answer Comment Location: [facility] Tube feeding formula: Jevity 1.2 Curtis Route: OG Tube feeding continuous rate (mL/hr): 70 Tube feeding flush (mL): 30 Tube feeding flush type: Water Tube feeding flush frequency: Every 4 hours Diet Tube Feed Placed in And Linked Group 05/24/24 1310 05/24/24 1308 Adult NPO diet Location: [facility]; Diet: NPO- Except for Medications (Tube Feeding) Diet effective now Question Answer Comment Location [facility] Diet NPO- Except for Medications Placed in And Linked Group 05/24/24 1310 TPN Rate: 70 mL/hour, 30 mL free water flush q4 hour Type of Tube Feed: Jevity 1.2 curtis Problem List: Patient Active Problem List Diagnosis Basal cell carcinoma Chronic obstructive pulmonary disease (CMS/HCC) Hyperlipidemia Schizophrenia ([facility]/HCC) Secondary polycythemia Squamous cell carcinoma of right lung ([facility]/HCC) Vitamin D deficiency COPD exacerbation ([facility]/HCC) Assessment & Plan: Assessment: Patient is a 64-year-old male with PMH including COPD, hyperlipidemia, lung cancer reportedly in remission, schizophrenia who presented to [facility] emergency department with shortness of breath found to have RSV and failed rescue BiPAP requiring intubation and transferred to [facility] for ICUlevel of care. Plan by system: Neuro: Acute metabolic encephalopathy Intubated and sedated Concern for garbled speech Patient became more encephalopathic while in the ED at [facility], had an episode of garbled speech precipitating code stroke. CT head and CTA head and neck without any acute abnormalities. Patient was offered TNK by neurology however refused, NIHSS 1. Ultimately worsening encephalopathy thought to be secondary to acute hypercarbia. Metabolic work-up largely unremarkable with TSH 1.25, folate 10.0 andB-12 317. Ammonia not resulted. UDS negative. MRSA negative. - Seen by neurology, recommended MRI brain without contrast however we will hold off as AMS occurred with hypercarbia and deficit seemed to improve - Follow-up infectious work-up: blood cultures, sputum culture, legionella - Sedated with propofol and precedex, plan to wean propofol as tolerated. CVS: History of hyperlipidemia Not an active issue. Patient has mild hypotension likely caused by propofol. - Status post 1 L normal saline and 1 L LR - Maps greater than 65, no need for vasopressor support at this time Resp: Acute hypoxic and hypercarbic respiratory failure Respiratory syncytial virus infection Concern for community acquired pneumonia History of COPD History of lung cancer Patient presented to [facility] with worsening shortness of breath, wheezing, cough. Patient does reportedly have a chronic cough and significant smoking history. Patient was diagnosed with squamous cell lung cancer in 2021, no longer requiring treatment. See heme-onc section for further discussion of this issue. Initially shortness of breath was thought to be secondary to pulmonary embolism however CTA chest negative for any PE, did demonstrate emphysematous changes as well as tree-in-bud nodularity bilaterally. RSV positive. ABG 7.29/81/98/31 suggestive of acute hypercarbic respiratory failure. Did not improve on BiPAP, required intubation. This is most likely COPD exacerbation in the setting of RSV infection. Infectious pneumonia less likely though patient does have mild leukocytosis 14.2. - Continue ventilator support, wean as tolerated - Cover for possible community acquired pneumonia with ceftriaxone and azithromycin, - Decrease solumedrol dose from 40 mg q6 hr to 40 mg q12 hr - Resp viral panel + RSV otherwise negative - Sputum culture pending Vent settings Vent Mode: Volume control/Assist control FiO2 (%): [30 %-31 %] 30 % S RR: [18] 18 S VT: [500 mL] 500 mL PEEP/CPAP (cm H2O): [3 cm H20-6 cm H20] 6 cm H20 MAP (cm H2O): [11-15] 11 GI: History of small bowel obstruction Not actively an issue. - Stress ulcer prophylaxis with IV pantoprazole - Continue tube feeds: Jevity 1.2 curtis at 70 mL/hr via OG tube Renal: No active issues Endo: No active issues - Fingersticks [id number] - Insulin sliding scale if needed, patient receiving IV steroids Heme/Onc: History of stage IIIb squamous cell lung cancer s/p chemo/radiation Patient initially diagnosed with stage IIIb squamous cell lung cancer after discovery of right upper lobe mass on CT in late 2021. He completed a course of chemo and radiation in August 2022 and was then maintained on durvalumab. Has had multiple CTs with evidence of decreasing mass as well as no new metastatic disease, last in September and February 2024. Continues to follow with heme-onc for serial follow-up imaging. CT chest done on admission does show evidence of right upper lobe obstruction versusscarring. ID: Concern for community-acquired pneumonia Patient presented with shortness of breath. Has mild leukocytosis WBC 14, afebrile, mild tachycardia. Did have positive RSV swab, respiratory failure most likely caused by viral infection prompting COPD exacerbation however we will cover for possible pneumonia pending further culture data. MRSA negative. - Continue ceftriaxone 1 g every 24 hours and azithromycin 500 mg every 24 hours - F/u sputum culture, no growth to date - Follow-up culture data - Trend WBC and fever curve Restraints: yes PT/OT: yes HOB >30 degrees: yes Stress Ulcer Prevention: yes DVT Prophylaxis: sequential compression device and LMWH Baltazar: yes CODE: Full Code - Default Appropriate Disposition: MICU Seen and discussed with: MD Rosita Aviles MD Emergency Medicine Resident, PGY-1 Associated attestation - Jonnathan Ballesteros MD - 05/24/2024 4:12 PM EST I was physically present for the evaluation and management service provided. I personally saw and examined the patient on rounds with my team today. Management was discussed with resident and I supervised the plan of care. I have reviewed and agree with the mccarty parts of the resident evaluation including: Subjective Information Objective findings on physical exam Impression and plan 64-year-old male with COPD exacerbation and RSV infection on mechanical ventilation. Continue assist-control ventilation, wean sedation as he is currently oversedated. Reduce Solu-Medrol to every 12 hours frequency, continue nebulized treatments. Ceftriaxone for total of 5 to 7 days. Tube feeds for enteral nutrition. DVT prophylaxis, stress ulcer prophylaxis. Requires ongoing ICU level of care. Jonnathan Ballesteros MD Staff Physician Pulmonary and Critical Care Medicine 05/24/2024 4:12 PM EST * Tania Mays MD - 05/23/2024 6:03 PM EST Hospital course: Mr. Partida is a 64 year old man with a history of COPD, stage IIIb squamous lung cancer, schizophrenia on fluphenazine who presented to an OSH [facility] due to shortness of breath. There he was reportedly put on BIPAP. CTA chest did not show evidence of PE. He was found to be RSV positive. Blood gas showed CO2 retention with pH disturbance. Later he required intubation. He was treated with IV steroids and CAP ABX given severity of illness. He remained intubated given significant wheezing and failed SBT. Course also included acute onset garbled speech and there was concern for CVA but CT head w/o contrast did not show any acute abnormalities and CTA head and neck showed patent vasculature. He reportedly declined TNK. Later MRI was canceled as reportedly improved deficits. Further AMS workup was largely negative. Follow up: - possible extubation if wheezing improves and passes SBT tomorrow - wean steroids as indicated (didn't on 05/23 given significant wheezing- added further pulmonary hygiene and gave one dose of diuretic) - fluphenazine 5mg daily appears on dispense- consider restarting, ECG yesterday with QTC 451ms Tania Mays MD Internal Medicine PGY2 * Tania Mays MD - 05/23/2024 5:49 PM EST Spoke to patient's brother/ Vaughn was via telephone to provide medical update Tania Mays MD Internal Medicine PGY2 * Sarah Villavicencio - 05/23/2024 2:20 PM EST Attempted patient on SBT. Patient became tachypneic in the 30's with low tidal volumes. Placed backon resting settings. RN aware. * Tania Mays MD - 05/23/2024 1:06 PM EST Restraint Face To Face Assessment Non-Violent Restraint - Restraint continuation Vitals: @VITALS4@ Time restraints were placed: previously Type of restraint: Soft restraint Applied to: Left wrist and Right wrist Description of behavior causing restraint: Pulling at lines, tubes, or drains Plan: Continue restraints Risk associated with restraint is outweighed by the risk of not using the restraint as an intervention. Tania Mays MD Internal Medicine PGY2 * Sarah Villavicencio - 05/23/2024 8:20 AM EST Patient attempted on SBT trial 8psv 6p 40% at this time. Patient became tachypneic in the 40's, with low tidal volumes and RBSI 200. Patient placed back on resting settings RN aware. * Tania Mays MD - 05/23/2024 7:54 AM EST Medical ICU Progress Note Admit Date:05/22/2024 Code Status: Full Code - Default Length of Stay: LOS: 1 day ICU Day #1d 1h Intubated Date: 05/22 Recent Events: Intubated but awake at attempting to communicate Overnight- prop off this AM VS- T 95.6, HR 60-70, BP 120-130/80-90, intubated I/O- in 1.9L, UOP 860cc, OG 50cc Last BM- none Labs- CBC unremarkable BMP unremarkable, Cr 0.7 Rad- Micro- RSV+, blood cultures from 05/22, NGTD, MRSA negative Respiratory culture Gram Stain Result Greater than 25 WBCS and less than 10 Epithelial cells Abnormal P Gram Stain Result Many WBCs present Abnormal P Gram Stain Result Few Epithelial cells Abnormal P Gram Stain Result Few Gram negative bacilli Abnormal P Gram Stain Result Moderate Gram positive cocci Abnormal P Vitals: Intake/Output: Vitals: 05/23/24 0720 BP: Pulse: Resp: Temp: SpO2: 96% Temp Av.7 ??C (96.3 ??F) Min: 35.1 ??C (95.1 ??F) Max: 37.5 ??C (99.5 ??F) Last 24 hours: Intake/Output Summary (Last 24 hours) at 05/23/2024 0754 Last data filed at 05/23/2024 0700 Gross per 24 hour Intake 1947.37 ml Output 910 ml Net 1037.37 ml Physical Exam: Physical Exam Constitutional: General: He is not in acute distress. Comments: Precedex on Cardiovascular: Rate and Rhythm: Normal rate. Pulses: Normal pulses. Pulmonary: Effort: Pulmonary effort is normal. No respiratory distress. Breath sounds: Wheezing present. No rhonchi or rales. Genitourinary: Comments: otto Musculoskeletal: Right lower leg: No edema. Left lower leg: No edema. Skin: General: Skin is warm and dry. Neurological: Mental Status: He is alert. Scores: ICP/Pressure MAP (Device/Manual Entry): 103 mmHg Ventilator: Vent Mode: Volume control/Assist control FiO2 (%): [40 %-50 %] 40 % S RR: [18] 18 S VT: [500 mL] 500 mL PEEP/CPAP (cm H2O): [6 cm H20] 6 cm H20 MAP (cm H2O): [13] 13 Lines: @PRINTGROUPSFC@ Drains: @DRAINSSFC@ Infusing Medications: dexmedeTOMIDine (PRECEDEX) 1,000 mcg in sodium chloride 0.9 % 250 mL (4 mcg/mL) infusion, 0.2-1.5 mcg/kg/hr, Last Rate: 1.5 mcg/kg/hr (05/23/24 0517) propofoL, 10-80 mcg/kg/min, Last Rate: Stopped (05/23/24 0645) Labs: @[id number](wbc,hematocrit,hemoglobin,pltcount,na,k,cl,bun,creatinine,nbw3kha arbon,glucrandom,calcium,phos,mg,pttheparinpr,pt,inr)@ @SFCABGONLYPRINTGROUP@ Microbiology: No results found for: UUROB Imaging: XR Chest 1 View Narrative: Frontal view of the chest COMPARISON: Chest radiograph yesterday INDICATION: Postintubation Impression: Again noted is significant scarring and volume loss in the right lung apex. ET tube in adequate position above the adriana. NG tube follows normal course and terminates beyond view. No acute infiltrate. -------- FINAL REPORT -------- Dictated By: Aidan Barnett Dictated Date: 05/22/2024 08:24 ET Assigned Physician: Aidan Barnett Reviewed and Electronically Signed By: Aidan Barnett Signed Date: 05/22/2024 08:25 ET Workstation ID: [id number] Transcribed By: Self Edit Transcribed Date: 05/22/2024 08:[address] Angio Head/Neck wo and/or w Contrast Narrative: CT angiography head and neck with contrast. [...] disc disease. Age-indeterminate compression deformity at T3. Impression: Patent head and neck CTA. This document has been electronically signed by: Alexander Soto MD on 05/22/2024 01:02:04 CT Head Stroke wo Contrast Addendum: ADDENDUM: This report was discussed with Concepcion Strong RN on May 22, 2024 00:49:00 EST. This document has been electronically signed by: Janis Castaneda on 05/22/2024 00:50:47 Narrative: CT head without contrast Comparison: None Findings: [...] are unremarkable. There is no acute fracture. Impression: 1. No acute intracranial findings. 2. Additional findings as described. This document has been electronically signed by: Alexander Soto MD on 05/22/2024 00:48:47 CT Angio Chest wo and/or w Contrast Narrative: CT angiography chest with contrast. 3D Postprocessing. [...] T7 and T9. Additional findings as described. Impression: 1. No evidence of PE. 2. Emphysema. 3. Ill-defined subtle bilateral tree-in-bud nodularity, can be seen with aspiration or endobronchial pneumonia. 4. Suspect malignancy with possible posttreatment changes/scarring in the right upper lobe, please see above. This document has been electronically signed by: Alexander Soto MD on 05/22/2024 00:25:51 Procedures in the past 24 hours: n/a Nutrition: Diet Order: @DIETORD@ TPN Rate: Type of Tube Feed: Prealbumin: No results found for: PREALBUMIN Assessment & Plan: Assessment: 64 year old man with a past medical history of COPD, stage III lung cancer, HLD, schizophrenia, HX SBO who presented to OSH w/ SOB, transferred here 05/22 for AHHRF 2/2 RSV PNA requiring intubation onsolumedrol and CAP ABX. Plan by system: Neuro: Sedated d/t intubation Initial dysarthria Initial encephalopathy HX schizophrenia Notes indicate patient was encephalopathic at the outside hospital and had an episode of garbled speech . CT head w/o contrast did not show any acute abnormalities. CTA head and neck patent vasculature. Reportedly declined TNK. His AMS was attributed to hypercapnia. Later MRI was canceled as reportedly improved deficits. AMS workup was completed including- U tox on 05/22 was negative. B12 was lownormal at 317 and folate was 10. TSH was WNL. Ammonia was ordered but not able to be run n Infectious workup as below. - continue precedex - continue propofol, wean off as tolerated CVS: CHRISTIANO Resp: Intubated Acute hypoxic respiratory failure Acute hypercapnic respiratory failure COPD exacerbation RSV Pneumonia Emphysema Stage III lung cancer He has a history of squamous cell lung carcinoma in 2021. He presented to the outside hospital withshortness of breath, wheezing, and worsened cough. CTA chest did not show evidence of PE. He was found to be RSV positive. Blood gas showed CO2 retention with pH disturbance. He was initially trialedon BiPAP but then required intubation. - wean vent as tolerated - daily SBT - continue ceftriaxone 1g daily for possible CAP - continue azithromycin 500mg daily for possible CAP - continue solu-medrol 40mg every 6 hours given ongoing wheezing - continue scheduled duoneb every 6 hours - start guaifenesin 400mg every 8 hours - start hypertonic saline neb every 6 hours - lasix 40mg IV x 1 GI: CHRISTIANO HX SBO - continue TF while intubated- hold with SBT in anticipation of possible extubation today/ tomorrow Renal: CHRISTIANO - monitor BMP Endo: CHRISTIANO - monitor FS every 6 hours - insulin regular 1-6 units every 6 hours while on steroids - hypoglycemia protocol is ordered Heme/Onc: Squamous cell lung cancer Per notes, he was diagnosed with stage IIIb squamous cell lung cancer in late 2021. He received chemotherapy (carboplatin/ Taxol) and radiation. He was then on immunotherapy / durvalumab (PDL1I). He is following with heme-onc for serial imaging. - monitor CBC ID: Possible CAP WBC elevated initially but quickly resolved, even in the setting of high dose steroids. He has beenafebrile. He has known RSV. He is being treated for possible superimposed bacterial pneumonia givenseverity of illness. MRSA swab was negative. Respiratory culture showed WBC, GNR, GPC but had 10 epithelial cells. - monitor fever and WBC curve - continue ceftriaxone 1g daily (started 05/21)- today is day 3 - continue azithromycin 500mg daily (started 05/21)- today is day 3 - follow up blood cultures from 05/22, NGTD Restraints: yes PT/OT: yes once extubated HOB >30 degrees: yes Stress Ulcer Prevention: yes DVT Prophylaxis: SCD and LMWH Baltazar: yes Lines: PIV x 1 CODE: Full Code - Default Disposition: MICU Seen and discussed with: MD Tania Guzman MD Internal Medicine PGY2 Associated attestation - Carissa Esquivel MD - 05/23/2024 8:23 PM EST I was physically present for the evaluation and management service provided. I personally saw and examined the patient on rounds with my team today. Management was discussed with resident Dr. Mays and I supervised the plan of care. I have reviewed and agree with the mccarty parts of the resident evaluation including: Subjective Information Objective findings on physical exam Impression and plan 64-year-old man with past medical history COPD, stage III lung cancer, schizophrenia hyperlipidemia, history of SBO presented to [facility] with shortness of breath found to have acute hypoxemic and hypercapnic respiratory failure in the setting of COPD exacerbation and RSV pneumonia, intubated and sedated. -PSV trial today after SAT/SBT -failed due to increased work of breathing, high RSBI. On minimal vent settings -Sedation with propofol and Precedex -Ongoing bilateral wheezes and slightly thicker secretions but no mucous plugging -continue steroids at same dose, add hypertonic saline to eoxue-cav-qmzdi DuoNebs, add guaifenesin. Current indication for bronchoscopy -Continue ceftriaxone and azithromycin, follow-up respiratory culture if negative plan for 5-day empiric course -Chest imaging reviewed and shows chronic right upper lobe volume loss and radiation changes for lung cancer, no acute pneumonia is noted Anticipate being ready for extubation next day or 2 43 minutes spent on the following direct patient care: evaluation, examination and assessment of patient; review and personal interpretation of vitals, labs, imaging; medication reconciliation; care coordination with other consultants and members of the care team; patient counseling; documentation. * Dale Hayes RN - 05/23/2024 7:42 AM EST Problem: Safety: Restraint-Nonviolent; Risk of Injury to Self Goal: Will be restraint free 05/23/2024740 by Dale Reilly RN Outcome: Progressing 05/23/2024510 by Dale Reilly RN Outcome: Progressing Goal: Will remain free from injury to self 05/23/2024740 by Dale Reilly RN Outcome: Progressing 05/23/2024510 by Dale Reilly RN Outcome: Progressing Problem: Coping: Restraint-Nonviolent; Risk of Injury to Self Goal: Ability to identify and alter behaviors that are impeding coping will improve 05/23/2024740 by Dale Reilly RN Outcome: Progressing 05/23/2024510 by Dale Reilly RN Outcome: Progressing Problem: Cognitive: Restraint-Nonviolent; Risk of Injury to Self Goal: Patient/caregiver knowledge of restraint will improve 05/23/2024740 by Dale Reilly RN Outcome: Progressing 05/23/2024510 by Dale Reilly RN Outcome: Progressing Problem: Physical Regulation: Restraint-Nonviolent; Risk of Injury to Self Goal: Will remain free from complications related to use of restraints 05/23/2024740 by Dale Reilly RN Outcome: Progressing 05/23/2024510 by Dale Reilly RN Outcome: Progressing Problem: Patient Specific Problem: Restraint-Nonviolent; Risk of Injury to Self Goal: Patient Specific Outcome 05/23/2024740 by Dale Reilly RN Outcome: Progressing 05/23/2024510 by Dale Reilly RN Outcome: Progressing Goals: Identify possible barriers to meeting goals/advancing plan of care: Wean O2 Stability of the patient: Moderately Unstable - Medium risk of patient condition declining or worsening End of Shift Summary: No acute changes patient was able to be wean off propofol. * Shwetha Camarillo RN - 05/22/2024 7:47 AM EST Pt arrived to CICU at 0625 from [facility]. Pt on propofol and normal saline bolus for BPsupport, Pt RSV positive and droplet precautions placed. * Sander Harvey - 05/22/2024 6:49 AM EST 05/22/24 0646 Vent Information Ventilation Day(s) 1 Vent Model / ID [id number] O2 Delivery Method Endotracheal tube Vent Mode VC/AC Ventilator On Yes Vent Settings FiO2 (%) 50 % Resp Rate (Set) 18 Vt (Set, mL) 500 mL PEEP/CPAP (cm H2O) 8 cm H20 Insp Flow (L/min) 60 L/min Trigger Sensitivity Flow (L/min) 2 L/min Humidification Heater Heater Temperature 37 ??C (98.6 ??F) Water level full Readings Resp Rate Observed 18 Exhaled Vt (mL) 470 mL Minute Ventilation (L/min) 8.6 L/min PIP Observed (cm H2O) 32 cm H2O I:E Ratio 1:3.1 Plateau Pressure (cm H2O) 20 cm H2O Static Compliance (L/cm H2O) 39 Alarms High pressure limit 40 cm H2O Low pressure 8 cm H2O MV High (L/min) 20 L/min MV Low (L/min) 4 L/min Vt High (mL) 3000 mL Vt Low (mL) 200 mL Low PEEP alarm 3 High rate alarm 45 Apnea Interval (sec) 20 seconds ETT 7.5 mm Placement Date/Time: 05/22/24 0434 Mask Ventilation: Vent by mask Technique: Video laryngoscopy ETTType: ETT Single Lumen Tube Size: 7.5 mm Laryngoscope: Jonathan Blade Size: 3 Location: Oral GradeView: View of epiglottis only Airway Inse... Secured at (cm) 26 cm Measured from Lips Secured Location Left Secured by Commercial tube grider Site Condition Clean;Intact;Dry Cuff Pressure (cm H2O) (mov) Pt came in as a transfer from [facility] intubated with an number 7.5 ETT placed at 26 cm at the lips. Pt placed on settings of VC/AC with a rate of 18, a Vt of 500, a PEEP of 8, and 50% FIO2. Will continue to monitor the pt for further evaluation. documented in this encounter H&P Notes * Vesna Solorzano NP - 05/22/2024 7:07 AM EST Medical ICU History and Physical Note Admit Date:05/22/2024 Code Status: Full Code - Default Length of Stay: LOS: 0 days ICU Day #26m CHIEF COMPLAINT: Shortness of breath Subjective: Elvin Partida is a 64-year-old male with past medical history including COPD, hyperlipidemia, lung cancer, schizophrenia, history of SBO who presented to [facility] emergency department with shortness of breath. History is gathered from the chart. Patient was reportedly complaining of chest tightness, cough and wheezing. In the emergency department patient was placed on BiPAP. Appropriately transitioned off in order totolerate lying supine for chest CT however upon return from CT the RN noted that he had sudden onset of garbled speech. Code stroke initiated, CT head without contrast was negative. NIHSS 1. Unfortunately patient's ABG worsened after multiple hours on BiPAP necessitating intubation for airway protection as patient's mental status was also worsening. Workup otherwise significant for RSV positive. CT chest with contrast negative for PE, did demonstrate emphysematous changes as well as oxhd-kg-vfrddpsorpmmn. Chemistries largely unremarkable, LFTs normal. BN P67, troponins 24, 28. WBC 14.2. Patient was transferred to [facility] as there were no ICU beds at [facility]. REVIEW OF SYSTEMS: Unable to perform ROS as patient is intubated and sedated. Past Medical History: Diagnosis Date COPD (chronic obstructive pulmonary disease) (CMS/HCC) DX:COPD (chronic obstructive pulmonary disease) (HCC) Hyperlipidemia DX:Hyperlipidemia Incarcerated right inguinal hernia DX:Incarcerated right inguinal hernia Lung cancer (CMS/HCC) DX:Lung cancer (HCC) Schizophrenia ([facility]/HCC) DX:Schizophrenia (HCC) Small bowel obstruction (CMS/HCC) DX:Small bowel obstruction (HCC) Vitamin D deficiency DX:Vitamin D deficiency Past Surgical History: Procedure Laterality Date HERNIA REPAIR PROCEDURE:INGUINAL HERNIA REPAIR Prior to Admission medications Medication Sig Start Date End Date Taking? Authorizing Provider dexAMETHasone (DECADRON) 4 mg tablet Take 1 tablet (4 mg total) by mouth 2 (two) times a day for 4 days. 05/09/24 05/13/24 LIONEL Nixon fluPHENAZine (PROLIXIN) 5 mg tablet Take 1 tablet (5 mg total) by mouth 1 (one) time each day. 01/08/24 Historical Provider, gabapentin (NEURONTIN) 300 mg capsule Take 1 capsule (300 mg total) by mouth at bedtime. 05/18/24 Jostin Bhakta MD ondansetron (ZOFRAN) 4 mg tablet Take 1 tablet (4 mg total) by mouth every 8 (eight) hours if needed. Historical ProviderMD predniSONE (DELTASONE) 20 mg tablet Take 3 tabs (60mg) daily for 3 days, then take 2 tabs (40mg) daily for 3 days, then take 1 tab (20mg) daily for 3 days. 05/18/24 05/27/24 Jostin Bhakta MD Social History Socioeconomic History Marital status: Spouse name: Not on file Number of children: Not on file Years of education: Not on file Highest education level: Not on file Occupational History Not on file Tobacco Use Smoking status: Every Day Current packs/day: 2.00 Types: Cigarettes Smokeless tobacco: Not on file Substance and Sexual Activity Alcohol use: Not Currently Drug use: Not on file Sexual activity: Not on file Other Topics Concern Not on file Social History Narrative Not on file Family History Problem Relation Name Age of Onset Hypertension Mother Dementia Mother Arthritis Father Cancer Mother's Brother Cancer Father's Sister Vitals: Intake/Output: Vitals: 05/22/24 0646 Temp: 36.7 ??C (98 ??F) SpO2: 98% Temp Av.5 ??C (97.7 ??F) Min: 35.7 ??C (96.3 ??F) Max: 37.1 ??C (98.8 ??F) Last 24 hours: No intake or output data in the 24 hours ending 05/22/24 0707 Physical Exam: Constitutional: Well-developed, well-nourished, intubated and sedated, laying in bed, barrel chested HEENT: Normocephalic, nares patent, normal EOM Respi: Lungs w wheezing bilaterally no rhonchi rales Cardiovascular: RRR w/out murmurs. Normal S1, S2, no rubs or gallops. No JVD. Abdomen: Soft, non-distended, non-tender to palpation. Normoactive BS x4 quadrants. Absent organomegaly. Extremities: No edema, no tenderness. Full ROM Skin: No rash, no erythema Neuro: moves all four extremities spontaneously, wakes easily with noxious stimuli but does not follow commands, track Scores: Ventilator: Vent Mode: Volume control/Assist control FiO2 (%): [40 %-50 %] 50 % S RR: [10-18] 18 S VT: [450 mL-500 mL] 500 mL PEEP/CPAP (cm H2O): [5 cm H20-8 cm H20] 8 cm H20 ND SUP: [10 cm H20] 10 cm H20 MAP (cm H2O): [11-15] 15 Infusing Medications: propofoL, 10-80 mcg/kg/min, Last Rate: 30 mcg/kg/min (05/22/24 0701) Labs: Lab Results Component Value Date GLUCOSE 116 (H) 05/21/2024 CALCIUM 9.2 05/21/2024 NA 135 05/21/2024 K 4.0 05/21/2024 CO2 37 (H) 05/21/2024 CL 95 (L) 05/21/2024 BUN 12 05/21/2024 CREATININE 0.68 (L) 05/21/2024 Lab Results Component Value Date WBC 14.2 (H) 05/21/2024 HGB 15.6 05/21/2024 HCT 48.6 05/21/2024 MCV 94.9 05/21/2024 PLT 211 05/21/2024 Microbiology: No results found for: UUROB Imaging: CT Angio Head/Neck wo and/or w Contrast Narrative: CT angiography head and neck with contrast. [...] disc disease. Age-indeterminate compression deformity at T3. Impression: Patent head and neck CTA. This document has been electronically signed by: Alexander Soto MD on 05/22/2024 01:02:04 CT Head Stroke wo Contrast Addendum: ADDENDUM: This report was discussed with Concepcion Strong RN on May 22, 2024 00:49:00 EST. This document has been electronically signed by: Janis Castaneda on 05/22/2024 00:50:47 Narrative: CT head without contrast Comparison: None Findings: [...] are unremarkable. There is no acute fracture. Impression: 1. No acute intracranial findings. 2. Additional findings as described. This document has been electronically signed by: Alexander Soto MD on 05/22/2024 00:48:47 CT Angio Chest wo and/or w Contrast Narrative: CT angiography chest with contrast. 3D Postprocessing. [...] T7 and T9. Additional findings as described. Impression: 1. No evidence of PE. 2. Emphysema. 3. Ill-defined subtle bilateral tree-in-bud nodularity, can be seen with aspiration or endobronchial pneumonia. 4. Suspect malignancy with possible posttreatment changes/scarring in the right upper lobe, please see above. This document has been electronically signed by: Alexander Soto MD on 05/22/2024 00:25:51 Procedures in the past 24 hours: n/a Nutrition: Diet Order: TPN Rate: Type of Tube Feed: Prealbumin: No results found for: PREALBUMIN Problem List: Patient Active Problem List Diagnosis Date Noted Date Diagnosed COPD exacerbation ([facility]) 05/22/2024 Squamous cell carcinoma of right lung ([facility]) 05/15/2022 Chronic obstructive pulmonary disease ([facility]) 01/06/2018 Hyperlipidemia 01/06/2018 Basal cell carcinoma 10/01/2016 BCC 09/25 left cheek (nodular) Vitamin D deficiency 12/30/2015 Secondary polycythemia 12/23/2014 Schizophrenia ([facility]) 10/01/2011 Resolved Problems No resolved problems to display. Assessment & Plan: Assessment: Patient is a 64-year-old male with PMH including COPD, hyperlipidemia, lung cancer reportedly in remission, schizophrenia who presented to [facility] emergency department with shortness of breath found to have RSV and failed rescue BiPAP requiring intubation and transferred to [facility] for ICUlevel of care. Plan by system: Neuro: Acute metabolic encephalopathy Intubated and sedated Concern for garbled speech Patient became more encephalopathic while in the ED at [facility], had an episode of garbled speech precipitating code stroke. CT head and CTA head and neck without any acute abnormalities. Patient was offered TNK by neurology however refused, NIHSS 1. Ultimately worsening encephalopathy thought to be secondary to acute hypercarbia. - Seen by neurology, recommended MRI brain without contrast however we will hold off as AMS occurred with hypercarbia and deficit seemed to improve - Infectious and metabolic workup pending including urine drug screen, B12 folate, TSH, ammonia as well as UA, blood cultures, MRSA swab, sputum culture, legionella - Sedated with propofol, will add Precedex and attempt to wean propofol as patient wakes easily with noxious stimuli CVS: History of hyperlipidemia Not an active issue. Patient has mild hypotension likely caused by propofol. - Status post 1 L normal saline, will give another 1 L LR - Maps greater than 65, no need for vasopressor support at this time Labs Lab Results Component Value Date CKTOTAL 105 05/09/2024 Resp: Acute hypoxic and hypercarbic respiratory failure Respiratory syncytial virus infection Concern for community acquired pneumonia History of COPD History of lung cancer Patient presented to [facility] with worsening shortness of breath, wheezing, cough. Patient does reportedly have a chronic cough and significant smoking history. Patient was diagnosed with squamous cell lung cancer in 2021, no longer requiring treatment. See heme-onc section for further discussion of this issue. Initially shortness of breath was thought to be secondary to pulmonary embolism however CTA chest negative for any PE, did demonstrate emphysematous changes as well as tree-in-bud nodularity bilaterally. RSV positive. ABG 7.29//98/31 suggestive of acute hypercarbic respiratory failure. Did not improve on BiPAP, required intubation. This is most likely COPD exacerbation in the setting of RSV infection. Infectious pneumonia less likely though patient does have mild leukocytosis 14.2. - Continue ventilator support, wean as tolerated - Cover for possible community acquired pneumonia with ceftriaxone and azithromycin, received firstdoses at [facility] this morning approx 4am - Continue solumedrol 40 mg q6 hr - Resp viral panel + RSV otherwise negative - MRSA swab, sputum culture pending Vent settings Vent Mode: Volume control/Assist control FiO2 (%): [40 %-50 %] 50 % S RR: [10-18] 18 S VT: [450 mL-500 mL] 500 mL PEEP/CPAP (cm H2O): [5 cm H20-8 cm H20] 8 cm H20 ND SUP: [10 cm H20] 10 cm H20 MAP (cm H2O): [11-15] 15 GI: History of small bowel obstruction Not actively an issue. - Stress ulcer prophylaxis with IV pantoprazole - Can initiate tube feeds if patient remains intubated Labs: Lab Results Component Value Date CHOL 132 12/31/2021 HDL 32 (A) 12/31/2021 TRIG 109 12/31/2021 Renal: No active issues Labs Lab Results Component Value Date BUN 12 05/21/2024 CREATININE 0.68 (L) 05/21/2024 NA 135 05/21/2024 K 4.0 05/21/2024 CL 95 (L) 05/21/2024 CO2 37 (H) 05/21/2024 GLUCOSE 116 (H) 05/21/2024 CALCIUM 9.2 05/21/2024 MG 2.5 05/21/2024 ALBUMIN 3.4 05/21/2024 ALKPHOS 112 05/21/2024 AST 10 05/21/2024 ALT 15 05/21/2024 Endo: No active issues - Fingersticks [id number] - Insulin sliding scale if needed, patient receiving IV steroids Labs Lab Results Component Value Date HGBA1C 5.9 10/27/2020 No results found for: TSH , T3 No components found for: GLUCFASTING Heme/Onc: History of stage IIIb squamous cell lung cancer s/p chemo/radiation Patient initially diagnosed with stage IIIb squamous cell lung cancer after discovery of right upper lobe mass on CT in late 2021. He completed a course of chemo and radiation in August 2022 and was then maintained on durvalumab. Has had multiple CTs with evidence of decreasing mass as well as no new metastatic disease, last in September and February 2024. Continues to follow with heme-onc for serial follow-up imaging. CT chest done on admission does show evidence of right upper lobe obstruction versusscarring. Labs Lab Results Component Value Date RBC 5.10 05/21/2024 MCV 94.9 05/21/2024 MCH 30.5 05/21/2024 MCHC 32.1 05/21/2024 RDW 15.8 (H) 05/21/2024 MPV 8.8 05/21/2024 No results found for: INR ID: Concern for community-acquired pneumonia Patient presented with shortness of breath. Has mild leukocytosis WBC 14, afebrile, mild tachycardia. Did have positive RSV swab, respiratory failure most likely caused by viral infection prompting COPD exacerbation however we will cover for possible pneumonia pending further culture data. -Ceftriaxone 1 g every 24 hours and azithromycin 500 mg every 24 hours ordered -Sputum culture, MRSA swab pending -Blood cultures were not drawn at outside hospital prior to antibiotic administration, I have ordered 2 sets to be drawn now, follow-up culture data -Trend WBC and fever curve Labs Lab Results Component Value Date WBC 14.2 (H) 05/21/2024 HCT 48.6 05/21/2024 HGB 15.6 05/21/2024 Restraints: yes PT/OT: yes HOB >30 degrees: yes Stress Ulcer Prevention: yes DVT Prophylaxis: sequential compression device and LMWH Baltazar: yes CODE: Full Code - Default Appropriate Disposition: MICU Seen and discussed with: MD Vesna Guzman APRN MICU Team Available on [place] text Associated attestation - Carissa Esquivel MD - 05/22/2024 9:21 PM EST I was physically present for the evaluation and management service provided. I personally saw and examined the patient on rounds with my team today. Management was discussed with STOCK PREPARER Vesna Solorzano and I supervised the plan of care. I have reviewed and agree with the mccarty parts of the resident evaluation including: Subjective Information Objective findings on physical exam Impression and plan 64-year-old man with past medical history COPD, stage III lung cancer, schizophrenia hyperlipidemia, history of SBO presented to [facility] with shortness of breath found to have acute hypoxemic and hypercapnic respiratory failure in the setting of COPD exacerbation and RSV pneumonia, intubated and sedated. Currently on propofol and Precedex for sedation, minimal ventilator settings, PEEP of 6 and FiO2 40%. Started on steroids, DuoNebs. -New current ventilator settings, SAT/SBT -Wean propofol continue Precedex -Continue ceftriaxone and azithromycin -Rest plan for note 61 minutes spent on the following direct patient care: evaluation, examination and assessment of patient; review and personal interpretation of vitals, labs, imaging; medication reconciliation; care coordination with other consultants and members of the care team; patient counseling; documentation. documented in this encounter Consult Notes * Alesha Orellana RD - 05/24/2024 11:35 AM ESTAssociated Order(s): IP CONSULT TO NUTRITION SERVICES Nutrition Consult Patient: Elvin Partida Sex: male : 1960 64 [facility]. History includes COPD, stage III lung cancer. Intubated and sedated. Nutrition consulted for tube feed evaluation. Jevity 1.2 started 05/23 at 20ml/hr. Vent weaning in progress. ASSESSMENT: Past Medical History: Diagnosis Date COPD (chronic obstructive pulmonary disease) (CMS/HCC) DX:COPD (chronic obstructive pulmonary disease) (HCC) Hyperlipidemia DX:Hyperlipidemia Incarcerated right inguinal hernia DX:Incarcerated right inguinal hernia Lung cancer (CMS/HCC) DX:Lung cancer (HCC) Schizophrenia (CMS/HCC) DX:Schizophrenia (HCC) Small bowel obstruction (CMS/HCC) DX:Small bowel obstruction (HCC) Vitamin D deficiency DX:Vitamin D deficiency Past Surgical History: Procedure Laterality Date HERNIA REPAIR PROCEDURE:INGUINAL HERNIA REPAIR Labs: Lab Results Component Value Date BUN 30 (H) 05/24/2024 CREATININE 0.80 05/24/2024 NA 137 05/24/2024 K 4.1 05/24/2024 CL 96 (L) 05/24/2024 CO2 28 05/24/2024 CALCIUM 8.8 05/24/2024 ALKPHOS 82 05/22/2024 PHOS 3.3 05/23/2024 MG 2.5 05/24/2024 EGFR 100 05/24/2024 Lab Results Component Value Date HGBA1C 5.9 10/27/2020 Medications: [START ON 05/25/2024] cefTRIAXone, 1 g, intravenous, q24h chlorhexidine, 15 mL, Mouth/Throat, q12h enoxaparin, 40 mg, subcutaneous, q24h SAMMY guaiFENesin, 400 mg, g-tube, q8h SAMMY insulin regular, 1-6 Units, subcutaneous, q6h ipratropium-albuteroL, 3 mL, nebulization, q6h methylPREDNISolone sod suc, 40 mg, intravenous, q12h SAMMY pantoprazole, 40 mg, intravenous, q24h sodium chloride, 4 mL, nebulization, q12h dexmedeTOMIDine (PRECEDEX) 1,000 mcg in sodium chloride 0.9 % 250 mL (4 mcg/mL) infusion, 0.2-1.5 mcg/kg/hr, Last Rate: 1.5 mcg/kg/hr (05/24/24 0609) propofoL, 10-80 mcg/kg/min, Last Rate: Stopped (05/24/24 1030) Propofol @ 11.07ml/hr providing 292kcals from lipid. Anthropometrics: Height: 70in BMI: 23.0 based on 160lb Weight History: Wt Readings from Last 10 Encounters: 05/22/24 0430 73.8 kg (162 lb 11.2 oz) 05/18/24 1436 73.8 kg (162 lb 12.8 oz) 05/09/24 1142 72.6 kg (160 lb) 03/09/24 0934 73 kg (161 lb) 01/08/24 0930 69.7 kg (153 lb 9.6 oz) 01/08/24 0930 69.7 kg (153 lb 9.6 oz) 12/05/23 1400 67.6 kg (149 lb) 10/10/23 1016 68.6 kg (151 lb 3.2 oz) 10/08/23 0941 68.6 kg (151 lb 3.2 oz) 09/09/23 0938 70.3 kg (155 lb) 08/26/23 0923 68.8 kg (151 lb 9.6 oz) Current Diet Order: Dietary Orders (From admission, onward) Start Ordered 05/22/241912 Diet, Tube Feeding [facility]; Jevity 1.2 Curtis; OG; 20; 30; Water; Every 4 hours; Tube Feed (Tube Feeding) Diet effective now Question Answer Comment Location: [facility] Tube feeding formula: Jevity 1.2 Curtis Route: OG Tube feeding continuous rate (mL/hr): 20 Tube feeding flush (mL): 30 Tube feeding flush type: Water Tube feeding flush frequency: Every 4 hours Diet Tube Feed Placed in And Linked Group 05/22/24191105/22/241912 Adult NPO diet Location: [facility]; Diet: NPO- Except for Medications (Tube Feeding) Diet effective now Question Answer Comment Location [facility] Diet NPO- Except for Medications Placed in And Linked Group 05/22/241911 Allergies: Penicillin v Nutrition Focused Physical Exam: Nutrition-Focused Physical Findings Overall Appearance: No overt wasting noted Nerves and Cognition: Intubated/Sedated Skin: No active issues GI: last BM date unknown ([employer]IC) DIAGNOSIS: Malnutrition Coding Code Type: None Identified Inadequate Oral Intake related to Physiologic causes as evidenced by NPO s/p intubation. Status: New Estimated Nutrition Needs: Energy: 0960-6416 kcals/day 25 kcals/kg based on 73kg, age, BMI Protein: 88-110 grams protein/day 1.2-1.5 grams protein/kg based on 73kg Nutrition Goal: TF to provide >75% estimated needs Goal Status: Initial assessment - unable to assess INTERVENTION/RECOMMENDATIONS: If unable to extubate/initiate oral diet within 24hrs suggest tube feed as follows: Jevity 1.2 @ 70ml/hr Provides 2016kcals (plus Propofol), 93g protein, 1361ml free water MONITORING/EVALUATION: Monitor intake, Monitor pertinent lab values, and Monitor tolerance to enteral nutrition Alesha Orellana MS, RD, CDN, CNSC documented in this encounter Plan of Treatment Upcoming Encounters Date Type Department Care Team (Late st Contact Info) Description 06/09/2024 9:30 AM EST Office Visit [facility] Hematology Oncology [address] [place] [phone] Nino Talbot MD [address] [place] [phone] 07/07/2024 11:15 AM EST Office Visit Internal Medicine [facility] [address] [phone] Tori Jackson MD [address] [phone] 07/08/2024 10:45 AM EST Office Visit Pulmonolgy - [place] [address] [phone] Heather Freitas MD [address] [phone] documented as of this encounter Procedures Procedure Name Priority Date/Time Associated Diagnosis Comments COMPLETE BLOOD COUNT Routine 06/02/2024 6:07 AM EST MAGNESIUM Routine 06/02/2024 6:07 AM EST BASIC METABOLIC PANEL Routine 06/02/2024 6:07 AM EST COMPLETE BLOOD COUNT Routine 06/01/2024 9:37 AM EST MAGNESIUM Routine 06/01/2024 9:37 AM EST BASIC METABOLIC PANEL Routine 06/01/2024 9:37 AM EST OXYGEN THERAPY, ADULT Routine 06/01/2024 8:02 AM EST OXYGEN THERAPY, ADULT Routine 05/31/2024 8:00 PM EST OXYGEN THERAPY, ADULT Routine 05/31/2024 8:02 AM EST COMPLETE BLOOD COUNT Routine 05/31/2024 7:34 AM EST MAGNESIUM Routine 05/31/2024 7:34 AM EST BASIC METABOLIC PANEL Routine 05/31/2024 7:34 AM EST OXYGEN THERAPY, ADULT Routine 05/30/2024 8:00 PM EST OXYGEN THERAPY, ADULT Routine 05/30/2024 8:00 AM EST COMPLETE BLOOD COUNT Routine 05/30/2024 6:17 AM EST TRIGLYCERIDES Timed 05/30/2024 6:17 AM EST MAGNESIUM Routine 05/30/2024 6:17 AM EST BASIC METABOLIC PANEL Routine 05/30/2024 6:17 AM EST OXYGEN THERAPY, ADULT Routine 05/29/2024 8:00 PM EST OXYGEN THERAPY, ADULT Routine 05/29/2024 7:27 PM EST OXYGEN THERAPY, ADULT Routine 05/29/2024 7:27 PM EST POCT GLUCOSE BLOOD Routine 05/29/2024 12 :17 PM EST POCT GLUCOSE BLOOD Routine 05/29/2024 6: 18 AM EST COMPLETE BLOOD COUNT Routine 05/29/2024 5:49 AM EST MAGNESIUM Routine 05/29/2024 5:49 AM EST BASIC METABOLIC PANEL Routine 05/29/2024 5:49 AM EST POCT GLUCOSE BLOOD Routine 05/29/2024 12 :11 AM EST OXYGEN THERAPY, ADULT Routine 05/28/2024 5:14 PM EST OXYGEN THERAPY, ADULT Routine 05/28/2024 5:14 PM EST OXYGEN THERAPY, ADULT Routine 05/28/2024 9:52 AM EST EXTUBATION Routine 05/28/2024 9:52 AM EST POCT GLUCOSE BLOOD Routine 05/28/2024 6: 57 AM EST COMPLETE BLOOD COUNT Routine 05/28/2024 5:59 AM EST TRIGLYCERIDES Timed 05/28/2024 5:59 AM EST MAGNESIUM Routine 05/28/2024 5:59 AM EST BASIC METABOLIC PANEL Routine 05/28/2024 5:59 AM EST POCT GLUCOSE BLOOD Routine 05/27/2024 5: 46 PM EST ARTERIAL BLOOD GAS STAT 05/27/2024 5: 06 PM EST POCT GLUCOSE BLOOD Routine 05/27/2024 12 :35 PM EST COMPLETE BLOOD COUNT Routine 05/27/2024 6:37 AM EST MAGNESIUM Routine 05/27/2024 6:37 AM EST BASIC METABOLIC PANEL Routine 05/27/2024 6:37 AM EST POCT GLUCOSE BLOOD Routine 05/27/2024 5: 49 AM EST POCT GLUCOSE BLOOD Routine 05/27/2024 12 :17 AM EST VENTILATOR, ADULT Routine 05/26/2024 8:0 0 PM EST POCT GLUCOSE BLOOD Routine 05/26/2024 6: 46 PM EST POCT GLUCOSE BLOOD Routine 05/26/2024 12 :59 PM EST VENTILATOR, ADULT Routine 05/26/2024 8:0 1 AM EST COMPLETE BLOOD COUNT Routine 05/26/2024 6:49 AM EST TRIGLYCERIDES Timed 05/26/2024 6:49 AM EST MAGNESIUM Routine 05/26/2024 6:49 AM EST BASIC METABOLIC PANEL Routine 05/26/2024 6:49 AM EST POCT GLUCOSE [...] METABOLIC PANEL Routine 05/25/2024 5:43 AM EST COMPLETE BLOOD COUNT Routine 05/25/2024 4:58 AM EST MAGNESIUM Routine 05/25/2024 4:58 AM EST POCT GLUCOSE [...] ADULT Routine 05/24/2024 8:0 2 AM EST COMPLETE BLOOD COUNT Routine 05/24/2024 7:04 AM EST TRIGLYCERIDES Timed 05/24/2024 7:04 AM EST MAGNESIUM Routine 05/24/2024 7:04 AM EST BASIC METABOLIC PANEL Routine 05/24/2024 7:04 AM EST POCT GLUCOSE [...] BLOOD Routine 05/23/2024 7: 30 AM EST COMPLETE BLOOD COUNT Timed 05/23/2024 5:59 AM EST PHOSPHORUS Timed 05/23/2024 5:59 AM EST MAGNESIUM Timed 05/23/2024 5:59 AM EST BASIC METABOLIC [...] CULTURE BLOOD STAT 05/22/2024 9:02 AM EST URINALYSIS WITH REFLEX MICROSCOPIC AND CULTURE Routine 05/22/2024 9:00 AM EST KASPER URINE CULTURE TUBE Routine 05/22/2024 9:00 AM EST DRUG ABUSE SCREEN 9A PANEL, URINE Routine 05/22/2024 9:00 AM EST URINALYSIS WITH REFLEX MICROSCOPIC AND CULTURE Routine 05/22/2024 9:00 AM EST CULTURE URINE Routine 05/22/2024 9:00 AM EST THYROID STIMULATING HORMONE WITH REFLEX FREE T4 Routine 05/22/2024 8:52 AM EST LACTATE STAT 05/22/2024 8:52 AM EST TYPE AND SCREEN STAT 05/22/2024 8:52 AM EST AMMONIA Routine 05/22/2024 8:52 AM EST CULTURE BLOOD STAT 05/22/2024 8:51 AM EST POCT GLUCOSE BLOOD Routine 05/22/2024 8: 45 AM EST ARTERIAL BLOOD GAS STAT 05/22/2024 8: 38 AM EST TROPONIN I HIGH SENSITIVITY STAT Add-on 05/22/2024 7:32 AM EST VITAMIN B12 AND FOLATE Add-On 05/22/2024 7:32 AM EST TRIGLYCERIDES Timed 05/22/2024 7:32 AM EST PHOSPHORUS STAT Add-on 05/22/2024 7:32 AM EST MAGNESIUM STAT Add-on 05/22/2024 7:32 AM EST COMPREHENSIVE METABOLIC PANEL STAT Add-on 05/22/2024 7:32 AM EST VENTILATOR, ADULT Routine 05/22/2024 6:5 2 AM EST VENTILATOR, ADULT Routine 05/22/2024 6:5 2 AM EST documented in this encounter Results * Magnesium (06/02/2024 6:07 AM EST) Magnesium 1.9 1.7 - 2.8 mg/dL LAB CHEMISTRY METHOD 06/02/2024 7:08 AM EST [facility] Blood Venous blood specimen / Unknown Venipuncture / Unknown 06/02/2024 6:07 AM EST 06/02/2024 6:36 AM EST Carissa Esquivel MD LAB BLOOD ORDERABL ES [facility] [address] [place] [address], * (ABNORMAL) Basic metabolic panel (06/02/2024 6:07 AM EST) Sodium 138 135 - 145 mmol/L LAB CHEMISTRY METHOD 06/02/2024 7:08 AM EST [facility] Potassium 3.4(L) 3.5 - 5.1 mmol/L LAB CHEMISTRY METHOD 06/02/2024 7:08 AM [facility] Chloride 102 98 - 107 mmol/L LAB CHEMISTRY METHOD 06/02/2024 7:08 AM [facility] CO2 29 24 - 32 mmol/L LAB CHEMISTRY METHOD 06/02/2024 7:08 AM EST [facility] Anion Gap 7 5 - 14 LAB CHEMISTRY METHOD 06/02/2024 7:08 AM [facility] Glucose 89 70 - 99 mg/dL LAB CHEMISTRY METHOD 06/02/2024 7:08 AM [facility] BUN 18 9 - 20 mg/dL LAB CHEMISTRY METHOD 06/02/2024 7:08 AM [facility] Creatinine 0.60(L) 0.70 - 1.30 mg/dL LAB CHEMISTRY METHOD 06/02/2024 7:08 AM EST [facility] eGFR 109 >=60 mL/min/1. 73m2 LAB CHEMISTRY METHOD 06/02/2024 7:08 AM [facility] LAB Comment:Calculation based on the??Chronic Kidney Disease Epidemiology Collaboration (CKD-EPI) equation refit??without adjustment for race. BUN/Creatinine Ratio 30.0(H) 12.0 - 20.0 LAB CHEMISTRY METHOD 06/02/2024 7:08 AM [facility] Calcium 8.3(L) 8.4 - 10.2 mg/dL LAB CHEMISTRY METHOD 06/02/2024 7:08 AM EST [facility] Blood Venous blood specimen / Unknown Venipuncture / Unknown 06/02/2024 6:07 AM EST 06/02/2024 6:36 AM EST Carissa Esquivel MD LAB BLOOD ORDERABL ES [facility] [address] [place] [address], * (ABNORMAL) Complete blood count (06/02/2024 6:07 AM EST) WBC 9.1 4.0 - 10.5 K/mcL LAB HEMETOLOGY METHOD 06/02/2024 6:52 AM EST [facility] RBC 4.70 4.70 - 6.00 M/mcL LAB HEMETOLOGY METHOD 06/02/2024 6:52 AM EST [facility] Hemoglobin 14.8 13.5 - 18.0 g/dL LAB HEMETOLOGY METHOD 06/02/2024 6:52 AM EST [facility] Hematocrit 42.6 40.0 - 54.0 % LAB HEMETOLOGY METHOD 06/02/2024 6:52 AM [facility] MCV 90.6 78.0 - 100.0 FL LAB HEMETOLOGY METHOD 06/02/2024 6:52 AM EST [facility] MCH 31.4 25.0 - 33.0 pcg LAB HEMETOLOGY METHOD 06/02/2024 6:52 AM EST [facility] MCHC 34.7 32.0 - 36.0 g/dL LAB HEMETOLOGY METHOD 06/02/2024 6:52 AM [facility] RDW 15.5 12.1 - 17.7 % LAB HEMETOLOGY METHOD 06/02/2024 6:52 AM EST [facility] Platelets 204 150 - 450 K/mcL LAB HEMETOLOGY METHOD 06/02/2024 6:52 AM EST [facility] MPV 7.1(L) 7.4 - 11.4 FL LAB HEMETOLOGY METHOD 06/02/2024 6:52 AM EST [facility] Blood Venous blood specimen / Unknown Venipuncture / Unknown 06/02/2024 6:07 AM EST 06/02/2024 6:36 AM EST Carissa Esquivel MD LAB BLOOD ORDERABL ES [facility] [address] [place] [address], * Magnesium (06/01/2024 9:37 AM EST) Magnesium 2.0 1.7 - 2.8 mg/dL LAB CHEMISTRY METHOD 06/01/2024 10:25 AM EST [facility] Blood Venous blood specimen / Unknown Venipuncture / Unknown 06/01/2024 9:37 AM EST 06/01/2024 9:51 AM EST Carissa Esquivel MD LAB BLOOD ORDERABL ES [facility] [address] [place] [id number], * (ABNORMAL) Basic metabolic panel (06/01/2024 9:37 AM EST) Sodium 139 135 - 145 mmol/L LAB CHEMISTRY METHOD 06/01/2024 10:25 AM EST [facility] Potassium 3.3(L) 3.5 - 5.1 mmol/L LAB CHEMISTRY METHOD 06/01/2024 10:25 AM EST [facility] Chloride 101 98 - 107 mmol/L LAB CHEMISTRY METHOD 06/01/2024 10:25 AM EST [facility] CO2 29 24 - 32 mmol/L LAB CHEMISTRY METHOD 06/01/2024 10:25 AM EST [facility] Anion Gap 9 5 - 14 LAB CHEMISTRY METHOD 06/01/2024 10:25 AM EST [facility] Glucose 128 70 - 199 mg/dL LAB CHEMISTRY METHOD 06/01/2024 10:25 AM [facility] BUN 23(H) 9 - 20 mg/dL LAB CHEMISTRY METHOD 06/01/2024 10:25 AM [facility] Creatinine 0.60(L) 0.70 - 1.30 mg/dL LAB CHEMISTRY METHOD 06/01/2024 10:25 AM EST [facility] eGFR 109 >=60 mL/min/1. 73m2 LAB CHEMISTRY METHOD 06/01/2024 10:25 AM EST [facility] Comment:Calculation based on the??Chronic Kidney Disease Epidemiology Collaboration (CKD-EPI) equation refit??without adjustment for race. BUN/Creatinine Ratio 38.3(H) 12.0 - 20.0 LAB CHEMISTRY METHOD 06/01/2024 10:25 AM [facility] Calcium 8.5 8.4 - 10.2 mg/dL LAB CHEMISTRY METHOD 06/01/2024 10:25 AM [facility] Blood Venous blood specimen / Unknown Venipuncture / Unknown 06/01/2024 9:37 AM EST 06/01/2024 9:51 AM EST Carissa Esquivel MD LAB BLOOD ORDERABL ES [facility] [address] [place] [address], [place] [phone] * (ABNORMAL) Complete blood count (06/01/2024 9:37 AM EST) WBC 9.6 4.0 - 10.5 K/mcL LAB HEMETOLOGY METHOD 06/01/2024 10:04 AM EST [facility] RBC 5.14 4.70 - 6.00 M/mcL LAB HEMETOLOGY METHOD 06/01/2024 10:04 AM EST [facility] Hemoglobin 16.0 13.5 - 18.0 g/dL LAB HEMETOLOGY METHOD 06/01/2024 10:04 AM EST [facility] Hematocrit 46.6 40.0 - 54.0 % LAB HEMETOLOGY METHOD 06/01/2024 10:04 AM EST [facility] MCV 90.7 78.0 - 100.0 FL LAB HEMETOLOGY METHOD 06/01/2024 10:04 AM EST [facility] MCH 31.2 25.0 - 33.0 pcg LAB HEMETOLOGY METHOD 06/01/2024 10:04 AM [facility] MCHC 34.4 32.0 - 36.0 g/dL LAB HEMETOLOGY METHOD 06/01/2024 10:04 AM EST [facility] RDW 15.5 12.1 - 17.7 % LAB HEMETOLOGY METHOD 06/01/2024 10:04 AM EST [facility] Platelets 194 150 - 450 K/mcL LAB HEMETOLOGY METHOD 06/01/2024 10:04 AM EST [facility] MPV 7.1(L) 7.4 - 11.4 FL LAB HEMETOLOGY METHOD 06/01/2024 10:04 AM EST [facility] Blood Venous blood specimen / Unknown Venipuncture / Unknown 06/01/2024 9:37 AM EST 06/01/2024 9:51 AM EST Carissa Esquivel MD LAB BLOOD ORDERABL ES [facility] [address] [place] [address], * Magnesium (05/31/2024 7:34 AM EST) Magnesium 2.2 1.7 - 2.8 mg/dL LAB CHEMISTRY METHOD 05/31/2024 8:52 AM EST [facility] Comment:Slightly to Moderate ly Hemolyzed Blood Venous blood specimen / Unknown Venipuncture / Unknown 05/31/2024 7:34 AM EST 05/31/2024 8:16 AM EST Carissa Esquivel MD LAB BLOOD ORDERABL ES [facility] [address] [place] [address], * (ABNORMAL) Basic metabolic panel (05/31/2024 7:34 AM EST) Pathologist [facility] Sodium 140 135 - 145 mmol/L LAB CHEMISTRY METHOD 05/31/2024 8:52 AM [facility] Potassium 3.9 3.5 - 5.1 mmol/L LAB CHEMISTRY METHOD 05/31/2024 8:52 AM EST [facility] Comment:Slightly to Moderate ly Hemolyzed Chloride 102 98 - 107 mmol/L LAB CHEMISTRY METHOD 05/31/2024 8:52 AM [facility] CO2 31 24 - 32 mmol/L LAB CHEMISTRY METHOD 05/31/2024 8:52 AM [facility] Anion Gap 7 5 - 14 LAB CHEMISTRY METHOD 05/31/2024 8:52 AM [facility] Glucose 100 70 - 199 mg/dL LAB CHEMISTRY METHOD 05/31/2024 8:52 AM [facility] BUN 25(H) 9 - 20 mg/dL LAB CHEMISTRY METHOD 05/31/2024 8:52 AM [facility] Creatinine 0.60(L) 0.70 - 1.30 mg/dL LAB CHEMISTRY METHOD 05/31/2024 8:52 AM [facility] eGFR 109 >=60 mL/min/1. 73m2 LAB CHEMISTRY METHOD 05/31/2024 8:52 AM EST [facility] Comment:Calculation based on the??Chronic Kidney Disease Epidemiology Collaboration (CKD-EPI) equation refit??without adjustment for race. BUN/Creatinine Ratio 41.7(H) 12.0 - 20.0 LAB CHEMISTRY METHOD 05/31/2024 8:52 AM EST [facility] Calcium 8.8 8.4 - 10.2 mg/dL LAB CHEMISTRY METHOD 05/31/2024 8:52 AM EST [facility] Blood Venous blood specimen / Unknown Venipuncture / Unknown 05/31/2024 7:34 AM EST 05/31/2024 8:16 AM EST Carissa Esquivel MD LAB BLOOD ORDERABL ES [facility] [address] [place] [id number], * (ABNORMAL) Complete blood count (05/31/2024 7:34 AM EST) WBC 9.9 4.0 - 10.5 K/mcL LAB HEMETOLOGY METHOD 05/31/2024 8:24 AM [facility] RBC 4.97 4.70 - 6.00 M/mcL LAB HEMETOLOGY METHOD 05/31/2024 8:24 AM EST [facility] Hemoglobin 15.4 13.5 - 18.0 g/dL LAB HEMETOLOGY METHOD 05/31/2024 8:24 AM EST [facility] Hematocrit 45.2 40.0 - 54.0 % LAB HEMETOLOGY METHOD 05/31/2024 8:24 AM EST [facility] MCV 91.1 78.0 - 100.0 FL LAB HEMETOLOGY METHOD 05/31/2024 8:24 AM EST [facility] MCH 31.0 25.0 - 33.0 pcg LAB HEMETOLOGY METHOD 05/31/2024 8:24 AM EST [facility] MCHC 34.1 32.0 - 36.0 g/dL LAB HEMETOLOGY METHOD 05/31/2024 8:24 AM EST [facility] RDW 15.6 12.1 - 17.7 % LAB HEMETOLOGY METHOD 05/31/2024 8:24 AM EST [facility] Platelets 201 150 - 450 K/mcL LAB HEMETOLOGY METHOD 05/31/2024 8:24 AM EST [facility] MPV 7.3(L) 7.4 - 11.4 FL LAB HEMETOLOGY METHOD 05/31/2024 8:24 AM EST [facility] Blood Venous blood specimen / Unknown Venipuncture / Unknown 05/31/2024 7:34 AM EST 05/31/2024 8:16 AM EST Carissa Esquivel MD LAB BLOOD ORDERABL ES [facility] [address] [place] [address], * Triglyceride Monitoring (05/30/2024 6:17 AM EST) Triglycerides 121 <150 mg/dL LAB CHEMISTRY METHOD 05/30/2024 7:11 AM EST [facility] Blood Venous blood specimen / Unknown Venipuncture / Unknown 05/30/2024 6:17 AM EST 05/30/2024 6:29 AM EST Carissa Esquivel MD LAB BLOOD ORDERABL ES [facility] [address] [place] [address], [place] [phone] * Magnesium (05/30/2024 6:17 AM EST) Magnesium 2.0 1.7 - 2.8 mg/dL LAB CHEMISTRY METHOD 05/30/2024 7:11 AM EST [facility] Blood Venous blood specimen / Unknown Venipuncture / Unknown 05/30/2024 6:17 AM EST 05/30/2024 6:29 AM EST Carissa Esquivel MD LAB BLOOD ORDERABL ES [facility] [address] [place] [address], * (ABNORMAL) Basic metabolic panel (05/30/2024 6:17 AM EST) Sodium 137 135 - 145 mmol/L LAB CHEMISTRY METHOD 05/30/2024 7:11 AM [facility] Potassium 3.5 3.5 - 5.1 mmol/L LAB CHEMISTRY METHOD 05/30/2024 7:11 AM [facility] Chloride 97(L) 98 - 107 mmol/L LAB CHEMISTRY METHOD 05/30/2024 7:11 AM [facility] CO2 34(H) 24 - 32 mmol/L LAB CHEMISTRY METHOD 05/30/2024 7:11 AM [facility] Anion Gap 6 5 - 14 LAB CHEMISTRY METHOD 05/30/2024 7:11 AM EST [facility] Glucose 95 70 - 199 mg/dL LAB CHEMISTRY METHOD 05/30/2024 7:11 AM [facility] BUN 22(H) 9 - 20 mg/dL LAB CHEMISTRY METHOD 05/30/2024 7:11 AM [facility] Creatinine 0.60(L) 0.70 - 1.30 mg/dL LAB CHEMISTRY METHOD 05/30/2024 7:11 AM [facility] eGFR 109 >=60 mL/min/1. 73m2 LAB CHEMISTRY METHOD 05/30/2024 7:11 AM [facility] Comment:Calculation based on the??Chronic Kidney Disease Epidemiology Collaboration (CKD-EPI) equation refit??without adjustment for race. BUN/Creatinine Ratio 36.7(H) 12.0 - 20.0 LAB CHEMISTRY METHOD 05/30/2024 7:11 AM EST [facility] Calcium 8.2(L) 8.4 - 10.2 mg/dL LAB CHEMISTRY METHOD 05/30/2024 7:11 AM EST [facility] Blood Venous blood specimen / Unknown Venipuncture / Unknown 05/30/2024 6:17 AM EST 05/30/2024 6:29 AM EST Carissa Esquivel MD LAB BLOOD ORDERABL ES [facility] [address] [place] [address], * (ABNORMAL) Complete blood count (05/30/2024 6:17 AM EST) WBC 9.2 4.0 - 10.5 K/mcL LAB HEMETOLOGY METHOD 05/30/2024 6:44 AM EST [facility] RBC 4.89 4.70 - 6.00 M/mcL LAB HEMETOLOGY METHOD 05/30/2024 6:44 AM EST [facility] Hemoglobin 15.3 13.5 - 18.0 g/dL LAB HEMETOLOGY METHOD 05/30/2024 6:44 AM EST [facility] Hematocrit 44.4 40.0 - 54.0 % LAB HEMETOLOGY METHOD 05/30/2024 6:44 AM EST [facility] MCV 90.8 78.0 - 100.0 FL LAB HEMETOLOGY METHOD 05/30/2024 6:44 AM EST [facility] MCH 31.2 25.0 - 33.0 pcg LAB HEMETOLOGY METHOD 05/30/2024 6:44 AM EST [facility] MCHC 34.4 32.0 - 36.0 g/dL LAB HEMETOLOGY METHOD 05/30/2024 6:44 AM EST [facility] RDW 15.9 12.1 - 17.7 % LAB HEMETOLOGY METHOD 05/30/2024 6:44 AM EST [facility] Platelets 173 150 - 450 K/mcL LAB HEMETOLOGY METHOD 05/30/2024 6:44 AM EST [facility] MPV 7.0(L) 7.4 - 11.4 FL LAB HEMETOLOGY METHOD 05/30/2024 6:44 AM EST [facility] Blood Venous blood specimen / Unknown Venipuncture / Unknown 05/30/2024 6:17 AM EST 05/30/2024 6:29 AM EST Carissa Esquivel MD LAB BLOOD ORDERABL ES [facility] [address] [place] [address], [place] [phone] * POCT Glucose, blood (05/29/2024 12:17 PM EST) Glucose POCT 144 70 - 199 mg/dL 05/29/2024 12:18 PM EST [facility] Comment: Fasting Reference Range: ? 70-99 mg/dL Non-Fasting Reference Range: 70-199 mg/dL Blood Capillary blood specimen / Unknown 05/29/2024 12:17 PM EST 05/29/2024 12:19 PM EST Jonnathan Ballesteros MD LAB POINT OF CARE TE ST DOCKED DEVICE UNSOLICITED RESULTS [facility] [address] [place] [address], [place] [phone] * POCT Glucose, blood (05/29/2024 6:18 AM EST) Glucose POCT 108 70 - 199 mg/dL 05/29/2024 6:19 AM EST [facility] Comment: Fasting Reference Range: ? 70-99 mg/dL Non-Fasting Reference Range: 70-199 mg/dL Blood Capillary blood specimen / Unknown 05/29/2024 6:18 AM EST 05/29/2024 6:20 AM EST Jonnathan Ballesteros MD LAB POINT OF CARE TE ST DOCKED DEVICE UNSOLICITED RESULTS [facility] [address] [place] [address], * Magnesium (05/29/2024 5:49 AM EST) [facility] Magnesium 2.0 1.7 - 2.8 mg/dL LAB CHEMISTRY METHOD 05/29/2024 6:52 AM EST [facility] Blood Venous blood specimen / Unknown Venipuncture / Unknown 05/29/2024 5:49 AM EST 05/29/2024 6:16 AM EST Carissa Esquivel MD LAB BLOOD ORDERABL ES [facility] [address] [place] [address], * (ABNORMAL) Basic metabolic panel (05/29/2024 5:49 AM EST) [facility] Sodium 135 135 - 145 mmol/L LAB CHEMISTRY METHOD 05/29/2024 6:52 AM EST [facility] Potassium 4.1 3.5 - 5.1 mmol/L LAB CHEMISTRY METHOD 05/29/2024 6:52 AM EST [facility] Chloride 97(L) 98 - 107 mmol/L LAB CHEMISTRY METHOD 05/29/2024 6:52 AM EST [facility] CO2 31 24 - 32 mmol/L LAB CHEMISTRY METHOD 05/29/2024 6:52 AM EST [facility] Anion Gap 7 5 - 14 LAB CHEMISTRY METHOD 05/29/2024 6:52 AM EST [facility] Glucose 111(H) 70 - 99 mg/dL LAB CHEMISTRY METHOD 05/29/2024 6:52 AM [facility] BUN 22(H) 9 - 20 mg/dL LAB CHEMISTRY METHOD 05/29/2024 6:52 AM [facility] Creatinine 0.60(L) 0.70 - 1.30 mg/dL LAB CHEMISTRY METHOD 05/29/2024 6:52 AM EST [facility] eGFR 109 >=60 mL/min/1. 73m2 LAB CHEMISTRY METHOD 05/29/2024 6:52 AM EST [facility] Comment:Calculation based on the??Chronic Kidney Disease Epidemiology Collaboration (CKD-EPI) equation refit??without adjustment for race. BUN/Creatinine Ratio 36.7(H) 12.0 - 20.0 LAB CHEMISTRY METHOD 05/29/2024 6:52 AM [facility] Calcium 8.6 8.4 - 10.2 mg/dL LAB CHEMISTRY METHOD 05/29/2024 6:52 AM [facility] Blood Venous blood specimen / Unknown Venipuncture / Unknown 05/29/2024 5:49 AM EST 05/29/2024 6:16 AM EST Carissa Esquivel MD LAB BLOOD ORDERABL ES [facility] [address] [place] [address], [place] [phone] * (ABNORMAL) Complete blood count (05/29/2024 5:49 AM EST) WBC 10.3 4.0 - 10.5 K/mcL LAB HEMETOLOGY METHOD 05/29/2024 6:25 AM EST [facility] RBC 4.77 4.70 - 6.00 M/mcL LAB HEMETOLOGY METHOD 05/29/2024 6:25 AM EST [facility] Hemoglobin 14.8 13.5 - 18.0 g/dL LAB HEMETOLOGY METHOD 05/29/2024 6:25 AM EST [facility] Hematocrit 44.0 40.0 - 54.0 % LAB HEMETOLOGY METHOD 05/29/2024 6:25 AM EST [facility] MCV 92.1 78.0 - 100.0 FL LAB HEMETOLOGY METHOD 05/29/2024 6:25 AM EST [facility] MCH 31.0 25.0 - 33.0 pcg LAB HEMETOLOGY METHOD 05/29/2024 6:25 AM EST [facility] MCHC 33.7 32.0 - 36.0 g/dL LAB HEMETOLOGY METHOD 05/29/2024 6:25 AM EST [facility] RDW 16.2 12.1 - 17.7 % LAB HEMETOLOGY METHOD 05/29/2024 6:25 AM EST [facility] Platelets 172 150 - 450 K/mcL LAB HEMETOLOGY METHOD 05/29/2024 6:25 AM EST [facility] MPV 7.3(L) 7.4 - 11.4 FL LAB HEMETOLOGY METHOD 05/29/2024 6:25 AM EST [facility] Blood Venous blood specimen / Unknown Venipuncture / Unknown 05/29/2024 5:49 AM EST 05/29/2024 6:16 AM EST Carissa Esquivel MD LAB BLOOD ORDERABL ES [facility] [address] [place] [address], [place] [phone] * POCT Glucose, blood (05/29/2024 12:11 AM EST) Glucose POCT 100 70 - 199 mg/dL 05/29/2024 12:12 AM EST [facility] Comment: Fasting Reference Range: ? 70-99 mg/dL Non-Fasting Reference Range: 70-199 mg/dL Blood Capillary blood specimen / Unknown 05/29/2024 12:11 AM EST 05/29/2024 12:13 AM EST Jonnathan Ballesteros MD LAB POINT OF CARE TE ST DOCKED DEVICE UNSOLICITED RESULTS [facility] [address] [place] [address], * POCT Glucose, blood (05/28/2024 6:57 AM EST) Glucose POCT 121 70 - 199 mg/dL 05/28/2024 7:17 AM EST [facility] Comment: Fasting Reference Range: ? 70-99 mg/dL Non-Fasting Reference Range: 70-199 mg/dL Blood Capillary blood specimen / Unknown 05/28/2024 6:57 AM EST 05/28/2024 7:18 AM EST Jonnathan Ballesteros MD LAB POINT OF CARE TE ST DOCKED DEVICE UNSOLICITED RESULTS [facility] [address] [place] [address], [place] [phone] * Triglyceride Monitoring (05/28/2024 5:59 AM EST) Triglycerides 107 <150 mg/dL LAB CHEMISTRY METHOD 05/28/2024 7:18 AM EST [facility] Blood Venous blood specimen / Unknown Venipuncture / Unknown 05/28/2024 5:59 AM EST 05/28/2024 6:33 AM EST Carissa Esquivel MD LAB BLOOD ORDERABL ES Performing Organization Address City/[facility]/ZIP Co de Phone Number [facility] [address] [place] [address], * Magnesium (05/28/2024 5:59 AM EST) Pathologist [facility] Magnesium 2.2 1.7 - 2.8 mg/dL LAB CHEMISTRY METHOD 05/28/2024 7:18 AM EST [facility] Blood Venous blood specimen / Unknown Venipuncture / Unknown 05/28/2024 5:59 AM EST 05/28/2024 6:33 AM EST Carissa Esquivel MD LAB BLOOD ORDERABL ES Performing Organization Address [facility]/ZIP Co de Phone Number [facility] [address] [place] [address], * (ABNORMAL) Basic metabolic panel (05/28/2024 5:59 AM EST) Pathologist [facility] Sodium 136 135 - 145 mmol/L LAB CHEMISTRY METHOD 05/28/2024 7:18 AM [facility] Potassium 4.6 3.5 - 5.1 mmol/L LAB CHEMISTRY METHOD 05/28/2024 7:18 AM [facility] Chloride 100 98 - 107 mmol/L LAB CHEMISTRY METHOD 05/28/2024 7:18 AM [facility] CO2 29 24 - 32 mmol/L LAB CHEMISTRY METHOD 05/28/2024 7:18 AM [facility] Anion Gap 7 5 - 14 LAB CHEMISTRY METHOD 05/28/2024 7:18 AM [facility] Glucose 150(H) 70 - 99 mg/dL LAB CHEMISTRY METHOD 05/28/2024 7:18 AM [facility] BUN 26(H) 9 - 20 mg/dL LAB CHEMISTRY METHOD 05/28/2024 7:18 AM [facility] Creatinine 0.60(L) 0.70 - 1.30 mg/dL LAB CHEMISTRY METHOD 05/28/2024 7:18 AM EST [facility] eGFR 109 >=60 mL/min/1. 73m2 LAB CHEMISTRY METHOD 05/28/2024 7:18 AM EST [facility] Comment:Calculation based on the??Chronic Kidney Disease Epidemiology Collaboration (CKD-EPI) equation refit??without adjustment for race. BUN/Creatinine Ratio 43.3(H) 12.0 - 20.0 LAB CHEMISTRY METHOD 05/28/2024 7:18 AM EST [facility] Calcium 8.4 8.4 - 10.2 mg/dL LAB CHEMISTRY METHOD 05/28/2024 7:18 AM EST [facility] Blood Venous blood specimen / Unknown Venipuncture / Unknown 05/28/2024 5:59 AM EST 05/28/2024 6:33 AM EST Carissa Esquivel MD LAB BLOOD ORDERABL ES [facility] [address] [place] [address], * (ABNORMAL) Complete blood count (05/28/2024 5:59 AM EST) WBC 8.5 4.0 - 10.5 K/mcL LAB HEMETOLOGY METHOD 05/28/2024 7:03 AM EST [facility] LAB RBC 4.34(L) 4.70 - 6.00 M/mcL LAB HEMETOLOGY METHOD 05/28/2024 7:03 AM EST [facility] LAB Hemoglobin 13.7 13.5 - 18.0 g/dL LAB HEMETOLOGY METHOD 05/28/2024 7:03 AM EST [facility] LAB Hematocrit 40.0 40.0 - 54.0 % LAB HEMETOLOGY METHOD 05/28/2024 7:03 AM EST [facility] LAB MCV 92.0 78.0 - 100.0 FL LAB HEMETOLOGY METHOD 05/28/2024 7:03 AM EST [facility] LAB MCH 31.5 25.0 - 33.0 pcg LAB HEMETOLOGY METHOD 05/28/2024 7:03 AM EST [facility] LAB MCHC 34.2 32.0 - 36.0 g/dL LAB HEMETOLOGY METHOD 05/28/2024 7:03 AM EST [facility] LAB RDW 16.4 12.1 - 17.7 % LAB HEMETOLOGY METHOD 05/28/2024 7:03 AM EST [facility] LAB Platelets 148(L) 150 - 450 K/mcL LAB HEMETOLOGY METHOD 05/28/2024 7:03 AM EST [facility] LAB MPV 7.6 7.4 - 11.4 FL LAB HEMETOLOGY METHOD 05/28/2024 7:03 AM EST [facility] LAB Blood Venous blood specimen / Unknown Venipuncture / Unknown 05/28/2024 5:59 AM EST 05/28/2024 6:33 AM EST Carissa Esquivel MD LAB BLOOD ORDERABL ES [facility] LAB [address] [place] [id number], * POCT Glucose, blood (05/27/2024 5:46 PM EST) [facility] Glucose POCT 119 70 - 199 mg/dL 05/27/2024 5:47 PM EST [facility] LAB Comment: Fasting Reference Range: ? 70-99 mg/dL Non-Fasting Reference Range: 70-199 mg/dL Blood Capillary blood specimen / Unknown 05/27/2024 5:46 PM EST 05/27/2024 5:48 PM EST Jonnathan Ballesteros MD LAB POINT OF CARE TE ST DOCKED DEVICE UNSOLICITED RESULTS [facility] [address] [place] [address], [place] [phone] * (ABNORMAL) Arterial blood gas (05/27/2024 5:06 PM EST) pH, Arterial 7.51(HH) 7.35 - 7.45 pH LAB BLOOD GAS METHOD 05/27/2024 5:22 PM EST [facility] LAB pCO2, Arterial 38 35 - 45 mmHg LAB BLOOD GAS METHOD 05/27/2024 5:22 PM [facility] LAB pO2, Arterial 199(H) 80 - 105 mmHg LAB BLOOD GAS METHOD 05/27/2024 5:22 PM [facility] LAB HCO3, Arterial 31.6(H) 22.0 - 26.0 mmol/L LAB BLOOD GAS METHOD 05/27/2024 5:22 PM [facility] LAB O2 Sat, Arterial 99.8(H) 95.0 - 98.0 % LAB BLOOD GAS METHOD 05/27/2024 5:22 PM EST [facility] LAB Base Excess, Arterial 8.5(H) 0.0 - 2.0 mmol/L LAB BLOOD GAS METHOD 05/27/2024 5:22 PM [facility] LAB Florin Test Pass Pass, Unresponsi ve, Line 05/27/2024 5:22 PM EST [facility] Blood Arterial blood specimen / Unknown Arterial Puncture / Unknown 05/27/2024 5:06 PM EST 05/27/2024 5:12 PM EST Jonnathan Ballesteros MD LAB BLOOD ORDERABLES [facility] [address] [place] [address], [place] [phone] * POCT Glucose, blood (05/27/2024 12:35 PM EST) Glucose POCT 144 70 - 199 mg/dL 05/27/2024 12:36 PM EST [facility] LAB Comment: Fasting Reference Range: ? 70-99 mg/dL Non-Fasting Reference Range: 70-199 mg/dL Blood Capillary blood specimen / Unknown 05/27/2024 12:35 PM EST 05/27/2024 12:37 PM EST Jonnathan Ballesteros MD LAB POINT OF CARE TE ST DOCKED DEVICE UNSOLICITED RESULTS [facility] [address] [place] [address], * Magnesium (05/27/2024 6:37 AM EST) Magnesium 2.2 1.7 - 2.8 mg/dL LAB CHEMISTRY METHOD 05/27/2024 7:41 AM EST [facility] LAB Blood Venous blood specimen / Unknown Venipuncture / Unknown 05/27/2024 6:37 AM EST 05/27/2024 7:10 AM EST Carissa Esquivel MD LAB BLOOD ORDERABL ES [facility] [address] [place] [address], * (ABNORMAL) Basic metabolic panel (05/27/2024 6:37 AM EST) Sodium 135 135 - 145 mmol/L LAB CHEMISTRY METHOD 05/27/2024 7:41 AM EST [facility] Potassium 5.0 3.5 - 5.1 mmol/L LAB CHEMISTRY METHOD 05/27/2024 7:41 AM EST [facility] LAB Chloride 99 98 - 107 mmol/L LAB CHEMISTRY METHOD 05/27/2024 7:41 AM EST [facility] LAB CO2 29 24 - 32 mmol/L LAB CHEMISTRY METHOD 05/27/2024 7:41 AM [facility] LAB Anion Gap 7 5 - 14 LAB CHEMISTRY METHOD 05/27/2024 7:41 AM EST [facility] Glucose 130 70 - 199 mg/dL LAB CHEMISTRY METHOD 05/27/2024 7:41 AM [facility] LAB BUN 25(H) 9 - 20 mg/dL LAB CHEMISTRY METHOD 05/27/2024 7:41 AM EST [facility] LAB Creatinine 0.60(L) 0.70 - 1.30 mg/dL LAB CHEMISTRY METHOD 05/27/2024 7:41 AM EST [facility] LAB eGFR 109 >=60 mL/min/1. 73m2 LAB CHEMISTRY METHOD 05/27/2024 7:41 AM EST [facility] LAB Comment:Calculation based on the??Chronic Kidney Disease Epidemiology Collaboration (CKD-EPI) equation refit??without adjustment for race. BUN/Creatinine Ratio 41.7(H) 12.0 - 20.0 LAB CHEMISTRY METHOD 05/27/2024 7:41 AM [facility] LAB Calcium 8.2(L) 8.4 - 10.2 mg/dL LAB CHEMISTRY METHOD 05/27/2024 7:41 AM EST [facility] LAB Blood Venous blood specimen / Unknown Venipuncture / Unknown 05/27/2024 6:37 AM EST 05/27/2024 7:10 AM EST Carissa Esquivel MD LAB BLOOD ORDERABL ES [facility] [address] [place] [address], * (ABNORMAL) Complete blood count (05/27/2024 6:37 AM EST) WBC 10.1 4.0 - 10.5 K/mcL LAB HEMETOLOGY METHOD 05/27/2024 7:18 AM EST [facility] RBC 4.48(L) 4.70 - 6.00 M/mcL LAB HEMETOLOGY METHOD 05/27/2024 7:18 AM EST [facility] LAB Hemoglobin 14.2 13.5 - 18.0 g/dL LAB HEMETOLOGY METHOD 05/27/2024 7:18 AM EST [facility] LAB Hematocrit 41.1 40.0 - 54.0 % LAB HEMETOLOGY METHOD 05/27/2024 7:18 AM EST [facility] LAB MCV 91.9 78.0 - 100.0 FL LAB HEMETOLOGY METHOD 05/27/2024 7:18 AM EST [facility] LAB MCH 31.7 25.0 - 33.0 pcg LAB HEMETOLOGY METHOD 05/27/2024 7:18 AM EST [facility] LAB MCHC 34.5 32.0 - 36.0 g/dL LAB HEMETOLOGY METHOD 05/27/2024 7:18 AM EST [facility] LAB RDW 16.4 12.1 - 17.7 % LAB HEMETOLOGY METHOD 05/27/2024 7:18 AM EST [facility] LAB Platelets 159 150 - 450 K/mcL LAB HEMETOLOGY METHOD 05/27/2024 7:18 AM EST [facility] LAB MPV 7.3(L) 7.4 - 11.4 FL LAB HEMETOLOGY METHOD 05/27/2024 7:18 AM EST [facility] LAB Blood Venous blood specimen / Unknown Venipuncture / Unknown 05/27/2024 6:37 AM EST 05/27/2024 7:10 AM EST Carissa Esquivel MD LAB BLOOD ORDERABL ES [facility] [address] [place] [address], [place] [phone] * POCT Glucose, blood (05/27/2024 5:49 AM EST) Glucose POCT 117 70 - 199 mg/dL 05/27/2024 6:18 AM EST [facility] LAB Comment: Fasting Reference Range: ? 70-99 mg/dL Non-Fasting Reference Range: 70-199 mg/dL Blood Capillary blood specimen / Unknown 05/27/2024 5:49 AM EST 05/27/2024 6:19 AM EST Jonnathan Ballesteros MD LAB POINT OF CARE TE ST DOCKED DEVICE UNSOLICITED RESULTS [facility] [address] [place] [address], * POCT Glucose, blood (05/27/2024 12:17 AM EST) Glucose POCT 119 70 - 199 mg/dL 05/27/2024 2:42 AM EST [facility] LAB Comment: Fasting Reference Range: ? 70-99 mg/dL Non-Fasting Reference Range: 70-199 mg/dL Blood Capillary blood specimen / Unknown 05/27/2024 12:17 AM EST 05/27/2024 2:43 AM EST Jonnathan Ballesteros MD LAB POINT OF CARE TE ST DOCKED DEVICE UNSOLICITED RESULTS [facility] [address] [place] [address], * POCT Glucose, blood (05/26/2024 6:46 PM EST) Glucose POCT 144 70 - 199 mg/dL 05/26/2024 6:47 PM EST [facility] LAB Comment: Fasting Reference Range: ? 70-99 mg/dL Non-Fasting Reference Range: 70-199 mg/dL Blood Capillary blood specimen / Unknown 05/26/2024 6:46 PM EST 05/26/2024 6:48 PM EST Jonnathan Ballesteros MD LAB POINT OF CARE TE ST DOCKED DEVICE UNSOLICITED RESULTS [facility] [address] [place] [id number], [place] [phone] * POCT Glucose, blood (05/26/2024 12:59 PM EST) Glucose POCT 188 70 - 199 mg/dL 05/26/2024 1:00 PM EST [facility] LAB Comment: Fasting Reference Range: ? 70-99 mg/dL Non-Fasting Reference Range: 70-199 mg/dL Blood Capillary blood specimen / Unknown 05/26/2024 12:59 PM EST 05/26/2024 1:01 PM EST Jonnathan Ballesteros MD LAB POINT OF CARE TE ST DOCKED DEVICE UNSOLICITED RESULTS Performing Organization Address City/[facility]/ZIP Co de Phone Number [facility] [address] [place] [address], [place] [phone] * Triglyceride Monitoring (05/26/2024 6:49 AM EST) Triglycerides 135 <150 mg/dL LAB CHEMISTRY METHOD 05/26/2024 8:00 AM EST [facility] Blood Venous blood specimen / Unknown Venipuncture / Unknown 05/26/2024 6:49 AM EST 05/26/2024 7:14 AM EST Carissa Esquivel MD LAB BLOOD ORDERABL ES [facility] [address] [place] [address], [place] [phone] * Magnesium (05/26/2024 6:49 AM EST) Magnesium 2.2 1.7 - 2.8 mg/dL LAB CHEMISTRY METHOD 05/26/2024 8:00 AM EST [facility] Blood Venous blood specimen / Unknown Venipuncture / Unknown 05/26/2024 6:49 AM EST 05/26/2024 7:14 AM EST Carissa Esquivel MD LAB BLOOD ORDERABL ES [facility] [address] [place] [address], * (ABNORMAL) Basic metabolic panel (05/26/2024 6:49 AM EST) Sodium 137 135 - 145 mmol/L LAB CHEMISTRY METHOD 05/26/2024 8:00 AM [facility] Potassium 4.4 3.5 - 5.1 mmol/L LAB CHEMISTRY METHOD 05/26/2024 8:00 AM [facility] LAB Chloride 101 98 - 107 mmol/L LAB CHEMISTRY METHOD 05/26/2024 8:00 AM [facility] LAB CO2 28 24 - 32 mmol/L LAB CHEMISTRY METHOD 05/26/2024 8:00 AM [facility] LAB Anion Gap 8 5 - 14 LAB CHEMISTRY METHOD 05/26/2024 8:00 AM [facility] Glucose 106 70 - 199 mg/dL LAB CHEMISTRY METHOD 05/26/2024 8:00 AM [facility] BUN 30(H) 9 - 20 mg/dL LAB CHEMISTRY METHOD 05/26/2024 8:00 AM [facility] LAB Creatinine 0.60(L) 0.70 - 1.30 mg/dL LAB CHEMISTRY METHOD 05/26/2024 8:00 AM [facility] LAB eGFR 109 >=60 mL/min/1. 73m2 LAB CHEMISTRY METHOD 05/26/2024 8:00 AM [facility] LAB Comment:Calculation based on the??Chronic Kidney Disease Epidemiology Collaboration (CKD-EPI) equation refit??without adjustment for race. BUN/Creatinine Ratio 50.0(H) 12.0 - 20.0 LAB CHEMISTRY METHOD 05/26/2024 8:00 AM EST [facility] LAB Calcium 8.1(L) 8.4 - 10.2 mg/dL LAB CHEMISTRY METHOD 05/26/2024 8:00 AM EST [facility] LAB Blood Venous blood specimen / Unknown Venipuncture / Unknown 05/26/2024 6:49 AM EST 05/26/2024 7:14 AM EST Carissa Esquivel MD LAB BLOOD ORDERABL ES [facility] [address] [place] [address], * (ABNORMAL) Complete blood count (05/26/2024 6:49 AM EST) WBC 8.4 4.0 - 10.5 K/mcL LAB HEMETOLOGY METHOD 05/26/2024 7:31 AM EST [facility] RBC 4.68(L) 4.70 - 6.00 M/mcL LAB HEMETOLOGY METHOD 05/26/2024 7:31 AM EST [facility] Hemoglobin 14.3 13.5 - 18.0 g/dL LAB HEMETOLOGY METHOD 05/26/2024 7:31 AM EST [facility] LAB Hematocrit 42.6 40.0 - 54.0 % LAB HEMETOLOGY METHOD 05/26/2024 7:31 AM EST [facility] LAB MCV 90.9 78.0 - 100.0 FL LAB HEMETOLOGY METHOD 05/26/2024 7:31 AM EST [facility] LAB MCH 30.5 25.0 - 33.0 pcg LAB HEMETOLOGY METHOD 05/26/2024 7:31 AM EST [facility] MCHC 33.5 32.0 - 36.0 g/dL LAB HEMETOLOGY METHOD 05/26/2024 7:31 AM EST [facility] LAB RDW 16.5 12.1 - 17.7 % LAB HEMETOLOGY METHOD 05/26/2024 7:31 AM EST [facility] Platelets 168 150 - 450 K/[facility]L [facility]/26[facility] 7:31 AM EST [facility] MPV 7.0(L) 7.4 - 11.4 FL LAB HEMETOLOGY METHOD 05/26/2024 7:31 AM EST [facility] Blood Venous blood specimen / Unknown Venipuncture / Unknown 05/26/2024 6:49 AM EST 05/26/2024 7:14 AM EST Carissa Esquivel MD LAB BLOOD ORDERABL ES [facility] [address] [place] [id number], * POCT Glucose, blood (05/26/2024 5:35 AM EST) Glucose POCT 165 70 - 199 mg/dL 05/26/2024 5:42 AM EST [facility] LAB Comment: Fasting Reference Range: ? 70-99 mg/dL Non-Fasting Reference Range: 70-199 mg/dL Blood Capillary blood specimen / Unknown 05/26/2024 5:35 AM EST 05/26/2024 5:43 AM EST Jonnathan Ballesteros MD LAB POINT OF CARE TE ST DOCKED DEVICE UNSOLICITED RESULTS [facility] [address] [place] [id number], * POCT Glucose, blood (05/26/2024 2:53 AM EST) Glucose POCT 158 70 - 199 mg/dL 05/26/2024 2:54 AM EST [facility] Comment: Fasting Reference Range: ? 70-99 mg/dL Non-Fasting Reference Range: 70-199 mg/dL Blood Capillary blood specimen / Unknown 05/26/2024 2:53 AM EST 05/26/2024 2:55 AM EST Jonnathan Ballesteros MD LAB POINT OF CARE TE ST DOCKED DEVICE UNSOLICITED RESULTS [facility] [address] [place] [address], * POCT Glucose, blood (05/26/2024 12:55 AM EST) Glucose POCT 150 70 - 199 mg/dL 05/26/2024 1:04 AM EST [facility] Comment: Fasting Reference Range: ? 70-99 mg/dL Non-Fasting Reference Range: 70-199 mg/dL Blood Capillary blood specimen / Unknown 05/26/2024 12:55 AM EST 05/26/2024 1:05 AM EST Jonnathan Ballesteros MD LAB POINT OF CARE TE ST DOCKED DEVICE UNSOLICITED RESULTS [facility] [address] [place] [address], * POCT Glucose, blood (05/25/2024 9:16 PM EST) Glucose POCT 112 70 - 199 mg/dL 05/25/2024 9:29 PM EST [facility] Comment: Fasting Reference Range: ? 70-99 mg/dL Non-Fasting Reference Range: 70-199 mg/dL Blood Capillary blood specimen / Unknown 05/25/2024 9:16 PM EST 05/25/2024 9:30 PM EST Jonnathan Ballesteros MD LAB POINT OF CARE TE ST DOCKED DEVICE UNSOLICITED RESULTS Performing Organization Address City/[facility]/ZIP Co de Phone Number [facility] [address] [place] [address], * POCT Glucose, blood (05/25/2024 2:29 PM EST) Glucose POCT 130 70 - 199 mg/dL 05/25/2024 2:30 PM EST [facility] Comment: Fasting Reference Range: ? 70-99 mg/dL Non-Fasting Reference Range: 70-199 mg/dL Blood Capillary blood specimen / Unknown 05/25/2024 2:29 PM EST 05/25/2024 2:31 PM EST Jonnathan Ballesteros MD LAB POINT OF CARE TE ST DOCKED DEVICE UNSOLICITED RESULTS Performing Organization Address [facility] Co de Phone Number [facility] [address] [place] [address], * POCT Glucose, blood (05/25/2024 9:04 AM EST) Glucose POCT 135 70 - 199 mg/dL 05/25/2024 11:55 AM EST [facility] Comment: Fasting Reference Range: ? 70-99 mg/dL Non-Fasting Reference Range: 70-199 mg/dL Blood Capillary blood specimen / Unknown 05/25/2024 9:04 AM EST 05/25/2024 11:56 AM EST Jonnathan Ballesteros MD LAB POINT OF CARE TE ST DOCKED DEVICE UNSOLICITED RESULTS Performing Organization Address City/[facility]/ZIP Co de Phone Number [facility] [address] [place] [id number], * POCT Glucose, blood (05/25/2024 5:55 AM EST) Glucose POCT 143 70 - 199 mg/dL 05/25/2024 5:56 AM EST [facility] Comment: Fasting Reference Range: ? 70-99 mg/dL Non-Fasting Reference Range: 70-199 mg/dL Blood Capillary blood specimen / Unknown 05/25/2024 5:55 AM EST 05/25/2024 5:56 AM EST Jonnathan Ballesteros MD LAB POINT OF CARE TE ST DOCKED DEVICE UNSOLICITED RESULTS [facility] [address] [place] [address], [place] [phone] * (ABNORMAL) Basic metabolic panel (05/25/2024 5:43 AM EST) Sodium 138 135 - 145 mmol/L LAB CHEMISTRY METHOD 05/25/2024 7:27 AM [facility] Potassium 4.3 3.5 - 5.1 mmol/L LAB CHEMISTRY METHOD 05/25/2024 7:27 AM [facility] Chloride 102 98 - 107 mmol/L LAB CHEMISTRY METHOD 05/25/2024 7:27 AM [facility] LAB CO2 29 24 - 32 mmol/L LAB CHEMISTRY METHOD 05/25/2024 7:27 AM [facility] Anion Gap 7 5 - 14 LAB CHEMISTRY METHOD 05/25/2024 7:27 AM [facility] Glucose 127 70 - 199 mg/dL LAB CHEMISTRY METHOD 05/25/2024 7:27 AM [facility] BUN 27(H) 9 - 20 mg/dL LAB CHEMISTRY METHOD 05/25/2024 7:27 AM [facility] Creatinine 0.60(L) 0.70 - 1.30 mg/dL LAB CHEMISTRY METHOD 05/25/2024 7:27 AM [facility] LAB eGFR 109 >=60 mL/min/1. 73m2 LAB CHEMISTRY METHOD 05/25/2024 7:27 AM [facility] LAB Comment:Calculation based on the??Chronic Kidney Disease Epidemiology Collaboration (CKD-EPI) equation refit??without adjustment for race. BUN/Creatinine Ratio 45.0(H) 12.0 - 20.0 LAB CHEMISTRY METHOD 05/25/2024 7:27 AM EST [facility] Calcium 8.1(L) 8.4 - 10.2 mg/dL LAB CHEMISTRY METHOD 05/25/2024 7:27 AM EST [facility] Blood Venous blood specimen / Unknown Venipuncture / Unknown 05/25/2024 5:43 AM EST 05/25/2024 6:43 AM EST Carissa Esquivel MD LAB BLOOD ORDERABL ES Performing Organization Address City/[facility]/ZIP Co de Phone Number [facility] [address] [place] [phone], * Magnesium (05/25/2024 4:58 AM EST) Magnesium 2.4 1.7 - 2.8 mg/dL LAB CHEMISTRY METHOD 05/25/2024 7:19 AM EST [facility] Comment:Slightly Hemolyzed Blood Venous blood specimen / Unknown Venipuncture / Unknown 05/25/2024 4:58 AM EST 05/25/2024 5:20 AM EST Carissa Esquivel MD LAB BLOOD ORDERABL ES [facility] [address] [place] [address], [place] [phone] * (ABNORMAL) Complete blood count (05/25/2024 4:58 AM EST) WBC 10.5 4.0 - 10.5 K/mcL LAB HEMETOLOGY METHOD 05/25/2024 5:35 AM EST [facility] RBC 4.61(L) 4.70 - 6.00 M/mcL LAB HEMETOLOGY METHOD 05/25/2024 5:35 AM EST [facility] Hemoglobin 14.7 13.5 - 18.0 g/dL LAB HEMETOLOGY METHOD 05/25/2024 5:35 AM EST [facility] Hematocrit 42.3 40.0 - 54.0 % LAB HEMETOLOGY METHOD 05/25/2024 5:35 AM EST [facility] MCV 91.8 78.0 - 100.0 FL LAB HEMETOLOGY METHOD 05/25/2024 5:35 AM EST [facility] MCH 31.8 25.0 - 33.0 pcg LAB HEMETOLOGY METHOD 05/25/2024 5:35 AM EST [facility] MCHC 34.6 32.0 - 36.0 g/dL LAB HEMETOLOGY METHOD 05/25/2024 5:35 AM EST [facility] RDW 16.2 12.1 - 17.7 % LAB HEMETOLOGY METHOD 05/25/2024 5:35 AM EST [facility] Platelets 168 150 - 450 K/mcL LAB HEMETOLOGY METHOD 05/25/2024 5:35 AM EST [facility] MPV 7.0(L) 7.4 - 11.4 FL LAB HEMETOLOGY METHOD 05/25/2024 5:35 AM EST [facility] Blood Venous blood specimen / Unknown Venipuncture / Unknown 05/25/2024 4:58 AM EST 05/25/2024 5:20 AM EST Carissa Esquivel MD LAB BLOOD ORDERABL ES [facility] [address] [place] [address], [place] [phone] * POCT Glucose, blood (05/25/2024 3:56 AM EST) [facility] Glucose POCT 143 70 - 199 mg/dL 05/25/2024 3:56 AM EST [facility] Comment: Fasting Reference Range: ? 70-99 mg/dL Non-Fasting Reference Range: 70-199 mg/dL Blood Capillary blood specimen / Unknown 05/25/2024 3:56 AM EST 05/25/2024 3:58 AM EST Jonnathan Ballesteros MD LAB POINT OF CARE TE ST DOCKED DEVICE UNSOLICITED RESULTS [facility] [address] [place] [address], * POCT Glucose, blood (05/25/2024 1:05 AM EST) Glucose POCT 138 70 - 199 mg/dL 05/25/2024 1:05 AM EST [facility] Comment: Fasting Reference Range: ? 70-99 mg/dL Non-Fasting Reference Range: 70-199 mg/dL Blood Capillary blood specimen / Unknown 05/25/2024 1:05 AM EST 05/25/2024 1:06 AM EST Jonnathan Ballesteros MD LAB POINT OF CARE TE ST DOCKED DEVICE UNSOLICITED RESULTS Performing Organization Address City/[facility]/ZIP Co de Phone Number [facility] [address] [place] [address], * POCT Glucose, blood (05/24/2024 9:12 PM EST) Glucose POCT 133 70 - 199 mg/dL 05/24/2024 9:12 PM EST [facility] Comment: Fasting Reference Range: ? 70-99 mg/dL Non-Fasting Reference Range: 70-199 mg/dL Blood Capillary blood specimen / Unknown 05/24/2024 9:12 PM EST 05/24/2024 9:13 PM EST Jonnathan Ballesteros MD LAB POINT OF CARE TE ST DOCKED DEVICE UNSOLICITED RESULTS [facility] [address] [place] [address], * POCT Glucose, blood (05/24/2024 2:48 PM EST) Glucose POCT 134 70 - 199 mg/dL 05/24/2024 2:48 PM EST [facility] Comment: Fasting Reference Range: ? 70-99 mg/dL Non-Fasting Reference Range: 70-199 mg/dL Blood Capillary blood specimen / Unknown 05/24/2024 2:48 PM EST 05/24/2024 2:49 PM EST Jonnathan Ballesteros MD LAB POINT OF CARE TE ST DOCKED DEVICE UNSOLICITED RESULTS Performing Organization Address [facility]/ZIP Co de Phone Number [facility] [address] [place] [address], [place] [phone] * POCT Glucose, blood (05/24/2024 10:03 AM EST) Glucose POCT 124 70 - 199 mg/dL 05/24/2024 10:04 AM EST [facility] Comment: Fasting Reference Range: ? 70-99 mg/dL Non-Fasting Reference Range: 70-199 mg/dL Blood Capillary blood specimen / Unknown 05/24/2024 10:03 AM EST 05/24/2024 10:05 AM EST Carissa Esquivel MD LAB POINT OF CARE TEST DOCKED DEVICE UNSOLICITED RESULTS Performing Organization Address City/[facility]/ZIP Co de Phone Number [facility] [address] [place] [address], [place] [phone] * (ABNORMAL) Triglyceride Monitoring (05/24/2024 7:04 AM EST) Triglycerides 185(H) <150 mg/dL LAB CHEMISTRY METHOD 05/24/2024 7:59 AM EST [facility] Blood Venous blood specimen / Unknown Venipuncture / Unknown 05/24/2024 7:04 AM EST 05/24/2024 7:21 AM EST Carissa Esquivel MD LAB BLOOD ORDERABL ES [facility] [address] [place] [address], [place] [phone] * Magnesium (05/24/2024 7:04 AM EST) Pathologist [facility] Magnesium 2.5 1.7 - 2.8 mg/dL LAB CHEMISTRY METHOD 05/24/2024 7:59 AM EST [facility] Blood Venous blood specimen / Unknown Venipuncture / Unknown 05/24/2024 7:04 AM EST 05/24/2024 7:21 AM EST Carissa Esquivel MD LAB BLOOD ORDERABL ES Performing Organization Address City/[facility]/ZIP Co de Phone Number [facility] [address] [place] [address], [place] [phone] * (ABNORMAL) Basic metabolic panel (05/24/2024 7:04 AM EST) Pathologist [facility] Sodium 137 135 - 145 mmol/L LAB CHEMISTRY METHOD 05/24/2024 7:59 AM EST [facility] Potassium 4.1 3.5 - 5.1 mmol/L LAB CHEMISTRY METHOD 05/24/2024 7:59 AM EST [facility] Chloride 96(L) 98 - 107 mmol/L LAB CHEMISTRY METHOD 05/24/2024 7:59 AM EST [facility] CO2 28 24 - 32 mmol/L LAB CHEMISTRY METHOD 05/24/2024 7:59 AM EST [facility] Anion Gap 13 5 - 14 LAB CHEMISTRY METHOD 05/24/2024 7:59 AM EST [facility] Glucose 194 70 - 199 mg/dL LAB CHEMISTRY METHOD 05/24/2024 7:59 AM EST [facility] BUN 30(H) 9 - 20 mg/dL LAB CHEMISTRY METHOD 05/24/2024 7:59 AM EST [facility] Creatinine 0.80 0.70 - 1.30 mg/dL LAB CHEMISTRY METHOD 05/24/2024 7:59 AM EST [facility] eGFR 100 >=60 mL/min/1. 73m2 LAB CHEMISTRY METHOD 05/24/2024 7:59 AM EST [facility] Comment:Calculation based on the??Chronic Kidney Disease Epidemiology Collaboration (CKD-EPI) equation refit??without adjustment for race. BUN/Creatinine Ratio 37.5(H) 12.0 - 20.0 LAB CHEMISTRY METHOD 05/24/2024 7:59 AM EST [facility] Calcium 8.8 8.4 - 10.2 mg/dL LAB CHEMISTRY METHOD 05/24/2024 7:59 AM EST [facility] Blood Venous blood specimen / Unknown Venipuncture / Unknown 05/24/2024 7:04 AM EST 05/24/2024 7:21 AM EST Carissa Esquivel MD LAB BLOOD ORDERABL ES [facility] [address] [place] [address], * (ABNORMAL) Complete blood count (05/24/2024 7:04 AM EST) WBC 12.6(H) 4.0 - 10.5 K/mcL LAB HEMETOLOGY METHOD 05/24/2024 7:42 AM EST [facility] Comment:Verified by repeat a nalysis RBC 4.82 4.70 - 6.00 M/mcL LAB HEMETOLOGY METHOD 05/24/2024 7:42 AM EST [facility] Hemoglobin 14.8 13.5 - 18.0 g/dL LAB HEMETOLOGY METHOD 05/24/2024 7:42 AM EST [facility] Hematocrit 44.3 40.0 - 54.0 % LAB HEMETOLOGY METHOD 05/24/2024 7:42 AM EST [facility] MCV 91.9 78.0 - 100.0 FL LAB HEMETOLOGY METHOD 05/24/2024 7:42 AM EST [facility] MCH 30.8 25.0 - 33.0 pcg LAB HEMETOLOGY METHOD 05/24/2024 7:42 AM EST [facility] MCHC 33.5 32.0 - 36.0 g/dL LAB HEMETOLOGY METHOD 05/24/2024 7:42 AM EST [facility] RDW 16.0 12.1 - 17.7 % LAB HEMETOLOGY METHOD 05/24/2024 7:42 AM EST [facility] Platelets 173 150 - 450 K/mcL LAB HEMETOLOGY METHOD 05/24/2024 7:42 AM EST [facility] MPV 7.2(L) 7.4 - 11.4 FL LAB HEMETOLOGY METHOD 05/24/2024 7:42 AM EST [facility] Blood Venous blood specimen / Unknown Venipuncture / Unknown 05/24/2024 7:04 AM EST 05/24/2024 7:21 AM EST Carissa Esquivel MD LAB BLOOD ORDERABL ES [facility] [address] [place] [address], * POCT Glucose, blood (05/24/2024 6:45 AM EST) [facility] Signature Glucose POCT 164 70 - 199 mg/dL 05/24/2024 6:46 AM EST [facility] Comment: Fasting Reference Range: ? 70-99 mg/dL Non-Fasting Reference Range: 70-199 mg/dL Blood Capillary blood specimen / Unknown 05/24/2024 6:45 AM EST 05/24/2024 6:47 AM EST Carissa Esquivel MD LAB POINT OF CARE TEST DOCKED DEVICE UNSOLICITED RESULTS [facility] [address] [place] [address], * POCT Glucose, blood (05/24/2024 3:45 AM EST) Glucose POCT 196 70 - 199 mg/dL 05/24/2024 3:45 AM EST [facility] Comment: Fasting Reference Range: ? 70-99 mg/dL Non-Fasting Reference Range: 70-199 mg/dL Blood Capillary blood specimen / Unknown 05/24/2024 3:45 AM EST 05/24/2024 3:46 AM EST Carissa Esquivel MD LAB POINT OF CARE TEST DOCKED DEVICE UNSOLICITED RESULTS Performing Organization Address City/[facility] Co de Phone Number [facility] [address] [place] [address], * POCT Glucose, blood (05/23/2024 9:36 PM EST) Glucose POCT 146 70 - 199 mg/dL 05/23/2024 9:37 PM EST [facility] Comment: Fasting Reference Range: ? 70-99 mg/dL Non-Fasting Reference Range: 70-199 mg/dL Blood Capillary blood specimen / Unknown 05/23/2024 9:36 PM EST 05/23/2024 9:38 PM EST Carissa Esquivel MD LAB POINT OF CARE TEST DOCKED DEVICE UNSOLICITED RESULTS Performing Organization Address City/[facility]/ZIP Co de Phone Number [facility] [address] [place] [address], [place] [phone] * POCT Glucose, blood (05/23/2024 3:29 PM EST) Glucose POCT 175 70 - 199 mg/dL 05/23/2024 3:31 PM EST [facility] Comment: Fasting Reference Range: ? 70-99 mg/dL Non-Fasting Reference Range: 70-199 mg/dL Blood Capillary blood specimen / Unknown 05/23/2024 3:29 PM EST 05/23/2024 3:32 PM EST Carissa Esquivel MD LAB POINT OF CARE TEST DOCKED DEVICE UNSOLICITED RESULTS Performing Organization Address City/[facility]/ZIP Co de Phone Number [facility] [address] [place] [address], [place] [phone] * POCT Glucose, blood (05/23/2024 8:32 AM EST) Glucose POCT 151 70 - 199 mg/dL 05/23/2024 8:32 AM EST [facility] Comment: Fasting Reference Range: ? 70-99 mg/dL Non-Fasting Reference Range: 70-199 mg/dL Blood Capillary blood specimen / Unknown 05/23/2024 8:32 AM EST 05/23/2024 8:33 AM EST Carissa Esquivel MD LAB POINT OF CARE TEST DOCKED DEVICE UNSOLICITED RESULTS Performing Organization Address City/[facility]/ZIP Co de Phone Number [facility] [address] [place] [address], [place] [phone] * (ABNORMAL) Arterial blood gas (05/23/2024 8:26 AM EST) pH, Arterial 7.39 7.35 - 7.45 pH LAB BLOOD GAS METHOD 05/23/2024 8:50 AM EST [facility] pCO2, Arterial 52(H) 35 - 45 mmHg LAB BLOOD GAS METHOD 05/23/2024 8:50 AM [facility] pO2, Arterial 189(H) 80 - 105 mmHg LAB BLOOD GAS METHOD 05/23/2024 8:50 AM [facility] HCO3, Arterial 29.0(H) 22.0 - 26.0 mmol/L LAB BLOOD GAS METHOD 05/23/2024 8:50 AM [facility] O2 Sat, Arterial 100.0(H) 95.0 - 98.0 % LAB BLOOD GAS METHOD 05/23/2024 8:50 AM [facility] Base Excess, Arterial 5.2(H) 0.0 - 2.0 mmol/L LAB BLOOD GAS METHOD 05/23/2024 8:50 AM [facility] FIO2 40.00 05/23/2024 8:50 AM [facility] Blood Arterial blood specimen / Unknown Arterial Puncture / Unknown 05/23/2024 8:26 AM EST 05/23/2024 8:32 AM EST Carissa Esquivel MD LAB BLOOD ORDERABL ES [facility] [address] [place] [address], * POCT Glucose, blood (05/23/2024 7:30 AM EST) [facility] Signature Glucose POCT 146 70 - 199 mg/dL 05/23/2024 7:30 AM EST [facility] Comment: Fasting Reference Range: ? 70-99 mg/dL Non-Fasting Reference Range: 70-199 mg/dL Blood Capillary blood specimen / Unknown 05/23/2024 7:30 AM EST 05/23/2024 7:31 AM EST Carissa Esquivel MD LAB POINT OF CARE TEST DOCKED DEVICE UNSOLICITED RESULTS Performing Organization Address [facility] de Phone Number [facility] [address] [place] [address], [place] [phone] * Phosphorus (05/23/2024 5:59 AM EST) Phosphorus 3.3 2.5 - 4.5 mg/dL LAB CHEMISTRY METHOD 05/23/2024 7:11 AM EST [facility] Blood Venous blood specimen / Unknown Venipuncture / Unknown 05/23/2024 5:59 AM EST 05/23/2024 6:27 AM EST Vesna Solorzano NP LAB BLOOD ORDERABLES Performing Organization Address [facility] de Phone Number [facility] [address] [place] [address], [place] [phone] * Magnesium (05/23/2024 5:59 AM EST) Magnesium 2.1 1.7 - 2.8 mg/dL LAB CHEMISTRY METHOD 05/23/2024 7:11 AM EST [facility] Blood Venous blood specimen / Unknown Venipuncture / Unknown 05/23/2024 5:59 AM EST 05/23/2024 6:27 AM EST Vesna Solorzano NP LAB BLOOD ORDERABLES Performing Organization Address [facility] Co de Phone Number [facility] [address] [place] [address], [place] [phone] * (ABNORMAL) Complete blood count (05/23/2024 5:59 AM EST) WBC 7.4 4.0 - 10.5 K/mcL LAB HEMETOLOGY METHOD 05/23/2024 6:41 AM EST [facility] RBC 4.73 4.70 - 6.00 M/mcL LAB HEMETOLOGY METHOD 05/23/2024 6:41 AM EST [facility] Hemoglobin 14.9 13.5 - 18.0 g/dL LAB HEMETOLOGY METHOD 05/23/2024 6:41 AM EST [facility] Hematocrit 43.5 40.0 - 54.0 % LAB HEMETOLOGY METHOD 05/23/2024 6:41 AM EST [facility] MCV 91.9 78.0 - 100.0 FL LAB HEMETOLOGY METHOD 05/23/2024 6:41 AM EST [facility] MCH 31.4 25.0 - 33.0 pcg LAB HEMETOLOGY METHOD 05/23/2024 6:41 AM [facility] MCHC 34.2 32.0 - 36.0 g/dL LAB HEMETOLOGY METHOD 05/23/2024 6:41 AM EST [facility] RDW 15.4 12.1 - 17.7 % LAB HEMETOLOGY METHOD 05/23/2024 6:41 AM EST [facility] Platelets 152 150 - 450 K/mcL LAB HEMETOLOGY METHOD 05/23/2024 6:41 AM EST [facility] MPV 7.0(L) 7.4 - 11.4 FL LAB HEMETOLOGY METHOD 05/23/2024 6:41 AM EST [facility] Blood Venous blood specimen / Unknown Venipuncture / Unknown 05/23/2024 5:59 AM EST 05/23/2024 6:27 AM EST Vesna Solorzano NP LAB BLOOD ORDERABLES [facility] [address] [place] [address], * (ABNORMAL) Basic metabolic panel (05/23/2024 5:59 AM EST) Sodium 135 135 - 145 mmol/L LAB CHEMISTRY METHOD 05/23/2024 7:11 AM [facility] Potassium 4.1 3.5 - 5.1 mmol/L LAB CHEMISTRY METHOD 05/23/2024 7:11 AM [facility] Chloride 96(L) 98 - 107 mmol/L LAB CHEMISTRY METHOD 05/23/2024 7:11 AM [facility] CO2 29 24 - 32 mmol/L LAB CHEMISTRY METHOD 05/23/2024 7:11 AM [facility] Anion Gap 10 5 - 14 LAB CHEMISTRY METHOD 05/23/2024 7:11 AM [facility] Glucose 171 70 - 199 mg/dL LAB CHEMISTRY METHOD 05/23/2024 7:11 AM [facility] BUN 20 9 - 20 mg/dL LAB CHEMISTRY METHOD 05/23/2024 7:11 AM [facility] Creatinine 0.70 0.70 - 1.30 mg/dL LAB CHEMISTRY METHOD 05/23/2024 7:11 AM [facility] eGFR 104 >=60 mL/min/1. 73m2 LAB CHEMISTRY METHOD 05/23/2024 7:11 AM [facility] Comment:Calculation based on the??Chronic Kidney Disease Epidemiology Collaboration (CKD-EPI) equation refit??without adjustment for race. BUN/Creatinine Ratio 28.6(H) 12.0 - 20.0 LAB CHEMISTRY METHOD 05/23/2024 7:11 AM [facility] Calcium 8.4 8.4 - 10.2 mg/dL LAB CHEMISTRY METHOD 05/23/2024 7:11 AM [facility] Blood Venous blood specimen / Unknown Venipuncture / Unknown 05/23/2024 5:59 AM EST 05/23/2024 6:27 AM EST Vesna Solorzano [employer] LAB BLOOD ORDERABLES [facility] [address] [place] [address], * POCT Glucose, blood (05/23/2024 2:56 AM EST) Glucose POCT 143 70 - 199 mg/dL 05/23/2024 2:57 AM EST [facility] Comment: Fasting Reference Range: ? 70-99 mg/dL Non-Fasting Reference Range: 70-199 mg/dL Blood Capillary blood specimen / Unknown 05/23/2024 2:56 AM EST 05/23/2024 2:58 AM EST Carissa Esquivel MD LAB POINT OF CARE TEST DOCKED DEVICE UNSOLICITED RESULTS Performing Organization Address [facility]/ZIP Co de Phone Number [facility] [address] [place] [address], [place] [phone] * POCT Glucose, blood (05/22/2024 11:20 PM EST) [facility] Signature Glucose POCT 166 70 - 199 mg/dL 05/22/2024 11:21 PM EST [facility] Comment: Fasting Reference Range: ? 70-99 mg/dL Non-Fasting Reference Range: 70-199 mg/dL Blood Capillary blood specimen / Unknown 05/22/2024 11:20 PM EST 05/22/2024 11:22 PM EST Carissa Esquivel MD LAB POINT OF CARE TEST DOCKED DEVICE UNSOLICITED RESULTS Performing Organization Address City/[facility]/ZIP Co de Phone Number [facility] [address] [place] [address], [place] [phone] * Legionella antigen urine, EIA (05/22/2024 3:08 PM EST) Legionella Urinary Antigen Negative Negative 05/26/2024 11:48 AM EST [facility] Comment: Presumptive negative for L. pneumophila serogroup 1 antigen in urine, suggesting no recent or current infection. Legionnaires' disease cannot be ruled out since other serogroups and species may also cause disease. Test performed at [facility], [address] , [place], [place] ??[address] ? [phone] Nany Jolly MD, PhD - [employer] Urine Urine specimen from urinary conduit / Unknown Non-blood Collection / Unknown 05/22/2024 3:08 PM EST 05/22/2024 3:13 PM EST Vesna Solorzano NP LAB URINE ORDERABLES [facility] [address] [place] [address] * POCT Glucose, blood (05/22/2024 3:01 PM EST) Glucose POCT 148 70 - 199 mg/dL 05/22/2024 3:02 PM EST [facility] Comment: Fasting Reference Range: ? 70-99 mg/dL Non-Fasting Reference Range: 70-199 mg/dL Blood Capillary blood specimen / Unknown 05/22/2024 3:01 PM EST 05/22/2024 3:03 PM EST Carissa Esquivel MD LAB POINT OF CARE TEST DOCKED DEVICE UNSOLICITED RESULTS [facility] [address] [place] [address], * Type and screen (05/22/2024 12:28 PM EST) ABO Group O 05/22/2024 1:59 PM EST [facility] Rh Type Positive 05/22/2024 1:59 PM EST [facility] Antibody Screen Negative 05/22/2024 1:59 PM EST [facility] Blood Venous blood specimen / Unknown Venipuncture / Unknown 05/22/2024 12:28 PM EST 05/22/2024 12:32 PM EST Carissa Esquivel MD LAB BLOOD BANK CHERIE T ORDERABLES [facility] [address] [place] [address], * POCT Glucose, blood (05/22/2024 12:23 PM EST) Pathologist [facility] Glucose POCT 118 70 - 199 mg/dL 05/22/2024 12:23 PM EST [facility] Comment: Fasting Reference Range: ? 70-99 mg/dL Non-Fasting Reference Range: 70-199 mg/dL Blood Capillary blood specimen / Unknown 05/22/2024 12:23 PM EST 05/22/2024 12:24 PM EST Carissa Esquivel MD LAB POINT OF CARE TEST DOCKED DEVICE UNSOLICITED RESULTS [facility] [address] [place] [address], [place] [phone] * (ABNORMAL) CBC auto differential (05/22/2024 11:18 AM EST) Pathologist [facility] WBC 7.6 4.0 - 10.5 K/mcL LAB HEMETOLOGY METHOD 05/22/2024 11:31 AM EST [facility] RBC 4.22(L) 4.70 - 6.00 M/mcL LAB HEMETOLOGY METHOD 05/22/2024 11:31 AM EST [facility] Hemoglobin 13.1(L) 13.5 - 18.0 g/dL LAB HEMETOLOGY METHOD 05/22/2024 11:31 AM EST [facility] Hematocrit 39.2(L) 40.0 - 54.0 % LAB HEMETOLOGY METHOD 05/22/2024 11:31 AM [facility] MCV 93.1 78.0 - 100.0 FL LAB HEMETOLOGY METHOD 05/22/2024 11:31 AM [facility] MCH 31.2 25.0 - 33.0 pcg LAB HEMETOLOGY METHOD 05/22/2024 11:31 AM [facility] MCHC 33.5 32.0 - 36.0 g/dL LAB HEMETOLOGY METHOD 05/22/2024 11:31 AM [facility] RDW 16.0 12.1 - 17.7 % LAB HEMETOLOGY METHOD 05/22/2024 11:31 AM [facility] Platelets 144(L) 150 - 450 K/mcL LAB HEMETOLOGY METHOD 05/22/2024 11:31 AM [facility] MPV 6.6(L) 7.4 - 11.4 FL LAB HEMETOLOGY METHOD 05/22/2024 11:31 AM [facility] Neutrophils Relative 81.5(H) 44.0 - 74.0 % LAB HEMETOLOGY METHOD 05/22/2024 11:31 AM [facility] Lymphocytes Relative 8.4(L) 20.0 - 48.0 % LAB HEMETOLOGY METHOD 05/22/2024 11:31 AM [facility] Monocytes Relative 9.6 2.0 - 12.0 % LAB HEMETOLOGY METHOD 05/22/2024 11:31 AM [facility] Eosinophils Relative 0.0 0.0 - 6.0 % LAB HEMETOLOGY METHOD 05/22/2024 11:31 AM [facility] Basophils Relative 0.5 0.0 - 2.0 % LAB HEMETOLOGY METHOD 05/22/2024 11:31 AM [facility] Neutrophils Absolute 6.20 1.80 - 7.80 K/mcL LAB HEMETOLOGY METHOD 05/22/2024 11:31 AM EST [facility] Lymphocytes Absolute 0.60(L) 1.00 - 3.20 K/mcL LAB HEMETOLOGY METHOD 05/22/2024 11:31 AM EST [facility] Monocytes Absolute 0.70 0.00 - 0.80 K/mcL LAB HEMETOLOGY METHOD 05/22/2024 11:31 AM EST [facility] Eosinophils Absolute 0.00 0.00 - 0.50 K/mcL LAB HEMETOLOGY METHOD 05/22/2024 11:31 AM EST [facility] Basophils Absolute 0.00 0.00 - 0.20 K/mcL LAB HEMETOLOGY METHOD 05/22/2024 11:31 AM EST [facility] Blood Venous blood specimen / Unknown Venipuncture / Unknown 05/22/2024 11:18 AM EST 05/22/2024 11:26 AM EST Vesna Solorzano NP LAB BLOOD ORDERABLES [facility] [address] [place] [address], [place] [phone] * MRSA molecular study (05/22/2024 10:04 AM EST) Pathologist [facility] MRSA Screen PCR Not Detected Not Detected LAB MOLECULAR DIAGNOSTICS METHOD 05/22/2024 12:07 PM EST [facility] Swab Both anterior nares / Unknown Non-blood Collection / Unknown 05/22/2024 10:04 AM EST 05/22/2024 10:08 AM EST Vesna Solorzano NP LAB MICROBIOLOGY - G ENERAL ORDERABLES [facility] [address] [place] [address], [place] [phone] * (ABNORMAL) Culture respiratory with gram stain (05/22/2024 9:14 AM EST) Culture, Respiratory No potential pathogens in significant amounts including MRSA/Staph Aureus or Pseudomonas 05/24/2024 9:46 AM EST [facility] Gram Stain Result Greater than 25 WBCS and less than 10 Epithelial cells(A) 05/24/2024 9:46 AM EST [facility] Gram Stain Result Many WBCs present(A) 05/24/2024 9:46 AM EST [facility] Gram Stain Result Few Epithelial cells(A) 05/24/2024 9:46 AM EST [facility] Gram Stain Result Few Gram negative bacilli(A) 05/24/2024 9:46 AM EST [facility] Gram Stain Result Moderate Gram positive cocci(A) 05/24/2024 9:46 AM EST [facility] Sputum, induced Tracheal structure / Unknown 05/22/2024 9:14 AM EST 05/22/2024 9:20 AM EST Vesna Solorzano NP LAB MICROBIOLOGY - G ENERAL ORDERABLES [facility] [address] [place] [address], [place] [phone] * Blood Culture, Peripheral Draw #2 (05/22/2024 9:02 AM EST) Culture, Blood No growth at 5 days 05/27/2024 10:01 AM EST [facility] Blood Venous blood specimen / Unknown Venipuncture / Unknown 05/22/2024 9:02 AM EST 05/22/2024 9:18 AM EST Vesna Solorzano NP LAB MICROBIOLOGY - G ENERAL ORDERABLES [facility] [address] [place] [address], [place] [phone] * Culture urine (05/22/2024 9:00 AM EST) Culture, Urine No growth 05/23/2024 10:10 AM EST [facility] Urine Urine specimen from urinary conduit / Unknown Non-blood Collection / Unknown 05/22/2024 9:00 AM EST 05/22/2024 9:42 AM EST Vesna Solorzano NP LAB MICROBIOLOGY - G ENERAL ORDERABLES [facility] [address] [place] [address], * [place] urine culture tube (05/22/2024 9:00 AM EST) Pathologist [facility] Extra Tube Hold for add-ons. 05/22/2024 11:01 AM EST [facility] Comment:Auto resulted. Urine Urine specimen from urinary conduit / Unknown Non-blood Collection / Unknown 05/22/2024 9:00 AM EST 05/22/2024 9:15 AM EST Vesna Solorzano NP LAB URINE ORDERABLES [facility] [address] [place] [address], [place] [phone] * (ABNORMAL) Urinalysis with reflex microscopic and culture (05/22/2024 9:00 AM EST) Color, Urine Yellow Yellow, Colorless LAB URINALYSIS - AUTOMATED METHOD 05/22/2024 9:42 AM EST [facility] Clarity, Urine Hazy(A) Clear LAB URINALYSIS - AUTOMATED METHOD 05/22/2024 9:42 AM [facility] Specific [place] Urine >1.060(H) 1.005 - 1.030 LAB URINALYSIS - AUTOMATED METHOD 05/22/2024 9:42 AM EST [facility] pH, Urine 5.0(A) 5.0 - 8.0 pH LAB URINALYSIS - AUTOMATED METHOD 05/22/2024 9:42 AM [facility] Leukocytes, Urine Trace(A) Negative WBCs/mcL LAB URINALYSIS - AUTOMATED METHOD 05/22/2024 9:42 AM [facility] Nitrite, Urine Negative Negative LAB URINALYSIS - AUTOMATED METHOD 05/22/2024 9:42 AM [facility] Protein, Urine 100(A) Negative mg/dL LAB URINALYSIS - AUTOMATED METHOD 05/22/2024 9:42 AM [facility] Glucose, Urine Negative Negative mg/dL LAB URINALYSIS - AUTOMATED METHOD 05/22/2024 9:42 AM [facility] Ketones, Urine Negative Negative mg/dL LAB URINALYSIS - AUTOMATED METHOD 05/22/2024 9:42 AM [facility] Blood, Urine Moderate(A) Negative mg/dL LAB URINALYSIS - AUTOMATED METHOD 05/22/2024 9:42 AM [facility] RBC, Urine 118(H) 0 - 3 /HPF LAB URINALYSIS - AUTOMATED METHOD 05/22/2024 9:42 AM [facility] WBC, Urine 7(H) 0 - 5 /HPF LAB URINALYSIS - AUTOMATED METHOD 05/22/2024 9:42 AM [facility] Squamous Epithelial, Urine 0 0 - 5 /HPF LAB URINALYSIS - AUTOMATED METHOD 05/22/2024 9:42 AM [facility] Mucus, Urine Present(A) Not Present /HPF LAB URINALYSIS - AUTOMATED METHOD 05/22/2024 9:42 AM [facility] Urine Urine specimen from urinary conduit / Unknown Non-blood Collection / Unknown 05/22/2024 9:00 AM EST 05/22/2024 9:15 AM EST Vesna Solorzano NP LAB URINE ORDERABLES [facility] [address] [place] [address], * Drug abuse screen 9a panel, urine (05/22/2024 9:00 AM EST) Amphetamine Screen, Ur Negative Negative LAB CHEMISTRY METHOD 05/22/2024 10:10 AM EST [facility] Barbiturate Screen, Ur Negative Negative LAB CHEMISTRY METHOD 05/22/2024 10:10 AM [facility] [facility] Benzodiazepine Screen, Ur Negative Negative LAB CHEMISTRY METHOD 05/22/2024 10:10 AM [facility] Comment:Method not sensitive to Lorazepam and derivatives. Include clinical correlation in test interpretation. Opiate Screen, Ur Negative Negative LAB CHEMISTRY METHOD 05/22/2024 10:10 AM [facility] Cannabinoid (THC) Screen, Ur Negative Negative LAB CHEMISTRY METHOD 05/22/2024 10:10 AM [facility] Benzoylecgonine, Ur Negative Negative LAB CHEMISTRY METHOD 05/22/2024 10:10 AM [facility] Fentanyl, Ur Negative Negative LAB CHEMISTRY METHOD 05/22/2024 10:10 AM [facility] Oxycodone Screen, Ur Negative Negative LAB CHEMISTRY METHOD 05/22/2024 10:10 AM [facility] PCP Scrn, Ur Negative Negative LAB CHEMISTRY METHOD 05/22/2024 10:10 AM [facility] Urine Urine specimen from urinary conduit / Unknown Non-blood Collection / Unknown 05/22/2024 9:00 AM EST 05/22/2024 9:15 AM EST Narrative [facility] - 05/22/2024 10:10 AM EST URINE DRUGS OF ABUSE CUTOFF CONCENTRATIONS: Amphetamines ?1000 ng/mL Barbituates ?200 ng/mL Benzodiazepine ?? 200 ng/mL Cannabinoids ?50 ng/mL Benzoylecgonine ??300 ng/mL Opiates ?300 ng/mL PCP ? 25 ng/mL Vesna Solorzano NP LAB URINE ORDERABLES [facility] [address] [place] [id number], * Thyroid stimulating hormone with reflex free T4 (05/22/2024 8:52 AM EST) TSH 1.25 0.45 - 5.33 mcIU/mL LAB CHEMISTRY METHOD 05/22/2024 10:08 AM EST [facility] Blood Venous blood specimen / Unknown Venipuncture / Unknown 05/22/2024 8:52 AM EST 05/22/2024 9:16 AM EST Vesna Solorzano NP LAB BLOOD ORDERABLES [facility] [address] [place] [id number], * Ammonia (05/22/2024 8:52 AM EST) Ammonia 05/22/2024 10:41 AM EST [facility] Comment:Unable to obtain a v alid result Blood Venous blood specimen / Unknown Venipuncture / Unknown 05/22/2024 8:52 AM EST 05/22/2024 9:17 AM EST Narrative [facility] - 05/22/2024 10:41 AM EST Deisy Mcgill RN notified at 1041 am Vesna Solorzano NP LAB BLOOD ORDERABLES [facility] [address] [place] [id number], * Type and screen (05/22/2024 8:52 AM EST) ABO Group O 05/22/2024 11:48 AM EST [facility] Rh Type Positive 05/22/2024 11:48 AM EST [facility] Comment: NO HISTORY; PATIENT REQUIRES 2ND ABORH PRIOR TO TRANSFUSION. SPECIMEN QUANTITY INSUFFICIENT; PLEASE REORDER TYSC. Antibody Screen Negative 05/22/2024 11:48 AM EST [facility] Blood Venous blood specimen / Unknown Venipuncture / Unknown 05/22/2024 8:52 AM EST 05/22/2024 9:16 AM EST Vesna Solorzano NP LAB BLOOD BANK TEST ORDERABLES [facility] [address] [place] [address], * (ABNORMAL) Lactate, whole blood (05/22/2024 8:52 AM EST) Lactate, Whole Blood 2.5(H) 0.5 - 2.2 mmol/L LAB BLOOD GAS METHOD 05/22/2024 9:27 AM EST [facility] Blood Venous blood specimen / Unknown Venipuncture / Unknown 05/22/2024 8:52 AM EST 05/22/2024 9:17 AM EST Vesna Solorzano NP LAB BLOOD ORDERABLES [facility] [address] [place] [address], [place] [phone] * Blood Culture, Peripheral Draw #1 (05/22/2024 8:51 AM EST) Culture, Blood No growth at 5 days 05/27/2024 10:01 AM EST [facility] Blood Venous blood specimen / Unknown Venipuncture / Unknown 05/22/2024 8:51 AM EST 05/22/2024 9:19 AM EST Vesna Solorzano NP LAB MICROBIOLOGY - G ENERAL ORDERABLES [facility] [address] [place] [address], * POCT Glucose, blood (05/22/2024 8:45 AM EST) [facility] Glucose POCT 118 70 - 199 mg/dL 05/22/2024 8:46 AM EST [facility] Comment: Fasting Reference Range: ? 70-99 mg/dL Non-Fasting Reference Range: 70-199 mg/dL Blood Capillary blood specimen / Unknown 05/22/2024 8:45 AM EST 05/22/2024 8:47 AM EST Carissa Esquivel MD LAB POINT OF CARE TEST DOCKED DEVICE UNSOLICITED RESULTS [facility] [address] [place] [address], [place] [phone] * (ABNORMAL) Arterial blood gas (05/22/2024 8:38 AM EST) pH, Arterial 7.31(L) 7.35 - 7.45 pH LAB BLOOD GAS METHOD 05/22/2024 9:04 AM EST [facility] pCO2, Arterial 63(H) 35 - 45 mmHg LAB BLOOD GAS METHOD 05/22/2024 9:04 AM EST [facility] pO2, Arterial 215(H) 80 - 105 mmHg LAB BLOOD GAS METHOD 05/22/2024 9:04 AM EST [facility] HCO3, Arterial 27.8(H) 22.0 - 26.0 mmol/L LAB BLOOD GAS METHOD 05/22/2024 9:04 AM EST [facility] O2 Sat, Arterial 99.5(H) 95.0 - 98.0 % LAB BLOOD GAS METHOD 05/22/2024 9:04 AM EST [facility] Base Excess, Arterial 3.6(H) 0.0 - 2.0 mmol/L LAB BLOOD GAS METHOD 05/22/2024 9:04 AM EST [facility] Florin Test Pass Pass, Unresponsi ve, Line 05/22/2024 9:04 AM EST [facility] FIO2 50.00 05/22/2024 9:04 AM EST [facility] Blood Arterial blood specimen / Unknown Arterial Puncture / Unknown 05/22/2024 8:38 AM EST 05/22/2024 8:56 AM EST Vesna Solorzano NP LAB BLOOD ORDERABLES [facility] [address] [place] [address], [place] [phone] * Vitamin B12 and folate (05/22/2024 7:32 AM EST) [facility] Vitamin B-12 317 180 - 914 pcg/mL LAB CHEMISTRY METHOD 05/22/2024 8:47 AM EST [facility] Folate 10.0 >=3.0 ng/ml LAB CHEMISTRY METHOD 05/22/2024 8:47 AM EST [facility] Blood Venous blood specimen / Unknown Venipuncture / Unknown 05/22/2024 7:32 AM EST 05/22/2024 7:39 AM EST Vesna Solorzano NP LAB BLOOD ORDERABLES [facility] [address] [place] [address], [place] [phone] * Troponin I high sensitivity (05/22/2024 7:32 AM EST) [facility] High Sensitivity Troponin I 10 0 - 20 ng/L LAB CHEMISTRY METHOD 05/22/2024 8:47 AM EST [facility] Blood Venous blood specimen / Unknown Venipuncture / Unknown 05/22/2024 7:32 AM EST 05/22/2024 7:39 AM EST Narrative [facility] - 05/22/2024 8:47 AM EST HSTnI [...] method is an immunoenzymatic assay manufactured by [employer] and performed on the [employer]Generator DxI 800. Vesna Solorzano NP LAB BLOOD ORDERABLES [facility] [address] [place] [id number], * Phosphorus (05/22/2024 7:32 AM EST) [facility] Phosphorus 4.2 2.5 - 4.5 mg/dL LAB CHEMISTRY METHOD 05/22/2024 8:30 AM EST [facility] Blood Venous blood specimen / Unknown Venipuncture / Unknown 05/22/2024 7:32 AM EST 05/22/2024 7:39 AM EST Vesna Solorzano NP LAB BLOOD ORDERABLES [facility] [address] [place] [id number], * Magnesium (05/22/2024 7:32 AM EST) [facility] Magnesium 2.1 1.7 - 2.8 mg/dL LAB CHEMISTRY METHOD 05/22/2024 8:30 AM EST [facility] Blood Venous blood specimen / Unknown Venipuncture / Unknown 05/22/2024 7:32 AM EST 05/22/2024 7:39 AM EST Vesna Solorzano JAVED LAB BLOOD ORDERABLES [facility] [address] [place] [address], * (ABNORMAL) Comprehensive metabolic panel (05/22/2024 7:32 AM EST) Sodium 137 135 - 145 mmol/L LAB CHEMISTRY METHOD 05/22/2024 8:30 AM EST [facility] Potassium 4.6 3.5 - 5.1 mmol/L LAB CHEMISTRY METHOD 05/22/2024 8:30 AM EST [facility] Chloride 97(L) 98 - 107 mmol/L LAB CHEMISTRY METHOD 05/22/2024 8:30 AM EST [facility] CO2 32 24 - 32 mmol/L LAB CHEMISTRY METHOD 05/22/2024 8:30 AM EST [facility] Anion Gap 8 5 - 14 LAB CHEMISTRY METHOD 05/22/2024 8:30 AM [facility] Glucose 124 70 - 199 mg/dL LAB CHEMISTRY METHOD 05/22/2024 8:30 AM EST [facility] BUN 13 9 - 20 mg/dL LAB CHEMISTRY METHOD 05/22/2024 8:30 AM EST [facility] Creatinine 0.70 0.70 - 1.30 mg/dL LAB CHEMISTRY METHOD 05/22/2024 8:30 AM EST [facility] eGFR 104 >=60 mL/min/1. 73m2 LAB CHEMISTRY METHOD 05/22/2024 8:30 AM EST [facility] Comment:Calculation based on the??Chronic Kidney Disease Epidemiology Collaboration (CKD-EPI) equation refit??without adjustment for race. BUN/Creatinine Ratio 18.6 12.0 - 20.0 LAB CHEMISTRY METHOD 05/22/2024 8:30 AM EST [facility] Calcium 8.1(L) 8.4 - 10.2 mg/dL LAB CHEMISTRY METHOD 05/22/2024 8:30 AM EST [facility] AST (SGOT) 9 5 - 40 unit/L LAB CHEMISTRY METHOD 05/22/2024 8:30 AM EST [facility] ALT (SGPT) 6(L) 7 - 52 unit/L LAB CHEMISTRY METHOD 05/22/2024 8:30 AM EST [facility] Alkaline Phosphatase 82 34 - 104 unit/L LAB CHEMISTRY METHOD 05/22/2024 8:30 AM EST [facility] Total Protein 5.7(L) 6.4 - 8.5 g/dL LAB CHEMISTRY METHOD 05/22/2024 8:30 AM EST [facility] Albumin 3.6 3.5 - 5.0 g/dL LAB CHEMISTRY METHOD 05/22/2024 8:30 AM EST [facility] Total Bilirubin 0.2(L) 0.3 - 1.0 mg/dL LAB CHEMISTRY METHOD 05/22/2024 8:30 AM EST [facility] Blood Venous blood specimen / Unknown Venipuncture / Unknown 05/22/2024 7:32 AM EST 05/22/2024 7:39 AM EST Vesna Solorzano NP LAB BLOOD ORDERABLES [facility] [address] [place] [address], * Triglyceride Monitoring (05/22/2024 7:32 AM EST) Triglycerides 118 <150 mg/dL LAB CHEMISTRY METHOD 05/22/2024 8:30 AM EST [facility] Blood Venous blood specimen / Unknown Venipuncture / Unknown 05/22/2024 7:32 AM EST 05/22/2024 7:39 AM EST Carissa Esquivel MD LAB BLOOD ORDERABL ES [facility] ([facility] [address] [place] [address], [place] [phone] documented in this encounter Visit Diagnoses Diagnosis COPD exacerbation (CMS/HCC)- Primary Obstructive chronic bronchitis with exacerbation documented in this encounter Admitting Diagnoses Diagnosis COPD exacerbation (CMS/HCC) Obstructive chronic bronchitis with exacerbation documented in this encounter Administered Medications Inactive Administered Medications - up to 3 most recent administrations Medication Order MAR Action Action Date Dose Rate Site acetaminophen (TYLENOL) tablet 650 mg 650 mg, oral, Once, On Fri05/28/24 at 2215, For 1 dose Given 05/28/2024 11:08 PM EST 650 mg azithromycin (ZITHROMAX) 500 mg in sodium chloride 0.9 % 250 mL IVPB 500 mg, intravenous, at 250 mL/hr, Administer over 60 Minutes, Every 24 hours, First dose on Fri05/23/24 at 0400, For 2 doses, Indication: Pneumonia, Community Acquired New Bag 05/24/2024 4:59 AM EST 500 mg 250 mL/hr New Bag 05/23/2024 4:27 AM EST 500 mg 250 mL/hr bisacodyL (DULCOLAX) suppository 10 mg 10 mg, rectal, Daily, First dose on Fri05/25/24 at 0900 Given 05/25/2024 11:00 AM EST 10 mg bisacodyL (DULCOLAX) suppository 10 mg 10 mg, rectal, Daily PRN, constipation, Starting on Fri05/26/24 at 0800 bisacodyL (DULCOLAX) suppository 10 mg 10 mg, rectal, Once, On Fri05/27/24 at 1200, For 1 dose Given 05/27/2024 12:36 PM EST 10 mg budesonide (PULMICORT) 0.5 mg/2 mL nebulizer solution 0.25 mg 0.25 mg, nebulization, Daily, First dose on Fri05/27/24 at 1145, Rinse mouth with water after use to reduce aftertaste and incidence of candidiasis. Do not swallow. Given 06/02/2024 8:46 AM EST 0. 25 mg Given 06/01/2024 9:48 AM EST 0.25 mg Given 05/31/2024 9:46 AM EST 0.25 mg calcium gluconate 1 gram/50 mL IVPB (premix) 1 g 1 g, intravenous, at 50 mL/hr, Administer over 60 Minutes, Once, On Fri05/25/24 at 0830, For 1 dose New Bag 05/25/2024 8:56 AM EST 1 g 50 mL/hr cefTRIAXone (ROCEPHIN) 1 g in sterile water 10 mL IV syringe 1 g, intravenous, at 200 mL/hr, Administer over 3 Minutes, Every 24 hours, First dose on Fri05/23/24 at 0400, For 7 days, Do not administer simultaneously with any calcium containing solutions via a Y-site in any patient., Indication: Pneumonia, Community Acquired Given 05/24/2024 4:59 AM EST 1 g 200 mL/hr Given 05/23/2024 4:27 AM EST 1 g 200 mL/hr cefTRIAXone (ROCEPHIN) 1 g in sterile water 10 mL IV syringe 1 g, intravenous, at 200 mL/hr, Administer over 3 Minutes, Every 24 hours, First dose (after last modification) on Fri05/25/24 at 0400, For 5 days, Do not administer simultaneously with any calcium containing solutions via a Y-site in any patient., Indication: Pneumonia, Community Acquired Given 05/29/2024 4:59 AM EST 1 g 200 mL/hr Given 05/28/2024 3:46 AM EST 1 g 200 mL/hr Given 05/27/2024 3:26 AM EST 1 g 200 mL/hr chlorhexidine (PERIDEX) 0.12 % solution 15 mL 15 mL, Mouth/Throat, Every 12 hours, First dose on 05/22/24 at 1600 Given 06/02/2024 8:46 AM EST 15 mL Given 06/01/2024 9:19 PM EST 15 mL Given 06/01/2024 9:48 AM EST 15 mL dexmedeTOMIDine (PRECEDEX) 1,000 mcg in sodium chloride 0.9 % 250 mL (4 mcg/mL) infusion 0.2-1.5 mcg/kg/hr ? 73.8 kg (3.69-27.675 mL/hr, rounded to 3.69-27.68 mL/hr), intravenous, Titrated, Starting on 05/22/24 at 1115, GOAL EFFECT: Target RASS goal INITIAL RATE: 0.2 mcg/kg/hr USUAL DOSE RANGE: 0.2 - 1.5 mcg/kg/hr TITRATION DOSE: 0.1 mcg/kg/hr TITRATION FREQUENCY: 15 min CONTACT PRESCRIBER: -If RASS goal NOT achieved at maximum rate *Individual cases may deviate from parameters and would REQUIRE an order from the provider documented in the patient record* Rate/Dose Verify 05/28/2024 11:00 AM EST 1.3 mcg/kg/hr 24 mL/hr New Bag 05/28/2024 10:16 AM EST 1.3 mcg/kg/hr 24 mL/hr Rate/Dose Verify 05/28/2024 10:00 AM EST 1.2 mcg/kg/hr 22. 1 mL/hr dexmedeTOMIDine (PRECEDEX) 200 mcg in sodium chloride 0.9 % 50 mL (4 mcg/mL) infusion 0.2-1.5 mcg/kg/hr ? 73.8 kg (3.69-27.675 mL/hr, rounded to 3.69-27.68 mL/hr), intravenous, Continuous, Starting on 05/22/24 at 0900, *If the patient FAILS the SAT, the RN will restart previously ordered sedative at one-half of the dose given prior to beginning the SAT* GOAL EFFECT: Titrate to target RASS goal INITIAL RATE: 0.2 mcg/kg/hr USUAL DOSE RANGE: 0.2 - 1.5 mcg/kg/hr TITRATION DOSE: 0.1 mcg/kg/hr TITRATION FREQUENCY: 15 mins CONTACT PRESCRIBER: -If RASS goal NOT achieved at maximum rate *Individual cases may deviate from parameters and would REQUIRE an order from the provider documented in the patient record* Rate/Dose Verify 05/22/2024 10:00 AM EST 1.5 mcg/kg/hr 27.7 mL/hr New Bag 05/22/2024 9:19 AM EST 1.5 mcg/kg/hr 27.7 mL/hr dextrose (D50W) 50% injection 12.5 g 12.5 g, intravenous, Every 15 min PRN, low blood sugar, moderate hypoglycemia *Patient is Unconscious, NPO, unable to swallow: BG 54 - 69 mg/dl*, Starting on 05/22/24 at 0902 dextrose (D50W) 50% injection 25 g 25 g, intravenous, Every 15 min PRN, low blood sugar, severe hypoglycemia *Patient is Unconscious, NPO, unable to swallow: BG LESS than 54 mg/dL*, Starting on 05/22/24 at 0902 dextrose 15 gram/60 mL oral solution 15 g 15 g, oral, Every 15 min PRN, low blood sugar, hypoglycemia *Patient conscious AND able to drink and swallow safely*, Starting on 05/22/24 at 0902 dextrose 15 gram/60 mL oral solution 30 g 30 g, oral, Every 15 min PRN, low blood sugar, hypoglycemia *Patient conscious AND able to drink and swallow safely*, Starting on 05/22/24 at 0902 enoxaparin (LOVENOX) injection 40 mg 40 mg, subcutaneous, Every 24 hours scheduled, First dose on 05/22/24 at 0900, Indication: VTE/PE Prophylaxis Given 06/02/2024 8:45 AM EST 40 mg Right Lower Abdomen Given 06/01/2024 9:49 AM EST 40 mg Le ft Upper Abdomen Given 05/31/2024 9:46 AM EST 40 mg Le ft Lower Abdomen fluPHENAZine (PROLIXIN) tablet 5 mg 5 mg, oral, Daily, First dose on Fri05/25/24 at 1045 Given 05/27/2024 8:15 AM EST 5 mg Given 05/26/2024 9:43 AM EST 5 mg Given 05/25/2024 11:52 AM EST 5 mg fluPHENAZine (PROLIXIN) tablet 5 mg 5 mg, nasogastric tube, Daily, First dose (after last modification) on Fri05/28/24 at 0900 Given 05/28/2024 8:21 AM EST 5 mg fluPHENAZine (PROLIXIN) tablet 5 mg 5 mg, oral, Daily, First dose (after last modification) on Fri05/29/24 at 0900 Given 06/02/2024 8:45 AM EST 5 mg Given 06/01/2024 9:48 AM EST 5 mg Given 05/31/2024 9:46 AM EST 5 mg furosemide (LASIX) injection 40 mg 40 mg, intravenous, Once, On Fri05/23/24 at 1215, For 1 dose Given 05/23/2024 12:18 PM EST 40 mg Glucagon HCl (rDNA) injection 1 mg 1 mg, intramuscular, Once as needed, low blood sugar, severe hypoglycemia, Starting on Fri05/22/24 at 0902, For 1 dose guaiFENesin (ROBITUSSIN) 100 mg/5 mL liquid 400 mg 400 mg, g-tube, Every 8 hours scheduled, First dose on Fri05/23/24 at 1400 Given 05/27/2024 5:49 AM EST 400 mg Given 05/26/2024 11:00 PM EST 400 mg Given 05/26/2024 3:30 PM EST 400 mg guaiFENesin (ROBITUSSIN) 100 mg/5 mL liquid 400 mg 400 mg, nasogastric tube, Every 8 hours scheduled, First dose (after last modification) on [place] 05/27/24 at 1400 Given 05/28/2024 2:00 PM EST 400 mg Given 05/28/2024 5:22 AM EST 400 mg Given 05/27/2024 9:28 PM EST 400 mg guaiFENesin (ROBITUSSIN) 100 mg/5 mL liquid 400 mg 400 mg, oral, Every 8 hours scheduled, First dose (after last modification) on Fri05/28/24 at 2200 Given 06/02/2024 5:14 AM EST 400 mg Given 06/01/2024 9:19 PM EST 400 mg Given 06/01/2024 2:29 PM EST 400 mg insulin regular (HumuLIN R) injection 1-6 Units 1-6 Units, subcutaneous, Every 6 hours, First dose on Fri05/22/24 at 0930, Indication: Total Daily Dose (TDD) LESS than 40 units Given 05/24/2024 3:47 AM EST 1 Units Left Upper Abdomen Given 05/23/2024 3:34 PM EST 1 Units Ri ght Upper Arm (Back) Given 05/23/2024 8:39 AM EST 1 Units Ri ght Upper Arm (Back) insulin regular (HumuLIN R) injection 1-6 Units 1-6 Units, subcutaneous, Every 6 hours, First dose (after last modification) on Fri05/26/24 at 0600, Indication: Total Daily Dose (TDD) LESS than 40 units Given 05/26/2024 1:00 PM EST 1 Units Left Lower Abdomen Given 05/26/2024 5:52 AM EST 1 Units Le ft Lower Abdomen ipratropium-albuteroL (DUONEB) 0.5-2.5 mg/3 mL nebulizer solution 3 mL 3 mL, nebulization, Every 6 hours, First dose (after last modification) on [facility] 05/22/24 at 1400 Given 06/02/2024 8:46 AM EST 3 mL Given 06/01/2024 9:21 PM EST 3 mL Given 06/01/2024 2:29 PM EST 3 mL lactated Ringer's bolus 1,000 mL 1,000 mL, intravenous, at 1,000 mL/hr, Administer over 1 Hours, Once, On [facility] 05/22/24 at 0900, For 1 dose Rate/Dose Verify 05/22/2024 10:00 AM EST 1000 mL/h r New Bag 05/22/2024 9:57 AM EST 1,000 mL 1000 mL/hr lactated Ringer's bolus 500 mL 500 mL, intravenous, at 500 mL/hr, Administer over 1 Hours, Once, On [facility] 05/22/24 at 1500, For 1 dose Rate/Dose Verify 05/22/2024 4:00 PM EST 500 mL/hr New Bag 05/22/2024 3:04 PM EST 500 mL 500 mL/hr lactated Ringer's bolus 500 mL 500 mL, intravenous, at 500 mL/hr, Administer over 1 Hours, Once, On [facility] 05/27/24 at 2115, For 1 dose New Bag 05/27/2024 9:06 PM EST 500 mL 500 mL/hr methylPREDNISolone sodium succ (SOLU-Medrol) injection 20 mg 20 mg, intravenous, Every 12 hours scheduled, First dose (after last modification) on [facility] 05/27/24 at 2100, Reconstitute each 40 mg vial with 1 mL sterile water for injection to a concentration of 40 mg/mL. Given 05/28/2024 9:37 PM EST 20 mg Given 05/28/2024 8:21 AM EST 20 mg Given 05/27/2024 9:28 PM EST 20 mg methylPREDNISolone sodium succ (SOLU-Medrol) injection 40 mg 40 mg, intravenous, Every 6 hours scheduled, First dose on [facility] 05/22/24 at 1200, Reconstitute each 40 mg vial with 1 mL sterile water for injection to a concentration of 40 mg/mL. Given 05/24/2024 6:02 AM EST 40 mg Given 05/24/2024 12:51 AM EST 40 mg Given 05/23/2024 6:10 PM EST 40 mg methylPREDNISolone sodium succ (SOLU-Medrol) injection 40 mg 40 mg, intravenous, Every 12 hours scheduled, First dose (after last modification) on Fri05/24/24 at 2100, Reconstitute each 40 mg vial with 1 mL sterile water for injection to a concentration of 40 mg/mL. Given 05/27/2024 8:15 AM EST 40 mg Given 05/26/2024 11:00 PM EST 40 mg Given 05/26/2024 9:43 AM EST 40 mg pantoprazole (PROTONIX) EC tablet 40 mg 40 mg, oral, Every morning before breakfast, First dose on Fri05/31/24 at 0700, Do not crush, chew, or split. Given 06/02/2024 8:46 AM EST 40 mg Given 06/01/2024 5:49 AM EST 40 mg Given 05/31/2024 9:00 AM EST 40 mg pantoprazole (PROTONIX) injection 40 mg 40 mg, intravenous, Administer over 2 Minutes, Every 24 hours, First dose on 05/22/24 at 0900, Patient MUST have BOTH: -Strict NPO (unable to take oral or liquid PPI) -Contraindication to H2RA Pantroprazole - IV push: Reconstitute powder for injection with 10 mL NS; final concentration: 4 mg/mL., Indication for IV Push Pantoprazole? Stress Ulcer Prophylaxis for patients with STRICT NPO status AND contraindication to H2RA Given 05/30/2024 10:15 AM EST 40 mg Given 05/29/2024 8:12 AM EST 40 mg Given 05/28/2024 8:21 AM EST 40 mg polyethylene glycol (MIRALAX) packet 17 g 17 g, nasogastric tube, Daily, First dose on Fri05/26/24 at 0900 Given 05/28/2024 8:20 AM EST 17 g Given 05/27/2024 8:14 AM EST 17 g Given 05/26/2024 9:43 AM EST 17 g polyethylene glycol (MIRALAX) packet 17 g 17 g, oral, Daily, First dose (after last modification) on 05/29/24 at 0900 Given 06/02/2024 8:46 AM EST 17 g Given 06/01/2024 9:48 AM EST 17 g Given 05/31/2024 9:46 AM EST 17 g potassium chloride (KLOR-CON M20) CR tablet 40 mEq 40 mEq, oral, Once, On Fri06/02/24 at 0930, For 1 dose, Tablet may be swallowed whole (do not crush/chew/suck on) OR broken in half and each half swallowed separately OR dissolved (whole tablet) in ~4 ounces of water (allow ~2 minutes to dissolve, stir well and administer immediately). Given 06/02/2024 9:43 AM EST 40 mEq predniSONE (DELTASONE) tablet 30 mg 30 mg, oral, Daily, First dose (after last modification) on Fri06/02/24 at 0900 Given 06/02/2024 8:45 AM EST 30 mg predniSONE (DELTASONE) tablet 40 mg 40 mg, oral, Daily, First dose on 05/29/24 at 0900 Given 06/01/2024 9:48 AM EST 40 mg Given 05/31/2024 9:46 AM EST 40 mg Given 05/30/2024 10:15 AM EST 40 mg propofoL (DIPRIVAN) infusion 10 mg/mL 10-80 mcg/kg/min ? 73.8 kg (4.428-35.424 mL/hr, rounded to 4.43-35.42 mL/hr), intravenous, Continuous, Starting on 05/22/24 at 0715, *If SAT failed, restart sedatives at ?? [...] propofol vials and tubing after 12 hours. Rate/Dose Verify 05/28/2024 7:00 AM EST 15 mcg/kg/min 6.64 mL/hr Rate/Dose Verify 05/28/2024 6:00 AM EST 15 mcg/kg/min 6.64 mL/hr Rate/Dose Verify 05/28/2024 5:00 AM EST 15 mcg/kg/min 6.64 mL/hr senna (SENOKOT) 8.8 mg/5 mL syrup 5 mL 5 mL, nasogastric tube, Nightly, First dose on Fri05/26/24 at 2100 Given 05/27/2024 9:28 PM EST 5 mL Given 05/26/2024 10:00 PM EST 5 mL senna (SENOKOT) 8.8 mg/5 mL syrup 5 mL 5 mL, oral, Nightly, First dose (after last modification) on 05/29/24 at 2100 Given 06/01/2024 9:19 PM EST 5 mL Given 05/31/2024 9:22 PM EST 5 mL sodium chloride 3 % nebulizer solution 4 mL 4 mL, nebulization, Every 6 hours, First dose (after last modification) on Fri05/23/24 at 1330 Given 05/24/2024 1:35 AM EST 4 mL Given 05/23/2024 7:01 PM EST 4 mL sodium chloride 3 % nebulizer solution 4 mL 4 mL, nebulization, Every 12 hours, First dose (after last modification) on Fri05/24/24 at 1930 Given 05/31/2024 10:09 PM EST 4 mL Given 05/31/2024 9:47 AM EST 4 mL Given 05/30/2024 8:43 PM EST 4 mL documented in this encounter Discontinued Medications Medication Sig Discontinue Reason Start Date End Da te ondansetron (ZOFRAN) 4 mg tablet Take 1 tablet (4 mg total) by mouth every 8 (eight) hours if needed. Entered in Error 05/30/2024 fluPHENAZine (PROLIXIN) 5 mg tablet Take 1 tablet (5 mg total) by mouth 1 (one) time each day. Entered in Error 01/08/2024 05/30/2024 dexAMETHasone (DECADRON) 4 mg tablet Take 1 tablet (4 mg total) by mouth 2 (two) times a day for 4 days. Entered in Error 05/09/2024 05/30/2024 predniSONE (DELTASONE) 20 mg tablet Take 3 tabs (60mg) daily for 3 days, then take 2 tabs (40mg) daily for 3 days, then take 1 tab (20mg) daily for 3 days. Entered in Error 05/18/2024 05/30/2024 documented as of this encounter Historical Medications * This list may reflect changes made after this encounter. Medication Sig Dispensed Refills Start Date End Date fluticasone-umeclidinium -vilanterol (Trelegy Ellipta) 100-62.5-25 mcg inhaler Inhale 1 puff (100 mcg total) by mouth 1 (one) time each day. Rinse mouth with water after use to reduce aftertaste and incidence of candidiasis. Do not swallow. added in this encounter Active and Recently Administered Medications Times are shown in EST. Scheduled Medication Order 05/31/2024 06/01/2024 06/02/2024 budesonide (PULMICORT) 0.5 mg/2 mL nebulizer solution 0.25 mg 0.25 mg, nebulization, Daily, First dose on Cinthia 05/27/24 at 1145, Rinse mouth with water after use to reduce aftertaste and incidence of candidiasis. Do not swallow. 0946 (Given - Provider: Randi Zavala RN) 0948 (Given - Provider: Randi Zavala RN) 0846 (Given - Provider: Arben Delaney RN) chlorhexidine (PERIDEX) 0.12 % solution 15 mL 15 mL, Mouth/Throat, Every 12 hours, First dose on 05/22/24 at 1600 0946 (Given - Provider: Randi Zavala RN)2121 (Given - Provider: Kavon Marques RN) 0948 (Given - Provider: Randi Zavala RN)2118 (Given - Provider: Kavon Marques RN) 0846 (Given - Provider: Arben Delaney, RN) enoxaparin (LOVENOX) injection 40 mg 40 mg, subcutaneous, Every 24 hours scheduled, First dose on 05/22/24 at 0900, Indication: VTE/PE Prophylaxis 0946 (Given - Provider: Randi Zavala RN) 0949 (Given - Provider: Randi Zavala RN) 0845 (Given - Provider: Arben Delaney, RN) fluPHENAZine (PROLIXIN) tablet 5 mg 5 mg, oral, Daily, First dose (after last modification) on 05/29/24 at 0900 0946 (Given - Provider: Randi Zavala RN) 0948 (Given - Provider: Randi Zavala RN) 0845 (Given - Provider: Arben Delaney, LUCÍA) guaiFENesin (ROBITUSSIN) 100 mg/5 mL liquid 400 mg 400 mg, oral, Every 8 hours scheduled, First dose (after last modification) on Fri05/28/24 at 2200 0533 (Given - Provider: Ese Ledesma RN)1246 (Given - Provider: Randi Zavala RN)2122 (Given - Provider: Kavon Marques RN) 0549 (Given - Provider: Kavon Marques RN)1429 (Given - Provider: Randi Zavala RN)2118 (Given - Provider: Kavon Marques RN) 0514 (Given - Provider: Kavon Marques RN) ipratropium-albuteroL (DUONEB) 0.5-2.5 mg/3 mL nebulizer solution 3 mL 3 mL, nebulization, Every 6 hours, First dose (after last modification) on Fri05/22/24 at 1400 0147 (Not Given - Provider: Ese Ledesma RN - Reason: Patient/Resident/Agen t refused - education provided )0946 (Given - Provider: Randi Zavala RN)1247 (Given - Provider: Randi Zavala RN)2121 (Given - Provider: Kavon Marques RN) 0228 (Not Given - Provider: Kavon Marques RN - Reason: Patient/Resident/Agen t refused - education provided )0949 (Given - Provider: Randi Zavala RN)1429 (Given - Provider: Randi Zavala RN)212 (Given - Provider: Kavon Marques RN) 0237 (Not Given - Provider: Kavon Marques RN - Reason: Patient/Resident/Agen t refused - education provided )0846 (Given - Provider: Arben Delaney, LUCÍA) pantoprazole (PROTONIX) EC tablet 40 mg 40 mg, oral, Every morning before breakfast, First dose on Fri05/31/24 at 0700, Do not crush, chew, or split. 0900 (Given - Provider: Randi Zavala RN) 0549 (Given - Provider: Kavon Marques RN)0950 (Canceled Entry - Provider: Randi Zavala RN - Comment: med given earlier) 0846 (Given - Provider: Arben Delaney RN) polyethylene glycol (MIRALAX) packet 17 g 17 g, oral, Daily, First dose (after last modification) on 05/29/24 at 0900 0946 (Given - Provider: Randi Zavala RN) 0948 (Given - Provider: Randi Zavala RN) 0846 (Given - Provider: Arben Delaney RN) potassium chloride (KLOR-CON M20) CR tablet 40 mEq (COMPLETED) 40 mEq, oral, Once, On Fri06/02/24 at 0930, For 1 dose, Tablet may be swallowed whole (do not crush/chew/suck on) OR broken in half and each half swallowed separately OR dissolved (whole tablet) in ~4 ounces of water (allow ~2 minutes to dissolve, stir well and administer immediately). 0943 (Given - Provider: Arben Delaney RN) predniSONE (DELTASONE) tablet 30 mg 30 mg, oral, Daily, First dose (after last modification) on Fri06/02/24 at 0900 0845 (Given - Provider: Arben Delaney RN) predniSONE (DELTASONE) tablet 40 mg (CANCELED) 40 mg, oral, Daily, First dose on Fri05/29/24 at 0900 0946 (Given - Provider: Randi Zavala RN) 0948 (Given - Provider: Randi Zavala RN) senna (SENOKOT) 8.8 mg/5 mL syrup 5 mL 5 mL, oral, Nightly, First dose (after last modification) on 05/29/24 at 2100 2122 (Given - Provider: Kavon Marques RN) 2119 (Given - Provider: Kavon Marques RN) sodium chloride 3 % nebulizer solution 4 mL (CANCELED) 4 mL, nebulization, Every 12 hours, First dose (after last modification) on Fri05/24/24 at 1930 0947 (Given - Provider: Randi Zavala RN)2209 (Given - Provider: Kavon Marques RN) 0950 (Not Given - Provider: Randi Segala, RN - Reason: Medication not available - Comment: requested from pharmacy) PRN Medication Order 05/31/2024 06/01/2024 06/02/2024 bisacodyL (DULCOLAX) suppository 10 mg 10 mg, rectal, Daily PRN, constipation, Starting on Fri05/26/24 at 0800 dextrose (D50W) 50% injection 12.5 g 12.5 g, intravenous, Every 15 min PRN, low blood sugar, moderate hypoglycemia *Patient is Unconscious, NPO, unable to swallow: BG 54 - 69 mg/dl*, Starting on 05/22/24 at 0902 dextrose (D50W) 50% injection 25 g 25 g, intravenous, Every 15 min PRN, low blood sugar, severe hypoglycemia *Patient is Unconscious, NPO, unable to swallow: BG LESS than 54 mg/dL*, Starting on 05/22/24 at 0902 dextrose 15 gram/60 mL oral solution 15 g 15 g, oral, Every 15 min PRN, low blood sugar, hypoglycemia *Patient conscious AND able to drink and swallow safely*, Starting on Fri05/22/24 at 0902 dextrose 15 gram/60 mL oral solution 30 g 30 g, oral, Every 15 min PRN, low blood sugar, hypoglycemia *Patient conscious AND able to drink and swallow safely*, Starting on Fri05/22/24 at 0902 Glucagon HCl (rDNA) injection 1 mg 1 mg, intramuscular, Once as needed, low blood sugar, severe hypoglycemia, Starting on 05/22/24 at 0902, For 1 dose documented in this encounter Orders Medications Ordered That Torsten ht Not Have Been Administered Count Last Ordered Date First Ordered Date bisacodyL (DULCOLAX) suppository 10 mg 1 sodium chloride 3 % nebulize r solution 4 mL 1 05/23/2024 dextrose (D50W) 50% injection 12.5 g 1 05/12 dextrose (D50W) 50% injection 25 g 1 2024 dextrose 15 gram/60 mL oral solution 15 g 1 05/22/2024 dextrose 15 gram/60 mL oral solution 30 g 1 05/22/2024 Glucagon HCl (rDNA) injection 1 mg 2 2024 ipratropium-albuteroL (DUONE B) 0.5-2.5 mg/3 mL nebulizer solution 3 mL 1 05/22/2024 Lab Orders Without Results Count Last Ordered D ate First Ordered Date POCT GLUCOSE, BLOOD 23 05/28/2024 05/22/19 25 Diet Count Last Ordered Date First Orde red Date ADULT DISCHARGE DIET 1 06/01/2024 Nursing Count Last Ordered Date First Orde red Date ACTIVITY 1 06/01/2024 Consult Count Last Ordered Date First Orde red Date IP CONSULT TO NUTRITION SERVICES 1 05/22/19 25 Respiratory Care Count Last Ordered Date First Ordered Date OXYGEN THERAPY, ADULT 11 06/01/20242024 EXTUBATION 1 05/28/2024 VENTILATOR, ADULT 13 05/26/2024 05/22/2024 Admission Count Last Ordered Date First Orde red Date ADMIT TO INPATIENT 1 05/22/2024 Transfer Count Last Ordered Date First Orde red Date TRANSFER PATIENT TO NEW UNIT 1 05/29/2024 Discharge Count Last Ordered Date First Orde red Date DISCHARGE PATIENT 1 06/01/2024 documented in this encounter Additional Health Concerns Infection Onset Date Last Indicated Resolved Time RSV 05/21/2024 05/21/2024 documented as of this encounter Care Teams Shirt Folding Machine Operator Relationship Specialty Start Date End Date Tori Jackson MD [address] [place] [phone] PCP - General Internal Medicine 07/03/16 documented as of this encounter
--- OUTSIDE RECORDS SUMMARY | 2024-06-07 06:34 | XMS_ITS | Encounter Summary ---
Author Organization [facility] Address [address] [place] [id number] Care Team Providers Care Check Inspector Name Role Phone Tori Jackson MD Primary Care Provider [phone] Reason for Visit * Reason Onset Date Comments Not breathing well 05/21/2024 Encounter Details Date Type Department Care Team (Late st Contact Info) Description 05/21/2024 Telephone Internal Medicine - [place] [address] [place] [phone] Tori Jackson MD [address] [place] [phone] Not breathing well Social History Tobacco Use Types Packs/Day Years [...] as of this encounter Progress Notes * Aneta Yates RN - 05/21/2024 2:39 PM EST Call to pt # [phone], spoke to pt C/o back pain but stopped taking the gabapentin. Pt started taking aspirin despite dr. Bhakta instructing him not to take that while taking prednisone. Pt then c/o of SOB with any activity. Stated hefeels like he broke a rib while coughing. pt was talking in full sentences but stated he was layingdown. Instructed pt to go to ED with any SOB and pain in his ribs. Pt agreed to go to ED [facility]. * Edwige Rowell - 05/21/2024 1:50 PM EST Patient brother called and stated that the patient is still not breathing well and is having a lot of pain and can't really move due to the pain and the medication that was given to him has not helped him at all with his breathing. Please advise Cb# [phone] documented in this encounter Plan of Treatment Upcoming Encounters Date Type Department Care Team (Late st Contact Info) Description 06/09/2024 9:30 AM EST Office Visit [facility] Hematology Oncology [address] [place] [phone] Nino Talbot MD [address] [place] [phone] 07/07/2024 11:15 AM EST Office Visit Internal Medicine - [place] [address] [phone] Tori Jackson MD [address] [phone] 07/08/2024 10:45 AM EST Office Visit Pulmonolgy - [place] [address] [phone] Heather Freitas MD [address] [phone] documented as of this encounter Visit Diagnoses Not on filedocumented in this encounter Care Teams Check Inspector Relationship Specialty Start Date End Date Tori Jackson MD [address] [phone] PCP - General Internal Medicine 07/03/16 documented as of this encounter
--- OUTSIDE RECORDS SUMMARY | 2024-06-07 06:34 | XMS_ITS | Encounter Summary ---
Author Organization [facility] Address [address] [place] [address] Care Team Providers Care Weather Strip Mechanic Name Role Phone Tori Jackson MD Primary Care Provider [phone] Encounter Details Date Type Department Care Team (Late Contact Info) Description 03/09/2024 9:30 AM EDT Hospital Encounter TH HISTORIC ENCOUNTERS [facility]AST[facility] CONVERSION ONLY Nino Talbot MD [address] [place] [address] Social History Tobacco Use Types Packs/Day [...] on file documented as of this encounter Plan of Treatment Upcoming Encounters Date Type Department Care Team (Late Contact Info) Description 06/09/2024 9:30 AM EST Office Visit [facility] Hematology Oncology [address] [place] [address] Nino Talbot MD [address] [place] [address] 07/07/2024 11:15 AM EST Office Visit Internal Medicine - [place] 175 [facility] [address] [place] [phone] Tori Jackson MD [address] [phone] 07/08/2024 10:45 AM EST Office Visit Pulmonolgy - [place] [address] [phone] Heather Freitas MD [address] [phone] documented as of this encounter Visit Diagnoses Not on filedocumented in this encounter Additional Health Concerns Infection Onset Date Last Indicated Resolved Time Respiratory Rule-Out 05/21/2024 05/21/2024 025 7:32 PM EST COVID-19 Rule-Out 05/21/2024 05/21/2024 05/21/2024 7:32 PM EST RSV 05/21/2024 05/21/2024 documented as of this encounter Care Teams Weather Strip Mechanic Relationship Specialty Start Date End Date Tori Jackson MD [address] [phone] PCP - General Internal Medicine 07/03/16 documented as of this encounter
--- OUTSIDE RECORDS SUMMARY | 2024-06-07 06:34 | XMS_ITS | Encounter Summary ---
Author Organization [facility] Address [address] [place] [phone] Care Team Providers Care Outdoor Adventure Instructor Name Role Phone Tori Jackson MD Primary Care Provider [phone] Reason for Visit * Reason Onset Date Comments er follow up 05/13/2024 Encounter Details Date Type Department Care Team (Late st Contact Info) Description 05/13/2024 Telephone Internal Medicine - [place] [address] [place] [phone] Tori Jackson MD [address] [place] [phone] er follow up Social History Tobacco Use Types Packs/Day Years [...] as of this encounter Progress Notes * Rosa Maria El RN - 05/13/2024 3:36 PM EST Call to pt # [phone], spoke w/ Vaughn the pt's brother on EC. Appt booked * Bridget Martinez - 05/13/2024 3:09 PM EST Hospital/ER follow up appointment needed Hospital patient was treated at: [facility] Was this only an ER visit or was the patient admitted to the hospital? ER Visit only Date of visit if ER visit only: 05/09/24 If patient was admitted what was the date of discharge? Reason/diagnosis for visit or stay: bad sciatic nerve Patient can't walk has been like this for about 14 days When was the patient told to follow up? [facility] Was visit or stay related to an injury? If yes, what was the date of injury (DOI)? No If yes, was the injury due to: Not 3rd republican related documented in this encounter Plan of Treatment Upcoming Encounters Date Type Department Care Team (Late st Contact Info) Description 06/09/2024 9:30 AM EST Office Visit [facility] Hematology Oncology [address] [place] [phone] Nino Talbot MD [address] [place] [address] 07/07/2024 11:15 AM EST Office Visit Internal Medicine - [place] [address] [phone] Tori Jackson MD [address] [phone] 07/08/2024 10:45 AM EST Office Visit Pulmonolgy - [place] [address] [phone] Heather Freitas MD [address] [phone] documented as of this encounter Visit Diagnoses Not on filedocumented in this encounter Care Teams Outdoor Adventure Instructor Relationship Specialty Start Date End Date Tori Jackson MD [address] [phone] PCP - General Internal Medicine 07/03/16 documented as of this encounter
--- OUTSIDE RECORDS SUMMARY | 2024-06-07 06:34 | XMS_ITS ---
Author Organization 175 [facility] Address [address] [place] [address] Phone Care Team Providers Care Operations Systems Specialist Name Role Phone Tori Jackson MD Primary Care Provider [phone] Post Acute Care Coordination Status:Ongoing (Active) Start date:06/02/2024 Enrollment date:06/02/2024 Enrollment reason:Post acute care coordination Case Team Name Relationship Phone Ashley Edgar RN Post Acute Parking Supervisor(Nova burns Staff) Continued Care and Services Coordination
--- OUTSIDE RECORDS SUMMARY | 2024-06-07 06:34 | XMS_ITS ---
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 Past Plans ONCOLOGY TREATMENT Plan Name Start Date Discontinue Date Treatment Medications Discontinue Reason Plan Provider [facility]15[facility]19 23 01/21/2024 albuterol (PROVENTIL)diphenhydrAMINE (BENADRYL)durvalumab (IMFINZI) infusionEPINEPHrinefamotid ine (PF) (PEPCID)hydrocortisone (SOLU-CORTEF) IVmeperidine (DEMEROL) 25 MG/MLSaline Flush 0.9 %sodium chloride (NS) 0.9 %sodium chloride 0.9% bolus (NS) Therapy Complete Nino Talbot MD 25 of 26 cycles started [facility] OP PACLITAXEL / CARBOPLATIN WEEKLY X7 WITH XRT FOR LUNG CANCERS (5 HRS) 023 10/11/2022 albuterol (PROVENTIL)CARBOplatin (PARAPLATIN) chemo infusion (by AUC)dexamethasone (DECADRON)dexamethasone sod phosphate PF (DECADRON)diphenhydrAMINE (BENADRYL)EPINEPHrinefamot idine (PEPCID)famotidine (PF) (PEPCID)hydrocortisone (SOLU-CORTEF) IVmeperidine (DEMEROL) 25 MG/MLPACLitaxel (TAXOL) chemo infusionpalonosetron (ALOXI)prochlorperazine (COMPAZINE)Saline Flush 0.9 %sodium chloride (NS) 0.9 %sodium chloride 0.9% bolus (NS) Therapy Complete Nino Talbot MD 1 of 1 cycle started Radiation Treatments * No radiation treatments are documented for this patient in [facility]. Treatments may have been administered in another system.
--- OUTSIDE RECORDS SUMMARY | 2024-06-07 06:34 | XMS_ITS | Encounter Summary ---
Author Organization [facility] Address [address] [place] [address] Care Team Providers Care Material Flow Analyst Name Role Phone Tori Jackson MD Primary Care Provider [phone] Reason for Visit * Reason Comments Leg Pain Left leg pain x12 da ys, denies any injury Encounter Details Date Type Department Care Team ([facility] st Contact Info) Description 05/09/2024 11:37 AM EST - 05/09/2024 3:10 PM EST Emergency [facility] Emergency [address] [place] [phone] Pain (Primary Dx); Sciatica associated with disorder of lumbar spine Discharge Disposition: Home or Self Care Social History Tobacco Use Types Packs/Day Years [...] Sign Reading Time Taken Comments Blood Pressure 134/89 05/09/2024 11:42 AM EST Pulse 98 05/09/2024 11:42 AM EST Temperature 36.9 ??C (98.4 ??F) 05/09/2024 11:[address] Respiratory Rate 17 05/09/2024 11:42 AM EST Oxygen Saturation 99% 05/09/2024 11:42 AM EST Inhaled Oxygen Concentration - - Weight 72.6 kg (160 lb) 05/09/2024 11:42 AM EST Height 177.8 cm (5' 10 ) 05/09/2024 11:42 AM EST Body Mass Index 22.96 05/09/2024 11:42 AM EST documented in this encounter Discharge Summaries * Theo Osorio RN - 05/09/2024 3:09 PM EST Pt seen and cleared for d/c by ED provider, d/c instructions reviewed. Rx'd medication education provided, all questions answered. Pt seen ambulating out of department with ease. documented in this encounter Discharge Instructions * Discharge Instructions* LIONEL Nixon - 05/09/2024 2:59 PM EST Rest and drink a lot of fluids. Continue all your medications as previously prescribed. The x-ray showed no evidence of bony abnormality and the ultrasound shows no evidence of blood clot. I suspect that you have sciatica secondary to some degeneration of your lower back. It is very important you follow-up with your primary care doctor and your oncologist. Take ibuprofen as needed. Take Decadron twice a day for 4 days starting tomorrow. * Attachments The following attachments cannot be sent through Care Everywhere. * Sciatica (Kinyarwanda) documented in this encounter Medications at Time of Discharge Medication Sig Dispensed Refills Start Date End Date dexAMETHasone (DECADRON) 4 mg tablet Take 1 [...] every 8 (eight) hours if needed. 05/30/2024 documented as of this encounter Ordered Prescriptions Prescription Sig Dispensed Refills Start Date End Da te dexAMETHasone (DECADRON) 4 mg tablet Take 1 tablet (4 mg total) by mouth 2 (two) times a day for 4 days. 8 each 05/09/2024 05/30/2024 documented in this encounter Discharge Disposition Disposition Code Departure Means Destination Comment s Home or Self Care documented in this encounter Progress Notes * Theo Osorio RN - 05/09/2024 11:37 AM EST Pt presents for left leg pain x 12 days, no trauma or injury. States he can't walk due to pain. Pt ambulated from wc to stretcher without difficulty. A/ox3 * LIONEL Nixon - 05/09/2024 11:03 AM EST Emergency Medicine Note Patient Name: Elvin Partida Initial Evaluation: 05/09/2024 : 1960 Patient's PCP: Tori Jackson MD Emergency Physician: LIONEL Nixon History of Present Illness Chief Complaint: Chief Complaint Patient presents with Leg Pain Left leg pain x12 days, denies any injury HPI: 64-year-old male with a history of COPD lung cancer, he has undergone both radiation and chemotherapy and schizophrenia complaining of low back pain left hip and left leg pain. Patient states this has been going on for 12 days. Denies any trauma. Denies leg weakness or numbness, urinary or fecal incontinence or retention. He has been taking aspirin without effect. ROS: I have performed a ROS with the pertinent positives and negatives documented in the history ofpresent illness. Previous History Past Medical History: Diagnosis Date COPD [...] HERNIA REPAIR PROCEDURE:INGUINAL HERNIA REPAIR Social History Tobacco Use Smoking status: Every Day Current packs/day: 2.00 Types: Cigarettes Substance Use Topics Alcohol use: Not Currently Family History Problem Relation Name Age of Onset Hypertension Mother Dementia Mother Arthritis Father Cancer Mother's Brother Cancer Father's Sister is allergic to penicillin v. No current facility-administered medications on file prior to encounter. Current Outpatient Medications on File Prior to Encounter Medication Sig Dispense Refill fluPHENAZine (PROLIXIN) 5 mg tablet Take 1 tablet (5 mg total) by mouth 1 (one) time each day. ondansetron (ZOFRAN) 4 mg tablet Take 1 tablet (4 mg total) by mouth every 8 (eight) hours if needed. Physical Exam ED Triage Vitals [05/09/24 1142] Temp Heart Rate Resp BP 36.9 ??C (98.4 ??F) 98 17 134/89 SpO2 Temp src Heart Rate Source Patient Position 99 % -- -- -- BP Location FiO2 (%) -- -- General: Well-appearing, well nourished, in mild distress HEENT: PERRL, EOMI, external ears and nose appear unremarkable, airway is patent Neck: Supple, full range of motion Chest: Clear to auscultation; no evidence of respiratory distress Circulatory: RRR, extremities well perfused Abdomen: Non-distended, Non-Tender Extremities: Normal ROM, No edema, 2+ DP and PT pulse noted on the left. There is no edema but there is posterior calf tenderness. There is also some mild to the lateral aspect of the left knee without erythema or edema. There is left hip and lumbar spine tenderness but no erythema. Skin: Warm and dry Neuro: Alert and oriented, no focal deficits Results Labs Reviewed BASIC METABOLIC PANEL COMPLETE BLOOD COUNT CREATINE KINASE Abnormal Labs Reviewed - No abnormal labs to display XR Knee 4+ Views Left (Results Pending) XR Lumbar Spine 2-3 Views (Results Pending) XR Hip 2-3 Views Left (Results Pending) I have discussed the incidental/abnormal imaging and/or lab abnormalities with the patient and haveinstructed them the need for further evaluation and workup with their primary care doctor. I have provided the patient with a paper copy of the abnormality. The laboratory results, imaging results and other diagnostic exam results were reviewed in the EMR. EKG Interpretation Critical Care Time None ? Medical Decision Making Medications ketorolac (TORADOL) injection 30 mg (has no administration in time range) Patient was evaluated. CBC Chem-7 and CPK will be checked. LS-spine x-ray left hip and left knee x-ray. Left leg ultrasound. ultrasound is negative. X-ray showed no evidence of acute or concerning process. Lab work shows no worrisome abnormality. I suspect sciatica patient will be treated with Decadron. Patient is much more comfortable after the shot of Toradol. Clinical Impressions as of 05/09/24 1459 Pain Sciatica associated with disorder of lumbar spine Procedures Procedures Diagnosis No diagnosis found. Low back pain/sciatica Disposition Data Unavailable Discharge ED Prescriptions None Physician Attestation LIONEL Nixon 05/09/24 1231 LIONEL Nixon 05/09/24 1511 LIONEL Nixon 05/09/24 1709 documented in this encounter Plan of Treatment Upcoming Encounters Date Type Department Care Team (Late st Contact Info) Description 06/09/2024 9:30 AM EST Office Visit [facility] Hematology Oncology [address] [place] [phone] Nino Talbot MD [address] [place] [phone] 07/07/2024 11:15 AM EST Office Visit Internal Medicine [facility] [address] [phone] Tori Jackson MD [address] [phone] 07/08/2024 10:45 AM EST Office Visit Pulmonolgy - [place] [address] [phone] Heather Freitas MD [address] [address] documented as of this encounter Procedures Procedure Name Priority Date/Time Associated Diagnosis Comments XR KNEE 4+ VIEWS LEFT STAT 05/09/2024 1:32 PM EST XR HIP 2-3 VIEWS LEFT STAT 05/09/2024 1:32 PM EST XR LUMBAR SPINE 2-3 VIEWS STAT 05/09/2024 1:32 PM EST VAS US DUPLEX LOWER EXT VENOUS LEFT Routine 05/09/2024 1:06 PM EST Pain COMPLETE BLOOD COUNT STAT 05/09/2024 12:43 PM EST CREATINE KINASE STAT 05/09/2024 12:43 PM EST BASIC METABOLIC PANEL STAT 05/09/2024 12:43 PM EST documented in this encounter Results * XR Hip 2-3 Views Left (05/09/2024 [...] Signed Date: 05/09/2024 13:53 ET Workstation ID: [id number] Transcribed By: Self Edit Transcribed Date: 05/09/2024 [...] Signed Date: 05/09/2024 13:53 ET Workstation ID: [id number] Transcribed By: Self Edit Transcribed Date: 05/09/2024 [...] Signed Date: 05/09/2024 13:52 ET Workstation ID: [id number] Transcribed By: Self Edit Transcribed Date: 05/09/2024 [...] Signed Date: 05/09/2024 13:52 ET Workstation ID: [id number] Transcribed By: Self Edit Transcribed Date: 05/09/2024 13:50 ET Elvin FLOWERS IMG XR PROCEDURES * XR Knee 4+ Views Left (05/09/2024 1:32 PM EST) Anatomical Region Laterality Modality Lower Extremities, Knee Left Radiogra phic Imaging 05/09/2024 2:39 PM EST Impressions 05/09/2024 2:41 PM EST No acute fracture or dislocation. No joint effusion or loose bodies. Mild anterior superior patellar enthesophyte. Diffuse osteopenia. -------- FINAL REPORT -------- Dictated By: Mac Burton Dictated Date: 05/09/2024 14:39 ET Assigned Physician: Mac Burton Reviewed and Electronically Signed By: Mac Burton Signed Date: 05/09/2024 14:41 ET Workstation ID: [id number] Transcribed By: Self Edit Transcribed Date: 05/09/2024 [...] Signed Date: 05/09/2024 14:41 ET Workstation ID: [id number] Transcribed By: Self Edit Transcribed Date: 05/09/2024 [...] Signed Date: 05/09/2024 13:13 ET Workstation ID: [id number] Transcribed By: Self Edit Transcribed Date: 05/09/2024 [...] Signed Date: 05/09/2024 13:13 ET Workstation ID: [id number] Transcribed By: Self Edit Transcribed Date: 05/09/2024 13:12 ET Elvin FLOWERS CV VASCULAR PROCEDUR ES * Creatine kinase (05/09/2024 12:43 PM EST) Total CK 105 22 - 269 unit/L LAB CHEMISTRY METHOD 05/09/2024 1:25 PM EST [facility] [place] [facility]) [facility] Blood Venous blood specimen / Unknown Venipuncture / Unknown 05/09/2024 12:43 PM EST 05/09/2024 12:57 PM EST Elvin FLOWERS LAB BLOOD ORDERABLES [facility] [address] [place] [address], * (ABNORMAL) CBC (05/09/2024 12:43 PM EST) [facility] WBC 8.5 4.8 - 10.8 K/mcL LAB HEMETOLOGY METHOD 05/09/2024 1:02 PM EST [facility] RBC 4.50 4.50 - 5.50 M/mcL LAB HEMETOLOGY METHOD 05/09/2024 1:02 PM EST [facility] Hemoglobin 13.8 13.5 - 17.5 g/dL LAB HEMETOLOGY METHOD 05/09/2024 1:02 PM [facility] Hematocrit 40.5(L) 42.0 - 54.0 % LAB HEMETOLOGY METHOD 05/09/2024 1:02 PM EST [facility] MCV 89.2 79.0 - 98.0 FL LAB HEMETOLOGY METHOD 05/09/2024 1:02 PM EST [facility] MCH 30.4 27.0 - 32.0 pcg LAB HEMETOLOGY METHOD 05/09/2024 1:02 PM [facility] MCHC 34.1 32.0 - 37.0 g/dL LAB HEMETOLOGY METHOD 05/09/2024 1:02 PM EST [facility] RDW 15.0 11.0 - 15.0 % LAB HEMETOLOGY METHOD 05/09/2024 1:02 PM [facility] Platelets 239 130 - 400 K/mcL LAB HEMETOLOGY METHOD 05/09/2024 1:02 PM [facility] MPV 8.5 7.0 - 11.0 FL LAB HEMETOLOGY METHOD 05/09/2024 1:02 PM [facility] NRBC 0.0 <1.0 % LAB HEMETOLOGY METHOD 05/09/2024 1:02 PM [facility] NRBC Absolute 0.00 <0.10 K/mcL LAB HEMETOLOGY METHOD 05/09/2024 1:02 PM [facility] Blood Venous blood specimen / Unknown Venipuncture / Unknown 05/09/2024 12:43 PM EST 05/09/2024 12:57 PM EST Elvin FLOWERS LAB BLOOD ORDERABLES [facility] [address] [place] [address], [place] [phone] * (ABNORMAL) Basic Metabolic Panel (BMP) (05/09/2024 12:43 PM EST) Sodium 131(L) 133 - 145 mmol/L LAB CHEMISTRY METHOD 05/09/2024 1:25 PM [facility] Potassium 3.9 3.5 - 5.5 mmol/L LAB CHEMISTRY METHOD 05/09/2024 1:25 PM [facility] Chloride 98 96 - 110 mmol/L LAB CHEMISTRY METHOD 05/09/2024 1:25 PM [facility] CO2 29 21 - 32 mmol/L LAB CHEMISTRY METHOD 05/09/2024 1:25 PM [facility] Anion Gap 4 3 - 11 LAB CHEMISTRY METHOD 05/09/2024 1:25 PM [facility] Glucose 85 70 - 100 mg/dL LAB CHEMISTRY METHOD 05/09/2024 1:25 PM [facility] BUN 5 5 - 25 mg/dL LAB CHEMISTRY METHOD 05/09/2024 1:25 PM [facility] Creatinine 0.72 0.70 - 1.30 mg/dL LAB CHEMISTRY METHOD 05/09/2024 1:25 PM [facility] eGFR 103 >=60 mL/min/1. 73m2 LAB CHEMISTRY METHOD 05/09/2024 1:25 PM [facility] Comment:Calculation based on the??Chronic Kidney Disease Epidemiology Collaboration (CKD-EPI) equation refit??without adjustment for race. BUN/Creatinine Ratio 6.9 LAB CHEMISTRY METHOD 05/09/2024 1:25 PM EST [facility] Calcium 8.6 8.5 - 10.5 mg/dL LAB CHEMISTRY METHOD 05/09/2024 1:25 PM EST [facility] Blood Venous blood specimen / Unknown Venipuncture / Unknown 05/09/2024 12:43 PM EST 05/09/2024 12:57 PM EST Elvin FLOWERS LAB BLOOD ORDERABLES [facility] [address] [place] [address], documented in this encounter Visit Diagnoses Diagnosis Pain- Primary Generalized pain Sciatica associated with disorder of lumbar spine documented in this encounter Administered Medications Inactive Administered Medications - up to 3 most recent administrations Medication Order MAR Action Action Date Dose Rate Site dexAMETHasone (DECADRON) tablet 10 mg 10 mg, oral, Once, On 05/09/24 at 1504, For 1 dose Given 05/09/2024 3:07 PM EST 10 mg ketorolac (TORADOL) injection 30 mg 30 mg, intramuscular, Once, On 05/09/24 at 1230, For 1 dose Given 05/09/2024 12:43 PM EST 30 mg Right Anterior Thigh documented in this encounter Active and Recently Administered Medications Times are shown in EST. Scheduled Medication Order 2024 05/08/2024 05/09/2024 dexAMETHasone (DECADRON) tablet 10 mg (COMPLETED) 10 mg, oral, Once, On 05/09/24 at 1504, For 1 dose 1507 (Given - Provid er: Theo Osorio RN) ketorolac (TORADOL) injection 30 mg (COMPLETED) 30 mg, intramuscular, Once, On 05/09/24 at 1230, For 1 dose 1243 (Given - Provid er: Theo Osorio RN) documented in this encounter Orders Medications Ordered That Torsten ht Not Have Been Administered Count Last Ordered Date First Ordered Date dexAMETHasone (DECADRON) 10 mg in sodium chloride 0.9 % IVPB 1 05/09/2024 dexAMETHasone (DECADRON) tablet 10 mg 1 documented in this encounter Care Teams Material Flow Analyst Relationship Specialty Start Date End Date Tori Jackson MD [address] [phone] PCP - General Internal Medicine 07/03/16 documented as of this encounter
--- OUTSIDE RECORDS SUMMARY | 2024-06-07 06:34 | XMS_ITS | Encounter Summary ---
Author Organization [facility] Address [address] [place] [address] Care Team Providers Care Crawler Crane Operator Name Role Phone Tori Jackson MD Primary Care Provider [phone] Reason for Referral * Consultation (Urgent) - Authorized Specialty Diagnoses / Procedures Referred By Contmariela t Referred To Contact Physical Medicine and Rehabilitation Diagnoses Lumbar radiculitis Jostin Bhakta MD 175 [facility] [address] [place] [address] [facility] Physiatry [address] [place] [address] Referral ID Status Reason Start Date Expiration Date Visits Requested Visits Authorized [id number] Authorized Specialty Services Required 05/18/2024 05/18/2025 1 1 Reason for Visit * Reason Comments Follow-up Encounter Details Date Type Department Care Team (Late st Contact Info) Description 05/18/2024 2:30 PM EST Office Visit Internal Medicine - [place] [address] [phone] Jostin Bhakta MD [address] [address] Lumbar radiculitis (Primary Dx); Hospital discharge follow-up Social History Tobacco Use Types Packs/Day Years [...] Sign Reading Time Taken Comments Blood Pressure 140/70 05/18/2024 2:36 PM EST Pulse 99 05/18/2024 2:36 PM EST Temperature 37.1 ??C (98.7 ??F) 05/18/2024 2:36 PM ES T Respiratory Rate - - Oxygen Saturation 93% 05/18/2024 2:36 PM EST Inhaled Oxygen Concentration - - Weight 73.8 kg (162 lb 12.8 oz) 05/18/2024 2:36 PM EST Height - - Body Mass Index 23.36 05/09/2024 11:42 AM EST documented in this encounter Ordered Prescriptions Prescription Sig Dispensed Refills Start Date End Da te gabapentin (NEURONTIN) 300 mg capsule Take 1 capsule (300 mg total) by mouth at bedtime. 30 each 1 05/18/2024 predniSONE (DELTASONE) 20 mg tablet Take 3 tabs (60mg) daily for 3 days, then take 2 tabs (40mg) daily for 3 days, then take 1 tab (20mg) daily for 3 days. 18 tablet 05/18/2024 05/30/2024 documented in this encounter Progress Notes * Jostin Bhakta MD - 05/18/2024 2:30 PM EST [facility] ER follow-up IDENTIFIER: Elvin Partida is a 64 y.o. old male. HPI: Following up for from ER visit 05/09/2024 due to radiculitis symptoms in left lower extremity, x-rays of the lower lumbar spine, hips and venous duplex of the legs were negative. 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) 05/15/2022 Chronic obstructive pulmonary disease ([facility]) 01/06/2018 Hyperlipidemia 01/06/2018 Basal cell carcinoma 10/01/2016 Vitamin D deficiency 12/30/2015 Secondary polycythemia 12/23/2014 Schizophrenia ([facility]) 10/01/2011 Past Surgical History: Procedure Laterality Date HERNIA REPAIR PROCEDURE:INGUINAL HERNIA REPAIR SOCIAL HISTORY: Social History Tobacco Use Smoking status: Every Day Current packs/day: 2.00 Types: Cigarettes Smokeless tobacco: Not on file Substance Use Topics Alcohol use: Not Currently FAMILY HISTORY: Family History Problem Relation Name Age of Onset Hypertension Mother Dementia Mother Arthritis Father Cancer Mother's Brother Cancer Father's Sister MEDICATIONS DISCONTINUED/REORDERED: There are no discontinued medications. ACTIVE MEDICATIONS: Outpatient Medications Marked as Taking for the 05/18/24 encounter (Office Visit) with Jostin Bhakta MD Medication Sig Dispense Refill fluPHENAZine (PROLIXIN) 5 mg tablet Take 1 tablet (5 mg total) by mouth 1 (one) time each day. ondansetron (ZOFRAN) 4 mg tablet Take 1 tablet (4 mg total) by mouth every 8 (eight) hours if needed. ALLERGIES: Allergies Allergen Reactions Penicillin V Rash PHYSICAL EXAM: Vitals: 05/18/24 1436 BP: (!) 140/70 Pulse: 99 Temp: 37.1 ??C (98.7 ??F) SpO2: 93% APPEARANCE: Alert and in no acute distress EARS: External ears normal. HEART: RRR with normal S1 and S2, no murmurs LUNG: clear to auscultation LABS: Lab Results Component Value Date WBC 8.5 05/09/2024 HGB 13.8 05/09/2024 HCT 40.5 (L) 05/09/2024 MCV 89.2 05/09/2024 Lab Results Component Value Date NA 131 (L) 05/09/2024 K 3.9 05/09/2024 CO2 29 05/09/2024 CL 98 05/09/2024 BUN 5 05/09/2024 No results found for: TSH Lab Results Component Value Date HGBA1C 5.9 10/27/2020 CHOL 132 12/31/2021 LDL 79 12/31/2021 HDL 32 (A) 12/31/2021 TRIG 109 12/31/2021 No components found for: URINELEUK , URINENITR , URINEPRO , URINEPH , URINEBLD , URINESG , URINEKET , URINEBILI , URINEGLUC IMAGING: IMPRESSION: 1. Lumbar radiculitis Ambulatory referral to Physical Medicine Rehab 2. Hospital discharge follow-up PLAN: Symptoms suggestive of left-sided lumbar radiculitis ,could be disc related problem. x-rays were fine. Prednisone taper and gabapentin sent to the pharmacy. refer to commercial lines underwriter. Do not take Motrin along with prednisone. Labs done showed sodium 131 hematocrit 40.5 could be related to his underlyinglung cancer. documented in this encounter Plan of Treatment Upcoming Encounters Date Type Department Care Team (Late st Contact Info) Description 06/09/2024 9:30 AM EST Office Visit [facility] Hematology Oncology [address] [place] [address] Nino Talbot MD [address] [place] [address] 07/07/2024 11:15 AM EST Office Visit Internal Medicine - [place] [address] [phone] Tori Jackson MD [address] [phone] 07/08/2024 10:45 AM EST Office Visit Pulmonolgy - [place] [address] [phone] Heather Freitas MD [address] [address] Scheduled Referrals Name Type Priority Associated Diagnoses Order Schedule Ambulatory referral to Physical Medicine Rehab Outpatient Referral Routine Lumbar radiculitis 1 Occurrences starting 05/18/2024 until 05/18/2025 documented as of this encounter Visit Diagnoses Diagnosis Lumbar radiculitis- Primary Hospital discharge follow-up Other follow-up examination documented in this encounter Care Teams Crawler Crane Operator Relationship Specialty Start Date End Date Tori Jackson MD [address] [phone] PCP - General Internal Medicine 07/03/16 documented as of this encounter
--- OUTSIDE RECORDS SUMMARY | 2024-06-07 06:34 | XMS_ITS | Encounter Summary ---
Author Organization [facility] Address [address] [place] [address] Care Team Providers Care Instrument Checker Name Role Phone Tori Jackson MD Primary Care Provider [phone] Encounter Details Date Type Department Care Team (Late Contact Info) Description 04/16/2024 Telephone Internal Medicine - [place] [address] [place] [phone] Tori Jackson MD [address] [place] [phone] Social History Tobacco Use Types Packs/Day Years [...] as of this encounter Progress Notes * Zhanna Carr - 04/16/2024 10:35 AM EST [facility] states call received at 8:00AM CANCELLING patient appt due to Weather. Appt was scheduled for 11:00AM Unsure of why it was cancelled as office was opened fyi documented in this encounter Plan of Treatment Upcoming Encounters Date Type Department Care Team (Late st Contact Info) Description 06/09/2024 9:30 AM EST Office Visit [facility] Hematology Oncology [address] [place] [phone] Nino Talbot MD [address] [place] [phone] 07/07/2024 11:15 AM EST Office Visit Internal Medicine - [place] [address] [phone] Tori Jackson MD [address] [phone] 07/08/2024 10:45 AM EST Office Visit Pulmonolgy - [place] [address] [phone] Heather Freitas MD [address] [phone] documented as of this encounter Visit Diagnoses Not on filedocumented in this encounter Care Teams Instrument Checker Relationship Specialty Start Date End Date Tori Jackson MD [address] [phone] PCP - General Internal Medicine 07/03/16 documented as of this encounter
--- OUTSIDE RECORDS SUMMARY | 2024-06-07 06:34 | XMS_ITS | Encounter Summary ---
Author Organization [facility] Address [address] [place] [address] Care Team Providers Care Consulting Nurse Name Role Phone Tori Jackson MD Primary Care Provider [phone] Encounter Details Date Type Department Care Team Description 07/08/[address] [facility] Oncology Services [address], [place] [id number] Jacobo Retana, [facility] Social History Tobacco Use Types Packs/Day Years Used Date Smoking Tobacco: Every Day Cigarettes 2 40 Alcohol Use Standard Drinks/Week Comments Not Currently 0 (1 standard drink = 0.6 oz pur e alcohol) Sex and Gender Information Value Date Recorded Sex Assigned at Male 12/23/2022 11:04 AM EDT Gender Identity Male 12/23/2022 11:04 AM EDT Sexual Orientation Straight 12/23/2022 11 :04 AM EDT Job Start Date Occupation Industry Not on file Not on file Not on file COVID-19 Exposure Response Date Recorded In the last 10 days, have yo u been in contact with someone who was confirmed or suspected to have Coronavirus/COVID-19? No / Unsure 07/08/2022 9:52 AM EST documented as of this encounter Plan of Treatment Not on file documented as of this encounter Visit Diagnoses Not on filedocumented in this encounter Care Teams Consulting Nurse Relationship Specialty Start Date End Date Tori Jackson MD [address] [facility] [address] [place] [address] PCP - General Internal Medicine 04/26/22 documented as of this encounter
--- OUTSIDE RECORDS SUMMARY | 2024-06-07 06:34 | XMS_ITS | Clinical Summary ---
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 8.5 g 1 07/15/2022 Active Fluticasone-Umeclidi n-Vilant (TRELEGY ELLIPTA IN) Inhale into the lungs. 0 Active fluPHENAZine (PROLIXIN) 5 MG tablet Take 1 tablet (5 mg total) by mouth daily. 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 Encounters Date Type Department Care Team Description 03/09/2024 9:30 AM EDT Follow-Up [facility] Oncology Services [address] [place] [address] Nino Talbot MD Squamous cell carcinoma of right lung (HCC) (Primary Dx) 03/09/2024 Travel from Last 3 Months Family History Medical History Relation Name Comments Arthritis Father Cancer Maternal Uncle Dementia Mother Hypertension Mother Cancer Paternal Aunt Relation Name Status Comments Father Maternal Uncle Mother Paternal Aunt Social History Tobacco Use Types Packs/Day Years [...] file Not on file Not on file Last Filed Vital Signs Vital Sign Reading Time Taken Comments Blood Pressure 96/62 03/09/2024 9:34 AM EDT Pulse 86 03/09/2024 9:34 AM EDT Temperature 36.9 ??C (98.4 ??F) 03/09/2024 9:34 AM ED T Respiratory Rate 18 10/08/2023 9:41 AM EDT Oxygen Saturation 98% 03/09/2024 9:34 AM EDT Inhaled Oxygen Concentration - - Weight 73 kg (161 lb) 03/09/2024 9:34 AM EDT Height 177.8 cm (5' 10 ) 10/08/2023 9:41 AM EDT Body Mass Index 23.1 10/08/2023 9:41 AM EDT Plan of Treatment Health Maintenance Due Date Last Done Comments Hepatitis C Screening 1962 Lung Cancer Screening (Low Dose CT) 1962 Pneumococcal Vaccine (1 of 2 - PCV) 1968 Depression Screening 1974 Preventative Health Evaluation 1980 Tobacco Cessation Counseling 1980 DTap / Tdap / Td (1 - Tdap) 1981 Shingrix-Zoster Vaccine (1 o f 2) 1981 Colon Cancer Screening (Colonoscopy) 2007 COVID-19 Vaccine (3 - Pfizer risk series) 09/27/2020 08/30/2020, 08/09/2020 Influenza Vaccine (#1) 2024 RSV Adult > 60+ Yrs or (1 - 1-dose 75+ series) 2037 Hepatitis B Vaccines Aged Out No long er eligible based on patient's age to complete this topic RSV Ped < 20 months Aged Out No longe r eligible based on patient's age to complete this topic Care Teams Computer Hardware Technician Relationship Specialty Start Date End Date Tori Jackson MD [address] [facility] [address] [place] [address] PCP - General Internal Medicine 04/26/22
[2024-06-07 07:08] LABS: Anion Gap 12 (12-20); Blood Urea Nitrogen 6 mg/dL (9-16); Calcium 8.6 mg/dL (8.4-10.2); Carbon Dioxide 27 mmol/L (22-29); Chloride 106 mmol/L (96-108); Estimated Glomerular Filt Rate > 60; Glucose Random 74 mg/dL (60-115); Potassium 3.9 mmol/L (3.3-5.1); Sodium 141 mmol/L (135-145)
[2024-06-07 07:09] LABS: Basophils Percent Auto 0.2 % (0-2); Eosinophils Absolute Auto 0.1 X10*3/uL (0.0-0.4); Eosinophils Percent Auto 1.2 % (0-4); Hematocrit 38.7 % (42.0-52.0); Imm Gran Abs Auto 0.09 X10*3/uL (0.00-0.03); Imm Gran Pct Auto 0.8 % (0.0-0.4); Lymphocytes Percent Auto 9.6 % (20-40); Mean Corpuscular HGB Conc 33.6 g/dl (31.0-36.0); Mean Corpuscular Hemoglobin 30.8 pg (27.0-33.0); Mean Corpuscular Volume 91.7 fL (80.0-98.0); Mean Platelet Volume 9.1 fL (9.4-12.4); Monocytes Absolute Auto 0.7 X10*3/uL (0.1-1.2); Monocytes Percent Auto 6.7 % (2-11); Neutrophils Absolute Auto 8.7 x10*3/uL (2.0-8.3); Neutrophils Percent Auto 81.5 % (45-73); Platelet Count 197 X10*3/uL (160-400); Red Blood Count 4.22 X10*6/uL (4.60-5.80); Red Cell Distribution Width 15.2 % (11.0-16.0); White Blood Count 10.7 X10*3/uL (4.8-10.8)
== END 2024-06-07 06:21 | disposition home or self-care (01) ==
LOC: HO.MMNH1L 06:20
PROVIDERS: Visit Provider Nurse Practitioner
DX: J44.9 Chronic obstructive pulmonary disease, unspecified (principal); J45.909 Unspecified asthma, uncomplicated
CPT/HCPCS: 36415; 80048; 85025